=== PATIENT | male | born 1940 ===

== ENCOUNTER 2016-06-11 18:55 | Inpatient (IN) | payer MEDICARE, MEDICAID ==
[2016-06-11 18:56] VITALS: BMI 31.6
[2016-06-11 20:04] LABS: BASO # 0.1 K/uL (0.0-0.2); BASO % 1.1 % (0.0-2.0); EOS # 0.1 K/uL (0.0-0.7); EOS % 2.3 % (0.0-4.0); HEMATOCRIT 32.9 % (35.0-51.0); LYMPH # 1.2 K/uL (1.0-4.3); LYMPH % 18.6 % (20.0-40.0); MEAN CELL VOLUME 86.7 fl (80.0-94.0); MEAN CORPUSCULAR HEMOGLOBIN 28.5 pg (27.0-31.0); MEAN CORPUSCULAR HGB CONC 32.8 g/dL (33.0-37.0); MEAN PLATELET VOLUME 7.6 fl (7.2-11.7); MONO # 0.9 K/uL (0.0-0.8); MONO % 14.7 % (0.0-10.0); NEUT # 4.1 K/uL (1.8-7.0); NEUT % 63.3 % (50.0-75.0); NRBC % 0.1 % (0.0-0.0); RED CELL DISTRIBUTION WIDTH 15.2 % (11.5-14.5); WHITE BLOOD COUNT 6.4 K/uL (4.8-10.8)
[2016-06-11 20:18] LABS: BLOOD UREA NITROGEN 21 mg/dl (9-20); CALCIUM 10.4 mg/dL (8.4-10.2); CARBON DIOXIDE 21 mmol/L (22-30); CHLORIDE 105 mmol/L (98-107); GFR AFRICAN-AMERICAN > 60; GLUCOSE,RANDOM 166 mg/dL (75-110); POTASSIUM 4.8 MMOL/L (3.6-5.0); SODIUM 142 mmol/l (132-148)
[2016-06-11 20:37] LABS: PARTIAL THROMBOPLASTIN TIME 25.8 SECONDS (23.3-32.5)
--- NOTE | 2016-06-11 20:53 | ED PDOC ---
HPI: Chest Pain Time Seen by Provider: 06/11/16 19:49 Chief Complaint (Nursing): Chest Pain Chief Complaint (Provider): Left-Sided Chest Pain History Per: Patient, Family (Patient's daughter) History/Exam Limitations: no limitations Onset/Duration Of Symptoms: Days (x1) Additional Complaint(s): 19:49 Tenzin Johnson is a 76 year old male with a history of CAD, diabetes, and hypertension, as well as a past surgical history of CABG and coronary stents, is accompanied by his daughter that presents to the ED with a chief complaint of left sided chest pain that has radiated to his left shoulder and left arm that he began experiencing last night. Patient states that it feels as though his left arm is numb. He also reports that he has become increasingly short of breath with minimal exertion, but denies any fever or cough. PMD: Hamilton Mcknight Past Medical History Reviewed: Historical Data, Nursing Documentation, Vital Signs Vital Signs: Last Vital Signs Temp 98.4 F 06/11/16 19:06 Pulse 88 06/11/16 19:06 Resp 16 06/11/16 19:06 BP 194/99 H 06/11/16 19:06 Pulse Ox 98 06/11/16 21:06 - Medical History PMH: CAD, Diabetes, HTN Denies: Chronic Kidney Disease - Surgical History Surgical History: CABG (17 years ago), Coronary Stent (2012, stent x1) Denies: Pacemaker - Family History Family History: States: Unknown Family Hx - Home Medications Home Medications: Ambulatory Orders Medication Instructions Recorded Aspirin [Aspirin EC] 1 tab PO DAILY 06/11/16 Atorvastatin [Lipitor] 80 mg PO DAILY 06/11/16 Bimatoprost [Lumigan] 1 drop BOTHEYES DAILY 06/11/16 Clopidogrel [Plavix] 75 mg PO DAILY 06/11/16 Dexlansoprazole [Dexilant] 60 mg PO DAILY 06/11/16 Dicyclomine [Bentyl] 10 mg PO DAILY 06/11/16 Isosorbide Mononitrate [Imdur] 30 mg PO DAILY 06/11/16 Metoprolol Tartrate [Lopressor] 25 mg PO BID 06/11/16 Ranolazine [Ranexa] 500 mg PO BID 06/11/16 Ubidecarenone [Coenzyme Q-10] 200 mg PO BID 06/11/16 glyBURIDE [Micronase] 5 mg PO BID 06/11/16 metFORMIN [glucOPHAGE] 850 mg PO BID 06/11/16 - Allergies Allergies/Adverse Reactions: Allergies Allergy/AdvReac Type Severity Reaction Status Date / Time No Known Allergies Allergy Verified 06/11/16 19:05 Review of Systems Constitutional: Negative for: Fever Cardiovascular: Positive for: Chest Pain (left-sided) Respiratory: Negative for: Cough Musculoskeletal: Positive for: Shoulder Pain (left shoulder pain), Arm Pain ( left arm pain) Neurological: Positive for: Numbness (left arm numbness) Physical Exam - Reviewed Nursing Documentation Reviewed: Yes Vital Signs Reviewed: Yes - Physical Exam Appears: Positive for: Non-toxic, No Acute Distress Head Exam: Positive for: ATRAUMATIC, NORMOCEPHALIC Skin: Positive for: Normal Color, Warm Eye Exam: Positive for: Normal appearance, EOMI, PERRL ENT: Positive for: Normal ENT Inspection Cardiovascular/Chest: Positive for: Regular Rate, Rhythm, Chest Non Tender. Negative for: Murmur Respiratory: Positive for: Crackles (mild crackles at bases of lungs). Negative for: Normal Breath Sounds, Wheezing, Respiratory Distress Extremity: Positive for: Normal ROM. Negative for: Tenderness, Pedal Edema Neurologic/Psych: Positive for: Alert, Oriented - Laboratory Results Result Diagrams: 06/11/16 19:55 06/11/16 19:55 - ECG O2 Sat by Pulse Oximetry: 98 (RA) Pulse Ox Interpretation: Normal Medical Decision Making Medical Decision Makin:40 Initial Impression: r/o ACS Initial Plan: * Page Dr. Agudelo * PTT * PT * Chest X-Ray * Reevaluation 9PM: Spoke with covering physician for Dr. Agudelo (Dr. Mcknight covering), who agrees with admission. Spoke with Dr. Mckenzie who agrees with admission. Scribe Attestation: Documented by Emilia Schneider, acting as a scribe for Alvin Winchester MD. Provider Scribe Attestation: All medical record entries made by the Scribe were at my direction and personally dictated by me. I have reviewed the chart and agree that the record accurately reflects my personal performance of the history, physical exam, medical decision making, and the department course for this patient. I have also personally directed, reviewed, and agree with the discharge instructions and disposition. Disposition - Clinical Impression Clinical Impression: Chest pain - Disposition Disposition Time: 21:08 Condition: STABLE
[2016-06-11] MEDS ORDERED: Metoprolol 1 mg/ml Inj IVP STA ×2 (23:24→23:36)
[2016-06-11] MEDS ORDERED: Metoprolol 1 mg/ml Inj IVP ONE (23:31)
--- NOTE | 2016-06-11 23:59 | CT ---
EXAM: CT Chest With Intravenous Contrast CLINICAL HISTORY: 76 years old, male; Pain; Chest pain; Type not specified; Abdominal pain; Generalized; Additional info: R/O dissection. Sent suhas [place] Physician doc. With request TECHNIQUE: Axial computed tomography images of the chest with intravenous contrast during the arterial phase of enhancement. This CT exam was performed using one or more of the following dose reduction techniques: automated exposure control, adjustment of the mA and/or kV according to patient size, and/or use of iterative reconstruction technique. Coronal and sagittal reformatted images were created and reviewed. CONTRAST: 90 mL of [id number] administered intravenously. COMPARISON: No relevant prior studies available. FINDINGS: Pulmonary arteries: No pulmonary embolism. Aorta: Mild atherosclerotic disease of aorta. No aortic dissection. Lungs: Mild atelectasis. No consolidation. Pleural space: No significant effusion. No pneumothorax. Heart: No cardiomegaly. No significant pericardial effusion. Mediastinum: Small hiatal hernia. Thyroid: 3.1 x 2.0 x 1.8 cm heterogeneous nodule within LEFT lobe. Bones/joints: Median sternotomy. No acute fracture. No dislocation. Soft tissues: Unremarkable. Lymph nodes: No pathologically enlarged lymph nodes. IMPRESSION: 1. No aortic dissection. 2. Thyroid nodule. Followup as clinically warranted. 3. Incidental/non-acute findings are described above. EXAM: CT Abdomen and Pelvis With Intravenous Contrast CLINICAL HISTORY: 76 years old, male; Pain; Chest pain; Type not specified; Abdominal pain; Generalized; Additional info: R/O dissection. Sent eGrey Eason. Physician doc. With request TECHNIQUE: Axial computed tomography images of the abdomen and pelvis with intravenous contrast during the arterial phase of enhancement. This CT exam was performed using one or more of the following dose reduction techniques: automated exposure control, adjustment of the mA and/or kV according to patient size, and/or use of iterative reconstruction technique. Coronal and sagittal reformatted images were created and reviewed. CONTRAST: 90 mL of [id number] administered intravenously. COMPARISON: CT ABD AND PELV W/CONTRAST 02/28/2012 11:01:22 PM FINDINGS: VASCULATURE: Aorta: Moderate atherosclerotic disease of aorta. No aortic dissection. Celiac trunk and mesenteric arteries: Mild ostial stenosis of celiac axis. No occlusion. Renal arteries: No occlusion or significant stenosis. Iliac arteries: Mild atherosclerotic disease of iliac arteries. No occlusion or significant stenosis. ABDOMEN: Liver: No mass. Gallbladder and bile ducts: No calcified stones. No ductal dilation. Pancreas: No ductal dilation. No mass. Spleen: No splenomegaly. Adrenals: No mass. Kidneys and ureters: Mild stranding about kidneys, nonspecific. Too small to characterize lesion within LEFT kidney. No hydronephrosis. Stomach and bowel: No obstruction. No mucosal thickening. Appendix: Normal caliber. No inflammation. PELVIS: Bladder: No mass. Reproductive: Enlarged prostate gland. ABDOMEN and PELVIS: Intraperitoneal space: No significant fluid collection. No free air. Bones/joints: No acute fracture. No dislocation. Soft tissues: Unremarkable. Lymph nodes: No pathologically enlarged lymph nodes. IMPRESSION: 1. No aortic dissection. 2. Incidental/non-acute findings are described above.
[2016-06-12] MEDS ORDERED: Nitroglycerin 2% 15 INCH/30 GM TUBE TOP PRN (01:38)
[2016-06-12] MEDS ORDERED: Pneumococcal 23-Valent Vaccine IM ONE (07:03)
[2016-06-12] MEDS ORDERED: Influenza Vaccine(5yr & older) 0.5 ML/45 MCG IM ONE (07:03)
[2016-06-12 07:29] LABS: ALB/GLOB RATIO 1.2 (1.0-2.1); ALKALINE PHOSPHATASE 96 U/L (38-126); ALT/SGPT 29 U/L (21-72); AST/SGOT 29 U/L (17-59); BILIRUBIN,TOTAL 0.7 mg/dl (0.2-1.3); BLOOD UREA NITROGEN 17 mg/dl (9-20); CALCIUM 10.2 mg/dL (8.4-10.2); CARBON DIOXIDE 26 mmol/L (22-30); CHLORIDE 103 mmol/L (98-107); GFR AFRICAN-AMERICAN > 60; GLUCOSE,RANDOM 126 mg/dL (75-110); POTASSIUM 4.1 MMOL/L (3.6-5.0); SODIUM 142 mmol/l (132-148); TOTAL PROTEIN 7.7 G/DL (6.3-8.2)
[2016-06-12] MEDS ORDERED: Patient's Own Med (Ubidecarenone [Coenzyme Q-10] 200 mg) PO SCH (09:00)
[2016-06-12] MEDS ORDERED: Patient's Own Med (Bimatoprost [Lumigan] 1 DROP) BOTHEYES SCH (09:00)
[2016-06-12] MEDS: Aspirin 325 mg EC Tablets PO SCH (09:44)
[2016-06-12] MEDS: Pantoprazole 40 mg EC Tab PO SCH (09:46)
--- NOTE | 2016-06-12 11:21 | CARD ---
APPROVED REPORT EKG Measurement Heart [id number] <Conclusion> Normal sinus rhythm Normal ECG
--- NOTE | 2016-06-12 14:11 | RAD ---
HISTORY: chest pain COMPARISON: 06/11/2016 FINDINGS: LUNGS: No active pulmonary disease. PLEURA: No significant pleural effusion identified, no pneumothorax apparent. CARDIOVASCULAR: Status post CABG OSSEOUS STRUCTURES: No significant abnormalities. VISUALIZED UPPER ABDOMEN: Normal. OTHER FINDINGS: None. IMPRESSION: No active disease.
--- NOTE | 2016-06-12 14:29 | CP.PCM.HP ---
History of Present Illness - History of Present Illness History of Present Illness: Pt is a 76 year old male with a history of CAD, diabetes, and hypertension, as well as a pasthistory of CABG and coronary stents, is accompanied by his daughter that presents to the ED with a chief complaint of left sided chest pain that has radiated to his left shoulder and left arm began experiencing last night. Patient states that it feels as though his left arm is numb. He also reports that he has become increasingly short of breath with minimal exertion, but denies any fever or cough. Pt seen and examined at bedside this morning, does not have any complaints, reports chest pain has resolved. denies sob, nausea, vomiting, dizziness. Present on Admission - Present on Admission Any Indicators Present on Admission: No Review of Systems - Review of Systems All systems: reviewed and no additional remarkable complaints except Review of Systems: Per HPI Past Patient History - Infectious Disease Hx of Infectious Diseases: None - Past Medical History & Family History Past Medical History?: Yes - Past Social History Smoking Status: Former Smoker - CARDIAC Hx Cardiac Disorders: Yes Hx Circulatory Problems: Yes Other/Comment: CABG cardiac stents 2008; - PULMONARY Hx Respiratory Disorders: No - NEUROLOGICAL Hx Neurological Disorder: No - HEENT Hx HEENT Problems: No 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; 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) - RENAL Hx Chronic Kidney Disease: No - ENDOCRINE/METABOLIC Hx Endocrine Disorders: Yes Hx Diabetes Mellitus Type 2: Yes Other/Comment: DM diagnosed 20 years ago - HEMATOLOGICAL/ONCOLOGICAL Hx Blood Disorders: No - INTEGUMENTARY Hx Dermatological Problems: No - MUSCULOSKELETAL/RHEUMATOLOGICAL Hx Musculoskeletal Disorders: No Hx Falls: Yes (more than 1 year ago) - GASTROINTESTINAL Hx Gastrointestinal Disorders: Yes Hx Constipation: Yes - GENITOURINARY/GYNECOLOGICAL Hx Genitourinary Disorders: No - PSYCHIATRIC Hx Psychophysiologic Disorder: No Hx Substance Use: No - SURGICAL HISTORY Hx Surgeries: Yes Hx Coronary Artery Bypass Graft: Yes (17 years ago) Hx Coronary Stent: Yes (2012, stent x1) - ANESTHESIA Hx Anesthesia: Yes Hx Anesthesia Reactions: No Hx Malignant Hyperthermia: No Has any member of the family had a problem w/ anesthesia?: No Meds Allergies/Adverse Reactions: Allergies Allergy/AdvReac Type Severity Reaction Status Date / Time No Known Allergies Allergy Verified 06/11/16 19:05 Physical Exam - Constitutional Appears: Non-toxic, No Acute Distress - Head Exam Head Exam: NORMOCEPHALIC - Eye Exam Eye Exam: Normal appearance - ENT Exam ENT Exam: Mucous Membranes Moist - Respiratory Exam Respiratory Exam: Clear to Auscultation Bilateral, NORMAL BREATHING PATTERN. absent: Rhonchi, Wheezes - Cardiovascular Exam Cardiovascular Exam: REGULAR RHYTHM, +S1, +S2 - GI/Abdominal Exam GI & Abdominal Exam: Normal Bowel Sounds, Soft. absent: Tenderness - Extremities Exam Extremities exam: Negative for: calf tenderness, pedal edema - Neurological Exam Neurological exam: Alert, CN II-XII Intact Results - Vital Signs Recent Vital Signs: Last Vital Signs Temp 97.5 F L 06/12/16 13:00 Pulse 74 06/12/16 13:00 Resp 18 06/12/16 13:00 BP 100/61 06/12/16 13:00 Pulse Ox 98 06/12/16 13:00 - Labs Result Diagrams: 06/11/16 19:55 06/12/16 06:30 Labs: Laboratory Results - last 24 hr 06/12/16 06/12/16 05:24 06:30 Sodium 142 Potassium 4.1 Chloride 103 Carbon Dioxide 26 Anion Gap 18 BUN 17 Creatinine 1.0 Est GFR ( Amer) > 60 Est GFR (Non-Af Amer) > 60 POC Glucose (mg/dL) 124 H Random Glucose 126 H Calcium 10.2 Total Bilirubin 0.7 AST 29 ALT 29 Alkaline Phosphatase 96 Troponin I 0.0640 Total Protein 7.7 Albumin 4.3 Globulin 3.4 Albumin/Globulin Ratio 1.2 Assessment & Plan - Assessment and Plan (Free Text) Assessment: 76 y/o male with history of diabetes, HTN and history of CABG admitted for chest pain r/o ACS Plan: 1. Chest Pain r/o ACS trop 2x negative. f/u 3rd level cardiology consulted monitor 2. Non-insulin dependent diabetic accucheck resume home meds ssi 3. HTN resume home meds 5. diet- diabetic 6. DVT prophylaxis- lovenox SC 40mg daily
--- NOTE | 2016-06-12 14:52 | RAD ---
HISTORY: hx of CABG, p/w CP COMPARISON: Comparison chest dated 09/25/2012. FINDINGS: LUNGS: Mild bibasilar atelectasis and or scarring changes. PLEURA: Questionable tiny bilateral effusions left larger than right no pneumothorax apparent. CARDIOVASCULAR: Sternotomy wires and CABG clips again noted. Heart does appear enlarged. OSSEOUS STRUCTURES: No significant abnormalities. VISUALIZED UPPER ABDOMEN: Normal. OTHER FINDINGS: None. IMPRESSION: Mild chronic bibasilar atelectasis and or scarring changes. . Questionable tiny bilateral effusions left greater than right
[2016-06-12] MEDS: Insulin Regular 100 units/ml SC SCH ×2 (17:11→21:42)
--- NOTE | 2016-06-12 19:54 | CP.PCM.CON ---
History of Present Illness - History of Present Illness History of Present Illness: I was asked to see patient by Dr. Mckenzie. Patient is a 76 year old male with history of HTN, DM, CAD s/p CABG who presents with chest pain. The patient has had previous CABG and coronary stents , performed at [place]. The patient states he developed chest pain which was right sided. There was some association with movemment of the upper extremity. The patient denies dyspnea. cardiac enzymes are negative. Review of Systems - Constitutional Constitutional: absent: As Per HPI, Anorexia, Chills, Daytime Sleepiness, Excessive Sweating, Fatigue, Fever, Frequent Falls, Headache, Increased Appetite , Lethargy, Malaise, Night Sweats, Snoring, Sleep Apnea, Weight Gain, Weight Loss, Weakness, Other - EENT Eyes: absent: As Per HPI, Blind Spots, Blurred Vision, Change in Vision, Decreased Night Vision, Diplopia, Discharge, Dry Eye, Exophthalmos, Floaters, Irritation, Itchy Eyes, Loss of Peripheral Vision, Pain, Photophobia, Requires Corrective Lenses, Sees Flashes, Spots in Vision, Tunnel Vision, Other Visual Disturbances, Loss of Vision, Other Ears: absent: As Per HPI, Decreased Hearing, Ear Discharge, Ear Pain, Tinnitus, Abnormal Hearing, Disequilibrium, Dizziness, Other Nose/Mouth/Throat: absent: As Per HPI, Epistaxis, Nasal Congestion, Nasal Discharge, Nasal Obstruction, Nasal Trauma, Nose Pain, Post Nasal Drip, Sinus Pain, Sinus Pressure, Bleeding Gums, Change in Voice, Dental Pain, Dry Mouth, Dysphagia, Halitosis, Hoarsness, Lip Swelling, Mouth Lesions, Mouth Pain, Odynophagia, Sore Throat, Throat Swelling, Tongue Swelling, Facial Pain, Neck Pain, Neck Mass, Other - Cardiovascular Cardiovascular: Chest Pain - Respiratory Respiratory: absent: As Per HPI, Cough, Dyspnea, Hemoptysis, Dyspnea on Exertion , Wheezing, Snoring, Stridor, Pain on Inspiration, Chest Congestion, Excessive Mucous Production, Change in Mucous Color, Pain with Coughing, Other - Musculoskeletal Musculoskeletal: absent: As Per HPI, Abnormal Gait, Arthralgias, Atrophy, Back Pain, Deformity, Joint Swelling, Limited Range of Motion, Loss of Height, Muscle Cramps, Muscle Weakness, Myalgias, Neck Pain, Numbness, Radiating Pain into Limb, Stiffness, Tingling, Other - Integumentary Integumentary: absent: As Per HPI, Acne, Alopecia, Bleeding Lesions, Change in Hair, Change in Nails, Change in Pigmentation, Changing Lesions, Dry Skin, Erythema, Furuncle, Hirsutism, Lesions, New Lesions, Non-Healing Lesions, Photosensitivity, Pruritus, Rash, Skin Pain, Skin Ulcer, Sores, Striae, Swelling , Unusual Bruising, Wounds, Jaundice, Other - Neurological Neurological: absent: As Per HPI, Abnormal Gait, Abnormal Hearing, Abnormal Movements, Abnormal Speech, Behavioral Changes, Burning Sensations, Confusion, Convulsions, Disequilibrium, Dizziness, Numbness, Focal Weakness, Frequent Falls , Headaches, Lack of Coordination, Loss of Vision, Memory Loss, Paresthesias, Radicular Pain, Restless Legs, Sensory Deficit, Syncope, Tingling, Tremor, Vertigo, Weakness, Other Visual Disturbances, Other - Psychiatric Psychiatric: absent: As Per HPI, Abnormal Sleep Pattern, Anhedonia, Anxiety, Auditory Hallucinations, Behavioral Changes, Change in Appetite, Change in Libido, Confusion, Depression, Difficulty Concentrating, Hallucinations, Homicidal Ideation, Hopelessness, Irritability, Memory Loss, Mood Swings, Panic Attacks, Paranoia, Suicidal Ideation, Visual Hallucinations, Tactile Hallucinations, Other - Endocrine Endocrine: absent: As Per HPI, Change in Body Appearance, Change in Libido, Cold Intolorance, Deepening of Voice, Excessive Sweating, Fatigue, Flushing, Heat Intolorance, Increase in Ring/Shoe/Hat Size, Palpitations, Polydipsia, Polyphagia, Polyuria, Other - Hematologic/Lymphatic Hematologic: absent: As Per HPI, Easy Bleeding, Easy Bruising, Lymphadenopathy, Other Past Patient History - Infectious Disease Hx of Infectious Diseases: None - Past Medical History & Family History Past Medical History?: Yes - Past Social History Smoking Status: Former Smoker - CARDIAC Hx Cardiac Disorders: Yes Hx Circulatory Problems: Yes Other/Comment: CABG cardiac stents 2008; - PULMONARY Hx Respiratory Disorders: No - NEUROLOGICAL Hx Neurological Disorder: No - HEENT Hx HEENT Problems: No 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; 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) - RENAL Hx Chronic Kidney Disease: No - ENDOCRINE/METABOLIC Hx Endocrine Disorders: Yes Hx Diabetes Mellitus Type 2: Yes Other/Comment: DM diagnosed 20 years ago - HEMATOLOGICAL/ONCOLOGICAL Hx Blood Disorders: No - INTEGUMENTARY Hx Dermatological Problems: No - MUSCULOSKELETAL/RHEUMATOLOGICAL Hx Musculoskeletal Disorders: No Hx Falls: Yes (more than 1 year ago) - GASTROINTESTINAL Hx Gastrointestinal Disorders: Yes Hx Constipation: Yes - GENITOURINARY/GYNECOLOGICAL Hx Genitourinary Disorders: No - PSYCHIATRIC Hx Psychophysiologic Disorder: No Hx Substance Use: No - SURGICAL HISTORY Hx Surgeries: Yes Hx Coronary Artery Bypass Graft: Yes (17 years ago) Hx Coronary Stent: Yes (2013, stent x1) - ANESTHESIA Hx Anesthesia: Yes Hx Anesthesia Reactions: No Hx Malignant Hyperthermia: No Has any member of the family had a problem w/ anesthesia?: No Meds Allergies/Adverse Reactions: Allergies Allergy/AdvReac Type Severity Reaction Status Date / Time No Known Allergies Allergy Verified 06/11/16 19:05 - Medications Medications: Current Medications Acetaminophen (Tylenol 325mg Tab) 650 mg PO Q4 PRN PRN Reason: Headache Aspirin (Ecotrin) 325 mg PO DAILY [facility] Last Admin: 06/12/16 09:44 Dose: 325 mg Atorvastatin Calcium (Lipitor) 80 mg PO DAILY [facility] Last Admin: 06/12/16 09:45 Dose: 80 mg Clopidogrel Bisulfate (Plavix) 75 mg PO DAILY [facility] Last Admin: 06/12/16 09:46 Dose: 75 mg Dicyclomine HCl (Bentyl) 10 mg PO DAILY [facility] Last Admin: 06/12/16 09:44 Dose: 10 mg Glyburide (Micronase) 5 mg PO BID [facility] Last Admin: 06/12/16 17:13 Dose: 5 mg Home Med (Ranolazine [Ranexa]) 500 mg PO BID [facility] Home Med (Ubidecarenone [Coenzyme Q-10]) 200 mg PO BID [facility] Insulin Human Regular (Humulin R) 0 units [facility] PRN Reason: Protocol Last Admin: 06/12/16 17:11 Dose: Not Given Isosorbide Mononitrate (Imdur) 30 mg PO DAILY [facility] Last Admin: 06/12/16 09:45 Dose: 30 mg Latanoprost (Xalatan Opht) 1 drop OU HS [facility] Metformin HCl (Glucophage) 850 mg PO BID [facility] Last Admin: 06/12/16 17:12 Dose: 850 mg Metoprolol Tartrate (Lopressor) 25 mg PO BID [facility] Last Admin: 06/12/16 17:13 Dose: Not Given Nitroglycerin (Nitro-Bid) 0.5 appl TOP Q6 PRN PRN Reason: chest pain Pantoprazole Sodium (Protonix Ec Tab) 40 mg PO DAILY [facility] Last Admin: 06/12/16 09:46 Dose: 40 mg Physical Exam - Constitutional Appears: Non-toxic - Head Exam Head Exam: NORMAL INSPECTION - Eye Exam Eye Exam: Normal appearance - ENT Exam ENT Exam: Mucous Membranes Moist - Neck Exam Neck exam: Positive for: Full Rom - Respiratory Exam Respiratory Exam: Decreased Breath Sounds - Cardiovascular Exam Cardiovascular Exam: REGULAR RHYTHM - GI/Abdominal Exam GI & Abdominal Exam: Normal Bowel Sounds - Rectal Exam Rectal Exam: Deferred - Extremities Exam Extremities exam: Negative for: pedal edema - Back Exam Back exam: NORMAL INSPECTION - Neurological Exam Neurological exam: Alert, Oriented x3 - Psychiatric Exam Psychiatric exam: Normal Affect - Skin Skin Exam: Normal Color Results - Vital Signs Recent Vital Signs: Last Vital Signs Temp 98.2 F 06/12/16 16:32 Pulse 76 06/12/16 17:13 Resp 18 06/12/16 16:32 BP 95/49 L 06/12/16 17:13 Pulse Ox 96 06/12/16 16:32 - Labs Result Diagrams: 06/11/16 19:55 06/12/16 06:30 Labs: Laboratory Results - last 24 hr 06/12/16 06/12/16 06/12/16 05:24 06:30 11:40 Sodium 142 Potassium 4.1 Chloride 103 Carbon Dioxide 26 Anion Gap 18 BUN 17 Creatinine 1.0 Est GFR ( Amer) > 60 Est GFR (Non-Af Amer) > 60 POC Glucose (mg/dL) 124 H 242 H Random Glucose 126 H Calcium 10.2 Total Bilirubin 0.7 AST 29 ALT 29 Alkaline Phosphatase 96 Troponin I 0.0640 Total Protein 7.7 Albumin 4.3 Globulin 3.4 Albumin/Globulin Ratio 1.2 06/12/16 16:15 Sodium Potassium Chloride Carbon Dioxide Anion Gap BUN Creatinine Est GFR ( Amer) Est GFR (Non-Af Amer) POC Glucose (mg/dL) 104 Random Glucose Calcium Total Bilirubin AST ALT Alkaline Phosphatase Troponin I Total Protein Albumin Globulin Albumin/Globulin Ratio - EKG Data EKG Interpreted by: Myself EKG shows normal: Sinus rhythm Assessment & Plan (1) Chest pain Assessment and Plan: patient hs ruled our for myocardial infarction. recommend discharge to home. 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 Status: Acute (2) CAD (coronary artery disease) of artery bypass graft Assessment and Plan: antiplatellet therapy Status: Acute (3) HTN (hypertension) Assessment and Plan: blood pressure control Status: Acute (4) Hypercholesterolemia Assessment and Plan: recommend statin therapy. goal LDL <100 Status: Acute
[2016-06-12] MEDS ORDERED: Latanoprost 0.005% Opht SOUTION OU SCH (22:00)
[2016-06-13] MEDS: Insulin Regular 100 units/ml SC SCH (06:58)
[2016-06-13] MEDS: Aspirin 325 mg EC Tablets PO SCH (08:58)
[2016-06-13] MEDS: Pantoprazole 40 mg EC Tab PO SCH (08:59)
[2016-06-13 09:00] VITALS: BP 114/58; PULSE 81
[2016-06-13 09:41] VITALS: RESP 20; TEMP 98.7; O2SAT 96
--- NOTE | 2016-06-13 11:04 | CP.PCM.DIS ---
Provider - Provider Date of Admission: 06/11/16 22:23 Attending physician: Wolf Mckenzie MD Hospital Course - Lab Results Lab Results: Most Recent Lab Values WBC 6.4 K/uL (4.8-10.8) 06/11/16 19:55 RBC 3.79 Mil/uL (4.40-5.90) L 06/11/16 19:55 Hgb 10.8 g/dL (12.0-18.0) L 06/11/16 19:55 Hct 32.9 % (35.0-51.0) L 06/11/16 19:55 MCV 86.7 fl (80.0-94.0) 06/11/16 19:55 MCH 28.5 pg (27.0-31.0) 06/11/16 19:55 MCHC 32.8 g/dL (33.0-37.0) L 06/11/16 19:55 RDW 15.2 % (11.5-14.5) H 06/11/16 19:55 Plt Count 267 K/uL (130-400) 06/11/16 19:55 MPV 7.6 fl (7.2-11.7) 06/11/16 19:55 Neut % (Auto) 63.3 % (50.0-75.0) 06/11/16 19:55 Lymph % (Auto) 18.6 % (20.0-40.0) L 06/11/16 19:55 Madison % (Auto) 14.7 % (0.0-10.0) H 06/11/16 19:55 Eos % (Auto) 2.3 % (0.0-4.0) 06/11/16 19:55 Baso % (Auto) 1.1 % (0.0-2.0) 06/11/16 19:55 Neut # 4.1 K/uL (1.8-7.0) 06/11/16 19:55 Lymph # 1.2 K/uL (1.0-4.3) 06/11/16 19:55 Madison # 0.9 K/uL (0.0-0.8) H 06/11/16 19:55 Eos # 0.1 K/uL (0.0-0.7) 06/11/16 19:55 Baso # 0.1 K/uL (0.0-0.2) 06/11/16 19:55 PT 11.1 SECONDS (9.6-11.2) 06/11/16 19:55 INR 1.07 (0.92-1.08) 06/11/16 19:55 APTT 25.8 SECONDS (23.3-32.5) 06/11/16 19:55 Sodium 142 mmol/l (132-148) 06/12/16 06:30 Potassium 4.1 MMOL/L (3.6-5.0) 06/12/16 06:30 Chloride 103 mmol/L (98-107) 06/12/16 06:30 Carbon Dioxide 26 mmol/L (22-30) 06/12/16 06:30 Anion Gap 18 (10-20) 06/12/16 06:30 BUN 17 mg/dl (9-20) 06/12/16 06:30 Creatinine 1.0 mg/dL (0.8-1.5) 06/12/16 06:30 Est GFR ( Amer) > 60 06/12/16 06:30 Est GFR (Non-Af Amer) > 60 06/12/16 06:30 POC Glucose (mg/dL) 129 mg/dL (65-110) H 06/13/16 05:19 Random Glucose 126 mg/dL (75-110) H 06/12/16 06:30 Calcium 10.2 mg/dL (8.4-10.2) 06/12/16 06:30 Total Bilirubin 0.7 mg/dl (0.2-1.3) 06/12/16 06:30 AST 29 U/L (17-59) 06/12/16 06:30 ALT 29 U/L (21-72) 06/12/16 06:30 Alkaline Phosphatase 96 U/L (38-126) 06/12/16 06:30 Troponin I 0.0400 ng/mL (0.00-0.120) 06/12/16 19:13 NT-Pro-B Natriuret Pep 221 pg/ml (0-900) 06/11/16 19:55 Total Protein 7.7 G/DL (6.3-8.2) 06/12/16 06:30 Albumin 4.3 g/dL (3.5-5.0) 06/12/16 06:30 Globulin 3.4 gm/dL (2.2-3.9) 06/12/16 06:30 Albumin/Globulin Ratio 1.2 (1.0-2.1) 06/12/16 06:30 - Hospital Course Hospital Course: This is a 76 y/o male admitted for chest pain. Discharge Exam - Head Exam Head Exam: NORMAL INSPECTION Discharge Plan - Follow Up Plan Condition: STABLE Disposition: HOME/ ROUTINE
== END 2016-06-13 12:20 | disposition home or self-care (01) | DRG 313 ==
LOC: H.ER 18:55 → H.ERHOLD 21:03 → OBSVTOIN 21:03 → INTOOBSV 22:23 → H.TEL 06-12 00:29
PROVIDERS: ADMIT Family Medicine; ATTEND Family Medicine
PROC: 3E0234Z Introduction of Serum, Toxoid and Vaccine into Muscle, Percutaneous Approach (ICD-10-PCS; principal; 2016-06-12)
DX: R07.89 Other chest pain (principal); I25.10 Atherosclerotic heart disease of native coronary artery without angina pectoris; E11.9 Type 2 diabetes mellitus without complications; I10 Essential (primary) hypertension; Z95.5 Presence of coronary angioplasty implant and graft; Z87.891 Personal history of nicotine dependence; H91.92 Unspecified hearing loss, left ear; K59.00 Constipation, unspecified; E78.00 Pure hypercholesterolemia, unspecified; Z23 Encounter for immunization

== ENCOUNTER 2017-01-07 13:50 | Inpatient (IN) | payer OTHER, MEDICAID ==
[2017-01-07 13:50] VITALS: BMI 31.6
[2017-01-07] MEDS ORDERED: Sodium Chloride 0.9% 500 ML IV STA (14:23)
--- NOTE | 2017-01-07 14:25 | ED PDOC ---
HPI: Abdomen Time Seen by Provider: 01/07/17 14:11 Chief Complaint (Nursing): Dizziness/Lightheaded Chief Complaint (Provider): Abdominal pain, dizziness History Per: Patient, Family History/Exam Limitations: no limitations Onset/Duration Of Symptoms: Intermittent Episodes (since last year) Current Symptoms Are (Timing): Still Present Additional Complaint(s): Tenzin is a 76 y/o male with coronary artery disease, diabetes, and hypertension who presents to the ED complaining of intermittent episodes of abdominal pain and dizziness since last year. Episodes begin with abdominal pain radiating from the lower abdominal towards his chest, with resulting dizziness and headache. Headache is not the worst of his life. Denies nausea, vomiting, shortness of breath, numbness, tingling, and weakness. Patient has been followed by Dr. Fuller for the abdominal pain and had an endoscopy and colonoscopy. GI: Dr. Fuller Cardiology: Dr. Agudelo PMD: Dr. Hamilton Mcknight Past Medical History Reviewed: Historical Data, Nursing Documentation, Vital Signs Vital Signs: Last Vital Signs Temp 97.8 F 01/07/17 13:52 Pulse 82 01/07/17 13:52 Resp 18 01/07/17 13:52 BP 200/100 H 01/07/17 13:52 Pulse Ox 100 01/07/17 14:53 - Medical History PMH: CAD, Diabetes, HTN Denies: Chronic Kidney Disease - Surgical History Surgical History: CABG (17 years ago), Coronary Stent (2012, stent x1) Denies: Pacemaker - Family History Family History: States: Unknown Family Hx - Living Arrangements Living Arrangements: With Family - Social History Current smoker - smoking cessation education provided: No Alcohol: None Drugs: Denies - Home Medications Home Medications: Ambulatory Orders Medication Instructions Recorded Aspirin [Aspirin EC] 1 tab PO DAILY 06/11/16 Atorvastatin [Lipitor] 80 mg PO DAILY 06/11/16 Bimatoprost [Lumigan] 1 drop BOTHEYES DAILY 06/11/16 Clopidogrel [Plavix] 75 mg PO DAILY 06/11/16 Dexlansoprazole [Dexilant] 60 mg PO DAILY 06/11/16 Dicyclomine [Bentyl] 10 mg PO DAILY 06/11/16 Isosorbide Mononitrate ER [Imdur 30 mg PO DAILY 06/11/16 ER] Metoprolol Tartrate [Lopressor] 25 mg PO BID 06/11/16 Ranolazine [Ranexa] 500 mg PO BID 06/11/16 Ubidecarenone [Coenzyme Q-10] 200 mg PO BID 06/11/16 glyBURIDE [Micronase] 5 mg PO BID 06/11/16 metFORMIN [glucOPHAGE] 850 mg PO BID 06/11/16 - Allergies Allergies/Adverse Reactions: Allergies Allergy/AdvReac Type Severity Reaction Status Date / Time No Known Allergies Allergy Verified 06/11/16 19:05 Review of Systems ROS Statement: Except As Marked, All Systems Reviewed And Found Negative Constitutional: Negative for: Fever, Chills Cardiovascular: Positive for: Chest Pain Respiratory: Negative for: Shortness of Breath Gastrointestinal: Positive for: Abdominal Pain. Negative for: Nausea, Vomiting , Diarrhea Neurological: Positive for: Headache, Dizziness. Negative for: Weakness, Numbness, Other (Tingling) Physical Exam - Reviewed Nursing Documentation Reviewed: Yes Vital Signs Reviewed: Yes - Physical Exam Appears: Positive for: Well, Non-toxic, No Acute Distress Head Exam: Positive for: ATRAUMATIC, NORMAL INSPECTION, NORMOCEPHALIC Skin: Positive for: Normal Color, Warm, Dry Eye Exam: Positive for: EOMI, Normal appearance, PERRL Neck: Positive for: Normal, Painless ROM, Supple Cardiovascular/Chest: Positive for: Regular Rate, Rhythm. Negative for: Murmur Respiratory: Positive for: Normal Breath Sounds. Negative for: Respiratory Distress Gastrointestinal/Abdominal: Positive for: Normal Exam, Soft. Negative for: Tenderness Back: Positive for: Normal Inspection. Negative for: L CVA Tenderness, R CVA Tenderness, Vertebral Tenderness Extremity: Positive for: Normal ROM, Capillary Refill (< 2 seconds). 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 Negative for: Motor/Sensory Deficits, Aphasia - ECG O2 Sat by Pulse Oximetry: 100 (RA) Pulse Ox Interpretation: Normal - Progress ED Course And Treament: 1455: Stable. Dr. Reina to take over care. Fu imaging and labs. Disposition - Clinical Impression Clinical Impression: Dizziness, Chest pain - Patient ED Disposition Is Patient to be Admitted: Transfer of Care - Disposition Disposition: Transfer of Care Disposition Time: 14:56 Condition: STABLE Patient Signed Over To: Aline Reina
[2017-01-07 15:10] LABS: ALB/GLOB RATIO 1.3 (1.0-2.1); ALKALINE PHOSPHATASE 97 U/L (38-126); ALT/SGPT 30 U/L (21-72); AST/SGOT 30 U/L (17-59); BILIRUBIN,TOTAL 0.5 mg/dl (0.2-1.3); BLOOD UREA NITROGEN 18 mg/dl (9-20); CALCIUM 10.7 mg/dL (8.4-10.2); CARBON DIOXIDE 23 mmol/L (22-30); CHLORIDE 105 mmol/L (98-107); GFR AFRICAN-AMERICAN > 60; GLUCOSE,RANDOM 117 mg/dL (75-110); LIPASE 68 U/L (23-300); POTASSIUM 4.6 MMOL/L (3.6-5.0); SODIUM 142 mmol/l (132-148); TOTAL PROTEIN 8.7 G/DL (6.3-8.2)
[2017-01-07 15:19] LABS: BASO # 0.1 K/uL (0.0-0.2); BASO % 0.9 % (0.0-2.0); EOS # 0.1 K/uL (0.0-0.7); EOS % 1.1 % (0.0-4.0); HEMATOCRIT 37.9 % (35.0-51.0); LYMPH # 1.1 K/uL (1.0-4.3); LYMPH % 12.7 % (20.0-40.0); MEAN CELL VOLUME 85.6 fl (80.0-94.0); MEAN CORPUSCULAR HEMOGLOBIN 28.1 pg (27.0-31.0); MEAN CORPUSCULAR HGB CONC 32.8 g/dL (33.0-37.0); MEAN PLATELET VOLUME 7.5 fl (7.2-11.7); MONO % 11.6 % (0.0-10.0); NEUT # 6.1 K/uL (1.8-7.0); NEUT % 73.7 % (50.0-75.0); NRBC % 0.2 % (0.0-0.0); RED CELL DISTRIBUTION WIDTH 16.9 % (11.5-14.5); WHITE BLOOD COUNT 8.3 K/uL (4.8-10.8)
--- NOTE | 2017-01-07 15:29 | ED PDOC ---
- Laboratory Results Result Diagrams: 01/07/17 14:48 01/07/17 14:48 - ECG ECG: Positive for: Interpreted By Me ECG Rhythm: Positive for: Normal QRS, Normal ST Segment, Sinus Rhythm O2 Sat by Pulse Oximetry: 100 (RA) Pulse Ox Interpretation: Normal Medical Decision Making Medical Decision Making: Time: 15:00 --Patient is signed out to me by Dr. Percy Victor, pending ER work up, reassessment, and final disposition. --Pt will be hospitalized for cardiac symptoms with serious cardiac risk factors. On my evaluation pt reports dizziness without headache. Pending Antivert. Accession No. : [id number] Patient Name / ID : JUAN CARLOS WALKER / [id number] Exam Date : 01/07/2017 15:31:26 ( Approved ) Study Comment : Sex / Age : M / 76Y Creator : Christopher Tenorio MD Dictator : Christopher Tenorio MD Actuarial Associate : Test Department Helper : Christopher Tenorio MD Approver2 : Report Date : 01/07/2017 15:43:37 My Comment : PROCEDURE: CT HEAD WITHOUT CONTRAST. HISTORY: headache COMPARISON: None available. TECHNIQUE: Axial computed tomography images were obtained through the head/brain without intravenous contrast. Radiation dose: Total exam DLP = 768.98 mGy-cm. This CT exam was performed using one or more of the following dose reduction techniques: Automated exposure control, adjustment of the mA and/or kV according to patient size, and/or use of iterative reconstruction technique. FINDINGS: HEMORRHAGE: No intracranial hemorrhage. BRAIN: No mass effect or edema. Mild age-appropriate frontal atrophy. Small bilateral basal ganglia lacunar infarcts. No evidence of acute infarct. Minimal chronic periventricular white matter ischemic change. VENTRICLES: Unremarkable. No hydrocephalus. CALVARIUM: Unremarkable. PARANASAL SINUSES: Chronic right maxillary sinusitis MASTOID AIR CELLS: Unremarkable as visualized. No inflammatory changes. OTHER FINDINGS: None. IMPRESSION: No intracranial mass, hemorrhage or evidence of acute infarct. Chronic right maxillary sinusitis. Labs unremarkable. Scribe Attestation: Documented by Alexa Junior, acting as a scribe for Aline Reina MD Provider Scribe Attestation: All medical record entries made by the Scribe were at my direction and personally dictated by me. I have reviewed the chart and agree that the record accurately reflects my personal performance of the history, physical exam, medical decision making, and the department course for this patient. I have also personally directed, reviewed, and agree with the discharge instructions and disposition. Disposition Discussed With : Wolf Mckenzie Doctor Will See Patient In The: Hospital Counseled Patient/Family Regarding: Studies Performed - Clinical Impression Clinical Impression: Dizziness, CAD (coronary artery disease) of artery bypass graft - POA Present On Arrival: Poor Glycemic Control - Disposition Disposition: Hospitalized as Observation Patient Disposition Time: 15:00 Condition: GUARDED
--- NOTE | 2017-01-07 15:45 | CT ---
PROCEDURE: CT HEAD WITHOUT CONTRAST. HISTORY: headache COMPARISON: None available. TECHNIQUE: Axial computed tomography images were obtained through the head/brain without intravenous contrast. Radiation dose: Total exam DLP = 768.98 mGy-cm. This CT exam was performed using one or more of the following dose reduction techniques: Automated exposure control, adjustment of the mA and/or kV according to patient size, and/or use of iterative reconstruction technique. FINDINGS: HEMORRHAGE: No intracranial hemorrhage. BRAIN: No mass effect or edema. Mild age-appropriate frontal atrophy. Small bilateral basal ganglia lacunar infarcts. No evidence of acute infarct. Minimal chronic periventricular white matter ischemic change. VENTRICLES: Unremarkable. No hydrocephalus. CALVARIUM: Unremarkable. PARANASAL SINUSES: Chronic right maxillary sinusitis MASTOID AIR CELLS: Unremarkable as visualized. No inflammatory changes. OTHER FINDINGS: None. IMPRESSION: No intracranial mass, hemorrhage or evidence of acute infarct. Chronic right maxillary sinusitis.
--- NOTE | 2017-01-07 16:29 | RAD ---
HISTORY: dyspnea COMPARISON: 06/12/2016 FINDINGS: LUNGS: No active pulmonary disease. PLEURA: No significant pleural effusion identified, no pneumothorax apparent. CARDIOVASCULAR: Normal heart size. Sternotomy wires. No congestive change. OSSEOUS STRUCTURES: No significant abnormalities. VISUALIZED UPPER ABDOMEN: Normal. OTHER FINDINGS: None. IMPRESSION: No active disease.
[2017-01-08 06:09] LABS: HEMATOCRIT 35.6 % (35.0-51.0); MEAN CELL VOLUME 86.2 fl (80.0-94.0); MEAN CORPUSCULAR HEMOGLOBIN 27.8 pg (27.0-31.0); MEAN CORPUSCULAR HGB CONC 32.2 g/dL (33.0-37.0); RED CELL DISTRIBUTION WIDTH 16.9 % (11.5-14.5); WHITE BLOOD COUNT 7.4 K/uL (4.8-10.8)
[2017-01-08 07:28] LABS: CALCIUM 10.3 mg/dL (8.4-10.2); POTASSIUM 4.3 MMOL/L (3.6-5.0)
--- NOTE | 2017-01-08 08:20 | CP.PCM.CON ---
History of Present Illness - History of Present Illness History of Present Illness: Cardiology consult note for Dr. Magnus Madden DO, PGY-1 Reason for consult: Hx CABG; Dizziness HPI: 76 nepali speaking M w/ pertinent PMHx of CAD s/p CABG and Stents; DM and HTN, presents with a 1 year duration of intermittent abdominal pain and dizziness. Patient states that the abdominal pain does go into his chest during these bouts. He also complains of a headache. Besides these symptoms, patient does not complain of any specific cardiac symptoms including SOB, CP, extremity swelling, or palpitations. Patient does state that taking a deep breath makes him dizzy, and when seen at bedside, patient states that he is currently having that symptom. Otherwise, patient has no complaints. Pt denies f/ch/cp/sob/n/v/d/dysuria/frequency/urgency/hematuria/hematochezia/ hematemesis. PSHx: CABG, Stents PMHx: CAD s/p stents; DM; HTN All: NKDA SocHx: +EtOH socially; denies tobacco, illicits Hosp: Was here in May for CP FamHx: HTN Meds: Amlodipine, ASA, Lipitor, Plavix, Dexilant, Bentyl, Micronase, Imdur, Metformin, Metoprolol, Ranolazine, Zestril ROS: Constitutional: pt denies fever, chills, generalized weakness ENT: pt denies dysphagia, otalgia, hearing deficit, rhinorrhea Eyes: pt denies sudden loss of vision, diplopia, blurred vision MSK: pt denies muscle stiffness, joint pain, extremity cramping Cardio: pt denies sob, heart murmur, cp Pulm: pt denies cough, hemoptysis, wheeze GI: +abdominal pain; pt denies loss of appetite, constipation, melena, n/v/d : pt denies burning on urination, urinary frequency, hematuria, urinary urgency Neuro: +dizziness, +sloan; pt denies paresis, paresthesia, numbness, tingling Derm: pt denies skin changes, lesions, nail changes Endo: pt denies intolerance to heat/cold, diaphoresis, night sweats, polydipsia Psych: pt denies anxiety, depression, mood changes Past Patient History - Infectious Disease Hx of Infectious Diseases: None - Past Medical History & Family History Past Medical History?: Yes - Past Social History Smoking Status: Never Smoked - CARDIAC Hx Cardiac Disorders: Yes Hx Hypertension: Yes - PULMONARY Hx Respiratory Disorders: No - NEUROLOGICAL Hx Neurological Disorder: Yes Hx Dizziness: Yes - HEENT Hx HEENT Problems: Yes 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; 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) - RENAL Hx Chronic Kidney Disease: No - ENDOCRINE/METABOLIC Hx Endocrine Disorders: Yes Hx Diabetes Mellitus Type 2: Yes Other/Comment: DM diagnosed 20 years ago - HEMATOLOGICAL/ONCOLOGICAL Hx Blood Disorders: No - INTEGUMENTARY Hx Dermatological Problems: No - MUSCULOSKELETAL/RHEUMATOLOGICAL Hx Musculoskeletal Disorders: Yes Hx Falls: Yes (more than 1 year ago) - GASTROINTESTINAL Hx Gastrointestinal Disorders: Yes Hx Constipation: Yes - GENITOURINARY/GYNECOLOGICAL Hx Genitourinary Disorders: No - PSYCHIATRIC Hx Psychophysiologic Disorder: No Hx Substance Use: No - SURGICAL HISTORY Hx Surgeries: Yes Hx Coronary Artery Bypass Graft: Yes (17 years ago) Hx Coronary Stent: Yes (2012, stent x1) Other/Comment: endoscopy/colonoscopy - ANESTHESIA Hx Anesthesia: Yes Hx Anesthesia Reactions: No Hx Malignant Hyperthermia: No Meds Allergies/Adverse Reactions: Allergies Allergy/AdvReac Type Severity Reaction Status Date / Time No Known Allergies Allergy Verified 06/11/16 19:05 - Medications Medications: Current Medications Amlodipine Besylate (Norvasc) 5 mg PO DAILY [facility] Last Admin: 01/07/17 22:50 Dose: 5 mg Aspirin (Ecotrin) 81 mg PO DAILY [facility] Atorvastatin Calcium (Lipitor) 80 mg PO DAILY [facility] Clopidogrel Bisulfate (Plavix) 75 mg PO DAILY [facility] Home Med (Ranolazine [Ranexa]) 1,000 mg PO Q12 [facility] Hydralazine HCl (Apresoline) 10 mg PO TID PRN PRN Reason: SBP>170 Ibuprofen (Motrin Tab) 600 mg PO Q6 PRN PRN Reason: Headache Last Admin: 01/07/17 22:55 Dose: 600 mg Ibuprofen (Motrin Tab) 600 mg PO Q6 PRN PRN Reason: Temp 100.4 Lisinopril (Zestril) 20 mg PO DAILY [facility] Last Admin: 01/07/17 22:50 Dose: 20 mg Metformin HCl (Glucophage) 1,000 mg PO BID [facility] Metoprolol Tartrate (Lopressor) 25 mg PO BID JUAN Pantoprazole Sodium (Protonix Ec Tab) 40 mg PO DAILY [facility] Sitagliptin Phosphate (Januvia) 100 mg PO DAILY [facility] Physical Exam - Additional Findings Additional findings: Phys Exam: VS as below Constitutional: a&o x 4, nad Head and Neck: neck supple, no jvd, trachea midline, carotid midline, no cervical/head mass Eyes: ritesh, nonicteric sclera, eom intact ENT: auditory acuity grossly intact, throat not congested, no nasal deformity Cardio: rrr, no m/r/g, no carotid bruit, nml s1, s2 Pulm: no accessory muscle use, equal nml breath sounds bilaterally, ctab Abd: s/nt/nd, nbs x 4 q, no palpable masses Derm: no rashes, no ulcers, no lesions Extr: no edema, no cyanosis, no calf tenderness, no lesions, no varicosities Neuro: cn II-XII grossly intact, ue and le 5/5 muscle strength bilaterally, no los ue, le bilaterally and core Results - Vital Signs Recent Vital Signs: Last Vital Signs Temp 97.9 F 01/08/17 08:03 Pulse 67 01/08/17 08:03 Resp 20 01/08/17 08:03 BP 99/58 L 01/08/17 08:03 Pulse Ox 94 L 01/08/17 08:03 - Labs Result Diagrams: 01/08/17 04:30 01/08/17 04:30 Labs: Laboratory Results - last 24 hr 01/07/17 01/07/17 01/07/17 14:48 14:48 14:48 WBC 8.3 RBC 4.43 Hgb 12.4 Hct 37.9 MCV 85.6 MCH 28.1 MCHC 32.8 L RDW 16.9 H Plt Count 281 MPV 7.5 Neut % (Auto) 73.7 Lymph % (Auto) 12.7 L Yates % (Auto) 11.6 H Eos % (Auto) 1.1 Baso % (Auto) 0.9 Neut # 6.1 Lymph # 1.1 Yates # 1.0 H Eos # 0.1 Baso # 0.1 PT 12.0 INR 1.1 APTT 30.0 Sodium 142 Potassium 4.6 Chloride 105 Carbon Dioxide 23 Anion Gap 19 BUN 18 Creatinine 1.3 Est GFR ( Amer) > 60 Est GFR (Non-Af Amer) 54 POC Glucose (mg/dL) Random Glucose 117 H Calcium 10.7 H Total Bilirubin 0.5 AST 30 ALT 30 Alkaline Phosphatase 97 Troponin I 0.0170 Total Protein 8.7 H Albumin 4.9 Globulin 3.8 Albumin/Globulin Ratio 1.3 Lipase 68 01/07/17 01/08/17 01/08/17 21:40 04:30 04:30 WBC 7.4 RBC 4.13 L Hgb 11.5 L Hct 35.6 MCV 86.2 MCH 27.8 MCHC 32.2 L RDW 16.9 H Plt Count 273 MPV Neut % (Auto) Lymph % (Auto) Yates % (Auto) Eos % (Auto) Baso % (Auto) Neut # Lymph # Yates # Eos # Baso # PT INR APTT Sodium 142 Potassium 4.3 Chloride 106 Carbon Dioxide 24 Anion Gap 16 BUN 20 Creatinine 1.8 H Est GFR ( Amer) 44 Est GFR (Non-Af Amer) 37 POC Glucose (mg/dL) 81 Random Glucose 114 H Calcium 10.3 H Total Bilirubin AST ALT Alkaline Phosphatase Troponin I Total Protein Albumin Globulin Albumin/Globulin Ratio Lipase 01/08/17 05:04 WBC RBC Hgb Hct MCV MCH MCHC RDW Plt Count MPV Neut % (Auto) Lymph % (Auto) Yates % (Auto) Eos % (Auto) Baso % (Auto) Neut # Lymph # Yates # Eos # Baso # PT INR APTT Sodium Potassium Chloride Carbon Dioxide Anion Gap BUN Creatinine Est GFR ( Amer) Est GFR (Non-Af Amer) POC Glucose (mg/dL) 102 Random Glucose Calcium Total Bilirubin AST ALT Alkaline Phosphatase Troponin I Total Protein Albumin Globulin Albumin/Globulin Ratio Lipase Assessment & Plan - Assessment and Plan (Free Text) Assessment: A/P 76 M with significant cardiac history presenting with a one year duration of intermittent abdominal pain that radiates to the chest and dizziness. Tropes and EKG insignificant for ACS. Dizziness - ECHO - TSH Abdominal Pain with Hx of Cardiac Dz - Lipid panel - A1C HTN - Hydralazine prn - Continue home Zestril, Metoprolol, Norvasc - Patient's BP is stable right now Chronic Medical Problems - Per primary team Please advise patient to follow up in the office with Dr. Agudelo in 1 week regarding his HTN. Pt is clear from a cardiac standpoint at this time. Please feel free to re- consult as necessary. Thank you for this interesting consult. Derrick Madden DO, PGY - 1, d/w Dr. Agudelo
[2017-01-08] MEDS: Pantoprazole 40 mg EC Tab PO SCH (08:49)
--- NOTE | 2017-01-08 08:52 | CARD ---
APPROVED REPORT EKG Measurement Heart [id number] <Conclusion> Normal sinus rhythm Normal ECG
[2017-01-08] MEDS ORDERED: Patient's Own Med (Ranolazine [Ranexa] 1,000 MG) PO SCH (09:00)
[2017-01-08] MEDS ORDERED: Dextrose 50% SYRINGE Inj (50 ml) IV STA (11:04)
[2017-01-08] MEDS ORDERED: Sodium Chloride 0.9% 500 ML IV ONE (12:03)
--- NOTE | 2017-01-08 14:41 | CP.PCM.HP ---
<Gina Hodgson - Last Filed: 01/08/17 15:20> History of Present Illness - History of Present Illness History of Present Illness: 76 YO M w/ PMH of CAD s/p CABG and stent with a one year history of abdominal pain and dizziness presented to the ER and was admitted for similar complaints. The episodes begin with abdominal pain radiating from lower abdomen towards his chest, leading to dizziness and headache. Patient was hypertensive on addition with a blood pressure of 170/80. 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) - RENAL Hx Chronic Kidney Disease: No - ENDOCRINE/METABOLIC Hx Endocrine Disorders: Yes Hx Diabetes Mellitus Type 2: Yes Other/Comment: DM diagnosed 20 years ago - HEMATOLOGICAL/ONCOLOGICAL Hx Blood Disorders: No - INTEGUMENTARY Hx Dermatological Problems: No - MUSCULOSKELETAL/RHEUMATOLOGICAL Hx Musculoskeletal Disorders: Yes Hx Falls: Yes (more than 1 year ago) - GASTROINTESTINAL Hx Gastrointestinal Disorders: Yes Hx Constipation: Yes - GENITOURINARY/GYNECOLOGICAL Hx Genitourinary Disorders: No - PSYCHIATRIC Hx Psychophysiologic Disorder: No Hx Substance Use: No - SURGICAL HISTORY Hx Surgeries: Yes Hx Coronary Artery Bypass Graft: Yes (17 years ago) Hx Coronary Stent: Yes (2012, stent x1) Other/Comment: endoscopy/colonoscopy - ANESTHESIA Hx Anesthesia: Yes Hx Anesthesia Reactions: No Hx Malignant Hyperthermia: No Meds Allergies/Adverse Reactions: Allergies Allergy/AdvReac Type Severity Reaction Status Date / Time No Known Allergies Allergy Verified 06/11/16 19:05 Physical Exam - Constitutional Appears: No Acute Distress - Eye Exam Eye Exam: Normal appearance - Respiratory Exam Respiratory Exam: Clear to Auscultation Bilateral, NORMAL BREATHING PATTERN. absent: Rhonchi, Wheezes - Cardiovascular Exam Cardiovascular Exam: REGULAR RHYTHM, +S1, +S2 - GI/Abdominal Exam GI & Abdominal Exam: Normal Bowel Sounds, Soft. absent: Tenderness - Extremities Exam Extremities exam: Positive for: normal inspection - Neurological Exam Neurological exam: Alert, Oriented x3 - Skin Skin Exam: Normal Color, Warm Results - Vital Signs Recent Vital Signs: Last Vital Signs Temp 97.7 F 01/08/17 12:17 Pulse 69 01/08/17 12:17 Resp 20 01/08/17 12:17 BP 75/41 L 01/08/17 12:17 Pulse Ox 97 01/08/17 12:17 - Labs Result Diagrams: 01/08/17 04:30 01/08/17 04:30 Labs: Laboratory Results - last 24 hr 01/07/17 01/07/17 01/07/17 14:48 14:48 14:48 WBC 8.3 RBC 4.43 Hgb 12.4 Hct 37.9 MCV 85.6 MCH 28.1 MCHC 32.8 L RDW 16.9 H Plt Count 281 MPV 7.5 Neut % (Auto) 73.7 Lymph % (Auto) 12.7 L Pitkin % (Auto) 11.6 H Eos % (Auto) 1.1 Baso % (Auto) 0.9 Neut # 6.1 Lymph # 1.1 Pitkin # 1.0 H Eos # 0.1 Baso # 0.1 PT 12.0 INR 1.1 APTT 30.0 Sodium 142 Potassium 4.6 Chloride 105 Carbon Dioxide 23 Anion Gap 19 BUN 18 Creatinine 1.3 Est GFR ( Amer) > 60 Est GFR (Non-Af Amer) 54 POC Glucose (mg/dL) Random Glucose 117 H Hemoglobin A1c Calcium 10.7 H Total Bilirubin 0.5 AST 30 ALT 30 Alkaline Phosphatase 97 Troponin I 0.0170 Total Protein 8.7 H Albumin 4.9 Globulin 3.8 Albumin/Globulin Ratio 1.3 Lipase 68 01/07/17 01/08/17 01/08/17 21:40 04:30 04:30 WBC 7.4 RBC 4.13 L Hgb 11.5 L Hct 35.6 MCV 86.2 MCH 27.8 MCHC 32.2 L RDW 16.9 H Plt Count 273 MPV Neut % (Auto) Lymph % (Auto) Pitkin % (Auto) Eos % (Auto) Baso % (Auto) Neut # Lymph # Pitkin # Eos # Baso # PT INR APTT Sodium 142 Potassium 4.3 Chloride 106 Carbon Dioxide 24 Anion Gap 16 BUN 20 Creatinine 1.8 H Est GFR ( Amer) 44 Est GFR (Non-Af Amer) 37 POC Glucose (mg/dL) 81 Random Glucose 114 H Hemoglobin A1c Calcium 10.3 H Total Bilirubin AST ALT Alkaline Phosphatase Troponin I Total Protein Albumin Globulin Albumin/Globulin Ratio Lipase 01/08/17 01/08/17 01/08/17 04:30 05:04 11:06 WBC RBC Hgb Hct MCV MCH MCHC RDW Plt Count MPV Neut % (Auto) Lymph % (Auto) Pitkin % (Auto) Eos % (Auto) Baso % (Auto) Neut # Lymph # Pitkin # Eos # Baso # PT INR APTT Sodium Potassium Chloride Carbon Dioxide Anion Gap BUN Creatinine Est GFR ( Amer) Est GFR (Non-Af Amer) POC Glucose (mg/dL) 102 195 H Random Glucose Hemoglobin A1c 7.6 H Calcium Total Bilirubin AST ALT Alkaline Phosphatase Troponin I Total Protein Albumin Globulin Albumin/Globulin Ratio Lipase Assessment & Plan - Assessment and Plan (Free Text) Assessment: 1) Dizziness - Ct head: No acute findings. Chronic right maxillary sinusitis - Cardio and Neuro consulted - TSH - F/U with MRI and ECHO 2) Abd pain w/ hx cardiac Disease - Lipid panel - HBA1C: 7.6 3) HTN) Hydralazine PRN Continue home medication (Zestril, Metoprolol, Norvasc) 4) DM2 - HBA1C: 7.6 - Sitagliptin <Wolf Mckenzie - Last Filed: 01/10/17 23:30> Results - Vital Signs Recent Vital Signs: Last Vital Signs Temp 97.7 F 01/10/17 19:36 Pulse 78 01/10/17 21:00 Resp 20 01/10/17 19:36 BP 143/74 01/10/17 19:36 Pulse Ox 99 01/10/17 19:36 - Labs Result Diagrams: 01/10/17 07:00 01/10/17 07:10 Labs: Laboratory Results - last 24 hr 01/10/17 01/10/17 01/10/17 05:52 07:00 07:10 WBC 7.0 RBC 3.87 L Hgb 10.8 L Hct 33.3 L MCV 86.1 MCH 27.9 MCHC 32.4 L RDW 17.0 H Plt Count 262 MPV 7.2 Neut % (Auto) 61.1 Lymph % (Auto) 19.4 L Pitkin % (Auto) 16.9 H Eos % (Auto) 2.0 Baso % (Auto) 0.6 Neut # 4.3 Lymph # 1.4 Pitkin # 1.2 H Eos # 0.1 Baso # 0.0 Sodium 142 Potassium 4.3 Chloride 108 H Carbon Dioxide 22 Anion Gap 16 BUN 36 H Creatinine 2.9 H Est GFR ( Amer) 26 Est GFR (Non-Af Amer) 21 POC Glucose (mg/dL) 93 Random Glucose 87 Calcium 9.8 Total Bilirubin 0.3 AST 29 ALT 25 Alkaline Phosphatase 79 Total Protein 7.2 Albumin 4.1 Globulin 3.2 Albumin/Globulin Ratio 1.3 01/10/17 01/10/17 11:07 16:50 WBC RBC Hgb Hct MCV MCH MCHC RDW Plt Count MPV Neut % (Auto) Lymph % (Auto) Pitkin % (Auto) Eos % (Auto) Baso % (Auto) Neut # Lymph # Pitkin # Eos # Baso # Sodium Potassium Chloride Carbon Dioxide Anion Gap BUN Creatinine Est GFR ( Amer) Est GFR (Non-Af Amer) POC Glucose (mg/dL) 119 H 108 Random Glucose Calcium Total Bilirubin AST ALT Alkaline Phosphatase Total Protein Albumin Globulin Albumin/Globulin Ratio Assessment & Plan - Assessment and Plan (Free Text) Plan: I was present during evaluation and participated in the examniation and discussed with Dr Hodgson re plans of care and mgt Wolf Mckenzie M.D.
[2017-01-08] MEDS: Sodium Chloride 0.9% 1,000 ML IV SCH (15:16)
--- NOTE | 2017-01-08 17:23 | MRI ---
PROCEDURE: MRI BRAIN WITHOUT CONTRAST HISTORY: dizziness COMPARISON: Head CT without contrast 01/07/2017. TECHNIQUE: Multiplanar, multisequence MR images of the brain were obtained without intravenous contrast enhancement. FINDINGS: HEMORRHAGE: None DWI: No evidence of an acute or early subacute infarction. BRAIN PARENCHYMA: Chronic lacune is reiterated the medial left thalamus. A dilated perivascular space or chronic lacune is seen the right external capsule. No cortical edema is appreciated throughout. Diffuse cerebral atrophy chronic microangiopathy are reiterated the current examination. There is no mass effect. High-resolution imaging through the internal auditory canals reveal normal-appearing 7th/8th cranial nerve complex in this unenhanced examination. The cerebellopontine angles appear grossly nonfocal bilaterally as well. An empty sella is noted. VENTRICLES: Unremarkable. No hydrocephalus. CRANIUM: Unremarkable. ORBITS: Grossly unremarkable. PARANASAL SINUSES/MASTOIDS: Right maxillary sinusitis identified as well as limited sinus disease in multiple bilateral ethmoid air cells. VASCULAR SYSTEM: Skull base flow voids intact. OTHER FINDINGS: None. IMPRESSION: 1. No definite acute intracranial findings including brain infarction. 2. Age related neuro degenerative changes are reiterated the current exam with chronic lacune noted in the left thalamus once again. 3. Unremarkable bilateral unenhanced internal auditory canals.
--- NOTE | 2017-01-08 19:00 | CON ---
NEUROLOGY CONSULTATION REASON FOR CONSULTATION: Dizziness. HISTORY OF PRESENT ILLNESS: The patient is a 76-year-old male who we have been asked for evaluation of dizziness. The patient said he has dizziness for almost 1 year on and off. Dizziness described as lightheaded feeling. He denies any loss of hearing or ringing in the ears. Because of the dizziness, he has difficulty with walking. PAST MEDICAL HISTORY: Includes hypertension; diabetes mellitus; coronary artery disease, status post stents. PAST SURGICAL HISTORY: Includes coronary artery bypass grafting. MEDICATIONS AT HOME: Include amlodipine, aspirin, Lipitor, Plavix, Dexilant, Imdur, metformin, metoprolol, Zestril and ranolazine. ALLERGIES: NO KNOWN DRUG ALLERGIES. FAMILY HISTORY: Reviewed and noncontributory to the case. SOCIAL HISTORY: Denies smoking. Socially drinks alcohol. Denies use of any illicit drugs. REVIEW OF SYSTEMS: Denies any headache, chest pain, shortness of breath, abdominal pain, constipation, diarrhea, dysuria, cough, sputum production. PHYSICAL EXAMINATION GENERAL: The patient is an elderly male, lying on the bed, in no acute distress. VITAL SIGNS: His blood pressure is 99/58, on admission it was 174/91; heart rate is 67 per minute, breathing at the rate of 16 per minute, temperature is 97.9 degrees Fahrenheit. HEENT: Head is normocephalic, atraumatic. NECK: Supple. There are no carotid bruits. LUNGS: Clear. CARDIOVASCULAR SYSTEM: S1 and S2 are audible. No murmurs. ABDOMEN: Soft, nontender. Bowel sounds are present. NEUROLOGY: Mental status: The patient is awake, alert, oriented to time, place and person. His speech is fluent. Naming and repetition normal. Memory and cognition are intact. Cranial nerve examination: Pupils are 3 mm, bilaterally reactive to light. Visual spain are full. Extraocular movements are intact. There is no facial asymmetry. Palate is upgoing bilaterally and tongue is midline. Motor examination: Tone is normal. Power is 5/5 bilaterally in all extremities. Reflexes 1+ and symmetrical. Plantars downgoing bilaterally. Cerebellar examination: [id number] shows no dysmetria. Gait is deferred at the moment. LABORATORY DATA: Labs reviewed. CT scan of the head: No acute intracranial pathology. WBC 7.4, hemoglobin 11.5, hematocrit 35.6 and platelets of 273. Sodium is 142, potassium 4.3, chloride of 106, carbon dioxide content of 24, BUN of 20, creatinine 1.8 and glucose of 114. 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 RECOMMENDATIONS: 1. The patient to have MRI of the brain without contrast. 2. We will start low dose of meclizine. 3. The patient to have physical therapy for gait and balance. 4. If MRI of the brain does not show any acute intracranial pathology, then he may be discharged with outpatient followup. Thank you for the opportunity to participate in the care of this patient. Rachel Gallardo MD
[2017-01-09] MEDS: Sodium Chloride 0.9% 1,000 ML IV SCH ×2 (01:33→12:02)
[2017-01-09] MEDS: Pantoprazole 40 mg EC Tab PO SCH (09:44)
--- NOTE | 2017-01-09 18:28 | PN ---
DATE: NEUROLOGY PROGRESS NOTE SUBJECTIVE: The patient is lying in the bed, in no acute distress. He said his dizziness is better. PHYSICAL EXAMINATION VITAL SIGNS: His blood pressure 127/74, heart rate is 76 per minute, breathing at the rate of 16 per minute, temperature is 97.5 degrees Fahrenheit. HEENT: Normocephalic, atraumatic. NECK: Supple. There are no carotid bruits. LUNGS: Clear. CARDIOVASCULAR SYSTEM: S1 and S2 are audible. No murmurs. ABDOMEN: Soft and nontender. Bowel sounds are present. NEUROLOGY: Mental status: The patient is awake, alert, oriented to time, place and person. His speech is fluent. Naming and repetition normal. Memory and cognition are intact. Cranial nerve: Pupils are 3 mm, bilaterally reactive to light. Visual spain are full. Extraocular movements are intact. There is no facial asymmetry. Palate is upgoing bilaterally and tongue is midline. Motor: Tone is normal. Power is 5/5 bilaterally in all extremities. Gait is deferred at the moment. LABORATORY DATA: Reviewed. MRI of the brain shows no definite acute intracranial findings. Age-related neurodegenerative changes. 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 IMPRESSION: Dizziness, which appears to be likely secondary to labyrinthine dysfunction. RECOMMENDATION: 1. Patient to be continued meclizine. 2. Patient to have physical therapy for gait and balance. 3. Patient's dizziness is better. 4. Please continue supportive care and the treatment. No further neurological recommendations. Please call Neurology on an as-needed basis. Thank you for the opportunity to participate in the care of this patient. Rachel Gallardo MD
[2017-01-09] MEDS ORDERED: Alum-Mag Hydrox-Simethicone Susp (30 mL) PO ONE (19:36)
[2017-01-10 07:25] LABS: BASO % 0.6 % (0.0-2.0); EOS # 0.1 K/uL (0.0-0.7); HEMATOCRIT 33.3 % (35.0-51.0); LYMPH # 1.4 K/uL (1.0-4.3); LYMPH % 19.4 % (20.0-40.0); MEAN CELL VOLUME 86.1 fl (80.0-94.0); MEAN CORPUSCULAR HEMOGLOBIN 27.9 pg (27.0-31.0); MEAN CORPUSCULAR HGB CONC 32.4 g/dL (33.0-37.0); MEAN PLATELET VOLUME 7.2 fl (7.2-11.7); MONO # 1.2 K/uL (0.0-0.8); MONO % 16.9 % (0.0-10.0); NEUT # 4.3 K/uL (1.8-7.0); NEUT % 61.1 % (50.0-75.0)
[2017-01-10 07:36] LABS: ALB/GLOB RATIO 1.3 (1.0-2.1); BILIRUBIN,TOTAL 0.3 mg/dl (0.2-1.3); CALCIUM 9.8 mg/dL (8.4-10.2); POTASSIUM 4.3 MMOL/L (3.6-5.0); TOTAL PROTEIN 7.2 G/DL (6.3-8.2)
[2017-01-10] MEDS: Pantoprazole 40 mg EC Tab PO SCH (10:14)
--- NOTE | 2017-01-10 23:37 | CP.PCM.PN ---
Subjective - Date & Time of Evaluation Date of Evaluation: 01/09/17 Time of Evaluation: 10:00 - Subjective Subjective: Patient continues to have elevated BP Noted to have increase in creatinine On metformin still with elevated FBS Objective - Vital Signs/Intake and Output Vital Signs (last 24 hours): Temp Pulse Resp BP Pulse Ox 97.7 F 78 20 143/74 99 01/10/17 19:36 01/10/17 21:00 01/10/17 19:36 01/10/17 19:36 01/10/17 19:36 - Medications Medications: Current Medications Acetaminophen (Tylenol 325mg Tab) 650 mg PO Q6 PRN PRN Reason: Fever >100.4 F Acetaminophen (Tylenol 325mg Tab) 650 mg PO Q6 PRN PRN Reason: Headache Last Admin: 01/09/17 15:40 Dose: 650 mg Aspirin (Ecotrin) 81 mg PO DAILY [facility] Last Admin: 01/10/17 10:14 Dose: 81 mg Atorvastatin Calcium (Lipitor) 80 mg PO DAILY [facility] Last Admin: 01/10/17 10:14 Dose: 80 mg Clopidogrel Bisulfate (Plavix) 75 mg PO DAILY [facility] Last Admin: 01/10/17 10:14 Dose: 75 mg Lisinopril (Zestril) 10 mg PO DAILY [facility] Last Admin: 01/10/17 10:15 Dose: 10 mg Meclizine HCl (Antivert) 12.5 mg PO BID [facility] Last Admin: 01/10/17 17:02 Dose: 12.5 mg Metoprolol Tartrate (Lopressor) 25 mg PO BID [facility] Last Admin: 01/08/17 08:47 Dose: Not Given Pantoprazole Sodium (Protonix Ec Tab) 40 mg PO DAILY [facility] Last Admin: 01/10/17 10:14 Dose: 40 mg - Labs Labs: 01/10/17 07:00 01/10/17 07:10 PT 12.0 Seconds (9.8-13.1) 01/07/17 14:48 INR 1.1 (0.9-1.2) 01/07/17 14:48 APTT 30.0 Seconds (25.6-37.1) 01/07/17 14:48 - Head Exam Head Exam: NORMAL INSPECTION - Eye Exam Eye Exam: Normal appearance - Respiratory Exam Respiratory Exam: Clear to Ausculation Bilateral - Cardiovascular Exam Cardiovascular Exam: REGULAR RHYTHM - GI/Abdominal Exam GI & Abdominal Exam: Normal Bowel Sounds - Neurological Exam Neurological Exam: Awake, Oriented x3 Assessment and Plan (1) Intractable headache Status: Acute (2) Diabetes mellitus type 2 in nonobese Status: Acute (3) HTN (hypertension) Status: Acute (4) Hypercholesterolemia Status: Acute (5) Renal insufficiency Status: Acute - Assessment and Plan (Free Text) Plan: Cont meds Cont tx follow up cmp cont all meds.
--- NOTE | 2017-01-10 23:57 | CP.PCM.PN ---
Subjective - Date & Time of Evaluation Date of Evaluation: 01/10/17 Time of Evaluation: 09:30 - Subjective Subjective: Patient was noted to have further deterioration of renal function GFR today is 26 accucheck is still elevated. Objective - Vital Signs/Intake and Output Vital Signs (last 24 hours): Temp Pulse Resp BP Pulse Ox 97.7 F 78 20 143/74 99 01/10/17 19:36 01/10/17 21:00 01/10/17 19:36 01/10/17 19:36 01/10/17 19:36 - Medications Medications: Current Medications Acetaminophen (Tylenol 325mg Tab) 650 mg PO Q6 PRN PRN Reason: Fever >100.4 F Acetaminophen (Tylenol 325mg Tab) 650 mg PO Q6 PRN PRN Reason: Headache Last Admin: 01/09/17 15:40 Dose: 650 mg Aspirin (Ecotrin) 81 mg PO DAILY [facility] Last Admin: 01/10/17 10:14 Dose: 81 mg Atorvastatin Calcium (Lipitor) 80 mg PO DAILY [facility] Last Admin: 01/10/17 10:14 Dose: 80 mg Clopidogrel Bisulfate (Plavix) 75 mg PO DAILY [facility] Last Admin: 01/10/17 10:14 Dose: 75 mg Lisinopril (Zestril) 10 mg PO DAILY [facility] Last Admin: 01/10/17 10:15 Dose: 10 mg Meclizine HCl (Antivert) 12.5 mg PO BID [facility] Last Admin: 01/10/17 17:02 Dose: 12.5 mg Metoprolol Tartrate (Lopressor) 25 mg PO BID [facility] Last Admin: 01/08/17 08:47 Dose: Not Given Pantoprazole Sodium (Protonix Ec Tab) 40 mg PO DAILY [facility] Last Admin: 01/10/17 10:14 Dose: 40 mg - Labs Labs: 01/10/17 07:00 01/10/17 07:10 PT 12.0 Seconds (9.8-13.1) 01/07/17 14:48 INR 1.1 (0.9-1.2) 01/07/17 14:48 APTT 30.0 Seconds (25.6-37.1) 01/07/17 14:48 - Head Exam Head Exam: NORMAL INSPECTION - Eye Exam Eye Exam: Normal appearance - ENT Exam ENT Exam: Mucous Membranes Moist - Respiratory Exam Respiratory Exam: Clear to Ausculation Bilateral - Cardiovascular Exam Cardiovascular Exam: REGULAR RHYTHM - GI/Abdominal Exam GI & Abdominal Exam: Hyperactive Bowel Sounds, Normal Bowel Sounds - Neurological Exam Neurological Exam: Awake, Oriented x3 Assessment and Plan (1) Intractable headache Status: Acute (2) Diabetes mellitus type 2 in nonobese Status: Acute (3) HTN (hypertension) Status: Acute (4) Hypercholesterolemia Status: Acute (5) Renal insufficiency Status: Acute - Assessment and Plan (Free Text) Plan: Cont meds Con ttx Cont PT check labs in am hydrate
[2017-01-11 06:14] LABS: BASO # 0.1 K/uL (0.0-0.2); BASO % 0.8 % (0.0-2.0); EOS # 0.1 K/uL (0.0-0.7); EOS % 1.8 % (0.0-4.0); LYMPH % 14.1 % (20.0-40.0); MEAN CELL VOLUME 85.7 fl (80.0-94.0); MEAN CORPUSCULAR HGB CONC 32.7 g/dL (33.0-37.0); MEAN PLATELET VOLUME 7.5 fl (7.2-11.7); NEUT # 5.1 K/uL (1.8-7.0); NEUT % 69.3 % (50.0-75.0); NRBC % 0.1 % (0.0-0.0); RED CELL DISTRIBUTION WIDTH 17.1 % (11.5-14.5); WHITE BLOOD COUNT 7.4 K/uL (4.8-10.8)
[2017-01-11 06:19] LABS: ALB/GLOB RATIO 1.4 (1.0-2.1); BILIRUBIN,TOTAL 0.3 mg/dl (0.2-1.3); CALCIUM 10.1 mg/dL (8.4-10.2); TOTAL PROTEIN 7.3 G/DL (6.3-8.2)
[2017-01-11 06:27] LABS: POTASSIUM 5.2 MMOL/L (3.6-5.0)
[2017-01-11] MEDS: GlipiZIDE 2.5 mg SR Tab PO SCH (09:01)
[2017-01-11] MEDS: Pantoprazole 40 mg EC Tab PO SCH (09:02)
--- NOTE | 2017-01-11 10:25 | CP.PCM.PN ---
Subjective - Date & Time of Evaluation Date of Evaluation: 01/11/17 Time of Evaluation: 10:24 - Subjective Subjective: Patient remains well. Noted improvement of creatinine and GFR. Objective - Vital Signs/Intake and Output Vital Signs (last 24 hours): Temp Pulse Resp BP Pulse Ox 97.6 F 76 18 103/63 97 01/11/17 08:11 01/11/17 09:01 01/11/17 08:11 01/11/17 09:01 01/11/17 08:11 - Medications Medications: Current Medications Acetaminophen (Tylenol 325mg Tab) 650 mg PO Q6 PRN PRN Reason: Fever >100.4 F Acetaminophen (Tylenol 325mg Tab) 650 mg PO Q6 PRN PRN Reason: Headache Last Admin: 01/09/17 15:40 Dose: 650 mg Aspirin (Ecotrin) 81 mg PO DAILY [facility] Last Admin: 01/11/17 09:02 Dose: 81 mg Atorvastatin Calcium (Lipitor) 80 mg PO DAILY [facility] Last Admin: 01/11/17 09:02 Dose: 80 mg Clopidogrel Bisulfate (Plavix) 75 mg PO DAILY [facility] Last Admin: 01/11/17 09:01 Dose: 75 mg Glipizide (Glucotrol Xl) 2.5 mg PO BRK [facility] Last Admin: 01/11/17 09:01 Dose: 2.5 mg Lisinopril (Zestril) 10 mg PO DAILY [facility] Last Admin: 01/11/17 09:01 Dose: 10 mg Meclizine HCl (Antivert) 12.5 mg PO BID [facility] Last Admin: 01/11/17 09:01 Dose: 12.5 mg Metoprolol Tartrate (Lopressor) 25 mg PO BID [facility] Last Admin: 01/08/17 08:47 Dose: Not Given Pantoprazole Sodium (Protonix Ec Tab) 40 mg PO DAILY [facility] Last Admin: 01/11/17 09:02 Dose: 40 mg Sitagliptin Phosphate (Januvia) 50 mg PO DAILY [facility] Last Admin: 01/11/17 09:01 Dose: 50 mg - Labs Labs: 01/11/17 05:15 01/11/17 05:15 PT 12.0 Seconds (9.8-13.1) 01/07/17 14:48 INR 1.1 (0.9-1.2) 01/07/17 14:48 APTT 30.0 Seconds (25.6-37.1) 01/07/17 14:48 Assessment and Plan (1) Intractable headache Status: Acute (2) Diabetes mellitus type 2 in nonobese Status: Acute (3) HTN (hypertension) Status: Acute (4) Hypercholesterolemia Status: Acute (5) Renal insufficiency Status: Acute
--- NOTE | 2017-01-11 15:32 | US ---
PROCEDURE: Ultrasound of the Kidneys HISTORY: worsening renal function COMPARISON: None available. TECHNIQUE: Sonogram of the kidneys. FINDINGS: RIGHT KIDNEY: Measures: 5.3 x 6.1 x 10.1 cm. Normal in size, contour and echogenicity. No stone, solid mass lesion or hydronephrosis visualized. LEFT KIDNEY: Measures: 4.9 x 5.3 x 10.1 cm. Normal in size, contour and echogenicity. No stone, solid mass lesion or hydronephrosis visualized. OTHER FINDINGS: None. IMPRESSION: Unremarkable renal sonogram.
--- NOTE | 2017-01-11 20:17 | CP.PCM.CON ---
History of Present Illness - History of Present Illness History of Present Illness: pt is seen and examined, full consult is dictated #[id number] 1. BENEDICTO, r/o ATN 2. HTN 3. DM 4. R/o urosepsis check urine c/s, lytes, os, cr, bmp in am, pth intact in am abx as per primary team agree with discontinuing metformin consider to hlod ACEI until renal function is improved ivf 1/2 ns at 70-80 ml/hr Past Patient History - Infectious Disease Hx of Infectious Diseases: None - Past Medical History & Family History Past Medical History?: Yes - Past Social History Smoking Status: Never Smoked - CARDIAC Hx Cardiac Disorders: Yes Hx Hypertension: Yes - PULMONARY Hx Respiratory Disorders: No - NEUROLOGICAL Hx Neurological Disorder: Yes Hx Dizziness: Yes - HEENT Hx HEENT Problems: Yes 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; 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) - RENAL Hx Chronic Kidney Disease: No - ENDOCRINE/METABOLIC Hx Endocrine Disorders: Yes Hx Diabetes Mellitus Type 2: Yes Other/Comment: DM diagnosed 20 years ago - HEMATOLOGICAL/ONCOLOGICAL Hx Blood Disorders: No - INTEGUMENTARY Hx Dermatological Problems: No - MUSCULOSKELETAL/RHEUMATOLOGICAL Hx Musculoskeletal Disorders: Yes Hx Falls: Yes (more than 1 year ago) - GASTROINTESTINAL Hx Gastrointestinal Disorders: Yes Hx Constipation: Yes - GENITOURINARY/GYNECOLOGICAL Hx Genitourinary Disorders: No - PSYCHIATRIC Hx Psychophysiologic Disorder: No Hx Substance Use: No - SURGICAL HISTORY Hx Surgeries: Yes Hx Coronary Artery Bypass Graft: Yes (17 years ago) Hx Coronary Stent: Yes (2013, stent x1) Other/Comment: endoscopy/colonoscopy - ANESTHESIA Hx Anesthesia: Yes Hx Anesthesia Reactions: No Hx Malignant Hyperthermia: No Meds Allergies/Adverse Reactions: Allergies Allergy/AdvReac Type Severity Reaction Status Date / Time No Known Allergies Allergy Verified 06/11/16 19:05 - Medications Medications: Current Medications Acetaminophen (Tylenol 325mg Tab) 650 mg PO Q6 PRN PRN Reason: Fever >100.4 F Acetaminophen (Tylenol 325mg Tab) 650 mg PO Q6 PRN PRN Reason: Headache Last Admin: 01/09/17 15:40 Dose: 650 mg Aspirin (Ecotrin) 81 mg PO DAILY [facility] Last Admin: 01/11/17 09:02 Dose: 81 mg Atorvastatin Calcium (Lipitor) 80 mg PO DAILY [facility] Last Admin: 01/11/17 09:02 Dose: 80 mg Clopidogrel Bisulfate (Plavix) 75 mg PO DAILY [facility] Last Admin: 01/11/17 09:01 Dose: 75 mg Glipizide (Glucotrol Xl) 2.5 mg PO BRK [facility] Last Admin: 01/11/17 09:01 Dose: 2.5 mg Lisinopril (Zestril) 10 mg PO DAILY [facility] Last Admin: 01/11/17 09:01 Dose: 10 mg Meclizine HCl (Antivert) 12.5 mg PO BID [facility] Last Admin: 01/11/17 16:58 Dose: 12.5 mg Metoprolol Tartrate (Lopressor) 25 mg PO BID [facility] Last Admin: 01/08/17 08:47 Dose: Not Given Pantoprazole Sodium (Protonix Ec Tab) 40 mg PO DAILY [facility] Last Admin: 01/11/17 09:02 Dose: 40 mg Pioglitazone HCl (Actos) 30 mg PO DAILY [facility] Last Admin: 01/11/17 11:58 Dose: 30 mg Sitagliptin Phosphate (Januvia) 50 mg PO DAILY [facility] Last Admin: 01/11/17 09:01 Dose: 50 mg Results - Vital Signs Recent Vital Signs: Last Vital Signs Temp 97.8 F 01/11/17 20:12 Pulse 73 01/11/17 20:12 Resp 14 01/11/17 20:12 BP 110/73 01/11/17 20:12 Pulse Ox 95 01/11/17 20:12 - Labs Result Diagrams: 01/11/17 05:15 01/11/17 20:58 Labs: Laboratory Results - last 24 hr 01/08/17 01/08/17 01/10/17 11:03 11:04 21:18 WBC RBC Hgb Hct MCV MCH MCHC RDW Plt Count MPV Neut % (Auto) Lymph % (Auto) [place] % (Auto) Eos % (Auto) Baso % (Auto) Neut # Lymph # [place] # Eos # Baso # Sodium Potassium Chloride Carbon Dioxide Anion Gap BUN Creatinine Est GFR ( Amer) Est GFR (Non-Af Amer) POC Glucose (mg/dL) < 20 L* 200 H 115 H Random Glucose Hemoglobin A1c Calcium Total Bilirubin AST ALT Alkaline Phosphatase Total Protein Albumin Globulin Albumin/Globulin Ratio 01/11/17 01/11/17 01/11/17 05:15 05:15 05:30 WBC 7.4 RBC 3.96 L Hgb 11.1 L Hct 34.0 L MCV 85.7 MCH 28.0 MCHC 32.7 L RDW 17.1 H Plt Count 275 MPV 7.5 Neut % (Auto) 69.3 Lymph % (Auto) 14.1 L [place] % (Auto) 14.0 H Eos % (Auto) 1.8 Baso % (Auto) 0.8 Neut # 5.1 Lymph # 1.0 [place] # 1.0 H Eos # 0.1 Baso # 0.1 Sodium 141 Potassium 5.2 H Chloride 108 H Carbon Dioxide 22 Anion Gap 16 BUN 29 H Creatinine 2.2 H Est GFR ( Amer) 35 Est GFR (Non-Af Amer) 29 POC Glucose (mg/dL) Random Glucose 135 H Hemoglobin A1c 7.6 H Calcium 10.1 Total Bilirubin 0.3 AST 25 ALT 27 Alkaline Phosphatase 79 Total Protein 7.3 Albumin 4.3 Globulin 3.1 Albumin/Globulin Ratio 1.4 01/11/17 01/11/17 01/11/17 05:38 11:28 16:05 WBC RBC Hgb Hct MCV MCH MCHC RDW Plt Count MPV Neut % (Auto) Lymph % (Auto) [place] % (Auto) Eos % (Auto) Baso % (Auto) Neut # Lymph # [place] # Eos # Baso # Sodium Potassium Chloride Carbon Dioxide Anion Gap BUN Creatinine Est GFR ( Amer) Est GFR (Non-Af Amer) POC Glucose (mg/dL) 161 H 159 H 161 H Random Glucose Hemoglobin A1c Calcium Total Bilirubin AST ALT Alkaline Phosphatase Total Protein Albumin Globulin Albumin/Globulin Ratio
[2017-01-12 01:04] LABS: URINE BILIRUBIN NEGATIVE (NEGATIVE); URINE BLOOD NEGATIVE (NEGATIVE); URINE COLOR YELLOW (YELLOW); URINE GLUCOSE (UA) NEG (Normal); URINE KETONE NEGATIVE (NEGATIVE); URINE LEUKOCYTE ESTERASE NEG Leu/uL (Negative); URINE PROTEIN NEGATIVE (NEGATIVE); URINE UROBILINOGEN 0.2-1.0 mg/dL (0.2-1.0); WBC URINE < 1 /hpf (0-5)
[2017-01-12] MEDS: Sodium Chloride 0.45% 1,000 ML IV SCH (05:00)
[2017-01-12 05:49] LABS: BASO # 0.1 K/uL (0.0-0.2); BASO % 0.7 % (0.0-2.0); EOS # 0.2 K/uL (0.0-0.7); EOS % 2.1 % (0.0-4.0); HEMATOCRIT 32.7 % (35.0-51.0); LYMPH # 1.1 K/uL (1.0-4.3); LYMPH % 14.5 % (20.0-40.0); MEAN CELL VOLUME 85.6 fl (80.0-94.0); MEAN CORPUSCULAR HEMOGLOBIN 28.2 pg (27.0-31.0); MEAN PLATELET VOLUME 7.4 fl (7.2-11.7); MONO % 13.7 % (0.0-10.0); NEUT # 5.2 K/uL (1.8-7.0); RED CELL DISTRIBUTION WIDTH 17.2 % (11.5-14.5); WHITE BLOOD COUNT 7.5 K/uL (4.8-10.8)
[2017-01-12 06:03] LABS: ALB/GLOB RATIO 1.3 (1.0-2.1); BILIRUBIN,TOTAL 0.2 mg/dl (0.2-1.3); CALCIUM 9.7 mg/dL (8.4-10.2); POTASSIUM 4.7 MMOL/L (3.6-5.0); TOTAL PROTEIN 7.1 G/DL (6.3-8.2)
--- NOTE | 2017-01-12 09:46 | CON ---
DATE: LOCATION: The patient is located in room 408, bed 2. REQUESTING DOCTOR: Wolf Mckenzie MD REASON FOR RENAL CONSULTATION: Increased BUN and creatinine and for further evaluation. HISTORY OF PRESENT ILLNESS: Mr. Johnson is a 76-year-old elderly, very pleasant [place]an- male with past medical history significant for longstanding hypertension and diabetes for more than 34 years and coronary artery disease, status post multiple stents, glaucoma, status post cataract surgery, who was admitted with the chief complaints of headache, dizziness, abdominal discomfort, and difficulty to urinate for about a few days prior to the admission. As per the patient's daughter, he had a similar episode in the past, about 3-4 years ago. The patient denies any chest pain, denies any palpitations, denies any nausea or vomiting, denies any fever or cough, denies any chest pain at this time, denies any swelling of the legs. The patient complains of difficulty to urinate sometimes and also occasional dysuria, denies any recent weight loss or recent weight gaining, denies any dyspnea on exertion. The patient is hard of hearing. PAST MEDICAL HISTORY: Significant for longstanding diabetes, hypertension, hyperlipidemia, and coronary artery disease. Status post colonoscopy and endoscopy in the past. PAST SURGICAL HISTORY: Status post multiple stents in 2012 and 2015 and status post cataract surgery. ALLERGIES: NO KNOWN DRUG ALLERGIES. SOCIAL HISTORY: The patient denies any smoking, alcohol, or drugs. PERSONAL HISTORY: He is and he has 5 children; 4 daughters and 1 son. FAMILY HISTORY: Not significant. CURRENT MEDICATIONS: Include as follows; Actos 30 mg p.o. daily, meclizine 12.5 mg p.o. b.i.d., glipizide 2.5 mg daily, Januvia at 50 mg p.o. daily, Lipitor 80 mg at bedtime, Lopressor 25 mg p.o. b.i.d., Plavix 75 mg daily, Protonix 40 mg p.o. daily, Tylenol, and lisinopril 10 mg p.o. daily. Metformin was discontinued yesterday. REVIEW OF SYSTEMS: Significant for dizziness, headache, difficulty to urinate, and dysuria. All other review of systems are reviewed and negative. PHYSICAL EXAMINATION: VITAL SIGNS: As follows; blood pressure 110/73, pulse 73, respirations 14, temperature 97.8, saturation 95%, height 5 feet 6 inches, weight is 150 pounds, and BMI 24.3. GENERAL: Mr. Johnson is a 76-year-old elderly male, moderately built, moderately nourished, not in acute distress. HEENT: Pupils are normal and reactive to light and accommodation. Conjunctivae pink. Sclerae anicteric. Tongue is moist. Trachea is midline. LUNGS: Symmetric on both sides. Bilateral breath sounds are present. Clear on auscultation. CARDIOVASCULAR SYSTEMS: [place] at the fifth intercostal space, midclavicular line. S1 and S2 audible. No murmur or gallop. ABDOMEN: Normal in appearance. Soft and tympanic. No guarding. No rigidity. No hepatosplenomegaly. CENTRAL NERVOUS SYSTEM: The patient is alert, awake, and oriented x3. Nonfocal neuro examination. Cranial nerves II through XII are grossly intact except hard in hearing. Sensory and motor system are within normal limits. EXTREMITIES: No cyanosis. No clubbing. No edema. 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 LABORATORY DATA: Include as follows as of 01/11/2017; WBC 7.4, hemoglobin 11.1, hematocrit is 34, and platelets 275. Sodium 141, potassium 5.2, chloride 100, CO2 of 22, BUN 29, creatinine 2.2, glucose 135 and calcium 10.1. Hemoglobin A1c is 7.6. Total bilirubin 0.3, AST 25, ALT 27, alkaline phosphatase 79, total protein 7.4, and repeat serum creatinine this evening is 1.9; as of 01/07/2017, serum creatinine was 1.3; as of 01/08, serum creatinine 1.8; as of 01/10, serum creatinine is 2.9. In the other reports, ultrasound of the kidneys as of 01/11/2017, right kidney 10.1 x 6.1 x 5.3 and left kidney 10.1 x 5.3 x 4.9 cm. No stones, solid mass lesion, no hydronephrosis visualized; normal size, contour and echogenicity. MRI of the brain; impression, no intracranial findings including brain infarction, age-related neurodegenerative changes, unremarkable bilateral enhanced internal auditory canals. Chest x-ray report on 01/07/2017, no active disease. ASSESSMENT: Mr. Johnson is a 76-year-old elderly male with history of hypertension, diabetes, coronary artery status, status post coronary artery bypass graft, status post multiple coronary stents, and hyperlipidemia, was admitted with headache, dizziness, abdominal discomfort, difficulty to urinate, and dysuria on and off, with increase in BUN and creatinine, status post discontinuation of the metformin and also slightly elevated potassium. 1. Acute renal failure, nonoliguric most likely secondary to intravascular depletion in the setting of KATHY inhibitors and also metformin, cannot rule out acute tubular necrosis. 2. Hypertension. 3. Diabetes. PLAN: Continue his current medications, continue to hold lisinopril until renal function is improved. Consider IV fluids gentle hydration, half-normal saline at 70 mL per hour. Repeat BMP in the a.m. Thank you for allowing me to participate in your patient's care. Elias Galo MD
[2017-01-12] MEDS: Pantoprazole 40 mg EC Tab PO SCH (10:12)
[2017-01-12] MEDS: GlipiZIDE 2.5 mg SR Tab PO SCH (10:12)
--- NOTE | 2017-01-12 17:48 | CP.PCM.DIS ---
Provider - Provider Date of Admission: 01/08/17 11:18 Attending physician: Wolf Mckenzie MD Time Spent in preparation of Discharge (in minutes): 30 Diagnosis - Discharge Diagnosis (1) Labyrinthine dysfunction Status: Acute Hospital Course - Lab Results Lab Results: Most Recent Lab Values WBC 7.5 K/uL (4.8-10.8) 01/12/17 04:20 RBC 3.82 Mil/uL (4.40-5.90) L 01/12/17 04:20 Hgb 10.8 g/dL (12.0-18.0) L 01/12/17 04:20 Hct 32.7 % (35.0-51.0) L 01/12/17 04:20 MCV 85.6 fl (80.0-94.0) 01/12/17 04:20 MCH 28.2 pg (27.0-31.0) 01/12/17 04:20 MCHC 33.0 g/dL (33.0-37.0) 01/12/17 04:20 RDW 17.2 % (11.5-14.5) H 01/12/17 04:20 Plt Count 252 K/uL (130-400) 01/12/17 04:20 MPV 7.4 fl (7.2-11.7) 01/12/17 04:20 Neut % (Auto) 69.0 % (50.0-75.0) 01/12/17 04:20 Lymph % (Auto) 14.5 % (20.0-40.0) L 01/12/17 04:20 [place] % (Auto) 13.7 % (0.0-10.0) H 01/12/17 04:20 Eos % (Auto) 2.1 % (0.0-4.0) 01/12/17 04:20 Baso % (Auto) 0.7 % (0.0-2.0) 01/12/17 04:20 Neut # 5.2 K/uL (1.8-7.0) 01/12/17 04:20 Lymph # 1.1 K/uL (1.0-4.3) 01/12/17 04:20 [place] # 1.0 K/uL (0.0-0.8) H 01/12/17 04:20 Eos # 0.2 K/uL (0.0-0.7) 01/12/17 04:20 Baso # 0.1 K/uL (0.0-0.2) 01/12/17 04:20 PT 12.0 Seconds (9.8-13.1) 01/07/17 14:48 INR 1.1 (0.9-1.2) 01/07/17 14:48 APTT 30.0 Seconds (25.6-37.1) 01/07/17 14:48 Sodium 141 mmol/l (132-148) 01/12/17 04:20 Potassium 4.7 MMOL/L (3.6-5.0) 01/12/17 04:20 Chloride 110 mmol/L (98-107) H 01/12/17 04:20 Carbon Dioxide 23 mmol/L (22-30) 01/12/17 04:20 Anion Gap 13 (10-20) 01/12/17 04:20 BUN 28 mg/dl (9-20) H 01/12/17 04:20 Creatinine 1.9 mg/dL (0.8-1.5) H 01/12/17 04:20 Est GFR ( Amer) 42 01/12/17 04:20 Est GFR (Non-Af Amer) 35 01/12/17 04:20 POC Glucose (mg/dL) 163 mg/dL (65-110) H 01/12/17 11:29 Random Glucose 130 mg/dL (75-110) H 01/12/17 04:20 Hemoglobin A1c 7.6 % (4.2-6.5) H 01/11/17 05:30 Calcium 9.7 mg/dL (8.4-10.2) 01/12/17 04:20 Total Bilirubin 0.2 mg/dl (0.2-1.3) 01/12/17 04:20 AST 34 U/L (17-59) 01/12/17 04:20 ALT 29 U/L (21-72) 01/12/17 04:20 Alkaline Phosphatase 91 U/L (38-126) 01/12/17 04:20 Troponin I 0.0170 ng/mL (0.00-0.120) 01/07/17 14:48 Total Protein 7.1 G/DL (6.3-8.2) 01/12/17 04:20 Albumin 4.1 g/dL (3.5-5.0) 01/12/17 04:20 Globulin 3.0 gm/dL (2.2-3.9) 01/12/17 04:20 Albumin/Globulin Ratio 1.3 (1.0-2.1) 01/12/17 04:20 Lipase 68 U/L (23-300) 01/07/17 14:48 Urine Color Yellow (YELLOW) 01/12/17 00:52 Urine Clarity Clear (Clear) 01/12/17 00:52 Urine pH 5.0 (5.0-8.0) 01/12/17 00:52 Ur Specific [place] 1.016 (1.003-1.030) 01/12/17 00:52 Urine Protein Negative mg/dL (NEGATIVE) 01/12/17 00:52 Urine Glucose (UA) Neg mg/dL (Normal) 01/12/17 00:52 Urine Ketones Negative mg/dL (NEGATIVE) 01/12/17 00:52 Urine Blood Negative (NEGATIVE) 01/12/17 00:52 Urine Nitrate Negative (NEGATIVE) 01/12/17 00:52 Urine Bilirubin Negative (NEGATIVE) 01/12/17 00:52 Urine Urobilinogen 0.2-1.0 mg/dL (0.2-1.0) 01/12/17 00:52 Ur Leukocyte Esterase Neg [place]/uL (Negative) 01/12/17 00:52 Urine Microscopic WBC < 1 /hpf (0-5) 01/12/17 00:52 Ur Squamous Epith Cells < 1 /hpf (0-5) 01/12/17 00:52 Hyaline Casts 0-2 /hpf (0-2) 01/12/17 00:52 Urine Osmolality 550 mosm/kg (300-1000) 01/12/17 00:52 Ur Random Sodium 121 meq/L 01/12/17 00:52 Ur Random Potassium 34.4 mmol/L 01/12/17 00:52 Discharge Exam - Head Exam Head Exam: NORMAL INSPECTION Discharge Plan - Discharge Medications Prescriptions: Sucralfate [Carafate] 1 gm PO BID #60 dose - Follow Up Plan Condition: GUARDED Disposition: HOME/ ROUTINE
--- NOTE | 2017-01-12 17:57 | CP.PCM.PN ---
Subjective - Date & Time of Evaluation Date of Evaluation: 01/12/17 Time of Evaluation: 08:00 - Subjective Subjective: - Patient is seen and evaluated at bedside with Dr. Mckenzie. Patient denies any overnight events. However is experiencing abdominal pain. Will do a U/S and discharge if not significant findings. Objective - Vital Signs/Intake and Output Vital Signs (last 24 hours): Temp Pulse Resp BP Pulse Ox 97.5 F L 78 14 142/72 96 01/12/17 16:06 01/12/17 16:06 01/12/17 16:06 01/12/17 16:06 01/12/17 16:06 - Medications Medications: Current Medications Acetaminophen (Tylenol 325mg Tab) 650 mg PO Q6 PRN PRN Reason: Fever >100.4 F Acetaminophen (Tylenol 325mg Tab) 650 mg PO Q6 PRN PRN Reason: Headache Last Admin: 01/09/17 15:40 Dose: 650 mg Aspirin (Ecotrin) 81 mg PO DAILY [facility] Last Admin: 01/12/17 10:13 Dose: 81 mg Atorvastatin Calcium (Lipitor) 80 mg PO DAILY [facility] Last Admin: 01/12/17 10:12 Dose: 80 mg Clopidogrel Bisulfate (Plavix) 75 mg PO DAILY [facility] Last Admin: 01/12/17 10:13 Dose: 75 mg Glipizide (Glucotrol Xl) 2.5 mg PO BRK [facility] Last Admin: 01/12/17 10:12 Dose: 2.5 mg Sodium Chloride (Sodium Chloride 0.45%) 1,000 mls @ 70 mls/hr IV .[id number] [facility] Stop: 01/13/17 00:08 Last Admin: 01/12/17 05:00 Dose: 70 mls/hr Lisinopril (Zestril) 10 mg PO DAILY [facility] Last Admin: 01/12/17 10:12 Dose: 10 mg Meclizine HCl (Antivert) 12.5 mg PO BID [facility] Last Admin: 01/12/17 17:37 Dose: 12.5 mg Metoprolol Tartrate (Lopressor) 25 mg PO BID [facility] Last Admin: 01/08/17 08:47 Dose: Not Given Pantoprazole Sodium (Protonix Ec Tab) 40 mg PO DAILY [facility] Last Admin: 01/12/17 10:12 Dose: 40 mg Pioglitazone HCl (Actos) 30 mg PO DAILY [facility] Last Admin: 01/12/17 10:12 Dose: 30 mg Sitagliptin Phosphate (Januvia) 50 mg PO DAILY [facility] Last Admin: 01/12/17 10:13 Dose: 50 mg - Labs Labs: 01/12/17 04:20 01/12/17 04:20 PT 12.0 Seconds (9.8-13.1) 01/07/17 14:48 INR 1.1 (0.9-1.2) 01/07/17 14:48 APTT 30.0 Seconds (25.6-37.1) 01/07/17 14:48 - Constitutional Appears: No Acute Distress - Head Exam Head Exam: NORMAL INSPECTION - Respiratory Exam Respiratory Exam: Clear to Ausculation Bilateral, NORMAL BREATHING PATTERN. absent: Rhonchi, Wheezes - Cardiovascular Exam Cardiovascular Exam: REGULAR RHYTHM, +S1, +S2 - GI/Abdominal Exam GI & Abdominal Exam: Soft, Tenderness (in epigastric region), Normal Bowel Sounds - Extremities Exam Extremities Exam: Normal Inspection. absent: Calf Tenderness - Neurological Exam Neurological Exam: Alert, Awake, CN II-XII Intact, Oriented x3 Assessment and Plan (1) Labyrinthine dysfunction Status: Acute - Assessment and Plan (Free Text) Assessment: 1) Dizziness: Most likelly secondary to Labyrinthine dysfunction - Ct head and MRI : No acute finding - Cardio and Neuro consulted - Most likelly secondary to Labyrinthine dysfunction 2) Abd pain w/ hx cardiac Disease - Lipid panel - HBA1C: 7.6 - F/U with abdominal U/S 3) HTN) Hydralazine PRN Continue home medication (Zestril, Metoprolol, Norvasc) 4) DM2 - HBA1C: 7.6 - Sitagliptin 5) BENEDICTO -BUN: 28, Creatinine: 1.9 - GFR: 35 - nephro consulted -D/C metformin * DC patient if Abd U/S WNL and follow up outpatient
--- NOTE | 2017-01-12 19:27 | CP.PCM.PN ---
Subjective - Date & Time of Evaluation Date of Evaluation: 01/12/17 Time of Evaluation: 19:26 - Subjective Subjective: pt is seen and examined, follow up consult is dictated #[id number] bmp in am c/w ivf 1/2ns at 70 ml/hr d/c lisinopril until renal function is improved Objective - Vital Signs/Intake and Output Vital Signs (last 24 hours): Temp Pulse Resp BP Pulse Ox 97.5 F L 78 14 142/72 96 01/12/17 16:06 01/12/17 16:06 01/12/17 16:06 01/12/17 16:06 01/12/17 16:06 - Medications Medications: Current Medications Acetaminophen (Tylenol 325mg Tab) 650 mg PO Q6 PRN PRN Reason: Fever >100.4 F Acetaminophen (Tylenol 325mg Tab) 650 mg PO Q6 PRN PRN Reason: Headache Last Admin: 01/09/17 15:40 Dose: 650 mg Aspirin (Ecotrin) 81 mg PO DAILY [facility] Last Admin: 01/12/17 10:13 Dose: 81 mg Atorvastatin Calcium (Lipitor) 80 mg PO DAILY [facility] Last Admin: 01/12/17 10:12 Dose: 80 mg Clopidogrel Bisulfate (Plavix) 75 mg PO DAILY [facility] Last Admin: 01/12/17 10:13 Dose: 75 mg Glipizide (Glucotrol Xl) 2.5 mg PO BRK [facility] Last Admin: 01/12/17 10:12 Dose: 2.5 mg Sodium Chloride (Sodium Chloride 0.45%) 1,000 mls @ 70 mls/hr IV .[id number] [facility] Stop: 01/14/17 00:08 Last Admin: 01/12/17 05:00 Dose: 70 mls/hr Meclizine HCl (Antivert) 12.5 mg PO BID [facility] Last Admin: 01/12/17 17:37 Dose: 12.5 mg Metoprolol Tartrate (Lopressor) 25 mg PO BID [facility] Last Admin: 01/08/17 08:47 Dose: Not Given Pantoprazole Sodium (Protonix Ec Tab) 40 mg PO DAILY [facility] Last Admin: 01/12/17 10:12 Dose: 40 mg Pioglitazone HCl (Actos) 30 mg PO DAILY [facility] Last Admin: 01/12/17 10:12 Dose: 30 mg Sitagliptin Phosphate (Januvia) 50 mg PO DAILY [facility] Last Admin: 01/12/17 10:13 Dose: 50 mg - Labs Labs: 01/12/17 04:20 01/12/17 04:20 PT 12.0 Seconds (9.8-13.1) 01/07/17 14:48 INR 1.1 (0.9-1.2) 01/07/17 14:48 APTT 30.0 Seconds (25.6-37.1) 01/07/17 14:48
--- NOTE | 2017-01-13 03:25 | CON ---
DATE: RENAL CONSULTATION LOCATION: The patient is located in room #408, bed #2. REQUESTED BY: Wolf Mckenzie MD REASON FOR FOLLOWUP: Acute renal failure, for further evaluation. HISTORY OF PRESENT ILLNESS: Mr. Johnson is a 76-year-old elderly obese male with a past medical history significant for longstanding hypertension, diabetes, hyperlipidemia, coronary artery disease, who was admitted with chief complaints of headache and dizziness and occasional difficulty in passing urine and dysuria. The patient was found to have worsening renal function from admission and renal consult requested for further evaluation yesterday. The patient is feeling much better. The patient is off metformin. Denies any headache or dizziness. Denies any chest pain or palpitations. The patient is out of bed to chair. The patient is receiving IV fluids half normal saline at 70 mL per hour. PHYSICAL EXAMINATION VITAL SIGNS: Blood pressure 121/76, pulse 101, respirations 20, temperature 97.3, saturation 100%. Height 5 feet 6 inches, weight is 150 pounds. GENERAL: Mr. Johnson is a 76-year-old elderly male, moderately built, moderately nourished, not in distress. HEENT: Pupils are normal and reactive to light and accommodation. Conjunctivae pink. Sclerae anicteric. Tongue is moist. Trachea is midline. LUNGS: Symmetric on both sides. Bilateral breath sounds are present. Clear on auscultation. CARDIOVASCULAR SYSTEMS: [place] at the fifth intercostal space, midclavicular line. S1 and S2 audible. No murmur or gallop. ABDOMEN: Normal in appearance. Soft and tympanic. No guarding. No rigidity. No hepatosplenomegaly. CENTRAL NERVOUS SYSTEM: The patient is alert, awake, and oriented x3. Nonfocal neuro examination. Cranial nerves II through XII are grossly intact except the hard of hearing. EXTREMITIES: No cyanosis. No clubbing. No edema. CURRENT MEDICATIONS: Include as follows: Actos 30 mg p.o. daily, Antivert 12.5 mg p.o. b.i.d., aspirin 81 mg daily, glipizide 2.5 mg p.o. with breakfast, Januvia 50 mg daily, Lipitor 80 mg at bedtime, metoprolol 25 mg p.o. b.i.d., Protonix 40 mg p.o. daily, IV fluids half normal saline at 70 mL per hour, Tylenol. LABORATORY DATA: Include as follows: As of 01/12/2017; WBC 7.5, hemoglobin 10.8, hematocrit is 32.7, and platelets 252. Sodium 141, potassium 4.7, chloride 110, CO2 of 23, BUN 28, creatinine 1.9, glucose 130, calcium 9.7, total bilirubin 0.2, AST 34, ALT 29, alkaline phosphatase 91, total protein 7.1, albumin 4.1. Urinalysis, yellow, clear, pH of 5, specific gravity 10.16, protein negative, glucose negative, ketones negative, blood negative, nitrite negative, bilirubin negative, urobilinogen 0.2 to 1.0, leukocyte esterase negative, WBC less than 1, RBC not reported, squamous epithelial cells less than 1, hyaline casts 0-2, urine osmolality 515, urine sodium 121, potassium 34.4. Ultrasound of the kidneys as of 01/11/2017: Right kidney 10.1, left kidney 10.1. No stones, solid mass, or hydronephrosis. Unremarkable renal sonogram. ASSESSMENT: In summary, Mr. Johnson is about 76 years old elderly male with a history of hypertension, diabetes, coronary artery disease, hyperlipidemia, who was admitted with feeling dizzy and weakness and headache, and occasional difficulty in urination with increased BUN and creatinine, and status post discontinuation of the metformin. 1. Acute renal failure, most likely secondary to intravascular depletion, cannot rule out acute tubular necrosis secondary to metformin and lisinopril. 2. Hypertension. 3. Diabetes. 4. Coronary artery disease. PLAN: The patient is off metformin. We will discontinue lisinopril and will continue IV fluids half normal saline at 70 mL per hour. Repeat BMP in a.m. We will follow up with you. Discussed with patient's nurse to continue IV fluids. Consider calcium channel kathya. We will need to control the blood pressure until renal function is improved. Thank you for allowing me to participate in your patient's care. Elias Galo MD [facility]
[2017-01-13] MEDS: Sodium Chloride 0.45% 1,000 ML IV SCH ×2 (06:24→11:32)
--- NOTE | 2017-01-13 08:20 | US ---
HISTORY: abd pain COMPARISON: January 12, 2017. Renal ultrasound reported separately TECHNIQUE: Sonographic evaluation of the abdomen. FINDINGS: LIVER: Measures 18.4 cm. Hepatopedal blood flow. Fatty infiltration manifest ultrasonographically as increased echogenicity of the liver parenchyma. No mass. No intrahepatic bile duct dilatation. GALLBLADDER: Unremarkable. No gallstones. COMMON BILE DUCT: Measures 4.5 mm. No stones. No dilatation. PANCREAS: Obscured by overlying bowel gas. Non diagnostic assessment of the pancreas SPLEEN: Normal in size and contour. No mass. AORTA: No aneurysmal dilatation. IVC: Unremarkable. OTHER FINDINGS: None. IMPRESSION: Hepatomegaly, hepatic steatosis. Otherwise unremarkable study
[2017-01-13] MEDS: Pantoprazole 40 mg EC Tab PO SCH (09:20)
[2017-01-13] MEDS: GlipiZIDE 2.5 mg SR Tab PO SCH (09:20)
[2017-01-13 11:18] LABS: CALCIUM 10.3 mg/dL (8.4-10.2)
--- NOTE | 2017-01-13 12:02 | CP.PCM.DIS ---
Provider - Provider Date of Admission: 01/08/17 11:18 Attending physician: Wolf Mckenzie MD Consults: Cardiology: Dr. Agudelo Nephrology: Dr. Galo Neurology: Dr. Gallardo Time Spent in preparation of Discharge (in minutes): 35 Diagnosis - Discharge Diagnosis (1) Dizziness Status: Resolved (2) Labyrinthine dysfunction Status: Resolved (3) Diabetes mellitus type 2 in nonobese Status: Chronic (4) HTN (hypertension) Status: Chronic (5) Abdominal pain Status: Chronic Hospital Course - Lab Results Lab Results: Most Recent Lab Values WBC 7.5 K/uL (4.8-10.8) 01/12/17 04:20 RBC 3.82 Mil/uL (4.40-5.90) L 01/12/17 04:20 Hgb 10.8 g/dL (12.0-18.0) L 01/12/17 04:20 Hct 32.7 % (35.0-51.0) L 01/12/17 04:20 MCV 85.6 fl (80.0-94.0) 01/12/17 04:20 MCH 28.2 pg (27.0-31.0) 01/12/17 04:20 MCHC 33.0 g/dL (33.0-37.0) 01/12/17 04:20 RDW 17.2 % (11.5-14.5) H 01/12/17 04:20 Plt Count 252 K/uL (130-400) 01/12/17 04:20 MPV 7.4 fl (7.2-11.7) 01/12/17 04:20 Neut % (Auto) 69.0 % (50.0-75.0) 01/12/17 04:20 Lymph % (Auto) 14.5 % (20.0-40.0) L 01/12/17 04:20 [place] % (Auto) 13.7 % (0.0-10.0) H 01/12/17 04:20 Eos % (Auto) 2.1 % (0.0-4.0) 01/12/17 04:20 Baso % (Auto) 0.7 % (0.0-2.0) 01/12/17 04:20 Neut # 5.2 K/uL (1.8-7.0) 01/12/17 04:20 Lymph # 1.1 K/uL (1.0-4.3) 01/12/17 04:20 [place] # 1.0 K/uL (0.0-0.8) H 01/12/17 04:20 Eos # 0.2 K/uL (0.0-0.7) 01/12/17 04:20 Baso # 0.1 K/uL (0.0-0.2) 01/12/17 04:20 PT 12.0 Seconds (9.8-13.1) 01/07/17 14:48 INR 1.1 (0.9-1.2) 01/07/17 14:48 APTT 30.0 Seconds (25.6-37.1) 01/07/17 14:48 Sodium 143 mmol/l (132-148) 01/13/17 10:40 Potassium 5.0 MMOL/L (3.6-5.0) 01/13/17 10:40 Chloride 107 mmol/L (98-107) 01/13/17 10:40 Carbon Dioxide 25 mmol/L (22-30) 01/13/17 10:40 Anion Gap 16 (10-20) 01/13/17 10:40 BUN 24 mg/dl (9-20) H 01/13/17 10:40 Creatinine 1.6 mg/dL (0.8-1.5) H 01/13/17 10:40 Est GFR ( Amer) 51 01/13/17 10:40 Est GFR (Non-Af Amer) 42 01/13/17 10:40 POC Glucose (mg/dL) 218 mg/dL (65-110) H 01/13/17 11:11 Random Glucose 217 mg/dL (75-110) H 01/13/17 10:40 Hemoglobin A1c 7.6 % (4.2-6.5) H 01/11/17 05:30 Calcium 10.3 mg/dL (8.4-10.2) H 01/13/17 10:40 Total Bilirubin 0.2 mg/dl (0.2-1.3) 01/12/17 04:20 AST 34 U/L (17-59) 01/12/17 04:20 ALT 29 U/L (21-72) 01/12/17 04:20 Alkaline Phosphatase 91 U/L (38-126) 01/12/17 04:20 Troponin I 0.0170 ng/mL (0.00-0.120) 01/07/17 14:48 Total Protein 7.1 G/DL (6.3-8.2) 01/12/17 04:20 Albumin 4.1 g/dL (3.5-5.0) 01/12/17 04:20 Globulin 3.0 gm/dL (2.2-3.9) 01/12/17 04:20 Albumin/Globulin Ratio 1.3 (1.0-2.1) 01/12/17 04:20 Lipase 68 U/L (23-300) 01/07/17 14:48 Urine Color Yellow (YELLOW) 01/12/17 00:52 Urine Clarity Clear (Clear) 01/12/17 00:52 Urine pH 5.0 (5.0-8.0) 01/12/17 00:52 Ur Specific [place] 1.016 (1.003-1.030) 01/12/17 00:52 Urine Protein Negative mg/dL (NEGATIVE) 01/12/17 00:52 Urine Glucose (UA) Neg mg/dL (Normal) 01/12/17 00:52 Urine Ketones Negative mg/dL (NEGATIVE) 01/12/17 00:52 Urine Blood Negative (NEGATIVE) 01/12/17 00:52 Urine Nitrate Negative (NEGATIVE) 01/12/17 00:52 Urine Bilirubin Negative (NEGATIVE) 01/12/17 00:52 Urine Urobilinogen 0.2-1.0 mg/dL (0.2-1.0) 01/12/17 00:52 Ur Leukocyte Esterase Neg [place]/uL (Negative) 01/12/17 00:52 Urine Microscopic WBC < 1 /hpf (0-5) 01/12/17 00:52 Ur Squamous Epith Cells < 1 /hpf (0-5) 01/12/17 00:52 Hyaline Casts 0-2 /hpf (0-2) 01/12/17 00:52 Urine Osmolality 550 mosm/kg (300-1000) 01/12/17 00:52 Ur Random Sodium 121 meq/L 01/12/17 00:52 Ur Random Potassium 34.4 mmol/L 01/12/17 00:52 Discharge Exam - Head Exam Head Exam: NORMAL INSPECTION Discharge Plan - Discharge Medications Prescriptions: GlipiZIDE SR [Glucotrol XL] 2.5 mg PO BID #60 tab Pioglitazone [Actos] 30 mg PO DAILY #30 tab SITagliptin [Januvia] 50 mg PO DAILY #30 tab Sucralfate [Carafate] 1 gm PO BID #60 dose - Follow Up Plan Condition: GUARDED Disposition: HOME/ ROUTINE Instructions: Migraine Headache (DC)
[2017-01-13 15:41] VITALS: BP 156/82; PULSE 75; RESP 20; TEMP 97.2; O2SAT 99
== END 2017-01-13 16:20 | disposition home or self-care (01) | DRG 149 ==
LOC: H.ER 13:50 → H.ERHOLD 16:10 → H.TEL 18:50 → OBSVTOIN 01-08 11:18
PROVIDERS: ADMIT Family Medicine; ATTEND Family Medicine
DX: H83.2X9 Labyrinthine dysfunction, unspecified ear (principal); N17.9 Acute kidney failure, unspecified; I25.810 Atherosclerosis of coronary artery bypass graft(s) without angina pectoris; E11.9 Type 2 diabetes mellitus without complications; I10 Essential (primary) hypertension; J32.0 Chronic maxillary sinusitis; E78.5 Hyperlipidemia, unspecified; E78.00 Pure hypercholesterolemia, unspecified; Z95.5 Presence of coronary angioplasty implant and graft; H40.9 Unspecified glaucoma; G89.29 Other chronic pain

== ENCOUNTER 2017-02-15 10:47 | Emergency (ER) | payer MEDICARE, MEDICAID ==
[2017-02-15 10:48] VITALS: BMI 31.6
[2017-02-15 11:00] VITALS: RESP 16; TEMP 98; O2SAT 100
[2017-02-15] MEDS ORDERED: Sodium Chloride 0.9% 1,000 ML IV STA (11:07)
--- NOTE | 2017-02-15 11:14 | ED PDOC ---
HPI: Abdomen Time Seen by Provider: 02/15/17 10:52 Chief Complaint (Nursing): Abdominal Pain Chief Complaint (Provider): Abdominal Pain History Per: Patient History/Exam Limitations: no limitations Onset/Duration Of Symptoms: Days (x1) Current Symptoms Are (Timing): Still Present Additional Complaint(s): Tenzin Johnson is a 76 year old male who presents to the ED complaining of epigastric abdominal pain with associated dizziness x1 day. Denies vomiting or diarrhea. Patient was admitted here December 2016 and diagnosed with vertigo. Also seen by GI specialist and diagnosed with gastritis and diverticular disease. PMD: Non-CPH Provider Past Medical History Reviewed: Historical Data, Nursing Documentation, Vital Signs Vital Signs: Last Vital Signs Temp 98.0 F 02/15/17 10:58 Pulse 63 02/15/17 10:58 Resp 16 02/15/17 10:58 BP 196/70 H 02/15/17 10:58 Pulse Ox 100 02/15/17 11:31 - Medical History PMH: CAD, Diabetes, Gastritis, HTN Denies: Chronic Kidney Disease Other PMH: Diverticular disease, Vertigo - Surgical History Surgical History: CABG (17 years ago), Coronary Stent (2012, stent x1) Denies: Pacemaker - Family History Family History: States: Unknown Family Hx - Home Medications Home Medications: Ambulatory Orders Medication Instructions Recorded Aspirin [Aspirin EC] 1 tab PO DAILY 06/11/16 Atorvastatin [Lipitor] 80 mg PO DAILY 06/11/16 Clopidogrel [Plavix] 75 mg PO DAILY 06/11/16 Dexlansoprazole [Dexilant] 60 mg PO DAILY 06/11/16 Dicyclomine [Bentyl] 10 mg PO DAILY 06/11/16 Isosorbide Mononitrate ER [Imdur 60 mg PO DAILY 06/11/16 ER] Metoprolol Tartrate [Lopressor] 25 mg PO BID 06/11/16 Ranolazine [Ranexa] 1,000 mg PO Q12 01/07/17 Sucralfate [Carafate] 1 gm PO BID #60 dose 01/12/17 GlipiZIDE SR [Glucotrol XL] 2.5 mg PO BID #60 tab 01/13/17 Pioglitazone [Actos] 30 mg PO DAILY #30 tab 01/13/17 SITagliptin [Januvia] 50 mg PO DAILY #30 tab 01/13/17 Meclizine [Meclizine*] 25 mg PO Q8 #15 tab 02/15/17 Pantoprazole Sodium [Protonix] 40 mg PO DAILY #30 tablet. 02/15/17 - Allergies Allergies/Adverse Reactions: Allergies Allergy/AdvReac Type Severity Reaction Status Date / Time No Known Allergies Allergy Verified 06/11/16 19:05 Review of Systems ROS Statement: Except As Marked, All Systems Reviewed And Found Negative Gastrointestinal: Positive for: Abdominal Pain (epigastric). Negative for: Vomiting, Diarrhea Neurological: Positive for: Dizziness Physical Exam - Reviewed Nursing Documentation Reviewed: Yes Vital Signs Reviewed: Yes - Physical Exam Appears: Positive for: Well, Non-toxic, No Acute Distress Head Exam: Positive for: ATRAUMATIC, NORMAL INSPECTION, NORMOCEPHALIC Skin: Positive for: Normal Color, Warm, Dry Eye Exam: Positive for: EOMI, Normal appearance, PERRL Neck: Positive for: Normal, Painless ROM, Supple Cardiovascular/Chest: Positive for: Regular Rate, Rhythm. Negative for: Murmur Respiratory: Positive for: Normal Breath Sounds. Negative for: Respiratory Distress Gastrointestinal/Abdominal: Positive for: Bowel Sounds, Soft, Tenderness ( epigastric) Back: Positive for: Normal Inspection. Negative for: L CVA Tenderness, R CVA Tenderness, Vertebral Tenderness Extremity: Positive for: Normal ROM. Negative for: Pedal Edema, Deformity, Swelling Neurologic/Psych: Positive for: Alert, Oriented. Negative for: Motor/Sensory Deficits - Laboratory Results Result Diagrams: 02/15/17 11:17 02/15/17 11:17 - ECG O2 Sat by Pulse Oximetry: 100 (RA) Pulse Ox Interpretation: Normal Medical Decision Making Medical Decision Making: Time: 11:07 Initial Impression: Abdominal pain, gastritis, vertigo Plan: --CT Abd & pelvis w/o contrast --EKG --CMP --ED urine dipstick --CBC w/ differential --Antivert 25 mg PO --Sodium Chloride 1,000 ml IV --Pepcid 20 mg IVP --Reevaluation Scribe Attestation: Documented by Srikanth Garza acting as a scribe for Ryan Hammer MD. MD Bergman Attestation: All medical record entries made by the Scribe were at my direction and personally dictated by me. I have reviewed the chart and agree that the record accurately reflects my personal performance of the history, physical exam, medical decision making, and the department course for this patient. I have also personally directed, reviewed, and agree with the discharge instructions and disposition. Disposition - Clinical Impression Clinical Impression: Gastritis, Vertigo - Patient ED Disposition Is Patient to be Admitted: No Counseled Patient/Family Regarding: Studies Performed, Diagnosis, Need For Followup, Rx Given - Disposition Referrals: Hamilton Mckngiht MD [Family Provider] - Disposition: Routine/Home Disposition Time: 13:57 Condition: FAIR Prescriptions: Meclizine [Meclizine*] 25 mg PO Q8 #15 tab Pantoprazole Sodium [Protonix] 40 mg PO DAILY #30 tablet. Instructions: Gastritis (ED), Vertigo (ED) Forms: [employer] (Lao)
[2017-02-15 11:31] LABS: BASO # 0.1 K/uL (0.0-0.2); BASO % 0.8 % (0.0-2.0); EOS # 0.2 K/uL (0.0-0.7); EOS % 2.4 % (0.0-4.0); LYMPH % 11.4 % (20.0-40.0); MEAN CELL VOLUME 88.5 fl (80.0-94.0); MEAN CORPUSCULAR HEMOGLOBIN 27.9 pg (27.0-31.0); MEAN CORPUSCULAR HGB CONC 31.5 g/dL (33.0-37.0); MEAN PLATELET VOLUME 7.7 fl (7.2-11.7); MONO # 0.9 K/uL (0.0-0.8); MONO % 10.6 % (0.0-10.0); NEUT # 6.5 K/uL (1.8-7.0); NEUT % 74.8 % (50.0-75.0); NRBC % 0.1 % (0.0-0.0); RED CELL DISTRIBUTION WIDTH 17.4 % (11.5-14.5); WHITE BLOOD COUNT 8.8 K/uL (4.8-10.8)
[2017-02-15 11:35] LABS: BILIRUBIN,TOTAL 0.6 mg/dl (0.2-1.3); POTASSIUM 5.1 MMOL/L (3.6-5.0); TOTAL PROTEIN 8.4 G/DL (6.3-8.2)
[2017-02-15 11:49] LABS: ALB/GLOB RATIO 1.3 (1.0-2.1)
--- NOTE | 2017-02-15 13:13 | CT ---
PROCEDURE: CT Abdomen and Pelvis without intravenous contrast HISTORY: Vomiting , dizziness and abdominal pain . r/o kidney stone COMPARISON: 01/12/2017 abdominal ultrasound. Summary of findings on the comparison examination: Hepatomegaly, hepatic steatosis. Otherwise unremarkable study 01/11/2017 renal ultrasound. Summary of findings on the comparison examination: Unremarkable renal sonogram TECHNIQUE: Unenhanced study. Neither oral nor intravenous contrast administered. Radiation dose: Total exam DLP = 945.14 mGy-cm. This CT exam was performed using one or more of the following dose reduction techniques: Automated exposure control, adjustment of the mA and/or kV according to patient size, and/or use of iterative reconstruction technique. FINDINGS: LOWER THORAX: Unremarkable. LIVER: Unremarkable. No gross lesion or ductal dilatation. GALLBLADDER AND BILE DUCTS: Unremarkable. PANCREAS: Unremarkable. No gross lesion or ductal dilatation. SPLEEN: Unremarkable. ADRENALS: Unremarkable. No mass. KIDNEYS AND URETERS: Unremarkable. No hydronephrosis. No solid mass. There is perinephric stranding although this appears to be a chronic finding was seen although incompletely visualized on a prior CT of the thorax including the upper abdomen performed June 11, 2016. VASCULATURE: Unremarkable. No aortic aneurysm. BOWEL: Unremarkable. No obstruction. No gross mural thickening. APPENDIX: Unremarkable. Normal appendix. PERITONEUM: Unremarkable. No free fluid. No free air. LYMPH NODES: Unremarkable. No enlarged lymph nodes. BLADDER: Mild diffuse bladder wall thickening which in the appropriate clinical presentation is consistent with cystitis. No focal urinary bladder abnormalities. No evidence of bladder calculus disease. REPRODUCTIVE: Top-normal prostate measures 3.8 x 5.5 cm. The prostate impresses upon the base of the bladder. BONES: No acute fracture. OTHER FINDINGS: None. IMPRESSION: No acute findings related to/accounting for the clinical presentation. Additional benign and/or incidental findings described above.
--- NOTE | 2017-02-15 13:39 | CARD ---
APPROVED REPORT EKG Measurement Heart [id number] <Conclusion> Normal sinus rhythm Normal ECG
[2017-02-15 14:04] VITALS: BP 135/80; PULSE 75
== END 2017-02-15 14:04 | disposition home or self-care (01) ==
LOC: H.ER 10:47
DX: K29.70 Gastritis, unspecified, without bleeding (principal); R42 Dizziness and giddiness; E11.9 Type 2 diabetes mellitus without complications; I10 Essential (primary) hypertension; Z95.1 Presence of aortocoronary bypass graft; Z95.5 Presence of coronary angioplasty implant and graft; I25.10 Atherosclerotic heart disease of native coronary artery without angina pectoris; Z79.82 Long term (current) use of aspirin
CPT/HCPCS: 74176; 80053; 85025; 93005; 96374; 99283; J7040

== ENCOUNTER 2017-05-11 05:28 | Inpatient (IN) | payer MEDICARE, MEDICAID ==
[2017-05-11 05:28] VITALS: BMI 31.6
[2017-05-11 06:20] LABS: BASO # 0.1 K/uL (0.0-0.2); BASO % 1.4 % (0.0-2.0); EOS # 0.2 K/uL (0.0-0.7); EOS % 2.9 % (0.0-4.0); HEMOGLOBIN 11.1 g/dL (12.0-18.0); LYMPH # 0.9 K/uL (1.0-4.3); MEAN CELL VOLUME 84.3 fl (80.0-94.0); MEAN CORPUSCULAR HEMOGLOBIN 28.1 pg (27.0-31.0); MEAN CORPUSCULAR HGB CONC 33.3 g/dL (33.0-37.0); MEAN PLATELET VOLUME 7.2 fl (7.2-11.7); MONO # 0.8 K/uL (0.0-0.8); MONO % 13.6 % (0.0-10.0); NEUT % 67.1 % (50.0-75.0); RBC 3.96 Mil/uL (4.40-5.90); RED CELL DISTRIBUTION WIDTH 15.6 % (11.5-14.5); WHITE BLOOD COUNT 5.9 K/uL (4.8-10.8)
--- NOTE | 2017-05-11 06:22 | ED PDOC ---
HPI: Chest Pain Time Seen by Provider: 05/11/17 05:47 Chief Complaint (Nursing): Chest Pain Chief Complaint (Provider): Chest Pain History Per: Patient History/Exam Limitations: no limitations Onset/Duration Of Symptoms: Hrs (x3), Intermittent Episodes Current Symptoms Are (Timing): Better Associated Symptoms: Dyspnea (mild) Additional Complaint(s): 77 year old male presents to ED with complaints of intermittent chest pain x3 hours and has a past medical history of CABG, CAD, and multiple stents. Notes onset while at rest and that is has become better but is still present. (+) mild SOB, (-) radiation of pain, cough, fever, or chills. PCP: Flaco Agudelo Past Medical History Reviewed: Historical Data, Nursing Documentation, Vital Signs Vital Signs: Last Vital Signs Temp 97.7 F 05/11/17 05:45 Pulse 80 05/11/17 07:01 Resp 17 05/11/17 05:45 BP 189/79 H 05/11/17 05:45 Pulse Ox 98 05/11/17 07:01 - Medical History PMH: CAD, Diabetes, Gastritis, HTN Denies: Chronic Kidney Disease - Surgical History Surgical History: CABG (17 years ago), Coronary Stent (2012, stent x1) Denies: Pacemaker - Family History Family History: States: Unknown Family Hx - Social History Alcohol: None Drugs: Denies - Home Medications Home Medications: Ambulatory Orders Medication Instructions Recorded Aspirin [Aspirin EC] 1 tab PO DAILY 06/11/16 Atorvastatin [Lipitor] 80 mg PO DAILY 06/11/16 Clopidogrel [Plavix] 75 mg PO DAILY 06/11/16 Dexlansoprazole [Dexilant] 60 mg PO DAILY 06/11/16 Dicyclomine [Bentyl] 10 mg PO DAILY 06/11/16 Isosorbide Mononitrate ER [Imdur 60 mg PO DAILY 06/11/16 ER] Metoprolol Tartrate [Lopressor] 25 mg PO BID 06/11/16 Ranolazine [Ranexa] 1,000 mg PO Q12 01/07/17 Sucralfate [Carafate] 1 gm PO BID #60 dose 01/12/17 GlipiZIDE SR [Glucotrol XL] 2.5 mg PO BID #60 tab 01/13/17 Pioglitazone [Actos] 30 mg PO DAILY #30 tab 01/13/17 SITagliptin [Januvia] 50 mg PO DAILY #30 tab 01/13/17 Ferrous Sulfate [Ferosul] 325 mg PO TID 05/11/17 Losartan Potassium 50 mg PO DAILY 05/11/17 Polyethylene Glycol 1000 2,500 gm MC DAILY 05/11/17 [Polyethylene Glycol] Tramadol HCl [Ultram] 50 mg PO TID 05/11/17 - Allergies Allergies/Adverse Reactions: Allergies Allergy/AdvReac Type Severity Reaction Status Date / Time No Known Allergies Allergy Verified 05/11/17 05:51 MERRICK Risk Score for UA/NSTEMI - MERRICK Risk Score Age > 64: YES 3 or more CAD Risk Factors: YES Known CAD (Stenosis greater than 50%): YES MERRICK Score: 3 Risk %: 13% Curb-65 Severity Score - CURB-65 Severity Score Confusion: No Respiratory Rate greater than/equal to 30: No Systolic BP <90 or Diastolic BP less than/equal 60mmHg: No Age >64: Yes Curb-65 Score: 1 Percentage 30-day mortality: 2.7% Wells Criteria for PE - Wells Criteria for Pulmonary Embolism Heart Rate >100: No Hemoptysis: No Total Score: 0 Review of Systems ROS Statement: Except As Marked, All Systems Reviewed And Found Negative Constitutional: Negative for: Fever, Chills Respiratory: Positive for: Shortness of Breath (mild). Negative for: Cough Physical Exam - Reviewed Nursing Documentation Reviewed: Yes Vital Signs Reviewed: Yes - Physical Exam Appears: Positive for: Non-toxic, No Acute Distress Skin: Positive for: Normal Color, Warm, Dry Eye Exam: Positive for: Normal appearance, EOMI, PERRL ENT: Positive for: Normal ENT Inspection Neck: Positive for: Normal, Painless ROM, Supple Cardiovascular/Chest: Positive for: Regular Rate, Rhythm. Negative for: Murmur Respiratory: Positive for: Normal Breath Sounds. Negative for: Respiratory Distress Gastrointestinal/Abdominal: Positive for: Soft. Negative for: Tenderness Neurologic/Psych: Positive for: Alert, Oriented. Negative for: Motor/Sensory Deficits - Laboratory Results Result Diagrams: 05/11/17 05:40 05/11/17 05:40 - ECG ECG Rhythm: Positive for: Normal ST Segment, Sinus Rhythm. Negative for: ST/T Changes Rate: 80 O2 Sat by Pulse Oximetry: 98 (RA) Pulse Ox Interpretation: Normal Medical Decision Making Medical Decision Makin Initial impression: chest pain in high-risk cardiac patient Initial plan: * EKG * Labs * Trop I * PTT/PT * CXR 0650 Patient will be admitted under Dr. Mckenzie's care to OBS TELE for chest pain r/o ACS. [address] Kearns who recommends Nitro drip at this time. Scribe Attestation: Documented by Britt Haynes acting as a scribe for Alvin Winchester MD. Scribe Attestation: All medical record entries made by the Scribe were at my direction and personally dictated by me. I have reviewed the chart and agree that the record accurately reflects my personal performance of the history, physical exam, medical decision making, and the department course for this patient. I have also personally directed, reviewed, and agree with the discharge instructions and disposition. Disposition - Clinical Impression Clinical Impression: Chest pain - Patient ED Disposition Is Patient to be Admitted: Yes (under Dr. Mckenzie's care) - Disposition Disposition Time: 06:50 Condition: FAIR - Pt Status Changed To: Hospital Disposition Of: Observation (OBS TELE)
[2017-05-11 06:34] LABS: CALCIUM 10.9 mg/dL (8.4-10.2); PROTHROMBIN TIME 11.2 Seconds (9.8-13.1)
[2017-05-11 06:44] LABS: TROPONIN I 0.019 ng/mL (0.00-0.120)
[2017-05-11] MEDS ORDERED: Nitroglycerin 50mg in D5W 50 MG/250 ML BOTTLE IV ONE (07:16)
[2017-05-11] MEDS ORDERED: Sucralfate 1 gm/10 ml Oral Susp UD PO SCH (09:15)
[2017-05-11] MEDS ORDERED: Patient's Own Med (Ranolazine [Ranexa] 1,000 MG) PO SCH (09:15)
[2017-05-11] MEDS ORDERED: POLYETHYLENE GLYCOL MC SCH (09:15)
--- NOTE | 2017-05-11 09:48 | RAD ---
PROCEDURE: CHEST RADIOGRAPH, 1 VIEW HISTORY: chest pain COMPARISON: Chest radiograph dated 01/07/2017. FINDINGS: LUNGS: Chronic prominence of the bilateral interstitial markings. No focal consolidation. PLEURA: No pneumothorax or pleural fluid seen. CARDIOVASCULAR: Prior sternotomy with sternal wires and surgical clips redemonstrated. Atherosclerotic aortic calcifications. Cardiomediastinal silhouette stably enlarged. OSSEOUS STRUCTURES: Unchanged. VISUALIZED UPPER ABDOMEN: Normal. OTHER FINDINGS: None. IMPRESSION: Stable chronic prominence of the bilateral interstitial markings. No focal consolidation or pleural effusion.
[2017-05-11] MEDS: GlipiZIDE 2.5 mg SR Tab PO SCH ×2 (11:25→16:54)
[2017-05-11] MEDS: Pantoprazole 40 mg EC Tab PO SCH (11:26)
--- NOTE | 2017-05-11 11:28 | CP.PCM.HP ---
History of Present Illness - History of Present Illness History of Present Illness: 77 y/o M with PMhx of CAD and HTN presented to ED with c/o of Intermittent CP for the past 3-4 days. Patient describes it as a discomfort in the left precordial area without radiation or other associated symptoms. Denies vomiting , nausea, SOB, diarrhea, headache. Afebrile. Patient was admitted to rule out ACS and for cardiology eval. Present on Admission - Present on Admission Any Indicators Present on Admission: No Review of Systems - Review of Systems All systems: reviewed and no additional remarkable complaints except - Cardiovascular Cardiovascular: Chest Pain Past Patient History - Infectious Disease Hx of Infectious Diseases: None - Past Medical History & Family History Past Medical History?: Yes - Past Social History Alcohol: None Drugs: Denies - CARDIAC Hx Hypertension: Yes Hx Pacemaker: No - PULMONARY Hx Respiratory Disorders: No - NEUROLOGICAL Hx Neurological Disorder: Yes Hx Dizziness: Yes - HEENT Hx HEENT Problems: Yes 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; 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) - RENAL Hx Chronic Kidney Disease: No - ENDOCRINE/METABOLIC Hx Endocrine Disorders: Yes Hx Diabetes Mellitus Type 2: Yes Other/Comment: DM diagnosed 20 years ago - HEMATOLOGICAL/ONCOLOGICAL Hx Blood Disorders: No - INTEGUMENTARY Hx Dermatological Problems: No - MUSCULOSKELETAL/RHEUMATOLOGICAL Hx Musculoskeletal Disorders: Yes Hx Falls: Yes (more than 1 year ago) - GASTROINTESTINAL Hx Gastritis: Yes - GENITOURINARY/GYNECOLOGICAL Hx Genitourinary Disorders: No - PSYCHIATRIC Hx Psychophysiologic Disorder: No Hx Substance Use: No - SURGICAL HISTORY Hx Coronary Artery Bypass Graft: Yes (17 years ago) Hx Coronary Stent: Yes (2012, stent x1) - ANESTHESIA Hx Anesthesia: Yes Hx Anesthesia Reactions: No Hx Malignant Hyperthermia: No Meds Allergies/Adverse Reactions: Allergies Allergy/AdvReac Type Severity Reaction Status Date / Time No Known Allergies Allergy Verified 05/11/17 05:51 Physical Exam - Constitutional Appears: Non-toxic, No Acute Distress - Eye Exam Eye Exam: EOMI, PERRL - ENT Exam ENT Exam: Mucous Membranes Moist - Respiratory Exam Respiratory Exam: Clear to Auscultation Bilateral, NORMAL BREATHING PATTERN. absent: Rales, Wheezes - Cardiovascular Exam Cardiovascular Exam: REGULAR RHYTHM, +S1, +S2. absent: Gallop - GI/Abdominal Exam GI & Abdominal Exam: Normal Bowel Sounds, Soft. absent: Distended, Rigid, Tenderness - Extremities Exam Extremities exam: Negative for: pedal edema, tenderness - Neurological Exam Neurological exam: Alert, Oriented x3 - Psychiatric Exam Psychiatric exam: Normal Affect, Normal Mood - Skin Skin Exam: Normal Color, Warm Results - Vital Signs Recent Vital Signs: Last Vital Signs Temp 97.7 F 05/11/17 09:13 Pulse 70 05/11/17 09:13 Resp 18 05/11/17 09:13 BP 171/80 H 05/11/17 09:13 Pulse Ox 98 05/11/17 09:13 - Labs Result Diagrams: 05/11/17 05:40 05/11/17 05:40 Labs: Laboratory Results - last 24 hr 05/11/17 05/11/17 05/11/17 05:40 05:40 05:40 WBC 5.9 RBC 3.96 L Hgb 11.1 L Hct 33.4 L MCV 84.3 D MCH 28.1 MCHC 33.3 RDW 15.6 H Plt Count 287 MPV 7.2 Neut % (Auto) 67.1 Lymph % (Auto) 15.0 L Hand % (Auto) 13.6 H Eos % (Auto) 2.9 Baso % (Auto) 1.4 Neut # (Auto) 4.0 Lymph # (Auto) 0.9 L Hand # (Auto) 0.8 Eos # (Auto) 0.2 Baso # (Auto) 0.1 PT 11.2 INR 1.0 APTT 29.0 Sodium 142 Potassium 4.5 Chloride 103 Carbon Dioxide 22 Anion Gap 22 H BUN 21 H Creatinine 1.4 Est GFR ( Amer) 59 Est GFR (Non-Af Amer) 49 POC Glucose (mg/dL) Random Glucose 125 H Calcium 10.9 H Troponin I 0.0190 05/11/17 10:33 WBC RBC Hgb Hct MCV MCH MCHC RDW Plt Count MPV Neut % (Auto) Lymph % (Auto) Hand % (Auto) Eos % (Auto) Baso % (Auto) Neut # (Auto) Lymph # (Auto) Hand # (Auto) Eos # (Auto) Baso # (Auto) PT INR APTT Sodium Potassium Chloride Carbon Dioxide Anion Gap BUN Creatinine Est GFR ( Amer) Est GFR (Non-Af Amer) POC Glucose (mg/dL) 220 H Random Glucose Calcium Troponin I Assessment & Plan - Assessment and Plan (Free Text) Assessment: 77 y/o M admitted with CP to rule out ACS Chest pain on a patient with CAD Trop normal EKG no acute changes Patient stable C/W ASA, Betablockers, ARBS and Statins Cardiology consult. Will f/u recs. HTN Uncontrolled F/U cardiology recs C/W Current treatment for now
[2017-05-11 12:34] LABS: TROPONIN I 0.016 ng/mL (0.00-0.120)
[2017-05-11] MEDS: Aspirin 325 mg EC Tablets PO SCH (16:51)
[2017-05-11] MEDS: Sucralfate 1 gm/10 ml Oral Susp UD PO SCH (16:58)
--- NOTE | 2017-05-11 23:35 | CP.PCM.CON ---
History of Present Illness - History of Present Illness History of Present Illness: consultation for evaluation of chest pain HPI: 77 year old male known to me for the last 5 years with extensive cardiac history of CAD/CABG s/p multiple PCI of LAD/Lcx and RCA, CHF ( EF dropped to 35 % pre-last intervention) which improved to 50% on last echo done in 11/29 presenting with c/o chest pains which woke him up from sleep. He had last angioplasty and stenting of LAD done in summer for ISR of LAD. He now presents with typical anginal symptoms which woke him up from sleep accompanied with HTn urgency. He also noticed getting severely sob with minimal activity lately. Review of Systems - Review of Systems Systems not reviewed;Unavailable: Acuity of Condition - Constitutional Constitutional: As Per HPI - EENT Eyes: As Per HPI Ears: As Per HPI Nose/Mouth/Throat: As Per HPI - Cardiovascular Cardiovascular: As Per HPI, Chest Pain, Dyspnea - Respiratory Respiratory: As Per HPI - Gastrointestinal Gastrointestinal: As Per HPI - Genitourinary Genitourinary: As Per HPI - Reproductive: Male Reproductive:Male: As Per HPI - Musculoskeletal Musculoskeletal: As Per HPI - Integumentary Integumentary: As Per HPI - Neurological Neurological: As Per HPI - Psychiatric Psychiatric: As Per HPI - Endocrine Endocrine: As Per HPI - Hematologic/Lymphatic Hematologic: As Per HPI Past Patient History - Infectious Disease Hx of Infectious Diseases: None - Past Medical History & Family History Past Medical History?: Yes - Past Social History Alcohol: None Drugs: Denies - CARDIAC Hx Hypertension: Yes Hx Pacemaker: No - PULMONARY Hx Respiratory Disorders: No - NEUROLOGICAL Hx Neurological Disorder: Yes Hx Dizziness: Yes - HEENT Hx HEENT Problems: Yes 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; 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) - RENAL Hx Chronic Kidney Disease: No - ENDOCRINE/METABOLIC Hx Endocrine Disorders: Yes Hx Diabetes Mellitus Type 2: Yes Other/Comment: DM diagnosed 20 years ago - HEMATOLOGICAL/ONCOLOGICAL Hx Blood Disorders: No - INTEGUMENTARY Hx Dermatological Problems: No - MUSCULOSKELETAL/RHEUMATOLOGICAL Hx Musculoskeletal Disorders: Yes Hx Falls: Yes (more than 1 year ago) - GASTROINTESTINAL Hx Gastritis: Yes - GENITOURINARY/GYNECOLOGICAL Hx Genitourinary Disorders: No - PSYCHIATRIC Hx Psychophysiologic Disorder: No Hx Substance Use: No - SURGICAL HISTORY Hx Coronary Artery Bypass Graft: Yes (17 years ago) Hx Coronary Stent: Yes (2013, stent x1) - ANESTHESIA Hx Anesthesia: Yes Hx Anesthesia Reactions: No Hx Malignant Hyperthermia: No Meds Allergies/Adverse Reactions: Allergies Allergy/AdvReac Type Severity Reaction Status Date / Time No Known Allergies Allergy Verified 05/11/17 05:51 - Medications Medications: Current Medications Aspirin (Ecotrin) 325 mg PO DAILY [facility] Last Admin: 05/11/17 16:51 Dose: Not Given Atorvastatin Calcium (Lipitor) 80 mg PO DAILY [facility] Last Admin: 05/11/17 11:28 Dose: 80 mg Clopidogrel Bisulfate (Plavix) 75 mg PO DAILY [facility] Last Admin: 05/11/17 11:34 Dose: 75 mg Dicyclomine HCl (Bentyl) 10 mg PO DAILY [facility] Last Admin: 05/11/17 11:25 Dose: 10 mg Enoxaparin Sodium (Lovenox) 40 mg SC DAILY [facility] PRN Reason: Protocol Ferrous Sulfate (Feosol) 325 mg PO TID [facility] Last Admin: 05/11/17 16:53 Dose: 325 mg Glipizide (Glucotrol Xl) 2.5 mg PO BID [facility] Last Admin: 05/11/17 16:54 Dose: 2.5 mg Home Med (Polyethylene Glycol 1000 [Polyethylene Glycol]) 2,500 gm MC DAILY [facility] Home Med (Ranolazine [Ranexa]) 1,000 mg PO Q12 [facility] Nitroglycerin/Dextrose (Nitroglycerin 50 Mg/250 Ml D5w) 50 mg in 250 mls @ 1.5 mls/hr IV .Q24H ONE; 5 MCG/MIN PRN Reason: Protocol Stop: 05/12/17 07:15 Last Admin: 05/11/17 11:29 Dose: 1.5 mls/hr Losartan Potassium (Cozaar) 50 mg PO DAILY [facility] Last Admin: 05/11/17 11:27 Dose: 50 mg Metoprolol Tartrate (Lopressor) 25 mg PO BID [facility] Last Admin: 05/11/17 16:53 Dose: Not Given Pantoprazole Sodium (Protonix Ec Tab) 40 mg PO DAILY [facility] Last Admin: 05/11/17 11:26 Dose: 40 mg Pioglitazone HCl (Actos) 30 mg PO DAILY [facility] Last Admin: 05/11/17 11:26 Dose: 30 mg Sitagliptin Phosphate (Januvia) 50 mg PO DAILY [facility] Last Admin: 05/11/17 11:26 Dose: 50 mg Sucralfate (Carafate Oral Susp) 1 gm PO BIDAC [facility] Last Admin: 05/11/17 16:58 Dose: 1 gm Tramadol HCl (Ultram) 50 mg PO TID PRN PRN Reason: Pain, moderate (4-7) Physical Exam - Constitutional Appears: Well - Head Exam Head Exam: ATRAUMATIC, NORMAL INSPECTION, NORMOCEPHALIC - Eye Exam Eye Exam: EOMI, Normal appearance, PERRL Pupil Exam: NORMAL ACCOMODATION, PERRL - ENT Exam ENT Exam: Mucous Membranes Moist, Normal Exam - Neck Exam Neck exam: Positive for: Normal Inspection - Respiratory Exam Respiratory Exam: Clear to Auscultation Bilateral, NORMAL BREATHING PATTERN - Cardiovascular Exam Cardiovascular Exam: REGULAR RHYTHM, RRR, +S1, +S2, Systolic Murmur - GI/Abdominal Exam GI & Abdominal Exam: Normal Bowel Sounds, Soft. absent: Tenderness - Extremities Exam Extremities exam: Positive for: normal inspection - Back Exam Back exam: NORMAL INSPECTION - Neurological Exam Neurological exam: Alert, CN II-XII Intact, Normal Gait, Oriented x3, Reflexes Normal - Psychiatric Exam Psychiatric exam: Normal Affect, Normal Mood - Skin Skin Exam: Dry, Intact, Normal Color, Warm Results - Vital Signs Recent Vital Signs: Last Vital Signs Temp 97.8 F 05/11/17 20:11 Pulse 71 05/11/17 20:11 Resp 18 05/11/17 20:11 BP 133/73 05/11/17 20:11 Pulse Ox 99 05/11/17 20:11 - Labs Result Diagrams: 05/11/17 05:40 05/11/17 05:40 Labs: Laboratory Results - last 24 hr 05/11/17 05/11/17 05/11/17 05:40 05:40 05:40 WBC 5.9 RBC 3.96 L Hgb 11.1 L Hct 33.4 L MCV 84.3 D MCH 28.1 MCHC 33.3 RDW 15.6 H Plt Count 287 MPV 7.2 Neut % (Auto) 67.1 Lymph % (Auto) 15.0 L [place] % (Auto) 13.6 H Eos % (Auto) 2.9 Baso % (Auto) 1.4 Neut # (Auto) 4.0 Lymph # (Auto) 0.9 L [place] # (Auto) 0.8 Eos # (Auto) 0.2 Baso # (Auto) 0.1 PT 11.2 INR 1.0 APTT 29.0 Sodium 142 Potassium 4.5 Chloride 103 Carbon Dioxide 22 Anion Gap 22 H BUN 21 H Creatinine 1.4 Est GFR ( Amer) 59 Est GFR (Non-Af Amer) 49 POC Glucose (mg/dL) Random Glucose 125 H Calcium 10.9 H Troponin I 0.0190 NT-Pro-B Natriuret Pep 05/11/17 05/11/17 05/11/17 10:33 11:55 16:02 WBC RBC Hgb Hct MCV MCH MCHC RDW Plt Count MPV Neut % (Auto) Lymph % (Auto) [place] % (Auto) Eos % (Auto) Baso % (Auto) Neut # (Auto) Lymph # (Auto) [place] # (Auto) Eos # (Auto) Baso # (Auto) PT INR APTT Sodium Potassium Chloride Carbon Dioxide Anion Gap BUN Creatinine Est GFR ( Amer) Est GFR (Non-Af Amer) POC Glucose (mg/dL) 220 H 161 H Random Glucose Calcium Troponin I 0.0160 NT-Pro-B Natriuret Pep 176 05/11/17 05/11/17 19:08 20:57 WBC RBC Hgb Hct MCV MCH MCHC RDW Plt Count MPV Neut % (Auto) Lymph % (Auto) [place] % (Auto) Eos % (Auto) Baso % (Auto) Neut # (Auto) Lymph # (Auto) [place] # (Auto) Eos # (Auto) Baso # (Auto) PT INR APTT Sodium Potassium Chloride Carbon Dioxide Anion Gap BUN Creatinine Est GFR ( Amer) Est GFR (Non-Af Amer) POC Glucose (mg/dL) 167 H Random Glucose Calcium Troponin I 0.0170 NT-Pro-B Natriuret Pep Assessment & Plan (1) Chest pain Assessment and Plan: etiology ? 2' to underlying CAD vs. GERD will evaluate with pharmacologic myoview stress test cont home cardiac meds IV ntg gtt Status: Acute (2) SOB (shortness of breath) Assessment and Plan: BNP normal etiology ? anxiety vs Reactive airway disease Status: Acute (3) CAD (coronary artery disease) of artery bypass graft Assessment and Plan: cont dapt cont bb, arb, nirates cont ranexa risk stratification with stress testing Status: Acute (4) Hypercholesterolemia Assessment and Plan: statins Status: Acute (5) HTN (hypertension) Status: Chronic
[2017-05-12] MEDS: GlipiZIDE 2.5 mg SR Tab PO SCH ×2 (09:10→16:09)
[2017-05-12] MEDS: Sucralfate 1 gm/10 ml Oral Susp UD PO SCH ×2 (09:10→16:08)
[2017-05-12] MEDS ORDERED: Lidocaine 2% Jelly (Uro-Jet) TOP ONE (11:09)
--- NOTE | 2017-05-12 11:14 | CP.PCM.PN ---
Subjective - Date & Time of Evaluation Date of Evaluation: 05/12/17 Time of Evaluation: 10:35 - Subjective Subjective: Feeling well. Still c/o mild MSK CP. Has no new complains. No events overnight. For Stress test today. Objective - Vital Signs/Intake and Output Vital Signs (last 24 hours): Temp Pulse Resp BP Pulse Ox 98.2 F 63 20 129/74 95 05/12/17 08:00 05/12/17 09:10 05/12/17 08:00 05/12/17 09:10 05/12/17 08:00 Intake and Output: 05/12/17 05/12/17 06:59 18:59 Intake Total 18 Output Total 200 Balance -182 - Medications Medications: Current Medications Aspirin (Ecotrin) 325 mg PO DAILY [facility] Last Admin: 05/11/17 16:51 Dose: Not Given Atorvastatin Calcium (Lipitor) 80 mg PO DAILY [facility] Last Admin: 05/11/17 11:28 Dose: 80 mg Clopidogrel Bisulfate (Plavix) 75 mg PO DAILY [facility] Last Admin: 05/11/17 11:34 Dose: 75 mg Dicyclomine HCl (Bentyl) 10 mg PO DAILY [facility] Last Admin: 05/11/17 11:25 Dose: 10 mg Enoxaparin Sodium (Lovenox) 40 mg SC DAILY [facility] PRN Reason: Protocol Ferrous Sulfate (Feosol) 325 mg PO TID [facility] Last Admin: 05/12/17 09:10 Dose: Not Given Glipizide (Glucotrol Xl) 2.5 mg PO BID [facility] Last Admin: 05/12/17 09:10 Dose: Not Given Home Med (Polyethylene Glycol 1000 [Polyethylene Glycol]) 2,500 gm MC DAILY [facility] Home Med (Ranolazine [Ranexa]) 1,000 mg PO Q12 [facility] Losartan Potassium (Cozaar) 50 mg PO DAILY [facility] Last Admin: 05/11/17 11:27 Dose: 50 mg Metoprolol Tartrate (Lopressor) 25 mg PO BID [facility] Last Admin: 05/12/17 09:10 Dose: Not Given Pantoprazole Sodium (Protonix Ec Tab) 40 mg PO DAILY [facility] Last Admin: 05/11/17 11:26 Dose: 40 mg Pioglitazone HCl (Actos) 30 mg PO DAILY [facility] Last Admin: 05/11/17 11:26 Dose: 30 mg Sitagliptin Phosphate (Januvia) 50 mg PO DAILY [facility] Last Admin: 05/11/17 11:26 Dose: 50 mg Sucralfate (Carafate Oral Susp) 1 gm PO BIDAC [facility] Last Admin: 05/12/17 09:10 Dose: Not Given Tramadol HCl (Ultram) 50 mg PO TID PRN PRN Reason: Pain, moderate (4-7) - Labs Labs: 05/11/17 05:40 05/11/17 05:40 PT 11.2 Seconds (9.8-13.1) 05/11/17 05:40 INR 1.0 (0.9-1.2) 05/11/17 05:40 APTT 29.0 Seconds (25.6-37.1) 05/11/17 05:40 - Constitutional Appears: Non-toxic, No Acute Distress - Eye Exam Eye Exam: EOMI, PERRL - ENT Exam ENT Exam: Mucous Membranes Moist - Respiratory Exam Respiratory Exam: Clear to Ausculation Bilateral, NORMAL BREATHING PATTERN. absent: Rales, Wheezes - Cardiovascular Exam Cardiovascular Exam: REGULAR RHYTHM, +S1, +S2 - GI/Abdominal Exam GI & Abdominal Exam: Soft, Normal Bowel Sounds. absent: Tenderness - Neurological Exam Neurological Exam: Alert, Awake, Oriented x3 - Psychiatric Exam Psychiatric exam: Normal Affect, Normal Mood - Skin Skin Exam: Normal Color, Warm Assessment and Plan - Assessment and Plan (Free Text) Assessment: Chest pain Poss MSK chest pain Apply Lidocaine gel daily to affected area Troponins normal ProBNP normal For Stress test today.
[2017-05-12] MEDS ORDERED: Aminophylline 25 mg/ml Inj ONE (11:56)
[2017-05-12] MEDS: Aspirin 325 mg EC Tablets PO SCH (16:03)
[2017-05-12] MEDS: Enoxaparin 40 mg Syringe SC SCH (16:14)
[2017-05-12] MEDS: Pantoprazole 40 mg EC Tab PO SCH (16:15)
--- NOTE | 2017-05-12 16:55 | CARD ---
APPROVED REPORT Protocol: LEXISCAN Test Type: LEXISCAN Medications: ASA 81MG, LIPITOR 80MG, PLAVIX 75MG, LOVENOX 40MG, FEOSOL 325MG, GLUCOTROL XL 2.5MG, COZAAR 50MG, LOPRESSOR 25MG, PROTONIX 40MG, ACTOS 30MG, JANUVIA 50MG, CARAFATE, Medical History: HYPERTENSION, CAD, CHRONIC ANGINA, DEAF LEFT EAR. DIABETES, GASTRITIS, BYPASS SURGERY 17 YEARS AGO, 2013 STENT X1, Target HR: 142 bpm Resting ECG: normal Resting Heart Rate: 70 bpm Resting Blood Pressure: 155/94/mmHg submaximum (85%): 121 bpm TEST SUMMARY PREINJECTPRE-INJEC05:[id number]. [id number]. INJECTIONNS FLUSH00:[id number]. INJECTIONNUC MED00:[id number]. [id number]/90.0. PROCEDURE Pharmacologic stress testing was performed using 0.4mg per 5ml of regadenoson given intravenously over 7-10 seconds. Reversal agent aminophyline 100 mg, given intravenously for POST EXERCISE Reason for Termination: PROTOCOL COMPLETED Target HR: No Max HR: 96 bpm 78% of Maximum Predicted HR: 142 bpm Exercise duration: 01:00 min:sec, 0 Stage Exercise capacity: 1.0METs Max Blood Pressure: 189/91mmHg Blood Pressure response to exercise: N/A Heart Rate response to exercise: N/A Chest Pain: Yes, non-limiting Angina index: 0 Arrhythmia: No, none ST Change: No, none Deviation: 0 mm EXAM: Myocardial Perfusion REST/STRESS Image QualityGood Imaging Protocol The imaging protocol used to acquire images was Rest Tc-99m/stress Tc-99m 1 day Rest Spect myocardial perfusion imaging was performed in supine position 45 minutes following the injection of 10 mCi of Tc-99 Myoview. Time of rest injection: 10:36 Time of rest imagin:20 At peak stress, the patient was injected intravenously with 30mCi of Tc-99 tetrofosmin after an infusion time of minutes and seconds. Time of stress injection: 12:55 Time of stress imagin:10 Gated Stress Spect was performed 70 minutes after intravenous Tc-99 Myoview injection. The images were gated to evaluate regional wall motion and calculate ventricular ejection fraction. NUCLEAR IMAGE INTERPRETATION Study quality was good. Left Ventricular size was Normal at Rest and Stress. LV Perfusion 1 Perfusion Defect Location: mid anterolateral,mid inferolateral Perfusion Defect Size: Large (> or equal to 5 segments) Perfusion Defect Severity: Severe Type of Perfusion Defect: Reversible CONCLUSION 1. - Large sized severe intensity reversible lateral wall defect Recommendation - will need further risk stratification with cardiac catheterization
--- NOTE | 2017-05-12 20:54 | CP.PCM.PN ---
Subjective - Date & Time of Evaluation Date of Evaluation: 05/12/17 Time of Evaluation: 13:00 - Subjective Subjective: s/p stress test intermittent mild cp Objective - Vital Signs/Intake and Output Vital Signs (last 24 hours): Temp Pulse Resp BP Pulse Ox 97.7 F 80 18 109/70 96 05/12/17 20:21 05/12/17 20:21 05/12/17 20:21 05/12/17 20:21 05/12/17 20:21 Intake and Output: 05/12/17 05/13/17 18:59 06:59 Intake Total 1000 Balance 1000 - Medications Medications: Current Medications Aspirin (Ecotrin) 325 mg PO DAILY [facility] Last Admin: 05/12/17 16:03 Dose: 325 mg Atorvastatin Calcium (Lipitor) 80 mg PO DAILY [facility] Last Admin: 05/12/17 16:11 Dose: 80 mg Clopidogrel Bisulfate (Plavix) 75 mg PO DAILY [facility] Last Admin: 05/12/17 16:03 Dose: 75 mg Dicyclomine HCl (Bentyl) 10 mg PO DAILY [facility] Last Admin: 05/12/17 16:07 Dose: 10 mg Enoxaparin Sodium (Lovenox) 40 mg SC DAILY [facility] PRN Reason: Protocol Last Admin: 05/12/17 16:14 Dose: Not Given Ferrous Sulfate (Feosol) 325 mg PO TID [facility] Last Admin: 05/12/17 16:09 Dose: 325 mg Glipizide (Glucotrol Xl) 2.5 mg PO BID [facility] Last Admin: 05/12/17 16:09 Dose: 2.5 mg Losartan Potassium (Cozaar) 50 mg PO DAILY [facility] Last Admin: 05/12/17 16:02 Dose: 50 mg Metoprolol Tartrate (Lopressor) 25 mg PO BID [facility] Last Admin: 05/12/17 16:11 Dose: 25 mg Pantoprazole Sodium (Protonix Ec Tab) 40 mg PO DAILY [facility] Last Admin: 05/12/17 16:15 Dose: 40 mg Pioglitazone HCl (Actos) 30 mg PO DAILY [facility] Last Admin: 05/12/17 16:03 Dose: 30 mg Sitagliptin Phosphate (Januvia) 50 mg PO DAILY [facility] Last Admin: 05/12/17 16:10 Dose: 50 mg [facility] Admin: 05/12/17 16:08 Dose: 1 gm Tramadol HCl (Ultram) 50 mg PO TID PRN PRN Reason: Pain, moderate (4-7) - Labs Labs: 05/11/17 05:40 05/11/17 05:40 PT 11.2 Seconds (9.8-13.1) 05/11/17 05:40 INR 1.0 (0.9-1.2) 05/11/17 05:40 APTT 29.0 Seconds (25.6-37.1) 05/11/17 05:40 - Constitutional Appears: Well - Head Exam Head Exam: ATRAUMATIC, NORMAL INSPECTION, NORMOCEPHALIC - Eye Exam Eye Exam: EOMI, Normal appearance, PERRL Pupil Exam: NORMAL ACCOMODATION, PERRL - ENT Exam ENT Exam: Mucous Membranes Moist, Normal Exam - Neck Exam Neck Exam: Full ROM, Normal Inspection. absent: Lymphadenopathy - Respiratory Exam Respiratory Exam: Clear to Ausculation Bilateral, NORMAL BREATHING PATTERN - Cardiovascular Exam Cardiovascular Exam: REGULAR RHYTHM, +S1, +S2, Murmur - GI/Abdominal Exam GI & Abdominal Exam: Soft, Normal Bowel Sounds. absent: Tenderness - Extremities Exam Extremities Exam: Full ROM, Normal Capillary Refill, Normal Inspection. absent : Joint Swelling, Pedal Edema - Back Exam Back Exam: NORMAL INSPECTION - Neurological Exam Neurological Exam: Alert, Awake, CN II-XII Intact, Normal Gait, Oriented x3 - Psychiatric Exam Psychiatric exam: Normal Affect, Normal Mood - Skin Skin Exam: Dry, Intact, Normal Color, Warm Assessment and Plan (1) Chest pain Assessment & Plan: stress test - abnormal - lateral wall reversible defect plan for cardiac cath in am npo p mn Status: Acute (2) SOB (shortness of breath) Status: Acute (3) CAD (coronary artery disease) of artery bypass graft Assessment & Plan: cont dapt cont bb, arb cont statin Status: Acute (4) Hypercholesterolemia Status: Acute (5) HTN (hypertension) Status: Chronic
--- NOTE | 2017-05-13 11:29 | CP.PCM.PN ---
Subjective - Date & Time of Evaluation Date of Evaluation: 05/13/17 Time of Evaluation: 10:00 - Subjective Subjective: Patient not at bedside since it was transferred to [facility] network planner for CC. Will try to evaluate in the afternoon. Patient returned late afternoon fro CC. Patient to c/w same plan Objective - Vital Signs/Intake and Output Vital Signs (last 24 hours): Temp Pulse Resp BP Pulse Ox 97.6 F 62 18 129/76 97 05/13/17 05:50 05/13/17 05:50 05/13/17 05:50 05/13/17 05:50 05/13/17 05:50 - Medications Medications: Current Medications Aspirin (Ecotrin) 325 mg PO DAILY [facility] Last Admin: 05/12/17 16:03 Dose: 325 mg Atorvastatin Calcium (Lipitor) 80 mg PO DAILY [facility] Last Admin: 05/12/17 16:11 Dose: 80 mg Clopidogrel Bisulfate (Plavix) 75 mg PO DAILY [facility] Last Admin: 05/12/17 16:03 Dose: 75 mg Dicyclomine HCl (Bentyl) 10 mg PO DAILY [facility] Last Admin: 05/12/17 16:07 Dose: 10 mg Enoxaparin Sodium (Lovenox) 40 mg SC DAILY [facility] PRN Reason: Protocol Last Admin: 05/12/17 16:14 Dose: Not Given Ferrous Sulfate (Feosol) 325 mg PO TID [facility] Last Admin: 05/12/17 16:09 Dose: 325 mg Glipizide (Glucotrol Xl) 2.5 mg PO BID [facility] Last Admin: 05/12/17 16:09 Dose: 2.5 mg Losartan Potassium (Cozaar) 50 mg PO DAILY [facility] Last Admin: 05/12/17 16:02 Dose: 50 mg Metoprolol Tartrate (Lopressor) 25 mg PO BID [facility] Last Admin: 05/12/17 16:11 Dose: 25 mg Pantoprazole Sodium (Protonix Ec Tab) 40 mg PO DAILY [facility] Last Admin: 05/12/17 16:15 Dose: 40 mg Pioglitazone HCl (Actos) 30 mg PO DAILY [facility] Last Admin: 05/12/17 16:03 Dose: 30 mg Sitagliptin Phosphate (Januvia) 50 mg PO DAILY [facility] Last Admin: 05/12/17 16:10 Dose: 50 mg [facility] Admin: 05/12/17 16:08 Dose: 1 gm Tramadol HCl (Ultram) 50 mg PO TID PRN PRN Reason: Pain, moderate (4-7) - Labs Labs: 05/11/17 05:40 05/11/17 05:40 PT 11.2 Seconds (9.8-13.1) 05/11/17 05:40 INR 1.0 (0.9-1.2) 05/11/17 05:40 APTT 29.0 Seconds (25.6-37.1) 05/11/17 05:40 Assessment and Plan - Assessment and Plan (Free Text) Assessment: For CC F/U Dr Agudelo recs. Stable
[2017-05-13] MEDS: Sucralfate 1 gm/10 ml Oral Susp UD PO SCH ×2 (12:19→19:46)
[2017-05-13] MEDS: Aspirin 325 mg EC Tablets PO SCH (12:20)
[2017-05-13] MEDS: GlipiZIDE 2.5 mg SR Tab PO SCH ×2 (12:21→19:47)
[2017-05-13] MEDS: Enoxaparin 40 mg Syringe SC SCH (12:23)
[2017-05-13] MEDS: Pantoprazole 40 mg EC Tab PO SCH (12:25)
[2017-05-14 06:25] LABS: MAGNESIUM 1.5 MG/DL (1.6-2.3)
[2017-05-14 06:36] LABS: TROPONIN I 0.102 ng/mL (0.00-0.120)
[2017-05-14] MEDS: Enoxaparin 40 mg Syringe SC SCH (09:45)
[2017-05-14] MEDS: Aspirin 325 mg EC Tablets PO SCH (09:53)
[2017-05-14] MEDS: Pantoprazole 40 mg EC Tab PO SCH (09:53)
[2017-05-14] MEDS: GlipiZIDE 2.5 mg SR Tab PO SCH ×2 (09:53→17:29)
[2017-05-14] MEDS: Sucralfate 1 gm/10 ml Oral Susp UD PO SCH ×2 (09:53→17:28)
[2017-05-14] MEDS ORDERED: Alum-Mag Hydrox-Simethicone Susp (30 mL) PO ONE (11:03)
--- NOTE | 2017-05-14 12:21 | PQF GENQUE ---
Dr. Mckenzie, Planning Consultant documented the following information with no mention of this diagnosis in your documentation. Please indicate in your next progress note your agreement with systems management consultant or provide clarification that this diagnosis is not a current condition. Diagnosis: Unstable Angina Documented by: Road Advisor Location: Cardiac Cath draft report 05/11 Cardiology consult: He now presents with typical anginal symptoms which woke him up from sleep accompanied with HTn urgency. 05/13: Cath report in draft: was brought to the chemical laboratory technician for evaluation and treatment of unstable angina This form is a permanent part of the medical record Clarification of your documentation is requested to better reflect the severity of illness and intensity of treatment of your patient. Indicators present [] Specify: [] [] Specify: [] [] Specify: [] [] Specify: [] Location in the medical record that reflects the above clinical findings: [] Treatment Provided: [] PHYSICIAN'S RESPONSE Based on your medical judgment of the clinical indicators outlined above please clarify the following: [] Practitioner response [] If unable to determine, please check the box, sign and date. Present On Admission (POA) Indicator: [] Present at the time of admission [] Not present at the time of admission [] Clinically Undetermined In responding to this query, please exercise your independent professional judgment. The fact that a question is asked does not imply that any particular answer is desired or expected. Thank you for your clarification on this documentation. If you have any questions please call. * Thank you, Krystin Etienne RN ext. . #[id number] MTDD
[2017-05-14 13:10] VITALS: O2SAT 97
--- NOTE | 2017-05-14 14:09 | CP.PCM.PN ---
Subjective - Date & Time of Evaluation Date of Evaluation: 05/14/17 Time of Evaluation: 13:05 - Subjective Subjective: Stable, no acute distress, no event overnight, S/p CC Yesterday with balloon angioplasty procedure. Epigastric, periumbilical pain improved since early this morning after 1 dose of maalox. Patient on protonix. No other complains Objective - Vital Signs/Intake and Output Vital Signs (last 24 hours): Temp Pulse Resp BP Pulse Ox 98.4 F 85 20 126/72 97 05/14/17 13:00 05/14/17 13:00 05/14/17 13:00 05/14/17 13:00 05/14/17 13:00 - Medications Medications: Current Medications Aspirin (Ecotrin) 325 mg PO DAILY [facility] Last Admin: 05/14/17 09:53 Dose: 325 mg Atorvastatin Calcium (Lipitor) 80 mg PO DAILY [facility] Last Admin: 05/14/17 09:54 Dose: 80 mg Clopidogrel Bisulfate (Plavix) 75 mg PO DAILY [facility] Last Admin: 05/14/17 09:53 Dose: 75 mg Dicyclomine HCl (Bentyl) 10 mg PO DAILY [facility] Last Admin: 05/14/17 09:53 Dose: 10 mg Enoxaparin Sodium (Lovenox) 40 mg SC DAILY [facility] PRN Reason: Protocol Last Admin: 05/14/17 09:45 Dose: 40 mg Ferrous Sulfate (Feosol) 325 mg PO TID [facility] Last Admin: 05/14/17 09:53 Dose: 325 mg Glipizide (Glucotrol Xl) 2.5 mg PO BID [facility] Last Admin: 05/14/17 09:53 Dose: 2.5 mg Losartan Potassium (Cozaar) 50 mg PO DAILY [facility] Last Admin: 05/14/17 09:53 Dose: 50 mg Metoprolol Tartrate (Lopressor) 25 mg PO BID [facility] Last Admin: 05/14/17 09:54 Dose: 25 mg Pantoprazole Sodium (Protonix Ec Tab) 40 mg PO DAILY [facility] Last Admin: 05/14/17 09:53 Dose: 40 mg Pioglitazone HCl (Actos) 30 mg PO DAILY [facility] Last Admin: 05/14/17 09:53 Dose: 30 mg Sitagliptin Phosphate (Januvia) 50 mg PO DAILY [facility] Last Admin: 05/14/17 09:54 Dose: 50 mg Sucralfate (Carafate Oral Susp) 1 gm PO BIDAC [facility] Last Admin: 05/14/17 09:53 Dose: 1 gm Tramadol HCl (Ultram) 50 mg PO TID PRN PRN Reason: Pain, moderate (4-7) - Labs Labs: 05/11/17 05:40 05/14/17 05:33 PT 11.2 Seconds (9.8-13.1) 05/11/17 05:40 INR 1.0 (0.9-1.2) 05/11/17 05:40 APTT 29.0 Seconds (25.6-37.1) 05/11/17 05:40 - Constitutional Appears: Non-toxic, No Acute Distress - Eye Exam Eye Exam: EOMI, PERRL - ENT Exam ENT Exam: Mucous Membranes Moist - Respiratory Exam Respiratory Exam: Clear to Ausculation Bilateral, NORMAL BREATHING PATTERN. absent: Decreased Breath Sounds, Rales, Wheezes, Respiratory Distress - Cardiovascular Exam Cardiovascular Exam: REGULAR RHYTHM, +S1, +S2. absent: Gallop - GI/Abdominal Exam GI & Abdominal Exam: Soft, Normal Bowel Sounds. absent: Tenderness, Diminished Bowel Sounds, Rebound - Extremities Exam Extremities Exam: absent: Calf Tenderness - Neurological Exam Neurological Exam: Alert, Awake, Oriented x3 - Psychiatric Exam Psychiatric exam: Normal Affect, Normal Mood - Skin Skin Exam: Normal Color, Warm Assessment and Plan - Assessment and Plan (Free Text) Assessment: CAD Unstable angina as per Cardio notes S/P CC with restenotic coronary arteries that needed balloon angioplasty. Tolerated well. Stable Will need dual antiplatelet therapy for 6-12 months as per Cardiology Awaiting final recs for discharge plan
--- NOTE | 2017-05-14 14:13 | PQF GENQUE ---
Dr. Mckenzie, 2 queries: Please specify the type and acuity of heart failure in your progress notes: if in agreement 1. TYPE: Combined systolic and diastolic Heart failure with reduced ejection fraction and diastolic dysfunction Diastolic HFpEF Systolic HFrEF Left heart failure Right heart failure Right heart failure due to left heart failure High Output failure End stage heart failure Other (please specify) Clinically unable to determine Unknown 2. ACUITY: Acute Chronic Acute on chronic Other (please specify) Clinically unable to determine Unknown CXR Impression:Stable chronic prominence of the bilateral interstitial markings. No focal consolidation or pleural effusion. Pro BNP:176 05/11 Cardiology consult: cardiac history of CAD/CABG s/p multiple PCI of LAD/ Lcx and RCA, CHF ( EF dropped to 35% pre-last intervention) which improved to 50 % on last echo done in 11/29 presenting with c/o chest pains which woke him up from sleep. He had last angioplasty and stenting of LAD done in summer for ISR of LAD. He now presents with typical anginal symptoms which woke him up from sleep accompanied with HTn urgency. He also noticed getting severely sob with minimal activity lately. Impression.: Chest pain etiology ? 2' to underlying CAD vs. GERD will evaluate with pharmacologic myoview stress test cont home cardiac meds IV ntg gtt : Acute (2) SOB : BNP normal etiology ? anxiety vs Reactive airway disease : Acute (3) CAD cont dapt cont bb, arb, nirates cont ranexa risk stratification with stress testing : Acute (4) Hypercholesterolemia : Acute (5) HTN Status: Chronic This form is a permanent part of the medical record Clarification of your documentation is requested to better reflect the severity of illness and intensity of treatment of your patient. Indicators present [] Specify: [] [] Specify: [] [] Specify: [] [] Specify: [] Location in the medical record that reflects the above clinical findings: [] Treatment Provided: [] PHYSICIAN'S RESPONSE Based on your medical judgment of the clinical indicators outlined above please clarify the following: [] Practitioner response [] If unable to determine, please check the box, sign and date. Present On Admission (POA) Indicator: [] Present at the time of admission [] Not present at the time of admission [] Clinically Undetermined In responding to this query, please exercise your independent professional judgment. The fact that a question is asked does not imply that any particular answer is desired or expected. Thank you for your clarification on this documentation. If you have any questions please call. * Thank you, Krystin Etienne RN ext. #[phone] MTDD
--- NOTE | 2017-05-14 15:19 | CP.PCM.DIS ---
Provider - Provider Date of Admission: 05/12/17 14:00 Attending physician: Wolf Mckenzie MD Primary care physician: Flaco Agudelo MD Consults: Cardiology Time Spent in preparation of Discharge (in minutes): 30 Diagnosis - Discharge Diagnosis (1) CAD (coronary artery disease) Status: Chronic Comment: S/P Angioplasty of restented coronary arteries (2) S/P angioplasties Status: Acute Comment: Stable. Cleared by Cardio for DC. Dual antiplatelet (3) CHF (congestive heart failure) Status: Chronic Comment: Systolic. Stable. Hospital Course - Lab Results Lab Results: Most Recent Lab Values WBC 5.9 K/uL (4.8-10.8) 05/11/17 05:40 RBC 3.96 Mil/uL (4.40-5.90) L 05/11/17 05:40 Hgb 11.1 g/dL (12.0-18.0) L 05/11/17 05:40 Hct 33.4 % (35.0-51.0) L 05/11/17 05:40 MCV 84.3 fl (80.0-94.0) D 05/11/17 05:40 MCH 28.1 pg (27.0-31.0) 05/11/17 05:40 MCHC 33.3 g/dL (33.0-37.0) 05/11/17 05:40 RDW 15.6 % (11.5-14.5) H 05/11/17 05:40 Plt Count 287 K/uL (130-400) 05/11/17 05:40 MPV 7.2 fl (7.2-11.7) 05/11/17 05:40 Neut % (Auto) 67.1 % (50.0-75.0) 05/11/17 05:40 Lymph % (Auto) 15.0 % (20.0-40.0) L 05/11/17 05:40 [place] % (Auto) 13.6 % (0.0-10.0) H 05/11/17 05:40 Eos % (Auto) 2.9 % (0.0-4.0) 05/11/17 05:40 Baso % (Auto) 1.4 % (0.0-2.0) 05/11/17 05:40 Neut # (Auto) 4.0 K/uL (1.8-7.0) 05/11/17 05:40 Lymph # (Auto) 0.9 K/uL (1.0-4.3) L 05/11/17 05:40 [place] # (Auto) 0.8 K/uL (0.0-0.8) 05/11/17 05:40 Eos # (Auto) 0.2 K/uL (0.0-0.7) 05/11/17 05:40 Baso # (Auto) 0.1 K/uL (0.0-0.2) 05/11/17 05:40 PT 11.2 Seconds (9.8-13.1) 05/11/17 05:40 INR 1.0 (0.9-1.2) 05/11/17 05:40 APTT 29.0 Seconds (25.6-37.1) 05/11/17 05:40 Sodium 141 mmol/l (132-148) 05/14/17 05:33 Potassium 4.4 MMOL/L (3.6-5.0) 05/14/17 05:33 Chloride 103 mmol/L (98-107) 05/14/17 05:33 Carbon Dioxide 22 mmol/L (22-30) 05/14/17 05:33 Anion Gap 20 (10-20) 05/14/17 05:33 BUN 24 mg/dl (9-20) H 05/14/17 05:33 Creatinine 2.0 mg/dl (0.8-1.5) H 05/14/17 05:33 Est GFR ( Amer) 39 05/14/17 05:33 Est GFR (Non-Af Amer) 32 05/14/17 05:33 POC Glucose (mg/dL) 197 mg/dL (65-110) H 05/14/17 11:04 Random Glucose 250 mg/dL (75-110) H 05/14/17 05:33 Calcium 11.0 mg/dL (8.4-10.2) H 05/14/17 05:33 Phosphorus 3.3 mg/dl (2.5-4.5) 05/14/17 05:33 Magnesium 1.5 MG/DL (1.6-2.3) L 05/14/17 05:33 Troponin I 0.1020 ng/mL (0.00-0.120) 05/14/17 05:33 NT-Pro-B Natriuret Pep 176 pg/ml (0-900) 05/11/17 11:55 - Hospital Course Hospital Course: Patient cleared by Cardiology for DC home and f/u as outpatient 77 y/o M with Hx of coronary artery disease, unstable angina as per cardiology notes presented to hosp for persistent intermittent CP. Patient underwent lexiscan with further Cardiac Cath with balloon angioplasty of retenotic coronary arteries. Tolerated procedures well. Stable and cleared to DC home with dual antiplatelet therapy today Discharge Exam - Head Exam Head Exam: ATRAUMATIC, NORMAL INSPECTION, NORMOCEPHALIC Discharge Plan - Follow Up Plan Condition: STABLE Disposition: HOME/ ROUTINE Referrals: Flaco Agudelo MD [Primary Care Provider] -
[2017-05-14 16:51] VITALS: BP 127/72; RESP 18; TEMP 97.4
[2017-05-14 17:29] VITALS: PULSE 68
--- NOTE | 2017-05-14 18:26 | CARD ---
APPROVED REPORT EKG Measurement Heart [id number] <Conclusion> Normal sinus rhythm Normal ECG
== END 2017-05-14 19:51 | disposition home or self-care (01) | DRG 251 ==
LOC: H.ER 05:28 → H.ERHOLD 06:50 → H.TEL 09:10 → OBSVTOIN 05-12 14:00
PROVIDERS: ADMIT Family Medicine; ATTEND Family Medicine
PROC: 4A12XM4 Monitoring of Cardiac Stress, External Approach (ICD-10-PCS; principal; 2017-05-12)
PROC: 02703ZZ Dilation of Coronary Artery, One Artery, Percutaneous Approach (ICD-10-PCS; 2017-05-13)
DX: I25.110 Atherosclerotic heart disease of native coronary artery with unstable angina pectoris (principal); I11.0 Hypertensive heart disease with heart failure; I50.22 Chronic systolic (congestive) heart failure; E11.9 Type 2 diabetes mellitus without complications; I16.0 Hypertensive urgency; E78.00 Pure hypercholesterolemia, unspecified; K29.70 Gastritis, unspecified, without bleeding; H91.92 Unspecified hearing loss, left ear; Z95.5 Presence of coronary angioplasty implant and graft; Z79.82 Long term (current) use of aspirin; Z79.02 Long term (current) use of antithrombotics/antiplatelets; Z79.84 Long term (current) use of oral hypoglycemic drugs

== ENCOUNTER 2017-06-07 20:34 | Inpatient (IN) | payer MEDICARE, MEDICAID ==
[2017-06-07 20:49] VITALS: BMI 30.2
[2017-06-07 22:03] LABS: BASO # 0.1 K/uL (0.0-0.2); BASO % 1.1 % (0.0-2.0); EOS # 0.2 K/uL (0.0-0.7); EOS % 3.4 % (0.0-4.0); HEMOGLOBIN 10.7 g/dL (12.0-18.0); LYMPH % 16.5 % (20.0-40.0); MEAN CELL VOLUME 84.5 fl (80.0-94.0); MEAN CORPUSCULAR HEMOGLOBIN 27.2 pg (27.0-31.0); MEAN CORPUSCULAR HGB CONC 32.2 g/dL (33.0-37.0); MEAN PLATELET VOLUME 7.3 fl (7.2-11.7); MONO # 0.8 K/uL (0.0-0.8); MONO % 13.9 % (0.0-10.0); NEUT % 65.1 % (50.0-75.0); NRBC % 0.1 % (0.0-0.0); RBC 3.92 Mil/uL (4.40-5.90); RED CELL DISTRIBUTION WIDTH 16.3 % (11.5-14.5); WHITE BLOOD COUNT 6.1 K/uL (4.8-10.8)
[2017-06-07] MEDS ORDERED: Iohexol 240 (50 ml) PO ONE (22:04)
[2017-06-07] MEDS ORDERED: Iohexol 240 (50 ml) ONE (22:08)
[2017-06-07 22:16] LABS: INR 1.1 (0.9-1.2); PROTHROMBIN TIME 11.7 Seconds (9.8-13.1)
[2017-06-07 22:17] LABS: PARTIAL THROMBOPLASTIN TIME 28.7 Seconds (25.6-37.1)
--- NOTE | 2017-06-07 22:42 | ED PDOC ---
HPI: Abdomen Time Seen by Provider: 06/07/17 21:11 Chief Complaint (Nursing): Chest Pain Chief Complaint (Provider): Epigastric and abdominal pain History Per: Patient History/Exam Limitations: no limitations Onset/Duration Of Symptoms: Days (x1 month) Location Of Pain/Discomfort: Epigastric Quality Of Discomfort: "Pain" Associated Symptoms: Constipation (intermittent ). denies: Nausea, Vomiting, Other (diaphoresis) Last Bowel Movement: Yesterday Additional Complaint(s): Tenzin Johnson is a 77 year old male, with a past medical history of CAD, HTN, diabetes and gastritis, who presents to the emergency department complaining of epigastric abdominal pain onset for x1 month. Patient states he had a cardiac cath put in place x1 month ago for chest pain. Patient also reports a CABG done over 20 yrs ago. The cath was reported as a balloon angioplasty placed by Dr. Agudelo, since procedure patient has been getting pain at the base of the sternum. Patient also reports intermittent constipation, last bowel movement was yesterday. He denies any nausea, vomit or diaphoresis. No further medical complaints. PMD: Hamilton Mcknight Past Medical History Reviewed: Historical Data, Nursing Documentation, Vital Signs Vital Signs: Last Vital Signs Temp 97.6 F 06/08/17 05:00 Pulse 81 06/08/17 05:00 Resp 18 06/08/17 05:00 BP 136/69 06/08/17 05:00 Pulse Ox 98 06/08/17 05:00 - Medical History PMH: CAD, Diabetes, Diverticulitis, Gastritis, HTN Denies: Chronic Kidney Disease - Surgical History Surgical History: CABG (triple bypass), Coronary Stent (x5-6) Denies: Pacemaker - Family History Family History: States: Unknown Family Hx - Social History Current smoker - smoking cessation education provided: No Alcohol: None Drugs: Denies - Home Medications Home Medications: Ambulatory Orders Medication Instructions Recorded Aspirin [Aspirin EC] 1 tab PO DAILY 06/11/16 Atorvastatin [Lipitor] 80 mg PO DAILY 06/11/16 Clopidogrel [Plavix] 75 mg PO DAILY 06/11/16 Dexlansoprazole [Dexilant] 60 mg PO DAILY 06/11/16 Dicyclomine [Bentyl] 10 mg PO DAILY 06/11/16 Isosorbide Mononitrate ER [Imdur 60 mg PO DAILY 06/11/16 ER] Metoprolol Tartrate [Lopressor] 25 mg PO BID 06/11/16 Ranolazine [Ranexa] 1,000 mg PO Q12 01/07/17 Sucralfate [Carafate Oral Susp] 1 gm PO BID #60 dose 01/12/17 GlipiZIDE SR [Glucotrol XL] 2.5 mg PO BID #60 tab 01/13/17 Pioglitazone [Actos] 30 mg PO DAILY #30 tab 01/13/17 SITagliptin [Januvia] 50 mg PO DAILY #30 tab 01/13/17 Ferrous Sulfate [Ferosul] 325 mg PO TID 05/11/17 Losartan Potassium 50 mg PO DAILY 05/11/17 Polyethylene Glycol 1000 2,500 gm MC DAILY 05/11/17 [Polyethylene Glycol] Tramadol HCl [Ultram] 50 mg PO TID 05/11/17 - Allergies Allergies/Adverse Reactions: Allergies Allergy/AdvReac Type Severity Reaction Status Date / Time No Known Allergies Allergy Verified 06/07/17 20:49 Review of Systems ROS Statement: Except As Marked, All Systems Reviewed And Found Negative Cardiovascular: Positive for: Chest Pain (some) Gastrointestinal: Positive for: Abdominal Pain (epigastric), Constipation ( intermittent). Negative for: Nausea, Vomiting Physical Exam - Reviewed Vital Signs Reviewed: Yes - Physical Exam Appears: Positive for: Non-toxic, No Acute Distress Head Exam: Positive for: ATRAUMATIC, NORMAL INSPECTION, NORMOCEPHALIC Skin: Positive for: Normal Color, Warm, Dry Eye Exam: Positive for: Normal appearance Neck: Positive for: Painless ROM, Supple Cardiovascular/Chest: Positive for: Regular Rate, Rhythm. Negative for: Murmur Respiratory: Positive for: Normal Breath Sounds. Negative for: Respiratory Distress Gastrointestinal/Abdominal: Positive for: Bowel Sounds (hypoactive. hypertympanic ), Distended. Negative for: Tenderness Extremity: Positive for: Normal ROM. Negative for: Deformity, Swelling Neurologic/Psych: Positive for: Alert, Oriented. Negative for: Motor/Sensory Deficits - Laboratory Results Result Diagrams: 06/07/17 21:26 06/07/17 21:26 - ECG O2 Sat by Pulse Oximetry: 100 (RA) Pulse Ox Interpretation: Normal Medical Decision Making Medical Decision Making: Initial Impression: 77 y/o male with epigastric pain and abdominal distention in setting of recent cath. Initial Plan: --Abd Pelvis PO & IV contrast --EKG --BNP --CMP --Lact Acid, Plasma --Lipase --Troponin I --CBC w/ differential --PTT --PT --Chest portable [RAD] --Omnipaque 240 50 ml PO --Morphine 2 mg IVP --Reevaluation 01:03 EXAM: CT Abdomen and Pelvis With Intravenous Contrast CLINICAL HISTORY: 77 years old, male; Pain; Abdominal pain; Generalized; Additional info: Abd pain TECHNIQUE: Axial computed tomography images of the abdomen and pelvis with intravenous contrast. All CT scans at this facility use one or more dose reduction techniques, viz.: automated exposure control; ma/kV adjustment per patient size (including targeted exams where dose is matched to indication; i.e. head); or iterative reconstruction technique. 566 images are submitted. Oral contrast was administered. Coronal and sagittal reformatted images were created and reviewed. CONTRAST: 95 mL of [id number] administered intravenously. COMPARISON: CT - ANGIO CHEST/ABDOMEN/PELVIS 2016-06-11 23:07 FINDINGS: Lower thorax: Bibasilar nonspecific infiltrates are present, consistent with atelectasis or pneumonia. Small to moderate hiatal hernia with herniation of fat and stomach. ABDOMEN: Liver: Fatty liver. Gallbladder and bile ducts: Contracted gallbladder with mild gallbladder prominence and pericholecystic haziness. Pancreas: Unremarkable. No mass. No ductal dilation. Spleen: Unremarkable. No splenomegaly. Adrenals: Unremarkable. No mass. Kidneys and ureters: Bilateral perinephric infiltration may be a sequela of infection, inflammation or aging. There is left renal hypodensity too small to characterize. No hydronephrosis. Stomach and bowel: Unremarkable. No obstruction. No mucosal thickening. Appendix: Normal appendix. PELVIS: Bladder: Unremarkable. Reproductive: Enlarged prostate gland ABDOMEN and PELVIS: Intraperitoneal space: Unremarkable. No free air. No significant fluid collection. Bones/joints: L2-L5 L5-S1 disc osteophyte complex. No acute fracture. No dislocation. Soft tissues: Bilateral inguinal herniation of fat. There is a fat-containing umbilical hernia. Vasculature: Unremarkable. No abdominal aortic aneurysm. Lymph nodes: Unremarkable. No enlarged lymph nodes. IMPRESSION: No acute findings. 01:47 labs show no clinically significant abnormalities. Patient will be placed on chest pain observation under Dr. Mckenzie, who covers Dr. Hamilton Mcknight Scribe Attestation: Documented by Jesus Chowdary, acting as a scribe for Fausto Harrington MD Provider Scribe Attestation: All medical record entries made by the Scribe were at my direction and personally dictated by me. I have reviewed the chart and agree that the record accurately reflects my personal performance of the history, physical exam, medical decision making, and the department course for this patient. I have also personally directed, reviewed, and agree with the discharge instructions and disposition. Disposition - Clinical Impression Clinical Impression: Acute chest pain - Patient ED Disposition Is Patient to be Admitted: Yes Discussed With DrGrey: Wolf Mckenzie Doctor Will See Patient In The: Hospital Counseled Patient/Family Regarding: Studies Performed, Diagnosis - Disposition Disposition Time: 01:47 Condition: FAIR - Pt Status Changed To: Hospital Disposition Of: Observation
[2017-06-07 22:48] LABS: ALB/GLOB RATIO 1.2 (1.0-2.1); ALBUMIN 4.5 g/dL (3.5-5.0); CALCIUM 11.2 mg/dL (8.4-10.2)
[2017-06-07 23:05] LABS: TROPONIN I 0.064 ng/mL (0.00-0.120)
[2017-06-08] MEDS ORDERED: Sodium Chloride 0.9% 100 ML ONE (00:10)
[2017-06-08] MEDS ORDERED: Iodixanol 320 MG/ML 100 ML BOTTLE IV ONE (00:10)
--- NOTE | 2017-06-08 01:03 | CT ---
EXAM: CT Abdomen and Pelvis With Intravenous Contrast CLINICAL HISTORY: 77 years old, male; Pain; Abdominal pain; Generalized; Additional info: Abd pain TECHNIQUE: Axial computed tomography images of the abdomen and pelvis with intravenous contrast. All CT scans at this facility use one or more dose reduction techniques, viz.: automated exposure control; ma/kV adjustment per patient size (including targeted exams where dose is matched to indication; i.e. head); or iterative reconstruction technique. 566 images are submitted. Oral contrast was administered. Coronal and sagittal reformatted images were created and reviewed. CONTRAST: 95 mL of [id number] administered intravenously. COMPARISON: CT - ANGIO CHEST/ABDOMEN/PELVIS 2016-06-11 23:07 FINDINGS: Lower thorax: Bibasilar nonspecific infiltrates are present, consistent with atelectasis or pneumonia. Small to moderate hiatal hernia with herniation of fat and stomach. ABDOMEN: Liver: Fatty liver. Gallbladder and bile ducts: Contracted gallbladder with mild gallbladder prominence and tony-cholecystic haziness. Pancreas: Unremarkable. No mass. No ductal dilation. Spleen: Unremarkable. No splenomegaly. Adrenals: Unremarkable. No mass. Kidneys and ureters: Bilateral perinephric infiltration may be a sequela of infection, inflammation or aging. There is left renal hypodensity too small to characterize. No hydronephrosis. Stomach and bowel: Unremarkable. No obstruction. No mucosal thickening. Appendix: Normal appendix. PELVIS: Bladder: Unremarkable. Reproductive: Enlarged prostate gland. ABDOMEN and PELVIS: Intraperitoneal space: Unremarkable. No free air. No significant fluid collection. Bones/joints: L2-L5 L5-S1 disc osteophyte complex. No acute fracture. No dislocation. Soft tissues: Bilateral inguinal herniation of fat. There is a fat-containing umbilical hernia. Vasculature: Unremarkable. No abdominal aortic aneurysm. Lymph nodes: Unremarkable. No enlarged lymph nodes. IMPRESSION: No acute findings.
[2017-06-08] MEDS ORDERED: Morphine 4 MG/ML VIAL IVP ONE (04:27)
[2017-06-08] MEDS ORDERED: Influenza Vaccine 18yr & older 0.5 ML/45 MCG SYR IM ONE (08:27)
--- NOTE | 2017-06-08 09:37 | RAD ---
HISTORY: chest pain COMPARISON: Chest radiograph dated 05/11/2017 FINDINGS: LUNGS: Low lung volumes. Bibasilar atelectasis. PLEURA: No significant pleural effusion identified, no pneumothorax apparent. CARDIOVASCULAR: Prior sternotomy with sternal wires and surgical clips redemonstrated. Atherosclerotic aortic calcifications. Cardiomediastinal silhouette stably enlarged. OSSEOUS STRUCTURES: Unchanged. VISUALIZED UPPER ABDOMEN: Normal. OTHER FINDINGS: None. IMPRESSION: Low lung volumes. Bibasilar atelectasis.
[2017-06-08] MEDS: Enoxaparin 40 mg Syringe SC SCH (11:49)
[2017-06-08] MEDS: Aspirin 325 mg EC Tablets PO SCH (11:54)
[2017-06-08] MEDS ORDERED: Alum-Mag Hydrox-Simethicone Susp (30 mL) PO ONE (13:21)
--- NOTE | 2017-06-08 13:21 | CP.PCM.HP ---
History of Present Illness - History of Present Illness History of Present Illness: 77 year old male, with a past medical history of CAD, HTN, DM and GERD who was admitted to [facility] with c/o epigastric/retrostenal pain onset for tehe past 3-4 weeks Patient is s/p cardiac cath put in place last month after admitted for chest pain. The cath was reported as a balloon angioplasty placed by Dr. Agudelo , since procedure patient has been getting pain at the base of the sternum. Patient also reports intermittent constipation, last bowel movement was2 days ago. He denies any nausea, vomit or diaphoresis. No further medical complaints. Today admits "reflux" Present on Admission - Present on Admission Any Indicators Present on Admission: No Review of Systems - Review of Systems All systems: reviewed and no additional remarkable complaints except (those described on HPI) Past Patient History - Infectious Disease Hx of Infectious Diseases: None - Past Medical History & Family History Past Medical History?: Yes - Past Social History Alcohol: None Drugs: Denies - CARDIAC Hx Hypertension: Yes Hx Pacemaker: No - PULMONARY Hx Respiratory Disorders: No - NEUROLOGICAL Hx Neurological Disorder: Yes Hx Dizziness: Yes - HEENT Hx HEENT Problems: Yes 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; 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) - RENAL Hx Chronic Kidney Disease: No - ENDOCRINE/METABOLIC Hx Endocrine Disorders: Yes Hx Diabetes Mellitus Type 2: Yes Other/Comment: DM diagnosed 20 years ago - HEMATOLOGICAL/ONCOLOGICAL Hx Blood Disorders: No - INTEGUMENTARY Hx Dermatological Problems: No - MUSCULOSKELETAL/RHEUMATOLOGICAL Hx Musculoskeletal Disorders: Yes Hx Falls: Yes (more than 1 year ago) - GASTROINTESTINAL Hx Diverticulitis: Yes Hx Gastritis: Yes - GENITOURINARY/GYNECOLOGICAL Hx Genitourinary Disorders: No - PSYCHIATRIC Hx Psychophysiologic Disorder: No Hx Substance Use: No - SURGICAL HISTORY Hx Coronary Artery Bypass Graft: Yes (triple bypass) Hx Coronary Stent: Yes (x5-6) - ANESTHESIA Hx Anesthesia: Yes Hx Anesthesia Reactions: No Hx Malignant Hyperthermia: No Meds Allergies/Adverse Reactions: Allergies Allergy/AdvReac Type Severity Reaction Status Date / Time No Known Allergies Allergy Verified 06/07/17 20:49 Physical Exam - Constitutional Appears: Non-toxic, No Acute Distress - Eye Exam Eye Exam: EOMI, PERRL - ENT Exam ENT Exam: Mucous Membranes Moist - Respiratory Exam Respiratory Exam: Chest Wall Tenderness (over sternum), Clear to Auscultation Bilateral, NORMAL BREATHING PATTERN. absent: Decreased Breath Sounds, Rales, Rhonchi, Wheezes - Cardiovascular Exam Cardiovascular Exam: REGULAR RHYTHM, +S1, +S2. absent: Gallop - GI/Abdominal Exam GI & Abdominal Exam: Normal Bowel Sounds, Tenderness (mild epigastric). absent : Distended, Firm, Guarding, Rebound, Rigid - Extremities Exam Extremities exam: Positive for: normal capillary refill. Negative for: calf tenderness, pedal edema, tenderness - Neurological Exam Neurological exam: Alert, Oriented x3 - Psychiatric Exam Psychiatric exam: Normal Affect, Normal Mood - Skin Skin Exam: Normal Color, Warm Results - Vital Signs Recent Vital Signs: Last Vital Signs Temp 97.8 F 06/08/17 11:46 Pulse 71 06/08/17 11:50 Resp 18 06/08/17 11:46 BP 152/80 H 06/08/17 11:50 Pulse Ox 97 06/08/17 11:46 - Labs Result Diagrams: 06/07/17 21:26 06/07/17 21:26 Labs: Laboratory Results - last 24 hr 06/07/17 06/07/17 06/07/17 21:26 21:26 21:26 WBC 6.1 RBC 3.92 L Hgb 10.7 L Hct 33.2 L MCV 84.5 MCH 27.2 MCHC 32.2 L RDW 16.3 H Plt Count 245 MPV 7.3 Neut % (Auto) 65.1 Lymph % (Auto) 16.5 L [place] % (Auto) 13.9 H Eos % (Auto) 3.4 Baso % (Auto) 1.1 Neut # (Auto) 4.0 Lymph # (Auto) 1.0 [place] # (Auto) 0.8 Eos # (Auto) 0.2 Baso # (Auto) 0.1 PT 11.7 INR 1.1 APTT 28.7 Sodium 142 Potassium 4.8 Chloride 103 Carbon Dioxide 25 Anion Gap 19 BUN 16 Creatinine 1.4 Est GFR ( Amer) 59 Est GFR (Non-Af Amer) 49 Random Glucose 242 H Lactic Acid Calcium 11.2 H Total Bilirubin 0.4 AST 25 ALT 34 Alkaline Phosphatase 113 Troponin I 0.0640 NT-Pro-B Natriuret Pep 183 Total Protein 8.2 Albumin 4.5 Globulin 3.7 Albumin/Globulin Ratio 1.2 Lipase 06/07/17 06/07/17 06/08/17 22:25 22:25 07:20 WBC RBC Hgb Hct MCV MCH MCHC RDW Plt Count MPV Neut % (Auto) Lymph % (Auto) [place] % (Auto) Eos % (Auto) Baso % (Auto) Neut # (Auto) Lymph # (Auto) [place] # (Auto) Eos # (Auto) Baso # (Auto) PT INR APTT Sodium Potassium Chloride Carbon Dioxide Anion Gap BUN Creatinine Est GFR ( Amer) Est GFR (Non-Af Amer) Random Glucose Lactic Acid 1.2 Calcium Total Bilirubin AST ALT Alkaline Phosphatase Troponin I 0.1030 NT-Pro-B Natriuret Pep Total Protein Albumin Globulin Albumin/Globulin Ratio Lipase 123 Assessment & Plan - Assessment and Plan (Free Text) Assessment: 77 y/o with Hx of CAd s/p CC with balloon angioplasty on restenotic arteries admitted for atypical CP. Trops x2 WNL EKG no new acute changes CP poss GI or MSK related or both Start on protonix Maalox x1 Already on Sucralfate and Ibuprofen Cardiology consult appreciated Can be DC home if cleared by Cardio
[2017-06-08] MEDS: GlipiZIDE 2.5 mg SR Tab PO SCH (17:02)
[2017-06-08] MEDS: Sucralfate 1 gm/10 ml Oral Susp UD PO SCH (17:06)
--- NOTE | 2017-06-08 21:22 | CARD ---
APPROVED REPORT EKG Measurement Heart [id number] <Conclusion> Atrial fibrillation with APCs ST & T wave abnormality, consider lateral ischemia Abnormal ECG
[2017-06-08] MEDS: Patient's Own Med (Ranolazine [Ranexa] 1,000 MG) PO SCH (21:55)
[2017-06-09] MEDS: Patient's Own Med (Ranolazine [Ranexa] 1,000 MG) PO SCH ×2 (08:58→21:53)
[2017-06-09] MEDS: Enoxaparin 40 mg Syringe SC SCH (08:59)
[2017-06-09] MEDS: GlipiZIDE 2.5 mg SR Tab PO SCH ×2 (09:00→17:15)
[2017-06-09] MEDS: Pantoprazole 20 mg EC Tab PO SCH (09:00)
[2017-06-09] MEDS: Aspirin 325 mg EC Tablets PO SCH (09:07)
[2017-06-09] MEDS: Sucralfate 1 gm/10 ml Oral Susp UD PO SCH ×2 (09:07→17:16)
--- NOTE | 2017-06-09 10:29 | CP.PCM.PN ---
Subjective - Date & Time of Evaluation Date of Evaluation: 06/09/17 Time of Evaluation: 08:50 - Subjective Subjective: Stable. Ambulating freely. Awaiting cardio consult. Pain is improved but present randomly, denies SOB, palpitations, vomiting, nausea, fever. Objective - Vital Signs/Intake and Output Vital Signs (last 24 hours): Temp Pulse Resp BP Pulse Ox 97.5 F L 72 18 146/76 98 06/09/17 07:58 06/09/17 08:59 06/09/17 07:58 06/09/17 08:59 06/09/17 07:58 - Medications Medications: Current Medications Aspirin (Ecotrin) 325 mg PO DAILY [facility] Last Admin: 06/09/17 09:07 Dose: 325 mg Atorvastatin Calcium (Lipitor) 80 mg PO DAILY [facility] Last Admin: 06/09/17 09:00 Dose: 80 mg Clopidogrel Bisulfate (Plavix) 75 mg PO DAILY [facility] Last Admin: 06/09/17 09:00 Dose: 75 mg Dicyclomine HCl (Bentyl) 10 mg PO DAILY [facility] Last Admin: 06/09/17 09:00 Dose: 10 mg Docusate Sodium (Colace) 100 mg PO BID [facility] Last Admin: 06/09/17 08:59 Dose: 100 mg Enoxaparin Sodium (Lovenox) 40 mg SC DAILY [facility] PRN Reason: Protocol Last Admin: 06/09/17 08:59 Dose: 40 mg Ferrous Sulfate (Feosol) 325 mg PO BID [facility] Last Admin: 06/09/17 08:59 Dose: 325 mg Glipizide (Glucotrol Xl) 2.5 mg PO BID [facility] Last Admin: 06/09/17 09:00 Dose: 2.5 mg Home Med (Ranolazine [Ranexa]) 1,000 mg PO Q12 [facility] Last Admin: 06/09/17 08:58 Dose: 1,000 mg Ibuprofen (Motrin Tab) 600 mg PO Q8 PRN PRN Reason: Pain, moderate (4-7) Isosorbide Mononitrate (Imdur) 60 mg PO DAILY [facility] Last Admin: 06/09/17 08:59 Dose: 60 mg Losartan Potassium (Cozaar) 50 mg PO DAILY [facility] Last Admin: 06/09/17 08:58 Dose: 50 mg Metoprolol Tartrate (Lopressor) 25 mg PO BID [facility] Last Admin: 06/09/17 08:59 Dose: 25 mg Pantoprazole Sodium (Protonix Ec Tab) 20 mg PO DAILY [facility] Last Admin: 06/09/17 09:00 Dose: 20 mg Pioglitazone HCl (Actos) 30 mg PO DAILY [facility] Last Admin: 06/09/17 09:00 Dose: 30 mg Sitagliptin Phosphate (Januvia) 50 mg PO DAILY [facility] Last Admin: 06/09/17 08:58 Dose: 50 mg Sucralfate (Carafate Oral Susp) 1 gm PO BID [facility] Last Admin: 06/09/17 09:07 Dose: 1 gm Tramadol HCl (Ultram) 50 mg PO TID [facility] Last Admin: 06/09/17 09:08 Dose: Not Given - Labs Labs: 06/07/17 21:26 06/07/17 21:26 PT 11.7 Seconds (9.8-13.1) 06/07/17 21: INR 1.1 (0.9-1.2) 06/07/17 21: APTT 28.7 Seconds (25.6-37.1) 06/07/17 21:26 - Constitutional Appears: Non-toxic, No Acute Distress - Head Exam Head Exam: NORMAL INSPECTION - Eye Exam Eye Exam: EOMI, PERRL - ENT Exam ENT Exam: Mucous Membranes Moist - Respiratory Exam Respiratory Exam: Chest Wall Tenderness (mild sternum), Clear to Ausculation Bilateral, NORMAL BREATHING PATTERN. absent: Rales, Rhonchi, Wheezes - Cardiovascular Exam Cardiovascular Exam: REGULAR RHYTHM, +S1, +S2. absent: Gallop - GI/Abdominal Exam GI & Abdominal Exam: Soft, Tenderness (Mild, epigastric), Normal Bowel Sounds. absent: Bruit, Distended, Firm, Guarding, Rigid - Neurological Exam Neurological Exam: Alert, Awake, Oriented x3 - Psychiatric Exam Psychiatric exam: Normal Affect, Normal Mood - Skin Skin Exam: Normal Color, Warm Assessment and Plan - Assessment and Plan (Free Text) Assessment: Atypical CP unlikely ACS poss GERD vs Costochondritis Trop x3 normal On PPIs and NSAIDs Poss DC home pending cardio clearance
--- NOTE | 2017-06-10 00:01 | CP.PCM.CON ---
History of Present Illness - History of Present Illness History of Present Illness: Consultation for evaluation of chest pain Yuliya is a 77-year-old male who has been followed by me over the course of last 5 years known history of CAD status post DRESS DRAPER stenting of left anterior descending artery about 3 years ago with in-stent restenosis CABG 4 years ago with an atretic VIZCAINO and vein grafts occluded diabetes hypertension hyperlipidemia who was recently underwent plain old balloon angioplasty of LAD in-stent restenosis about few weeks ago who presents with complains of chest pain. Patient continues to have 2 different kinds of chest pain one was pressure-like in sensation prior to his angioplasty and he had a second episode of epigastric discomfort secondary to chronic gastroesophageal reflux disease he also complains of intermittent constipation last bowel movement 2 days ago denies having any nausea vomiting or diaphoresis does complain of having severe acid reflux. He has been ruled out for ACS with serial troponin [address] changes. Review of Systems - Review of Systems All systems: reviewed and no additional remarkable complaints except - Constitutional Constitutional: As Per HPI - EENT Eyes: As Per HPI Ears: As Per HPI. absent: Decreased Hearing, Ear Discharge, Ear Pain, Tinnitus , Abnormal Hearing, Disequilibrium, Dizziness, Other Nose/Mouth/Throat: As Per HPI. absent: Epistaxis, Nasal Congestion, Nasal Discharge, Nasal Obstruction, Nasal Trauma, Nose Pain, Post Nasal Drip, Sinus Pain, Sinus Pressure, Bleeding Gums, Change in Voice, Dental Pain, Dry Mouth, Dysphagia, Halitosis, Hoarsness, Lip Swelling, Mouth Lesions, Mouth Pain, Odynophagia, Sore Throat, Throat Swelling, Tongue Swelling, Facial Pain, Neck Pain, Neck Mass, Other - Cardiovascular Cardiovascular: As Per HPI, Chest Pain. absent: Acrocyanosis, Chest Pain at Rest, Chest Pain with Activity, Claudication, Diaphoresis, Dyspnea, Dyspnea on Exertion, Edema, Irregular Heart Rhythm, Pain Radiating to Arm/Neck/Jaw, Leg Edema, Leg Ulcers, Lightheadedness, Orthopnea, Palpitations, Paroxysmal Nocturnal Dyspnea, Pedal Edema, Radiating Pain, Rapid Heart Rate, Slow Heart Rate, Syncope, Other - Respiratory Respiratory: As Per HPI. absent: Cough, Dyspnea, Hemoptysis, Dyspnea on Exertion, Wheezing, Snoring, Stridor, Pain on Inspiration, Chest Congestion, Excessive Mucous Production, Change in Mucous Color, Pain with Coughing, Other - Gastrointestinal Gastrointestinal: As Per HPI, Constipation, Dyspepsia. absent: Abdominal Pain, Belching, Bloating, Change in Bowel Habits, Change in Stool Character, Coffee Ground Emesis, Cramping, Diarrhea, Dysphagia, Early Satiety, Excessive Flatus, Fecal Incontinence, Heartburn, Hematemesis, Hematochezia, Loose Stools, Melena, Nausea, Odynophagia, Temesmus, Vomiting, Other - Genitourinary Genitourinary: As Per HPI. absent: Change in Urinary Stream, Difficulty Urinating, Dysuria, Flank Pain, Hematuria, Pyuria, Nocturia, Urinary Incontinence, Urinary Frequency, Urinary Hesitance, Urinary Urgency, Voiding Freq/Small Amts, Freq UTI, Hx Renal/Bladder Calculi, Hx /Renal Surgery, Bladder Distension, Other - Musculoskeletal Musculoskeletal: As Per HPI. absent: Abnormal Gait, Arthralgias, Atrophy, Back Pain, Deformity, Joint Swelling, Limited Range of Motion, Loss of Height, Muscle Cramps, Muscle Weakness, Myalgias, Neck Pain, Numbness, Radiating Pain into Limb, Stiffness, Tingling, Other - Integumentary Integumentary: As Per HPI. absent: Acne, Alopecia, Bleeding Lesions, Change in Hair, Change in Nails, Change in Pigmentation, Changing Lesions, Dry Skin, Erythema, Furuncle, Hirsutism, Lesions, New Lesions, Non-Healing Lesions, Photosensitivity, Pruritus, Rash, Skin Pain, Skin Ulcer, Sores, Striae, Swelling , Unusual Bruising, Wounds, Jaundice, Other - Neurological Neurological: As Per HPI. absent: Abnormal Gait, Abnormal Hearing, Abnormal Movements, Abnormal Speech, Behavioral Changes, Burning Sensations, Confusion, Convulsions, Disequilibrium, Dizziness, Numbness, Focal Weakness, Frequent Falls , Headaches, Lack of Coordination, Loss of Vision, Memory Loss, Paresthesias, Radicular Pain, Restless Legs, Sensory Deficit, Syncope, Tingling, Tremor, Vertigo, Weakness, Other Visual Disturbances, Other - Psychiatric Psychiatric: As Per HPI. absent: Abnormal Sleep Pattern, Anhedonia, Anxiety, Auditory Hallucinations, Behavioral Changes, Change in Appetite, Change in Libido, Confusion, Depression, Difficulty Concentrating, Hallucinations, Homicidal Ideation, Hopelessness, Irritability, Memory Loss, Mood Swings, Panic Attacks, Paranoia, Suicidal Ideation, Visual Hallucinations, Tactile Hallucinations, Other - Endocrine Endocrine: As Per HPI. absent: Change in Body Appearance, Change in Libido, Cold Intolorance, Deepening of Voice, Excessive Sweating, Fatigue, Flushing, Heat Intolorance, Increase in Ring/Shoe/Hat Size, Palpitations, Polydipsia, Polyphagia, Polyuria, Other - Hematologic/Lymphatic Hematologic: As Per HPI. absent: Easy Bleeding, Easy Bruising, Lymphadenopathy , Other Past Patient History - Infectious Disease Hx of Infectious Diseases: None - Past Medical History & Family History Past Medical History?: Yes - Past Social History Alcohol: None Drugs: Denies - CARDIAC Hx Hypertension: Yes Hx Pacemaker: No - PULMONARY Hx Respiratory Disorders: No - NEUROLOGICAL Hx Neurological Disorder: Yes Hx Dizziness: Yes - HEENT Hx HEENT Problems: Yes 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; 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) - RENAL Hx Chronic Kidney Disease: No - ENDOCRINE/METABOLIC Hx Endocrine Disorders: Yes Hx Diabetes Mellitus Type 2: Yes Other/Comment: DM diagnosed 20 years ago - HEMATOLOGICAL/ONCOLOGICAL Hx Blood Disorders: No - INTEGUMENTARY Hx Dermatological Problems: No - MUSCULOSKELETAL/RHEUMATOLOGICAL Hx Musculoskeletal Disorders: Yes Hx Falls: Yes (more than 1 year ago) - GASTROINTESTINAL Hx Diverticulitis: Yes Hx Gastritis: Yes - GENITOURINARY/GYNECOLOGICAL Hx Genitourinary Disorders: No - PSYCHIATRIC Hx Psychophysiologic Disorder: No Hx Substance Use: No - SURGICAL HISTORY Hx Coronary Artery Bypass Graft: Yes (triple bypass) Hx Coronary Stent: Yes (x5-6) - ANESTHESIA Hx Anesthesia: Yes Hx Anesthesia Reactions: No Hx Malignant Hyperthermia: No Meds Allergies/Adverse Reactions: Allergies Allergy/AdvReac Type Severity Reaction Status Date / Time No Known Allergies Allergy Verified 06/07/17 20:49 - Medications Medications: Current Medications Aspirin (Ecotrin) 325 mg PO DAILY [facility] Last Admin: 06/09/17 09:07 Dose: 325 mg Atorvastatin Calcium (Lipitor) 80 mg PO DAILY [facility] Last Admin: 06/09/17 09:00 Dose: 80 mg Clopidogrel Bisulfate (Plavix) 75 mg PO DAILY [facility] Last Admin: 06/09/17 09:00 Dose: 75 mg Dicyclomine HCl (Bentyl) 10 mg PO DAILY [facility] Last Admin: 06/09/17 09:00 Dose: 10 mg Docusate Sodium (Colace) 100 mg PO BID [facility] Last Admin: 06/09/17 17:15 Dose: 100 mg Enoxaparin Sodium (Lovenox) 40 mg SC DAILY [facility] PRN Reason: Protocol Last Admin: 06/09/17 08:59 Dose: 40 mg Ferrous Sulfate (Feosol) 325 mg PO BID [facility] Last Admin: 06/09/17 17:15 Dose: 325 mg Glipizide (Glucotrol Xl) 2.5 mg PO BID [facility] Last Admin: 06/09/17 17:15 Dose: 2.5 mg Home Med (Ranolazine [Ranexa]) 1,000 mg PO Q12 [facility] Last Admin: 06/09/17 21:53 Dose: 1,000 mg Ibuprofen (Motrin Tab) 600 mg PO Q8 [facility] Last Admin: 06/09/17 17:16 Dose: 600 mg Isosorbide Mononitrate (Imdur) 60 mg PO DAILY [facility] Last Admin: 06/09/17 08:59 Dose: 60 mg Losartan Potassium (Cozaar) 50 mg PO DAILY [facility] Last Admin: 06/09/17 08:58 Dose: 50 mg Metoprolol Tartrate (Lopressor) 25 mg PO BID [facility] Last Admin: 06/09/17 17:15 Dose: 25 mg Pantoprazole Sodium (Protonix Ec Tab) 20 mg PO DAILY [facility] Last Admin: 06/09/17 09:00 Dose: 20 mg Pioglitazone HCl (Actos) 30 mg PO DAILY [facility] Last Admin: 06/09/17 09:00 Dose: 30 mg Sitagliptin Phosphate (Januvia) 50 mg PO DAILY [facility] Last Admin: 06/09/17 08:58 Dose: 50 mg Sucralfate (Carafate Oral Susp) 1 gm PO BID [facility] Last Admin: 06/09/17 17:16 Dose: 1 gm Tramadol HCl (Ultram) 50 mg PO TID PRN PRN Reason: pain Physical Exam - Constitutional Appears: Well - Head Exam Head Exam: ATRAUMATIC, NORMAL INSPECTION, NORMOCEPHALIC - Eye Exam Eye Exam: EOMI, Normal appearance, PERRL Pupil Exam: NORMAL ACCOMODATION, PERRL - ENT Exam ENT Exam: Mucous Membranes Moist, Normal Exam - Neck Exam Neck exam: Positive for: Normal Inspection - Respiratory Exam Respiratory Exam: Clear to Auscultation Bilateral, NORMAL BREATHING PATTERN - Cardiovascular Exam Cardiovascular Exam: REGULAR RHYTHM, RRR, +S1, +S2, Systolic Murmur - GI/Abdominal Exam GI & Abdominal Exam: Normal Bowel Sounds, Soft. absent: Tenderness - Extremities Exam Extremities exam: Positive for: normal inspection - Back Exam Back exam: NORMAL INSPECTION - Neurological Exam Neurological exam: Alert, CN II-XII Intact, Normal Gait, Oriented x3, Reflexes Normal - Psychiatric Exam Psychiatric exam: Normal Affect, Normal Mood - Skin Skin Exam: Dry, Intact, Normal Color, Warm Results - Vital Signs Recent Vital Signs: Last Vital Signs Temp 98.1 F 06/09/17 19:40 Pulse 69 06/09/17 19:40 Resp 20 06/09/17 19:40 BP 129/76 06/09/17 19:40 Pulse Ox 97 06/09/17 19:40 - Labs Result Diagrams: 06/07/17 21:26 06/07/17 21:26 Labs: Laboratory Results - last 24 hr 06/08/17 06/09/17 06/09/17 04:20 10:33 15:53 POC Glucose (mg/dL) 196 H 141 H Troponin I 0.0810 Assessment & Plan (1) Acute chest pain Assessment and Plan: etiology GI related ACS ruled out with serial enzymes cp GERD related stable to dc home in am GI evaluation PPI Status: Acute (2) CAD (coronary artery disease) of artery bypass graft Assessment and Plan: GDMT for CAD Status: Acute (3) Gastritis Assessment and Plan: PPI Status: Acute (4) Hypercholesterolemia Assessment and Plan: cont statins Status: Acute (5) Intractable headache Status: Acute (6) S/P angioplasties Assessment and Plan: cont dapt, bb, acei, statins Status: Acute (7) CAD (coronary artery disease) Status: Chronic (8) CHF (congestive heart failure) Status: Chronic (9) Diabetes mellitus type 2 in nonobese Status: Chronic (10) HTN (hypertension) Status: Chronic
[2017-06-10] MEDS: Sucralfate 1 gm/10 ml Oral Susp UD PO SCH (10:58)
[2017-06-10] MEDS: Aspirin 325 mg EC Tablets PO SCH (10:59)
[2017-06-10] MEDS: GlipiZIDE 2.5 mg SR Tab PO SCH (11:00)
[2017-06-10] MEDS: Enoxaparin 40 mg Syringe SC SCH (11:01)
[2017-06-10] MEDS: Patient's Own Med (Ranolazine [Ranexa] 1,000 MG) PO SCH (11:03)
[2017-06-10] MEDS: Pantoprazole 20 mg EC Tab PO SCH (11:03)
--- NOTE | 2017-06-10 14:29 | CP.PCM.DIS ---
Provider - Provider Date of Admission: 06/09/17 20:12 Attending physician: Wolf Mckenzie MD Primary care physician: Dr Mcknight Consults: Cardiology Time Spent in preparation of Discharge (in minutes): 30 Diagnosis - Discharge Diagnosis (1) GERD (gastroesophageal reflux disease) Status: Acute (2) Acute chest pain Status: Acute (3) CAD (coronary artery disease) of artery bypass graft Status: Chronic Hospital Course - Lab Results Lab Results: Most Recent Lab Values WBC 6.1 K/uL (4.8-10.8) 06/07/17 21: RBC 3.92 Mil/uL (4.40-5.90) L 06/07/17 21: Hgb 10.7 g/dL (12.0-18.0) L 06/07/17 21: Hct 33.2 % (35.0-51.0) L 06/07/17 21: MCV 84.5 fl (80.0-94.0) 06/07/17 21: MCH 27.2 pg (27.0-31.0) 06/07/17 21: MCHC 32.2 g/dL (33.0-37.0) L 06/07/17: RDW 16.3 % (11.5-14.5) H 06/07/17 21: Plt Count 245 K/uL (130-400) 06/07/17 21: MPV 7.3 fl (7.2-11.7) 06/07/17: Neut % (Auto) 65.1 % (50.0-75.0) 06/07/17: Lymph % (Auto) 16.5 % (20.0-40.0) L 06/07/17: [place] % (Auto) 13.9 % (0.0-10.0) H 06/07/17: Eos % (Auto) 3.4 % (0.0-4.0) 06/07/17 21: Baso % (Auto) 1.1 % (0.0-2.0) 06/07/17 21: Neut # (Auto) 4.0 K/uL (1.8-7.0) 06/07/17: Lymph # (Auto) 1.0 K/uL (1.0-4.3) 06/07/17 21:26 [place] # (Auto) 0.8 K/uL (0.0-0.8) 06/07/17 21: Eos # (Auto) 0.2 K/uL (0.0-0.7) 06/07/17 21: Baso # (Auto) 0.1 K/uL (0.0-0.2) 06/07/17 21: PT 11.7 Seconds (9.8-13.1) 06/07/17 21: INR 1.1 (0.9-1.2) 06/07/17 21: APTT 28.7 Seconds (25.6-37.1) 06/07/17 21: Sodium 142 mmol/l (132-148) 06/07/17 21: Potassium 4.8 MMOL/L (3.6-5.0) 06/07/17 21: Chloride 103 mmol/L (98-107) 06/07/17 21: Carbon Dioxide 25 mmol/L (22-30) 06/07/17 21:26 Anion Gap 19 (10-20) 06/07/17 21:26 BUN 16 mg/dl (9-20) 06/07/17 21: Creatinine 1.4 mg/dl (0.8-1.5) 06/07/17 21:26 Est GFR ( Amer) 59 06/07/17 21:26 Est GFR (Non-Af Amer) 49 06/07/17 21:26 POC Glucose (mg/dL) 169 mg/dL (65-110) H 06/10/17 11:36 Random Glucose 242 mg/dL (75-110) H 06/07/17 21:26 Lactic Acid 1.2 MMOL/L (0.7-2.1) 06/07/17 22:25 Calcium 11.2 mg/dL (8.4-10.2) H 06/07/17 21:26 Total Bilirubin 0.4 mg/dl (0.2-1.3) 06/07/17 21:26 AST 25 U/L (17-59) 06/07/17 21: ALT 34 U/L (21-72) 06/07/17 21:26 Alkaline Phosphatase 113 U/L (38-126) 06/07/17 21:26 Troponin I 0.0920 ng/mL (0.00-0.120) 06/08/17 17:18 NT-Pro-B Natriuret Pep 183 pg/ml (0-900) 06/07/17 21:26 Total Protein 8.2 G/DL (6.3-8.2) 06/07/17 21: Albumin 4.5 g/dL (3.5-5.0) 06/07/17 21: Globulin 3.7 gm/dL (2.2-3.9) 06/07/17 21: Albumin/Globulin Ratio 1.2 (1.0-2.1) 06/07/17 21: Lipase 123 U/L (23-300) 06/07/17 22:25 - Hospital Course Hospital Course: 77 y/o M with extensive cardiac medical hx including baloon angioplasty on retenotic coronaries last month was admitted to hosp with c/o atypical CP. Cardio was consulted and trop x3 were neg. CP likely GI related, poss GERD. He was started on PPIs while in the hosp with some relief of intermittent pain. Cardio cleared him today and he is stable to dC home and f/u as outpatient Discharge Exam - Head Exam Head Exam: ATRAUMATIC, NORMAL INSPECTION, NORMOCEPHALIC - Eye Exam Eye Exam: EOMI, PERRL - ENT Exam ENT Exam: Mucous Membranes Moist - Respiratory Exam Respiratory Exam: Clear to PA & Lateral, NORMAL BREATHING PATTERN, UNREMARKABLE - Cardiovascular Exam Cardiovascular Exam: REGULAR RHYTHM, +S1, +S2, Systolic Murmur. absent: Gallop - GI/Abdominal Exam GI & Abdominal Exam: Normal Bowel Sounds, Soft, Tenderness (Epigastric). absent : Distended, Firm, Guarding, Rebound, Rigid - Extremities Exam Extremities exam: normal capillary refill, pedal pulses present - Neurological Exam Neurological exam: Alert, Oriented x3 - Psychiatric Exam Psychiatric exam: Normal Affect, Normal Mood - Skin Skin Exam: Normal Color, Warm Discharge Plan - Follow Up Plan Condition: STABLE Disposition: HOME/ ROUTINE Instructions: Chest Pain (DC), Costochondritis (DC) Additional Instructions: follow up with pmd in 1 week Referrals: Flaco Agudelo MD [Family Provider] - Hamilton Mcknight MD [Staff Provider] -
[2017-06-10 15:46] VITALS: BP 156/83; PULSE 57; RESP 18; TEMP 98.1; O2SAT 97
--- NOTE | 2017-06-11 09:02 | PQF GENQUE ---
Dr. 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 Indicators present [] Specify: [] [] Specify: [] [] Specify: [] [] Specify: [] Location in the medical record that reflects the above clinical findings: [] Treatment Provided: [] PHYSICIAN'S RESPONSE Based on your medical judgment of the clinical indicators outlined above please clarify the following: [] Practitioner response [] If unable to determine, please check the box, sign and date. Present On Admission (POA) Indicator: [] Present at the time of admission [] Not present at the time of admission [] Clinically Undetermined In responding to this query, please exercise your independent professional judgment. The fact that a question is asked does not imply that any particular answer is desired or expected. Thank you for your clarification on this documentation. If you have any questions please call. * Thank you, Krystin Etienne RN ext. #[phone] MTDD
== END 2017-06-10 15:06 | disposition home or self-care (01) | DRG 392 ==
LOC: H.ER 20:34 → H.ERHOLD 06-08 01:46 → H.TEL 06-08 03:54 → OBSVTOIN 06-09 20:12
PROVIDERS: ADMIT Family Medicine; ATTEND Family Medicine
DX: K21.9 Gastro-esophageal reflux disease without esophagitis (principal); I25.810 Atherosclerosis of coronary artery bypass graft(s) without angina pectoris; I50.32 Chronic diastolic (congestive) heart failure; I11.0 Hypertensive heart disease with heart failure; K29.70 Gastritis, unspecified, without bleeding; K59.00 Constipation, unspecified; E11.9 Type 2 diabetes mellitus without complications; E78.5 Hyperlipidemia, unspecified; E78.00 Pure hypercholesterolemia, unspecified; R07.89 Other chest pain; H91.92 Unspecified hearing loss, left ear; R51 Headache; Z79.02 Long term (current) use of antithrombotics/antiplatelets; Z79.82 Long term (current) use of aspirin; Z95.5 Presence of coronary angioplasty implant and graft; Z95.820 Peripheral vascular angioplasty status with implants and grafts; Z79.84 Long term (current) use of oral hypoglycemic drugs

== ENCOUNTER 2017-06-16 17:18 | Inpatient (IN) | payer MEDICARE, MEDICAID ==
[2017-06-16 17:19] VITALS: BMI 30.2
[2017-06-16] MEDS ORDERED: Alum-Mag Hydrox-Simethicone Susp (30 mL) PO ONE (18:09)
[2017-06-16 18:17] LABS: BASO # 0.1 K/uL (0.0-0.2); BASO % 0.8 % (0.0-2.0); EOS # 0.1 K/uL (0.0-0.7); EOS % 0.7 % (0.0-4.0); HEMOGLOBIN 11.7 g/dL (12.0-18.0); LYMPH # 1.2 K/uL (1.0-4.3); LYMPH % 8.8 % (20.0-40.0); MEAN CELL VOLUME 84.1 fl (80.0-94.0); MEAN CORPUSCULAR HEMOGLOBIN 27.3 pg (27.0-31.0); MEAN CORPUSCULAR HGB CONC 32.4 g/dL (33.0-37.0); MEAN PLATELET VOLUME 7.8 fl (7.2-11.7); MONO # 1.6 K/uL (0.0-0.8); MONO % 11.6 % (0.0-10.0); NEUT # 10.9 K/uL (1.8-7.0); NEUT % 78.1 % (50.0-75.0); PLATELET COUNT 365 K/uL (130-400); RBC 4.28 Mil/uL (4.40-5.90); RED CELL DISTRIBUTION WIDTH 17.4 % (11.5-14.5); WHITE BLOOD COUNT 13.9 K/uL (4.8-10.8)
[2017-06-16] MEDS ORDERED: Alum-Mag Hydrox-Simethicone Susp (30 mL) ONE (18:29)
[2017-06-16 19:01] LABS: TROPONIN I 12.8 ng/mL (0.00-0.120)
[2017-06-16 19:02] LABS: ALB/GLOB RATIO 1.1 (1.0-2.1); ALBUMIN 4.7 g/dL (3.5-5.0); CALCIUM 11.4 mg/dL (8.4-10.2)
[2017-06-16] MEDS ORDERED: Sodium Chloride 0.9% 1,000 ML IV STA (19:34)
[2017-06-16 19:47] LABS: BANDS 2 % (0-2); BASOPHIL 1 % (0-2); EOSINOPHIL 1 % (0-7); LYMPHOCYTE 10 % (20-50); MONOCYTE 10 % (0-10); NEUTROPHIL 76 % (42-75); PLATELET ESTIMATE NORMAL (NORMAL); TOTAL CELLS COUNTED 100
[2017-06-16 19:57] LABS: ANISOCYTOSIS SLIGHT
[2017-06-16 19:58] LABS: HYPOCHROMIC SLIGHT; MICROCYTOSIS SLIGHT; POLYCHROMIC SLIGHT
[2017-06-16] MEDS ORDERED: Heparin 25,000units in D5W 25,000 UNITS/250 ML BAG IV SCH (20:00)
--- NOTE | 2017-06-16 20:08 | ED PDOC ---
HPI: General Adult Time Seen by Provider: 06/16/17 17:36 Chief Complaint (Nursing): Abdominal Pain Chief Complaint (Provider): abdominal and chest pain History Per: Patient, Family History/Exam Limitations: no limitations Current Symptoms Are (Timing): Still Present Severity: Moderate Location Of Discomfort (Image): 1 - pain Similar Symptoms Previously: + Recently: Hospitalized Additional Complaint(s): 77yo male hx CAD, HTN, s/p cath may 13, recently admitted to for atypical chest pain troponins were negative, states symptoms have persisted intermittely since discharge, worsened today. Denies fever, cough, syncope or edema. States taking medications as directed- including ASA and plavix taken today. Past Medical History Reviewed: Historical Data, Nursing Documentation, Vital Signs Vital Signs: Last Vital Signs Temp 98.5 F 06/17/17 08:54 Pulse 80 06/17/17 12:00 Resp 15 06/17/17 12:00 BP 114/67 06/17/17 12:00 Pulse Ox 97 06/17/17 12:00 - Medical History PMH: CAD, Diabetes, Diverticulitis, Gastritis, HTN Denies: Chronic Kidney Disease - Surgical History Surgical History: CABG (triple bypass), Coronary Stent (x5-6) Denies: Pacemaker - Family History Family History: States: Unknown Family Hx - Living Arrangements Living Arrangements: With Family - Social History Current smoker - smoking cessation education provided: No - Home Medications Home Medications: Ambulatory Orders Medication Instructions Recorded Aspirin [Aspirin EC] 1 tab PO DAILY 06/11/16 Atorvastatin [Lipitor] 80 mg PO DAILY 06/11/16 Clopidogrel [Plavix] 75 mg PO DAILY 06/11/16 Dexlansoprazole [Dexilant] 60 mg PO DAILY 06/11/16 Dicyclomine [Bentyl] 10 mg PO DAILY 06/11/16 Isosorbide Mononitrate ER [Imdur 60 mg PO DAILY 06/11/16 ER] Metoprolol Tartrate [Lopressor] 25 mg PO BID 06/11/16 Ranolazine [Ranexa] 1,000 mg PO Q12 01/07/17 Sucralfate [Carafate Oral Susp] 1 gm PO BID #60 dose 01/12/17 GlipiZIDE SR [Glucotrol XL] 2.5 mg PO BID #60 tab 01/13/17 Pioglitazone [Actos] 30 mg PO DAILY #30 tab 01/13/17 SITagliptin [Januvia] 50 mg PO DAILY #30 tab 01/13/17 Ferrous Sulfate [Ferosul] 325 mg PO TID 05/11/17 Losartan Potassium 50 mg PO DAILY 05/11/17 Polyethylene Glycol 1000 2,500 gm MC DAILY 05/11/17 [Polyethylene Glycol] Tramadol HCl [Ultram] 50 mg PO TID 05/11/17 - Allergies Allergies/Adverse Reactions: Allergies Allergy/AdvReac Type Severity Reaction Status Date / Time No Known Allergies Allergy Verified 06/16/17 17:27 Review of Systems Constitutional: Negative for: Fever ENT: Negative for: Ear Pain Cardiovascular: Positive for: Chest Pain, Palpitations. Negative for: Orthopnea Respiratory: Positive for: Shortness of Breath. Negative for: Cough Gastrointestinal: Positive for: Abdominal Pain. Negative for: Nausea Genitourinary Male: Negative for: Dysuria Musculoskeletal: Positive for: Back Pain. Negative for: Neck Pain Skin: Negative for: Rash, Lesions, Jaundice Neurological: Positive for: Dizziness. Negative for: Weakness, Numbness Psych: Negative for: Suicidal ideation Physical Exam - Reviewed Nursing Documentation Reviewed: Yes Vital Signs Reviewed: Yes - Physical Exam Appears: Positive for: Well, Non-toxic, No Acute Distress Head Exam: Positive for: ATRAUMATIC, NORMAL INSPECTION, NORMOCEPHALIC Skin: Positive for: Normal Color, Warm, DRY Eye Exam: Positive for: EOMI, Normal appearance, PERRL ENT: Positive for: Normal ENT Inspection Neck: Positive for: Normal, Painless ROM Cardiovascular/Chest: Positive for: Regular Rate, Rhythm Respiratory: Positive for: CNT, Normal Breath Sounds Gastrointestinal/Abdominal: Positive for: Soft, Tenderness (mild epigastric tenderness). Negative for: Guarding Back: Positive for: Normal Inspection Extremity: Positive for: Normal ROM Neurologic/Psych: Positive for: Alert, Oriented. Negative for: Motor/Sensory Deficits - Laboratory Results Result Diagrams: 06/17/17 04:23 06/17/17 04:23 - ECG ECG: Positive for: Interpreted By Me ECG Rhythm: Positive for: Sinus Rhythm, Nonspecific Changes Rate: 82 O2 Sat by Pulse Oximetry: 100 Pulse Ox Interpretation: Normal - Critical Care Total Time (In Min): 45 Medical Decision Making Medical Decision Making: workup for epigastric pain/ atypical chest pain initiated medications reviewed includes plavix (9am), ASA, dexilant (11am), sucralfate and other maintenance meds. States he took ASA and plavix this morning. Prior chart reviewed from may admission, CTA chest/Abd/pelv -no aneurysm or dissection labs reviewed reveal new leukocytosis, new acute renal inury and marked elev trop 12.8 D/w Dr Agudelo 725p start heparin drip he requested ICU care overnight. Patient and family updated on initial findings and need for hospitalization. US abdomen- normal aorta Disposition - Clinical Impression Clinical Impression: NSTEMI (non-ST elevated myocardial infarction), Acute kidney injury - Patient ED Disposition Is Patient to be Admitted: Yes Counseled Patient/Family Regarding: Studies Performed, Diagnosis - Disposition Disposition Time: 18:45 (ICU per cardiology) Condition: FAIR - Pt Status Changed To: Hospital Disposition Of: Inpatient - Admit Certification Admit to Inpatient:: After my assessment, the patient will require hospitalization for at least two midnights. This is because of the severity of symptoms shown, intensity of services needed, and/or the medical risk in this patient being treated as an outpatient. - POA Present On Arrival: None
--- NOTE | 2017-06-16 21:19 | CP.PCM.CON ---
History of Present Illness - History of Present Illness History of Present Illness: Attending: Dr Reza PMD: Chinmay Villasenor MD Chief Investigator: Dr Agudelo reason for Consult: Critical Cared management Chief Complaint: Chest and abdominal pain The patient was seen and examined in the ED HPI: The hx is obtained from the patient , his daughter and after review of the medical records and laboratory findings. He is a 77 years old male with hx of DM II, CHF, diverticulitis, CAD s/p CABG with multiple stents, last admitted on 06/09/17 and discharged on 06/10/17 with dx of gastritis, comes referring 2 weeks of worsening intermittent, epigastric pain radiating down to the periumbilical abdomen and to the left chest, aggravated by exertion and relieved by rest, no changes with meals nor his home medication. No fever, diarrhea, cough nor vomits. He does refer intermittent palpitation and SOB. In the Ed his Troponin was 12.8 PMH: CAD, DM II, Diverticulitis, Gastritis, HTN; CHF EF 35 increased to 50% after Past treatment; 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 Ear PSH: CABG (triple bypass 2000), Coronary Stent (x5-6), Balloon Angioplasty of LAD in-stent restore; Surgery for Cyst on the back SH: Former Smoker; Former alcohol user; No illegal drug use; live with daughter FH; father Cancer at the back Allergies: NKDA Medication: Reviewed Review of Systems - Constitutional Constitutional: Anorexia. absent: Chills, Fever, Headache - EENT Eyes: Requires Corrective Lenses. absent: Diplopia, Floaters, Sees Flashes Ears: Decreased Hearing. absent: Ear Discharge, Tinnitus Nose/Mouth/Throat: absent: Epistaxis, Nasal Congestion, Nasal Discharge, Sinus Pressure, Dental Pain - Cardiovascular Cardiovascular: Chest Pain, Dyspnea. absent: Edema, Lightheadedness - Respiratory Respiratory: Dyspnea. absent: Cough, Wheezing, Stridor, Chest Congestion - Gastrointestinal Gastrointestinal: Abdominal Pain, Constipation. absent: Diarrhea, Nausea, Vomiting - Musculoskeletal Musculoskeletal: Arthralgias, Back Pain. absent: Muscle Cramps, Muscle Weakness - Integumentary Integumentary: absent: Pruritus, Rash, Skin Ulcer, Sores, Striae, Swelling - Neurological Neurological: absent: Confusion, Focal Weakness, Loss of Vision, Weakness - Psychiatric Psychiatric: absent: Anxiety, Depression, Panic Attacks - Endocrine Endocrine: absent: Palpitations, Polydipsia, Polyphagia, Polyuria - Hematologic/Lymphatic Hematologic: absent: Easy Bleeding, Easy Bruising Past Patient History - Infectious Disease Hx of Infectious Diseases: None - Past Medical History & Family History Past Medical History?: Yes - Past Social History Smoking Status: Former Smoker Chewing Tobacco Use: No Cigar Use: No Alcohol: None Drugs: Denies Home Situation {Lives}: With Family - CARDIAC Hx Hypertension: Yes Hx Pacemaker: No Other/Comment: CAD - PULMONARY Hx Respiratory Disorders: No - NEUROLOGICAL Hx Neurological Disorder: Yes Hx Dizziness: Yes - HEENT Hx HEENT Problems: Yes 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; 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) - RENAL Hx Chronic Kidney Disease: No - ENDOCRINE/METABOLIC Hx Endocrine Disorders: Yes Hx Diabetes Mellitus Type 2: Yes Other/Comment: DM diagnosed 20 years ago - HEMATOLOGICAL/ONCOLOGICAL Hx Blood Disorders: No - INTEGUMENTARY Hx Dermatological Problems: No - MUSCULOSKELETAL/RHEUMATOLOGICAL Hx Musculoskeletal Disorders: Yes Hx Falls: Yes (more than 1 year ago) - GASTROINTESTINAL Hx Diverticulitis: Yes Hx Gastritis: Yes - GENITOURINARY/GYNECOLOGICAL Hx Genitourinary Disorders: No - PSYCHIATRIC Hx Psychophysiologic Disorder: No Hx Substance Use: No - SURGICAL HISTORY Hx Coronary Artery Bypass Graft: Yes (triple bypass) Hx Coronary Stent: Yes (x5-6) - ANESTHESIA Hx Anesthesia: Yes Hx Anesthesia Reactions: No Hx Malignant Hyperthermia: No Meds Allergies/Adverse Reactions: Allergies Allergy/AdvReac Type Severity Reaction Status Date / Time No Known Allergies Allergy Verified 06/16/17 17:27 - Medications Medications: Current Medications Sodium Chloride (Sodium Chloride 0.9%) 1,000 mls @ 150 mls/hr IV .[id number] STA Stop: 06/17/17 02:13 Heparin Sodium/Dextrose (Heparin 25,000 Units/250ml In D5w) 25,000 units in 250 mls @ 18 mls/hr IV .[id number] JUAN PRN Reason: Protocol Physical Exam - Constitutional Appears: No Acute Distress - Head Exam Head Exam: ATRAUMATIC, NORMAL INSPECTION, NORMOCEPHALIC - Eye Exam Eye Exam: EOMI, Normal appearance Pupil Exam: NORMAL ACCOMODATION, PERRL - ENT Exam ENT Exam: Mucous Membranes Moist, Normal Exam, Normal External Ear Exam - Neck Exam Neck exam: Positive for: Full Rom, Normal Inspection. Negative for: Lymphadenopathy, Tenderness - Respiratory Exam Respiratory Exam: Clear to Auscultation Bilateral. absent: Rales, Rhonchi, Wheezes - Cardiovascular Exam Cardiovascular Exam: REGULAR RHYTHM, +S1, +S2. absent: Gallop - GI/Abdominal Exam Additional comments: Full, Soft, +ve bowel sounds, tender at epigastrium, and diffuse at the whole abdomen, no guarding nor rebound tenderness. - Rectal Exam Rectal Exam: Deferred - Extremities Exam Extremities exam: Positive for: full ROM, normal inspection, tenderness. Negative for: pedal edema Additional comments: pain on palpation of the Ankles an ddistal legs bilaterally - Back Exam Back exam: NORMAL INSPECTION. absent: CVA tenderness (L), CVA tenderness (R) - Neurological Exam Neurological exam: Alert, CN II-XII Intact, Oriented x3, Reflexes Normal - Psychiatric Exam Psychiatric exam: Normal Affect, Normal Mood - Skin Skin Exam: Dry, Intact, Normal Color, Warm Results - Vital Signs Recent Vital Signs: Last Vital Signs Temp 97.5 F L 06/16/17 17:27 Pulse 82 06/16/17 20:24 Resp 18 06/16/17 17:27 BP 118/75 06/16/17 17:27 Pulse Ox 100 06/16/17 20:24 - Labs Result Diagrams: 06/16/17 17:53 06/16/17 21:19 Labs: Laboratory Results - last 24 hr 06/16/17 06/16/17 17:53 17:53 WBC 13.9 H D RBC 4.28 L Hgb 11.7 L Hct 36.0 MCV 84.1 MCH 27.3 MCHC 32.4 L RDW 17.4 H Plt Count 365 D MPV 7.8 Neut % (Auto) 78.1 H Lymph % (Auto) 8.8 L Gordon % (Auto) 11.6 H Eos % (Auto) 0.7 Baso % (Auto) 0.8 Neut # (Auto) 10.9 H Lymph # (Auto) 1.2 Gordon # (Auto) 1.6 H Eos # (Auto) 0.1 Baso # (Auto) 0.1 Neutrophils % (Manual) 76 H Band Neutrophils % 2 Lymphocytes % (Manual) 10 L Monocytes % (Manual) 10 Eosinophils % (Manual) 1 Basophils % (Manual) 1 Platelet Estimate Normal Polychromasia Slight Hypochromasia (manual) Slight Anisocytosis (manual) Slight Microcytosis (manual) Slight Sodium 141 Potassium 4.4 Chloride 99 Carbon Dioxide 25 Anion Gap 21 H BUN 31 H Creatinine 2.3 H Est GFR ( Amer) 33 Est GFR (Non-Af Amer) 28 Random Glucose 139 H Calcium 11.4 H Total Bilirubin 0.9 AST 73 H D ALT 33 Alkaline Phosphatase 91 Troponin I 12.8000 H* NT-Pro-B Natriuret Pep 2340 H Total Protein 9.1 H Albumin 4.7 Globulin 4.4 H Albumin/Globulin Ratio 1.1 - EKG Data EKG comments: Sinud rhythm with PAC 82/min - Imaging and Cardiology Chest x-ray Status: Image reviewed by me Additional comment: Poor inspiration Left base opacity US - abdomen Status: Report reviewed by me Additional comment: EXAM: US Abdomen Complete FINDINGS: Liver: There is mild diffuse hepatic steatosis No mass. No intrahepatic bile duct dilation. Gallbladder: Unremarkable. No gallstones. Common bile duct: Unremarkable as visualized. No stones. 5.1 mm Pancreas: Unremarkable as visualized. Kidneys: A benign cortical cyst is present in the lateral aspect of the upper pole of the LEFT kidney it measures 1.4 cm x 1 cm x 1.1 cm No stones. No solid mass. No hydronephrosis. The LEFT kidney measures 5.8 cm x 9.8 cm x 5.1 cm. The RIGHT kidney measures 10.9 cm x 4.7 cm x 5.7 cm. Spleen: Unremarkable. No splenomegaly. Aorta: Unremarkable. No aneurysm. Inferior vena cava: Unremarkable. IMPRESSION: 1. Mild diffuse hepatic steatosis. 2. Negative gallbladder and common bile duct. 3. Benign cortical cyst LEFT kidney. 4. Otherwise negative examination Assessment & Plan - Assessment and Plan (Free Text) Assessment: #.Chest pain secondary to NSTEMI #. Abdominal pain due to gastritis #. Dehydration #. Acute Renal failure #. Hypercalcemia #. Elevated BNP #. CAD #. Leukocytosis Plan: 77 years old male with hx of DM II, CHF, diverticulitis, CAD s/p CABG with multiple stents, comes referring 2 weeks of worsening intermittent, epigastric pain radiating down to the periumbilical abdomen and to the left chest, aggravated by exertion and relieved by rest, no changes with meals nor his home medication. In the Ed his Troponin was 12.8 #. Chest pain secondary to NSTEMI - Admit to ICU - Consult Dr Agudelo Chief Investigator - serial Troponin - Serial EKG - IV Heparin - Plavix/ASA/lipitor/Metoprolol #. Abdominal pain due to gastritis - Pantoprazole - Carafate #. Dehydration due to poor intake - IV Fluids - Follow electrolytes #. Acute Renal failure secondary to the Dehydration - IV fluids - Follow renal labs #. Hypercalcemia probably due to dehydration vs Hyperparathyroidism - IV Fluids - PTH level #. Elevated BNP from Chronic CHF and in patient with ARF - Treat ARF #. Anemia - follow Hb #. CAD - Plavix/ASA/lipitor/Metoprolol #. Leukocytosis reactive - Procalcitonin - Follow WBC #. DVT prophylaxis with SCD and Patient on IV heparin #. Code Status: Full - Date & Time Date: 06/16/17 Time: 21:19
[2017-06-16 22:05] LABS: INR 1.3 (0.9-1.2); PARTIAL THROMBOPLASTIN TIME 27.8 Seconds (25.6-37.1)
[2017-06-16 22:10] LABS: CALCIUM 11.1 mg/dL (8.4-10.2)
[2017-06-16] MEDS: Heparin 25,000units in D5W 25,000 UNITS/250 ML BAG IV SCH (22:58)
[2017-06-17 04:25] LABS: BASO # 0.1 K/uL (0.0-0.2); BASO % 0.6 % (0.0-2.0); EOS # 0.1 K/uL (0.0-0.7); EOS % 1.2 % (0.0-4.0); LYMPH # 1.1 K/uL (1.0-4.3); LYMPH % 11.7 % (20.0-40.0); MEAN CELL VOLUME 83.3 fl (80.0-94.0); MEAN CORPUSCULAR HGB CONC 33.6 g/dL (33.0-37.0); MEAN PLATELET VOLUME 7.3 fl (7.2-11.7); MONO # 1.4 K/uL (0.0-0.8); MONO % 14.7 % (0.0-10.0); NEUT % 71.8 % (50.0-75.0); RBC 3.56 Mil/uL (4.40-5.90); RED CELL DISTRIBUTION WIDTH 17.1 % (11.5-14.5); WHITE BLOOD COUNT 9.8 K/uL (4.8-10.8)
[2017-06-17 04:40] LABS: ALB/GLOB RATIO 1.1 (1.0-2.1); ALBUMIN 3.7 g/dL (3.5-5.0); CALCIUM 10.6 mg/dL (8.4-10.2)
[2017-06-17 05:17] LABS: TROPONIN I 11.4 ng/mL (0.00-0.120)
[2017-06-17] MEDS ORDERED: Aspirin 325 mg EC Tablets PO SCH (09:00)
[2017-06-17] MEDS ORDERED: POLYETHYLENE GLYCOL MC SCH (09:00)
[2017-06-17] MEDS: Sucralfate 1 gm/10 ml Oral Susp UD PO SCH ×2 (09:34→16:49)
[2017-06-17] MEDS: POLYETHYLENE GLYCOL 3350 17 GM/Dose PACKET PO SCH (09:36)
[2017-06-17] MEDS: Pantoprazole 40 mg EC Tab PO SCH (09:36)
--- NOTE | 2017-06-17 09:42 | RAD ---
HISTORY: SOB COMPARISON: Comparison made with chest radiograph dated 06/07/2017. FINDINGS: LUNGS: Poor inspiration with low lung volumes, crowded bronchovascular markings and mild bibasilar atelectasis. Questionable small bilateral effusions. PLEURA: As above. No pneumothorax apparent. CARDIOVASCULAR: Sternotomy wires CABG clips again noted. Cardiomegaly. OSSEOUS STRUCTURES: No significant abnormalities. VISUALIZED UPPER ABDOMEN: Normal. OTHER FINDINGS: None. IMPRESSION: Poor inspiration with low lung volumes, crowded bronchovascular markings and mild bibasilar atelectasis. Questionable small bilateral effusions.
--- NOTE | 2017-06-17 11:57 | CP.CCUPN ---
CCU Subjective - Physician Review Subjective (Free Text): No chest pain or SOB at bed rest, on heparin drip at therapeutic levels. Other VS and I/Os reviewed. ROS: No other pertinent negs or positives on 10+ system review. PMSFH: All other Nursing and physician documentation reviewed to date; no new pertinent info noted relevant to current medical problems. EXAM- HEENT: no icterus, no gaze preference, pupils equal and reactive, no icterus NECK: No JVD, supple, carotids equal upstroke bilat/no bruits CHEST: decreased BS bases, no wheezes audible HEART: regular distant, S1S2, no rubs. ABD: soft, no distention, no tympany, no palp tenderness, BS hypoactive. EXT: trace edema bilat. No peripheral/ digital cyanosis, no calf tenderness or palpable cords, distal pulses intact and symmetrical. NEURO: no gross focal motor deficits. SKIN: no rashes, warm and dry. CXR: ( my interp): haziness left base, probable atelectatic changes. EKG: ( my interp)- sinus with PACs 82/min; ST elevation in AVR with ST coving in I, L. LABS: WBC= 9.8 HGB= 10.0 PLTs= 331K PTT= 61.8 Na= 139 K= 3.6 HCO3-= 24 CL= 102 BUN/Cr= 31/2.0 BS= 146 IMPRESSION / MAJOR PROBLEMS NOW: 1. ACS with new NSTEMI 2. Azotemia, r/o BENEDICTO, 2 contrast nephropathy 3. Hypercalcemia PLAN: 1. Heparin infusion, already on ASA, Statin, Plavix, BBs. 2. Cardiology eval for further recommendations on need for re-cardiac cath 3. Cautious IVF hydration 4. ECHO CCU Objective - Vital Signs / Intake & Output Vital Signs (Last 4 hours): Vital Signs Temp Pulse Resp BP Pulse Ox 06/17/17 11:05 16 06/17/17 09:35 80 135/52 L 06/17/17 08:54 98.5 F 06/17/17 08:49 98.5 F 06/17/17 08:37 74 17 133/69 96 06/17/17 08:04 80 12 99 Intake and Output (Last 8hrs): Intake & Output 06/16/17 06/17/17 06/17/17 22:59 06:59 14:59 Intake Total 380 Output Total 200 Balance 180 Weight 180 lb Intake: IV 20 Oral 360 Output: Urine 200 Urine, Voided 200 - Medications Active Medications: Active Medications Generic Name Dose Route Start Last Admin Trade Name Queenie PRN Reason Stop Dose Admin Aspirin 325 mg 06/17/17 09:00 Ecotrin PO DAILY [facility] Atorvastatin Calcium 80 mg 06/17/17 09:00 06/17/17 09:35 Lipitor PO 80 mg DAILY JUAN Administration Clopidogrel Bisulfate 75 mg 06/17/17 09:00 06/17/17 09:36 Plavix PO 75 mg DAILY JUAN Administration Ferrous Sulfate 325 mg 06/17/17 09:00 06/17/17 09:35 Feosol PO 325 mg TID JUAN Administration Glipizide 5 mg 06/17/17 10:00 Glucotrol Xl PO BRK [facility] Home Med 1,000 mg 06/17/17 09:00 Ranolazine [Ranexa] PO Q12 JUAN Heparin Sodium/Dextrose 25,000 units in 250 mls @ 10 mls/hr 06/16/17 22:30 22:58 Heparin 25,000 Units/250ml In D5w IV 10 mls/hr .Q24H JUAN Administration Protocol Metoprolol Tartrate 25 mg 06/17/17 09:00 06/17/17 09:35 Lopressor PO 25 mg BID JUAN Administration Pantoprazole Sodium 40 mg 06/17/17 09:00 06/17/17 09:36 Protonix Ec Tab PO 40 mg DAILY JUAN Administration Polyethylene Glycol 17 gm 06/17/17 09:00 06/17/17 09:36 Miralax PO 17 gm DAILY JUAN Administration Sitagliptin Phosphate 50 mg 06/17/17 09:00 06/17/17 09:35 Januvia PO 50 mg DAILY JUAN Administration Sucralfate 1 gm 06/17/17 09:00 06/17/17 09:34 Carafate Oral Susp PO 1 gm BID JUAN Administration Tramadol HCl 50 mg 06/17/17 09:00 06/17/17 09:39 Ultram PO 50 mg TID JUAN Administration - Patient Studies Lab Studies: Lab Studies 06/17/17 06/17/17 06/17/17 Range/Units 11:44 10:30 04:23 WBC (4.8-10.8) K/uL RBC (4.40-5.90) Mil/uL Hgb (12.0-18.0) g/dL Hct (35.0-51.0) % MCV (80.0-94.0) fl MCH (27.0-31.0) pg MCHC (33.0-37.0) g/dL RDW (11.5-14.5) % Plt Count (130-400) K/uL MPV (7.2-11.7) fl Neut % (Auto) (50.0-75.0) % Lymph % (Auto) (20.0-40.0) % Crenshaw % (Auto) (0.0-10.0) % Eos % (Auto) (0.0-4.0) % Baso % (Auto) (0.0-2.0) % Neut # (Auto) (1.8-7.0) K/uL Lymph # (Auto) (1.0-4.3) K/uL Crenshaw # (Auto) (0.0-0.8) K/uL Eos # (Auto) (0.0-0.7) K/uL Baso # (Auto) (0.0-0.2) K/uL Neutrophils % (Manual) (42-75) % Band Neutrophils % (0-2) % Lymphocytes % (Manual) (20-50) % Monocytes % (Manual) (0-10) % Eosinophils % (Manual) (0-7) % Basophils % (Manual) (0-2) % Platelet Estimate (NORMAL) Polychromasia Hypochromasia (manual) Anisocytosis (manual) Microcytosis (manual) PT (9.8-13.1) Seconds INR (0.9-1.2) APTT 55.6 H D (25.6-37.1) Seconds Sodium 139 (132-148) mmol/l Potassium 3.6 (3.6-5.0) MMOL/L Chloride 102 (98-107) mmol/L Carbon Dioxide 24 (22-30) mmol/L Anion Gap 17 (10-20) BUN 31 H (9-20) mg/dl Creatinine 2.0 H (0.8-1.5) mg/dl Est GFR ( Amer) 39 Est GFR (Non-Af Amer) 32 POC Glucose (mg/dL) 182 H (65-110) mg/dL Random Glucose 146 H (75-110) mg/dL Calcium 10.6 H (8.4-10.2) mg/dL Total Bilirubin 0.7 (0.2-1.3) mg/dl AST 59 (17-59) U/L ALT 40 (21-72) U/L Alkaline Phosphatase 76 (38-126) U/L Troponin I 11.4000 H* (0.00-0.120) ng/mL NT-Pro-B Natriuret Pep (0-900) pg/ml Total Protein 7.3 (6.3-8.2) G/DL Albumin 3.7 (3.5-5.0) g/dL Globulin 3.5 (2.2-3.9) gm/dL Albumin/Globulin Ratio 1.1 (1.0-2.1) 06/17/17 06/17/17 06/17/17 Range/Units 04:23 03:30 00:05 WBC 9.8 (4.8-10.8) K/uL RBC 3.56 L (4.40-5.90) Mil/uL Hgb 10.0 L (12.0-18.0) g/dL Hct 29.7 L (35.0-51.0) % MCV 83.3 (80.0-94.0) fl MCH 28.0 (27.0-31.0) pg MCHC 33.6 (33.0-37.0) g/dL RDW 17.1 H (11.5-14.5) % Plt Count 331 (130-400) K/uL MPV 7.3 (7.2-11.7) fl Neut % (Auto) 71.8 (50.0-75.0) % Lymph % (Auto) 11.7 L (20.0-40.0) % Crenshaw % (Auto) 14.7 H (0.0-10.0) % Eos % (Auto) 1.2 (0.0-4.0) % Baso % (Auto) 0.6 (0.0-2.0) % Neut # (Auto) 7.0 (1.8-7.0) K/uL Lymph # (Auto) 1.1 (1.0-4.3) K/uL Crenshaw # (Auto) 1.4 H (0.0-0.8) K/uL Eos # (Auto) 0.1 (0.0-0.7) K/uL Baso # (Auto) 0.1 (0.0-0.2) K/uL Neutrophils % (Manual) (42-75) % Band Neutrophils % (0-2) % Lymphocytes % (Manual) (20-50) % Monocytes % (Manual) (0-10) % Eosinophils % (Manual) (0-7) % Basophils % (Manual) (0-2) % Platelet Estimate (NORMAL) Polychromasia Hypochromasia (manual) Anisocytosis (manual) Microcytosis (manual) PT (9.8-13.1) Seconds INR (0.9-1.2) APTT 61.8 H D (25.6-37.1) Seconds Sodium (132-148) mmol/l Potassium (3.6-5.0) MMOL/L Chloride (98-107) mmol/L Carbon Dioxide (22-30) mmol/L Anion Gap (10-20) BUN (9-20) mg/dl Creatinine (0.8-1.5) mg/dl Est GFR ( Amer) Est GFR (Non-Af Amer) POC Glucose (mg/dL) (65-110) mg/dL Random Glucose (75-110) mg/dL Calcium (8.4-10.2) mg/dL Total Bilirubin (0.2-1.3) mg/dl AST (17-59) U/L ALT (21-72) U/L Alkaline Phosphatase (38-126) U/L Troponin I 12.3000 H* (0.00-0.120) ng/mL NT-Pro-B Natriuret Pep (0-900) pg/ml Total Protein (6.3-8.2) G/DL Albumin (3.5-5.0) g/dL Globulin (2.2-3.9) gm/dL Albumin/Globulin Ratio (1.0-2.1) 06/16/17 06/16/17 06/16/17 Range/Units 21:47 21:19 21:19 WBC (4.8-10.8) K/uL RBC (4.40-5.90) Mil/uL Hgb (12.0-18.0) g/dL Hct (35.0-51.0) % MCV (80.0-94.0) fl MCH (27.0-31.0) pg MCHC (33.0-37.0) g/dL RDW (11.5-14.5) % Plt Count (130-400) K/uL MPV (7.2-11.7) fl Neut % (Auto) (50.0-75.0) % Lymph % (Auto) (20.0-40.0) % Crenshaw % (Auto) (0.0-10.0) % Eos % (Auto) (0.0-4.0) % Baso % (Auto) (0.0-2.0) % Neut # (Auto) (1.8-7.0) K/uL Lymph # (Auto) (1.0-4.3) K/uL Crenshaw # (Auto) (0.0-0.8) K/uL Eos # (Auto) (0.0-0.7) K/uL Baso # (Auto) (0.0-0.2) K/uL Neutrophils % (Manual) (42-75) % Band Neutrophils % (0-2) % Lymphocytes % (Manual) (20-50) % Monocytes % (Manual) (0-10) % Eosinophils % (Manual) (0-7) % Basophils % (Manual) (0-2) % Platelet Estimate (NORMAL) Polychromasia Hypochromasia (manual) Anisocytosis (manual) Microcytosis (manual) PT 14.0 H (9.8-13.1) Seconds INR 1.3 H (0.9-1.2) APTT 27.8 (25.6-37.1) Seconds Sodium 137 (132-148) mmol/l Potassium 4.6 (3.6-5.0) MMOL/L Chloride 100 (98-107) mmol/L Carbon Dioxide 24 (22-30) mmol/L Anion Gap 18 (10-20) BUN 31 H (9-20) mg/dl Creatinine 2.1 H (0.8-1.5) mg/dl Est GFR ( Amer) 37 Est GFR (Non-Af Amer) 31 POC Glucose (mg/dL) 95 (65-110) mg/dL Random Glucose 104 (75-110) mg/dL Calcium 11.1 H (8.4-10.2) mg/dL Total Bilirubin (0.2-1.3) mg/dl AST (17-59) U/L ALT (21-72) U/L Alkaline Phosphatase (38-126) U/L Troponin I (0.00-0.120) ng/mL NT-Pro-B Natriuret Pep (0-900) pg/ml Total Protein (6.3-8.2) G/DL Albumin (3.5-5.0) g/dL Globulin (2.2-3.9) gm/dL Albumin/Globulin Ratio (1.0-2.1) 06/16/17 06/16/17 Range/Units 17:53 17:53 WBC 13.9 H D (4.8-10.8) K/uL RBC 4.28 L (4.40-5.90) Mil/uL Hgb 11.7 L (12.0-18.0) g/dL Hct 36.0 (35.0-51.0) % MCV 84.1 (80.0-94.0) fl MCH 27.3 (27.0-31.0) pg MCHC 32.4 L (33.0-37.0) g/dL RDW 17.4 H (11.5-14.5) % Plt Count 365 D (130-400) K/uL MPV 7.8 (7.2-11.7) fl Neut % (Auto) 78.1 H (50.0-75.0) % Lymph % (Auto) 8.8 L (20.0-40.0) % Crenshaw % (Auto) 11.6 H (0.0-10.0) % Eos % (Auto) 0.7 (0.0-4.0) % Baso % (Auto) 0.8 (0.0-2.0) % Neut # (Auto) 10.9 H (1.8-7.0) K/uL Lymph # (Auto) 1.2 (1.0-4.3) K/uL Crenshaw # (Auto) 1.6 H (0.0-0.8) K/uL Eos # (Auto) 0.1 (0.0-0.7) K/uL Baso # (Auto) 0.1 (0.0-0.2) K/uL Neutrophils % (Manual) 76 H (42-75) % Band Neutrophils % 2 (0-2) % Lymphocytes % (Manual) 10 L (20-50) % Monocytes % (Manual) 10 (0-10) % Eosinophils % (Manual) 1 (0-7) % Basophils % (Manual) 1 (0-2) % Platelet Estimate Normal (NORMAL) Polychromasia Slight Hypochromasia (manual) Slight Anisocytosis (manual) Slight Microcytosis (manual) Slight PT (9.8-13.1) Seconds INR (0.9-1.2) APTT (25.6-37.1) Seconds Sodium 141 (132-148) mmol/l Potassium 4.4 (3.6-5.0) MMOL/L Chloride 99 (98-107) mmol/L Carbon Dioxide 25 (22-30) mmol/L Anion Gap 21 H (10-20) BUN 31 H (9-20) mg/dl Creatinine 2.3 H (0.8-1.5) mg/dl Est GFR ( Amer) 33 Est GFR (Non-Af Amer) 28 POC Glucose (mg/dL) (65-110) mg/dL Random Glucose 139 H (75-110) mg/dL Calcium 11.4 H (8.4-10.2) mg/dL Total Bilirubin 0.9 (0.2-1.3) mg/dl AST 73 H D (17-59) U/L ALT 33 (21-72) U/L Alkaline Phosphatase 91 (38-126) U/L Troponin I 12.8000 H* (0.00-0.120) ng/mL NT-Pro-B Natriuret Pep 2340 H (0-900) pg/ml Total Protein 9.1 H (6.3-8.2) G/DL Albumin 4.7 (3.5-5.0) g/dL Globulin 4.4 H (2.2-3.9) gm/dL Albumin/Globulin Ratio 1.1 (1.0-2.1) Laboratory Results - last 24 hr 06/16/17 06/16/17 06/16/17 17:53 17:53 21:19 WBC 13.9 H D RBC 4.28 L Hgb 11.7 L Hct 36.0 MCV 84.1 MCH 27.3 MCHC 32.4 L RDW 17.4 H Plt Count 365 D MPV 7.8 Neut % (Auto) 78.1 H Lymph % (Auto) 8.8 L Crenshaw % (Auto) 11.6 H Eos % (Auto) 0.7 Baso % (Auto) 0.8 Neut # (Auto) 10.9 H Lymph # (Auto) 1.2 Crenshaw # (Auto) 1.6 H Eos # (Auto) 0.1 Baso # (Auto) 0.1 Neutrophils % (Manual) 76 H Band Neutrophils % 2 Lymphocytes % (Manual) 10 L Monocytes % (Manual) 10 Eosinophils % (Manual) 1 Basophils % (Manual) 1 Platelet Estimate Normal Polychromasia Slight Hypochromasia (manual) Slight Anisocytosis (manual) Slight Microcytosis (manual) Slight PT 14.0 H INR 1.3 H APTT 27.8 Sodium 141 Potassium 4.4 Chloride 99 Carbon Dioxide 25 Anion Gap 21 H BUN 31 H Creatinine 2.3 H Est GFR ( Amer) 33 Est GFR (Non-Af Amer) 28 POC Glucose (mg/dL) Random Glucose 139 H Calcium 11.4 H Total Bilirubin 0.9 AST 73 H D ALT 33 Alkaline Phosphatase 91 Troponin I 12.8000 H* NT-Pro-B Natriuret Pep 2340 H Total Protein 9.1 H Albumin 4.7 Globulin 4.4 H Albumin/Globulin Ratio 1.1 06/16/17 06/16/17 06/17/17 21:19 21:47 00:05 WBC RBC Hgb Hct MCV MCH MCHC RDW Plt Count MPV Neut % (Auto) Lymph % (Auto) Crenshaw % (Auto) Eos % (Auto) Baso % (Auto) Neut # (Auto) Lymph # (Auto) Crenshaw # (Auto) Eos # (Auto) Baso # (Auto) Neutrophils % (Manual) Band Neutrophils % Lymphocytes % (Manual) Monocytes % (Manual) Eosinophils % (Manual) Basophils % (Manual) Platelet Estimate Polychromasia Hypochromasia (manual) Anisocytosis (manual) Microcytosis (manual) PT INR APTT Sodium 137 Potassium 4.6 Chloride 100 Carbon Dioxide 24 Anion Gap 18 BUN 31 H Creatinine 2.1 H Est GFR ( Amer) 37 Est GFR (Non-Af Amer) 31 POC Glucose (mg/dL) 95 Random Glucose 104 Calcium 11.1 H Total Bilirubin AST ALT Alkaline Phosphatase Troponin I 12.3000 H* NT-Pro-B Natriuret Pep Total Protein Albumin Globulin Albumin/Globulin Ratio 06/17/17 06/17/17 06/17/17 03:30 04:23 04:23 WBC 9.8 RBC 3.56 L Hgb 10.0 L Hct 29.7 L MCV 83.3 MCH 28.0 MCHC 33.6 RDW 17.1 H Plt Count 331 MPV 7.3 Neut % (Auto) 71.8 Lymph % (Auto) 11.7 L Crenshaw % (Auto) 14.7 H Eos % (Auto) 1.2 Baso % (Auto) 0.6 Neut # (Auto) 7.0 Lymph # (Auto) 1.1 Crenshaw # (Auto) 1.4 H Eos # (Auto) 0.1 Baso # (Auto) 0.1 Neutrophils % (Manual) Band Neutrophils % Lymphocytes % (Manual) Monocytes % (Manual) Eosinophils % (Manual) Basophils % (Manual) Platelet Estimate Polychromasia Hypochromasia (manual) Anisocytosis (manual) Microcytosis (manual) PT INR APTT 61.8 H D Sodium 139 Potassium 3.6 Chloride 102 Carbon Dioxide 24 Anion Gap 17 BUN 31 H Creatinine 2.0 H Est GFR ( Amer) 39 Est GFR (Non-Af Amer) 32 POC Glucose (mg/dL) Random Glucose 146 H Calcium 10.6 H Total Bilirubin 0.7 AST 59 ALT 40 Alkaline Phosphatase 76 Troponin I 11.4000 H* NT-Pro-B Natriuret Pep Total Protein 7.3 Albumin 3.7 Globulin 3.5 Albumin/Globulin Ratio 1.1 06/17/17 06/17/17 10:30 11:44 WBC RBC Hgb Hct MCV MCH MCHC RDW Plt Count MPV Neut % (Auto) Lymph % (Auto) Crenshaw % (Auto) Eos % (Auto) Baso % (Auto) Neut # (Auto) Lymph # (Auto) Crenshaw # (Auto) Eos # (Auto) Baso # (Auto) Neutrophils % (Manual) Band Neutrophils % Lymphocytes % (Manual) Monocytes % (Manual) Eosinophils % (Manual) Basophils % (Manual) Platelet Estimate Polychromasia Hypochromasia (manual) Anisocytosis (manual) Microcytosis (manual) PT INR APTT 55.6 H D Sodium Potassium Chloride Carbon Dioxide Anion Gap BUN Creatinine Est GFR ( Amer) Est GFR (Non-Af Amer) POC Glucose (mg/dL) 182 H Random Glucose Calcium Total Bilirubin AST ALT Alkaline Phosphatase Troponin I NT-Pro-B Natriuret Pep Total Protein Albumin Globulin Albumin/Globulin Ratio EKG/Cardiology Studies: Cardiology / EKG Studies 06/16/17 17:38 ELECTROCARDIOGRAM Stat Comment: Mode Of Transportation: Reason For Exam: cp 06/17/17 07:00 EKG [ELECTROCARDIOGRAM] Routine Comment: Mode Of Transportation: PORTABLE Reason For Exam: Elevated Troponin Does Patient Have a Pacemaker?: No Fingerstick Blood Sugar Results: 118 Critical Care Progress Note - Nutrition Nutrition: Nutrition Category Date Time Status Heart Healthy Diet [DIET] Diets 06/16/17 Dinner Active
--- NOTE | 2017-06-17 12:03 | US ---
HISTORY: persistent epigastric pain COMPARISON: 01/12/2017 abdominal ultrasound. 06/08/2017 CT abdomen and pelvis. TECHNIQUE: Sonographic evaluation of the abdomen. FINDINGS: LIVER: Measures 15.3 cm. Patent portal vein. Portal venous flow: Hepatopetal. Unremarkable echogenicity of the liver parenchyma. No mass. No intrahepatic bile duct dilatation. GALLBLADDER: Unremarkable. No gallstones. COMMON BILE DUCT: Measures 5.1 mm. No stones. No dilatation. PANCREAS: Obscured by overlying bowel gas. Non diagnostic assessment of the pancreas. RIGHT KIDNEY: Measures 4.7 x 11cm. Normal echogenicity. No calculus, mass, or hydronephrosis. LEFT KIDNEY: Measures 5.2 x 10cm. Normal echogenicity. No calculus, mass, or hydronephrosis. Incidental finding(s): Simple cysts 1.1 cm SPLEEN: Normal in size and contour. No mass. AORTA: No aneurysmal dilatation. IVC: Unremarkable. OTHER FINDINGS: None. IMPRESSION: No acute findings related to/accounting for the clinical presentation. No significant interval change compared to the prior examination(s). Additional benign and/or incidental findings described above. Concordant results (preliminary interpretation) provided by [employer]. Procedure Completed: 19:44 Preliminary ([facility]) Report: Dictated and Authenticated: 20:13 Final Interpretation: 12:01 June 17, 2017.
[2017-06-17] MEDS: RANOLAZINE 1000 MG PO SCH ×2 (12:34→21:00)
[2017-06-17] MEDS: Sodium Chloride 0.9% 1,000 ML IV SCH ×2 (12:34→23:00)
[2017-06-17] MEDS: Aspirin 325 mg EC Tablets PO SCH (12:35)
[2017-06-17] MEDS: GlipiZIDE 5 mg SR Tab PO SCH (12:35)
[2017-06-17] MEDS ORDERED: Morphine 4 MG/ML VIAL ONE (13:35)
[2017-06-17] MEDS ORDERED: Nitroglycerin 50mg in D5W 0 MG/0 ML BOTTLE IV ONE (13:36)
[2017-06-17] MEDS ORDERED: Nitroglycerin 2% Ointment Foilpak UD TOP ONE (13:36)
--- NOTE | 2017-06-17 13:39 | CP.PCM.CON ---
History of Present Illness - History of Present Illness History of Present Illness: Consultation for evaluation of NSTEMI 77 year old male followed by me for the last 3 years , hx of CABG ( atretic VIZCAINO and occluded vein grafts ) , LAD stent in-stent restenosis in 3 which was angioplastied for sx of angina who now presents with c/o worsening TURNER and chest pains described as a burning sensation. Sx started about 3 days ago for which he was admitted yesterday and started on IV heparin per ACS protocol. Currently he is in the ICU and had a recurrent episode of chest pain for which stat EKG and nitropaste are being administered. Review of Systems - Review of Systems Systems not reviewed;Unavailable: Acuity of Condition All systems: reviewed and no additional remarkable complaints except - Constitutional Constitutional: As Per HPI - EENT Eyes: As Per HPI Ears: As Per HPI Nose/Mouth/Throat: As Per HPI - Cardiovascular Cardiovascular: As Per HPI - Respiratory Respiratory: As Per HPI - Gastrointestinal Gastrointestinal: As Per HPI - Genitourinary Genitourinary: As Per HPI - Reproductive: Male Reproductive:Male: As Per HPI - Musculoskeletal Musculoskeletal: As Per HPI - Integumentary Integumentary: As Per HPI - Neurological Neurological: As Per HPI - Psychiatric Psychiatric: As Per HPI - Endocrine Endocrine: As Per HPI - Hematologic/Lymphatic Hematologic: As Per HPI Past Patient History - Infectious Disease Hx of Infectious Diseases: None - Past Medical History & Family History Past Medical History?: Yes - Past Social History Smoking Status: Never Smoked - CARDIAC Hx Cardiac Disorders: Yes - PULMONARY Hx Respiratory Disorders: No - NEUROLOGICAL Hx Neurological Disorder: Yes Hx Dizziness: Yes - HEENT Hx HEENT Problems: Yes 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; 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) - RENAL Hx Chronic Kidney Disease: No - ENDOCRINE/METABOLIC Hx Endocrine Disorders: Yes - HEMATOLOGICAL/ONCOLOGICAL Hx Blood Disorders: No - INTEGUMENTARY Hx Dermatological Problems: No - MUSCULOSKELETAL/RHEUMATOLOGICAL Hx Musculoskeletal Disorders: Yes Hx Falls: No - GASTROINTESTINAL Hx Diverticulitis: Yes Hx Gastritis: Yes - GENITOURINARY/GYNECOLOGICAL Hx Genitourinary Disorders: No - PSYCHIATRIC Hx Psychophysiologic Disorder: No Hx Substance Use: No - SURGICAL HISTORY Hx Coronary Artery Bypass Graft: Yes (triple bypass) Hx Coronary Stent: Yes (x5-6) - ANESTHESIA Hx Anesthesia: Yes Hx Anesthesia Reactions: No Hx Malignant Hyperthermia: No Meds Allergies/Adverse Reactions: Allergies Allergy/AdvReac Type Severity Reaction Status Date / Time No Known Allergies Allergy Verified 06/16/17 17:27 - Medications Medications: Current Medications Aspirin (Ecotrin) 325 mg PO DAILY [facility] Last Admin: 06/17/17 12:35 Dose: Not Given Atorvastatin Calcium (Lipitor) 80 mg PO DAILY [facility] Last Admin: 06/17/17 09:35 Dose: 80 mg Clopidogrel Bisulfate (Plavix) 75 mg PO DAILY [facility] Last Admin: 06/17/17 09:36 Dose: 75 mg Ferrous Sulfate (Feosol) 325 mg PO TID [facility] Last Admin: 06/17/17 12:35 Dose: Not Given Glipizide (Glucotrol Xl) 5 mg PO BRK [facility] Last Admin: 06/17/17 12:35 Dose: Not Given Home Med (Ranolazine [Ranexa]) 1,000 mg PO Q12 [facility] Last Admin: 06/17/17 12:34 Dose: Not Given Heparin Sodium/Dextrose (Heparin 25,000 Units/250ml In D5w) 25,000 units in 250 mls @ 10 mls/hr IV .Q24H [facility] PRN Reason: Protocol Last Admin: 06/16/17 22:58 Dose: 10 mls/hr Sodium Chloride (Sodium Chloride 0.9%) 1,000 mls @ 100 mls/hr IV .Q10H [facility] Stop: 06/18/17 12:05 Last Admin: 06/17/17 12:34 Dose: 100 mls/hr Metoprolol Tartrate (Lopressor) 25 mg PO BID [facility] Last Admin: 06/17/17 09:35 Dose: 25 mg Pantoprazole Sodium (Protonix Ec Tab) 40 mg PO DAILY [facility] Last Admin: 06/17/17 09:36 Dose: 40 mg Polyethylene Glycol (Miralax) 17 gm PO DAILY [facility] Last Admin: 06/17/17 09:36 Dose: 17 gm Sitagliptin Phosphate (Januvia) 50 mg PO DAILY [facility] Last Admin: 06/17/17 09:35 Dose: 50 mg Sucralfate (Carafate Oral Susp) 1 gm PO BID [facility] Last Admin: 06/17/17 09:34 Dose: 1 gm Tramadol HCl (Ultram) 50 mg PO TID [facility] Last Admin: 06/17/17 09:39 Dose: 50 mg Physical Exam - Constitutional Appears: Well - Head Exam Head Exam: ATRAUMATIC, NORMAL INSPECTION, NORMOCEPHALIC - Eye Exam Eye Exam: EOMI, Normal appearance, PERRL Pupil Exam: NORMAL ACCOMODATION, PERRL - ENT Exam ENT Exam: Mucous Membranes Moist, Normal Exam - Neck Exam Neck exam: Positive for: Normal Inspection - Respiratory Exam Respiratory Exam: Clear to Auscultation Bilateral, NORMAL BREATHING PATTERN - Cardiovascular Exam Cardiovascular Exam: REGULAR RHYTHM, RRR, +S1, +S2, Systolic Murmur - GI/Abdominal Exam GI & Abdominal Exam: Normal Bowel Sounds, Soft. absent: Tenderness - Extremities Exam Extremities exam: Positive for: normal inspection - Back Exam Back exam: NORMAL INSPECTION - Neurological Exam Neurological exam: Alert, CN II-XII Intact, Normal Gait, Oriented x3, Reflexes Normal - Psychiatric Exam Psychiatric exam: Normal Affect, Normal Mood - Skin Skin Exam: Dry, Intact, Normal Color, Warm Results - Vital Signs Recent Vital Signs: Last Vital Signs Temp 98.5 F 06/17/17 08:54 Pulse 80 06/17/17 12:00 Resp 15 06/17/17 12:00 BP 114/67 06/17/17 12:00 Pulse Ox 97 06/17/17 12:00 - Labs Result Diagrams: 06/17/17 04:23 06/17/17 04:23 Labs: Laboratory Results - last 24 hr 06/16/17 06/16/17 06/16/17 17:53 17:53 21:19 WBC 13.9 H D RBC 4.28 L Hgb 11.7 L Hct 36.0 MCV 84.1 MCH 27.3 MCHC 32.4 L RDW 17.4 H Plt Count 365 D MPV 7.8 Neut % (Auto) 78.1 H Lymph % (Auto) 8.8 L [place] % (Auto) 11.6 H Eos % (Auto) 0.7 Baso % (Auto) 0.8 Neut # (Auto) 10.9 H Lymph # (Auto) 1.2 [place] # (Auto) 1.6 H Eos # (Auto) 0.1 Baso # (Auto) 0.1 Neutrophils % (Manual) 76 H Band Neutrophils % 2 Lymphocytes % (Manual) 10 L Monocytes % (Manual) 10 Eosinophils % (Manual) 1 Basophils % (Manual) 1 Platelet Estimate Normal Polychromasia Slight Hypochromasia (manual) Slight Anisocytosis (manual) Slight Microcytosis (manual) Slight PT 14.0 H INR 1.3 H APTT 27.8 Sodium 141 Potassium 4.4 Chloride 99 Carbon Dioxide 25 Anion Gap 21 H BUN 31 H Creatinine 2.3 H Est GFR ( Amer) 33 Est GFR (Non-Af Amer) 28 POC Glucose (mg/dL) Random Glucose 139 H Calcium 11.4 H Total Bilirubin 0.9 AST 73 H D ALT 33 Alkaline Phosphatase 91 Troponin I 12.8000 H* NT-Pro-B Natriuret Pep 2340 H Total Protein 9.1 H Albumin 4.7 Globulin 4.4 H Albumin/Globulin Ratio 1.1 06/16/17 06/16/17 06/17/17 21:19 21:47 00:05 WBC RBC Hgb Hct MCV MCH MCHC RDW Plt Count MPV Neut % (Auto) Lymph % (Auto) [place] % (Auto) Eos % (Auto) Baso % (Auto) Neut # (Auto) Lymph # (Auto) [place] # (Auto) Eos # (Auto) Baso # (Auto) Neutrophils % (Manual) Band Neutrophils % Lymphocytes % (Manual) Monocytes % (Manual) Eosinophils % (Manual) Basophils % (Manual) Platelet Estimate Polychromasia Hypochromasia (manual) Anisocytosis (manual) Microcytosis (manual) PT INR APTT Sodium 137 Potassium 4.6 Chloride 100 Carbon Dioxide 24 Anion Gap 18 BUN 31 H Creatinine 2.1 H Est GFR ( Amer) 37 Est GFR (Non-Af Amer) 31 POC Glucose (mg/dL) 95 Random Glucose 104 Calcium 11.1 H Total Bilirubin AST ALT Alkaline Phosphatase Troponin I 12.3000 H* NT-Pro-B Natriuret Pep Total Protein Albumin Globulin Albumin/Globulin Ratio 06/17/17 06/17/17 06/17/17 03:30 04:23 04:23 WBC 9.8 RBC 3.56 L Hgb 10.0 L Hct 29.7 L MCV 83.3 MCH 28.0 MCHC 33.6 RDW 17.1 H Plt Count 331 MPV 7.3 Neut % (Auto) 71.8 Lymph % (Auto) 11.7 L [place] % (Auto) 14.7 H Eos % (Auto) 1.2 Baso % (Auto) 0.6 Neut # (Auto) 7.0 Lymph # (Auto) 1.1 [place] # (Auto) 1.4 H Eos # (Auto) 0.1 Baso # (Auto) 0.1 Neutrophils % (Manual) Band Neutrophils % Lymphocytes % (Manual) Monocytes % (Manual) Eosinophils % (Manual) Basophils % (Manual) Platelet Estimate Polychromasia Hypochromasia (manual) Anisocytosis (manual) Microcytosis (manual) PT INR APTT 61.8 H D Sodium 139 Potassium 3.6 Chloride 102 Carbon Dioxide 24 Anion Gap 17 BUN 31 H Creatinine 2.0 H Est GFR ( Amer) 39 Est GFR (Non-Af Amer) 32 POC Glucose (mg/dL) Random Glucose 146 H Calcium 10.6 H Total Bilirubin 0.7 AST 59 ALT 40 Alkaline Phosphatase 76 Troponin I 11.4000 H* NT-Pro-B Natriuret Pep Total Protein 7.3 Albumin 3.7 Globulin 3.5 Albumin/Globulin Ratio 1.1 06/17/17 06/17/17 06/17/17 08:53 10:30 11:44 WBC RBC Hgb Hct MCV MCH MCHC RDW Plt Count MPV Neut % (Auto) Lymph % (Auto) [place] % (Auto) Eos % (Auto) Baso % (Auto) Neut # (Auto) Lymph # (Auto) [place] # (Auto) Eos # (Auto) Baso # (Auto) Neutrophils % (Manual) Band Neutrophils % Lymphocytes % (Manual) Monocytes % (Manual) Eosinophils % (Manual) Basophils % (Manual) Platelet Estimate Polychromasia Hypochromasia (manual) Anisocytosis (manual) Microcytosis (manual) PT INR APTT 55.6 H D Sodium Potassium Chloride Carbon Dioxide Anion Gap BUN Creatinine Est GFR ( Amer) Est GFR (Non-Af Amer) POC Glucose (mg/dL) 118 H 182 H Random Glucose Calcium Total Bilirubin AST ALT Alkaline Phosphatase Troponin I NT-Pro-B Natriuret Pep Total Protein Albumin Globulin Albumin/Globulin Ratio Assessment & Plan (1) NSTEMI (non-ST elevated myocardial infarction) Assessment and Plan: IV heparin per ACS protocol EKG done stat for CP shows no acute ST changes asa, plaix , statins, bb plan for urgent LHCx after stat echo once renal function stable TnI trending down Status: Acute (2) Acute kidney injury Assessment and Plan: IV hydration Status: Acute (3) Acute chest pain Assessment and Plan: nitro paste Status: Acute (4) Hypercholesterolemia Assessment and Plan: high dose statins Status: Acute (5) S/P angioplasties Status: Acute (6) CAD (coronary artery disease) of artery bypass graft Status: Chronic (7) CHF (congestive heart failure) Status: Chronic (8) HTN (hypertension) Status: Chronic
[2017-06-17] MEDS: Morphine 4 MG/ML VIAL IVP PRN (13:49)
[2017-06-17] MEDS: Nitroglycerin 2% Ointment Foilpak UD TOP SCH ×3 (13:49→22:00)
[2017-06-17] MEDS ORDERED: Perflutren Lipid Microsphere 1.5 ML SUS IV ONE (13:56)
--- NOTE | 2017-06-17 14:21 | CP.PCM.HP ---
<Jamal Clark - Last Filed: 06/17/17 14:00> History of Present Illness - History of Present Illness History of Present Illness: CC: chest pain HPI: 77 y/o man w/ pmh of CAD s/p CABG, preserved EF CHF, HTN, s/p cath 2017 (balloon angioplasty) presents to ED w/ chest pain. Patient has been complaining of chest pain for about 2 weeks, pressure in nature, left sided, non -radiating, persistent, relieved with rest, worsened w/ exertion. Patient adherent to medication as prescribed. Patient has had close follow up w/ engineering mathematician. Patient also last admitted 06/09 and DC'ed 06/10 for epigastric pain related to gastritis. Patient has had negative troponins on all previous ED and hospital admissions. Patient accompanied by daughter. The patient currently denies headaches, dizziness, SOB, abdominal pain, nausea, vomiting, diarrhea, dysuria, or fever. PMD: Chinmay Villasenor MD [employer] Activities Adviser: Dr Agudelo PMH: CAD, HTN, preserved EF CHF medications: see med list Allergies: NKDA PSH: CABG (triple bypass 2000), Coronary Stent (x5-6), Balloon Angioplasty of LAD in-stent restore; Surgery for Cyst on the back FH: father had cancer on the back SOC: Former Smoker; Former alcohol user; No illegal drug use; live with daughter ROS: 12 points assessed and negative unless otherwise reported in HPI Present on Admission - Present on Admission Any Indicators Present on Admission: No History of DVT/PE: No History of Uncontrolled Diabetes: No Urinary Catheter: No Decubitus Ulcer Present: No Review of Systems - Review of Systems All systems: reviewed and no additional remarkable complaints except - Constitutional Constitutional: absent: Fever - EENT Eyes: absent: Change in Vision - Cardiovascular Cardiovascular: As Per HPI, Chest Pain. absent: Palpitations, Pedal Edema - Respiratory Respiratory: absent: Cough, Dyspnea - Gastrointestinal Gastrointestinal: absent: Abdominal Pain, Diarrhea, Nausea, Vomiting - Genitourinary Genitourinary: absent: Dysuria - Integumentary Integumentary: absent: Rash Past Patient History - Infectious Disease Hx of Infectious Diseases: None - Past Medical History & Family History Past Medical History?: Yes - Past Social History Smoking Status: Never Smoked - CARDIAC Hx Cardiac Disorders: Yes - PULMONARY Hx Respiratory Disorders: No - NEUROLOGICAL Hx Neurological Disorder: Yes Hx Dizziness: Yes - HEENT Hx HEENT Problems: Yes 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; 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) - RENAL Hx Chronic Kidney Disease: No - ENDOCRINE/METABOLIC Hx Endocrine Disorders: Yes - HEMATOLOGICAL/ONCOLOGICAL Hx Blood Disorders: No - INTEGUMENTARY Hx Dermatological Problems: No - MUSCULOSKELETAL/RHEUMATOLOGICAL Hx Musculoskeletal Disorders: Yes Hx Falls: No - GASTROINTESTINAL Hx Diverticulitis: Yes Hx Gastritis: Yes - GENITOURINARY/GYNECOLOGICAL Hx Genitourinary Disorders: No - PSYCHIATRIC Hx Psychophysiologic Disorder: No Hx Substance Use: No - SURGICAL HISTORY Hx Coronary Artery Bypass Graft: Yes (triple bypass) Hx Coronary Stent: Yes (x5-6) - ANESTHESIA Hx Anesthesia: Yes Hx Anesthesia Reactions: No Hx Malignant Hyperthermia: No Meds Allergies/Adverse Reactions: Allergies Allergy/AdvReac Type Severity Reaction Status Date / Time No Known Allergies Allergy Verified 06/16/17 17:27 Physical Exam - Constitutional Appears: No Acute Distress - Head Exam Head Exam: ATRAUMATIC, NORMAL INSPECTION, NORMOCEPHALIC - Eye Exam Eye Exam: Normal appearance - ENT Exam ENT Exam: Mucous Membranes Moist - Neck Exam Neck exam: Positive for: Full Rom. Negative for: Tenderness - Respiratory Exam Respiratory Exam: Clear to Auscultation Bilateral. absent: Accessory Muscle Use , Decreased Breath Sounds, Rales, Rhonchi, Wheezes, Respiratory Distress - Cardiovascular Exam Cardiovascular Exam: REGULAR RHYTHM, RRR. absent: Tachycardia - GI/Abdominal Exam GI & Abdominal Exam: Normal Bowel Sounds, Soft. absent: Distended, Tenderness - Extremities Exam Extremities exam: Negative for: calf tenderness, pedal edema, tenderness - Neurological Exam Neurological exam: Alert, CN II-XII Intact, Oriented x3 - Skin Skin Exam: Dry, Intact, Normal Color, Warm Results - Vital Signs Recent Vital Signs: Last Vital Signs Temp 98.5 F 06/17/17 08:54 Pulse 82 06/17/17 13:41 Resp 15 06/17/17 12:00 BP 132/74 06/17/17 13:49 Pulse Ox 100 06/17/17 13:41 - Labs Result Diagrams: 06/17/17 04:23 06/17/17 04:23 Labs: Laboratory Results - last 24 hr 06/16/17 06/16/17 06/16/17 17:53 17:53 21:19 WBC 13.9 H D RBC 4.28 L Hgb 11.7 L Hct 36.0 MCV 84.1 MCH 27.3 MCHC 32.4 L RDW 17.4 H Plt Count 365 D MPV 7.8 Neut % (Auto) 78.1 H Lymph % (Auto) 8.8 L [place] % (Auto) 11.6 H Eos % (Auto) 0.7 Baso % (Auto) 0.8 Neut # (Auto) 10.9 H Lymph # (Auto) 1.2 [place] # (Auto) 1.6 H Eos # (Auto) 0.1 Baso # (Auto) 0.1 Neutrophils % (Manual) 76 H Band Neutrophils % 2 Lymphocytes % (Manual) 10 L Monocytes % (Manual) 10 Eosinophils % (Manual) 1 Basophils % (Manual) 1 Platelet Estimate Normal Polychromasia Slight Hypochromasia (manual) Slight Anisocytosis (manual) Slight Microcytosis (manual) Slight PT 14.0 H INR 1.3 H APTT 27.8 Sodium 141 Potassium 4.4 Chloride 99 Carbon Dioxide 25 Anion Gap 21 H BUN 31 H Creatinine 2.3 H Est GFR ( Amer) 33 Est GFR (Non-Af Amer) 28 POC Glucose (mg/dL) Random Glucose 139 H Calcium 11.4 H Total Bilirubin 0.9 AST 73 H D ALT 33 Alkaline Phosphatase 91 Troponin I 12.8000 H* NT-Pro-B Natriuret Pep 2340 H Total Protein 9.1 H Albumin 4.7 Globulin 4.4 H Albumin/Globulin Ratio 1.1 06/16/17 06/16/17 06/17/17 21:19 21:47 00:05 WBC RBC Hgb Hct MCV MCH MCHC RDW Plt Count MPV Neut % (Auto) Lymph % (Auto) [place] % (Auto) Eos % (Auto) Baso % (Auto) Neut # (Auto) Lymph # (Auto) [place] # (Auto) Eos # (Auto) Baso # (Auto) Neutrophils % (Manual) Band Neutrophils % Lymphocytes % (Manual) Monocytes % (Manual) Eosinophils % (Manual) Basophils % (Manual) Platelet Estimate Polychromasia Hypochromasia (manual) Anisocytosis (manual) Microcytosis (manual) PT INR APTT Sodium 137 Potassium 4.6 Chloride 100 Carbon Dioxide 24 Anion Gap 18 BUN 31 H Creatinine 2.1 H Est GFR ( Amer) 37 Est GFR (Non-Af Amer) 31 POC Glucose (mg/dL) 95 Random Glucose 104 Calcium 11.1 H Total Bilirubin AST ALT Alkaline Phosphatase Troponin I 12.3000 H* NT-Pro-B Natriuret Pep Total Protein Albumin Globulin Albumin/Globulin Ratio 06/17/17 06/17/17 06/17/17 03:30 04:23 04:23 WBC 9.8 RBC 3.56 L Hgb 10.0 L Hct 29.7 L MCV 83.3 MCH 28.0 MCHC 33.6 RDW 17.1 H Plt Count 331 MPV 7.3 Neut % (Auto) 71.8 Lymph % (Auto) 11.7 L [place] % (Auto) 14.7 H Eos % (Auto) 1.2 Baso % (Auto) 0.6 Neut # (Auto) 7.0 Lymph # (Auto) 1.1 [place] # (Auto) 1.4 H Eos # (Auto) 0.1 Baso # (Auto) 0.1 Neutrophils % (Manual) Band Neutrophils % Lymphocytes % (Manual) Monocytes % (Manual) Eosinophils % (Manual) Basophils % (Manual) Platelet Estimate Polychromasia Hypochromasia (manual) Anisocytosis (manual) Microcytosis (manual) PT INR APTT 61.8 H D Sodium 139 Potassium 3.6 Chloride 102 Carbon Dioxide 24 Anion Gap 17 BUN 31 H Creatinine 2.0 H Est GFR ( Amer) 39 Est GFR (Non-Af Amer) 32 POC Glucose (mg/dL) Random Glucose 146 H Calcium 10.6 H Total Bilirubin 0.7 AST 59 ALT 40 Alkaline Phosphatase 76 Troponin I 11.4000 H* NT-Pro-B Natriuret Pep Total Protein 7.3 Albumin 3.7 Globulin 3.5 Albumin/Globulin Ratio 1.1 06/17/17 06/17/17 06/17/17 08:53 10:30 11:44 WBC RBC Hgb Hct MCV MCH MCHC RDW Plt Count MPV Neut % (Auto) Lymph % (Auto) [place] % (Auto) Eos % (Auto) Baso % (Auto) Neut # (Auto) Lymph # (Auto) [place] # (Auto) Eos # (Auto) Baso # (Auto) Neutrophils % (Manual) Band Neutrophils % Lymphocytes % (Manual) Monocytes % (Manual) Eosinophils % (Manual) Basophils % (Manual) Platelet Estimate Polychromasia Hypochromasia (manual) Anisocytosis (manual) Microcytosis (manual) PT INR APTT 55.6 H D Sodium Potassium Chloride Carbon Dioxide Anion Gap BUN Creatinine Est GFR ( Amer) Est GFR (Non-Af Amer) POC Glucose (mg/dL) 118 H 182 H Random Glucose Calcium Total Bilirubin AST ALT Alkaline Phosphatase Troponin I NT-Pro-B Natriuret Pep Total Protein Albumin Globulin Albumin/Globulin Ratio Assessment & Plan (1) Acute kidney injury Status: Acute (2) NSTEMI (non-ST elevated myocardial infarction) Status: Acute (3) Acute chest pain Status: Acute (4) CAD (coronary artery disease) of artery bypass graft Status: Chronic (5) CHF (congestive heart failure) Status: Chronic Comment: preserved EF CHF (6) HTN (hypertension) Status: Chronic - Assessment and Plan (Free Text) Plan: c/w present management afebrile, no elevated WBC CMP shows BENEDICTO, elevated Cr 2.0 troponins positive x3 but trending down cardiology recommendations appreciated EKG: possible AVR ST elevations w/ ST depressions in leads I, V5, V6; left axis deviation heparin drip (06592 units @ 10 mL/h) per ACS protocol sent for stat echo patient NPO after midnight except for medications cath tomorrow due to Cr 2.0 monitor for acute changes <Wolf Mckenzie - Last Filed: 06/17/17 20:17> Results - Vital Signs Recent Vital Signs: Last Vital Signs Temp 98.5 F 06/17/17 16:00 Pulse 72 06/17/17 17:59 Resp 18 06/17/17 17:59 BP 129/41 L 06/17/17 17:59 Pulse Ox 98 06/17/17 17:59 - Labs Result Diagrams: 06/17/17 04:23 06/17/17 04:23 Labs: Laboratory Results - last 24 hr 06/16/17 06/16/17 06/16/17 21:19 21:19 21:47 WBC RBC Hgb Hct MCV MCH MCHC RDW Plt Count MPV Neut % (Auto) Lymph % (Auto) [place] % (Auto) Eos % (Auto) Baso % (Auto) Neut # (Auto) Lymph # (Auto) [place] # (Auto) Eos # (Auto) Baso # (Auto) PT 14.0 H INR 1.3 H APTT 27.8 Sodium 137 Potassium 4.6 Chloride 100 Carbon Dioxide 24 Anion Gap 18 BUN 31 H Creatinine 2.1 H Est GFR ( Amer) 37 Est GFR (Non-Af Amer) 31 POC Glucose (mg/dL) 95 Random Glucose 104 Calcium 11.1 H Total Bilirubin AST ALT Alkaline Phosphatase Troponin I Total Protein Albumin Globulin Albumin/Globulin Ratio 06/17/17 06/17/17 06/17/17 00:05 03:30 04:23 WBC 9.8 RBC 3.56 L Hgb 10.0 L Hct 29.7 L MCV 83.3 MCH 28.0 MCHC 33.6 RDW 17.1 H Plt Count 331 MPV 7.3 Neut % (Auto) 71.8 Lymph % (Auto) 11.7 L [place] % (Auto) 14.7 H Eos % (Auto) 1.2 Baso % (Auto) 0.6 Neut # (Auto) 7.0 Lymph # (Auto) 1.1 [place] # (Auto) 1.4 H Eos # (Auto) 0.1 Baso # (Auto) 0.1 PT INR APTT 61.8 H D Sodium Potassium Chloride Carbon Dioxide Anion Gap BUN Creatinine Est GFR ( Amer) Est GFR (Non-Af Amer) POC Glucose (mg/dL) Random Glucose Calcium Total Bilirubin AST ALT Alkaline Phosphatase Troponin I 12.3000 H* Total Protein Albumin Globulin Albumin/Globulin Ratio 06/17/17 06/17/17 06/17/17 04:23 08:53 10:30 WBC RBC Hgb Hct MCV MCH MCHC RDW Plt Count MPV Neut % (Auto) Lymph % (Auto) [place] % (Auto) Eos % (Auto) Baso % (Auto) Neut # (Auto) Lymph # (Auto) [place] # (Auto) Eos # (Auto) Baso # (Auto) PT INR APTT 55.6 H D Sodium 139 Potassium 3.6 Chloride 102 Carbon Dioxide 24 Anion Gap 17 BUN 31 H Creatinine 2.0 H Est GFR ( Amer) 39 Est GFR (Non-Af Amer) 32 POC Glucose (mg/dL) 118 H Random Glucose 146 H Calcium 10.6 H Total Bilirubin 0.7 AST 59 ALT 40 Alkaline Phosphatase 76 Troponin I 11.4000 H* Total Protein 7.3 Albumin 3.7 Globulin 3.5 Albumin/Globulin Ratio 1.1 06/17/17 06/17/17 11:44 16:43 WBC RBC Hgb Hct MCV MCH MCHC RDW Plt Count MPV Neut % (Auto) Lymph % (Auto) [place] % (Auto) Eos % (Auto) Baso % (Auto) Neut # (Auto) Lymph # (Auto) [place] # (Auto) Eos # (Auto) Baso # (Auto) PT INR APTT Sodium Potassium Chloride Carbon Dioxide Anion Gap BUN Creatinine Est GFR ( Amer) Est GFR (Non-Af Amer) POC Glucose (mg/dL) 182 H 112 H Random Glucose Calcium Total Bilirubin AST ALT Alkaline Phosphatase Troponin I Total Protein Albumin Globulin Albumin/Globulin Ratio Assessment & Plan - Assessment and Plan (Free Text) Plan: I was present during evaluation and discussed with Dr Clark re plans of care and mgt. Wolf Mckenzie M.D.
[2017-06-17] MEDS: Heparin 25,000units in D5W 25,000 UNITS/250 ML BAG IV SCH (23:56)
[2017-06-18 05:22] LABS: BASO # 0.1 K/uL (0.0-0.2); BASO % 0.9 % (0.0-2.0); EOS # 0.2 K/uL (0.0-0.7); EOS % 2.4 % (0.0-4.0); LYMPH # 1.2 K/uL (1.0-4.3); LYMPH % 13.7 % (20.0-40.0); MEAN CELL VOLUME 84.8 fl (80.0-94.0); MEAN CORPUSCULAR HEMOGLOBIN 27.5 pg (27.0-31.0); MEAN CORPUSCULAR HGB CONC 32.5 g/dL (33.0-37.0); MEAN PLATELET VOLUME 8.1 fl (7.2-11.7); MONO # 1.1 K/uL (0.0-0.8); MONO % 13.4 % (0.0-10.0); NEUT # 5.9 K/uL (1.8-7.0); NEUT % 69.6 % (50.0-75.0); RBC 3.63 Mil/uL (4.40-5.90); RED CELL DISTRIBUTION WIDTH 17.2 % (11.5-14.5); WHITE BLOOD COUNT 8.5 K/uL (4.8-10.8)
[2017-06-18 05:30] LABS: ALBUMIN 3.5 g/dL (3.5-5.0); CALCIUM 10.5 mg/dL (8.4-10.2)
--- NOTE | 2017-06-18 08:58 | CP.PCM.PN ---
<Jamal Clark - Last Filed: 06/18/17 14:12> Subjective - Date & Time of Evaluation Date of Evaluation: 06/18/17 Time of Evaluation: 08:00 - Subjective Subjective: Patient seen and examined this morning at bedside . Patient reported chest pain yesterday afternoon relieved w/ morphine and nitropaste. Patient currently has no complaints of chest pain and is laying in bed comfortably. Patient currently NPO except medications to have cath today. Objective - Vital Signs/Intake and Output Vital Signs (last 24 hours): Temp Pulse Resp BP Pulse Ox 98.6 F 78 20 130/70 96 06/18/17 08:00 06/18/17 08:00 06/18/17 08:00 06/18/17 08:00 06/18/17 08:00 Intake and Output: 06/18/17 06/18/17 06:59 18:59 Intake Total 1150 Output Total 750 Balance 400 - Medications Medications: Current Medications Aspirin (Ecotrin) 325 mg PO DAILY [facility] Last Admin: 06/17/17 12:35 Dose: Not Given Atorvastatin Calcium (Lipitor) 80 mg PO DAILY [facility] Last Admin: 06/17/17 09:35 Dose: 80 mg Clopidogrel Bisulfate (Plavix) 75 mg PO DAILY [facility] Last Admin: 06/17/17 09:36 Dose: 75 mg Ferrous Sulfate (Feosol) 325 mg PO TID [facility] Last Admin: 06/17/17 16:49 Dose: 325 mg Glipizide (Glucotrol Xl) 5 mg PO BRK [facility] Last Admin: 06/17/17 12:35 Dose: Not Given Home Med (Ranolazine [Ranexa]) 1,000 mg PO Q12 [facility] Last Admin: 06/17/17 21:00 Dose: 1,000 mg Sodium Chloride (Sodium Chloride 0.9%) 1,000 mls @ 100 mls/hr IV .Q10H [facility] Stop: 06/18/17 12:05 Last Admin: 06/17/17 23:00 Dose: 100 mls/hr Metoprolol Tartrate (Lopressor) 25 mg PO BID [facility] Last Admin: 06/17/17 16:49 Dose: 25 mg Morphine Sulfate (Morphine) 4 mg IVP Q4 PRN PRN Reason: chest pain Last Admin: 06/17/17 13:49 Dose: 4 mg Nitroglycerin (Nitro-Bid 2% Oint) 1 ea TOP QID [facility] Last Admin: 06/17/17 22:00 Dose: 1 ea Pantoprazole Sodium (Protonix Ec Tab) 40 mg PO DAILY [facility] Last Admin: 06/17/17 09:36 Dose: 40 mg Polyethylene Glycol (Miralax) 17 gm PO DAILY [facility] Last Admin: 06/17/17 09:36 Dose: 17 gm Sitagliptin Phosphate (Januvia) 50 mg PO DAILY [facility] Last Admin: 06/17/17 09:35 Dose: 50 mg Sucralfate (Carafate Oral Susp) 1 gm PO BID [facility] Last Admin: 06/17/17 16:49 Dose: 1 gm Tramadol HCl (Ultram) 50 mg PO TID [facility] Last Admin: 06/17/17 16:52 Dose: 50 mg - Labs Labs: 06/18/17 04:20 06/18/17 04:20 PT 14.0 Seconds (9.8-13.1) H 06/16/17 21:19 INR 1.3 (0.9-1.2) H 06/16/17 21:19 APTT 55.9 Seconds (25.6-37.1) H 06/18/17 04:20 - Constitutional Appears: Non-toxic, No Acute Distress - Head Exam Head Exam: ATRAUMATIC, NORMAL INSPECTION, NORMOCEPHALIC - Eye Exam Eye Exam: Normal appearance - ENT Exam ENT Exam: Mucous Membranes Moist - Neck Exam Neck Exam: Full ROM. absent: Tenderness - Respiratory Exam Respiratory Exam: Clear to Ausculation Bilateral. absent: Accessory Muscle Use , Decreased Breath Sounds, Rales, Rhonchi, Wheezes, Respiratory Distress - Cardiovascular Exam Cardiovascular Exam: REGULAR RHYTHM. absent: Tachycardia - GI/Abdominal Exam GI & Abdominal Exam: Soft, Tenderness, Normal Bowel Sounds. absent: Distended Additional comments: mild epigastric tenderness - Extremities Exam Extremities Exam: absent: Calf Tenderness, Pedal Edema, Tenderness - Neurological Exam Neurological Exam: Alert, Awake, Oriented x3 - Skin Skin Exam: Dry, Intact, Normal Color, Warm Assessment and Plan (1) Acute kidney injury Status: Acute (2) NSTEMI (non-ST elevated myocardial infarction) Status: Acute (3) Acute chest pain Status: Acute (4) CAD (coronary artery disease) of artery bypass graft Status: Chronic (5) CHF (congestive heart failure) Status: Chronic (6) HTN (hypertension) Status: Chronic - Assessment and Plan (Free Text) Plan: c/w present management afebrile, no elevated WBC BENEDICTO improved, Cr 1.6 cardiology recommendations appreciated pain management: tramadol 50 mg PO TID, morphine 4mg IV Q4h prn, nitro-bid 2%, top QID plavix 75 mg PO daily ASA 325 mg PO daily atorvastatin 80 mg PO daily metoprolol tartrate 25 mg PO BID Echo 06/17/2017: EF 55%, normal LV systolic function, mild mitral regurgitation patient NPO for cath cath today monitor for acute changes <Wolf Mckenzie - Last Filed: 06/19/17 22:36> Objective - Vital Signs/Intake and Output Vital Signs (last 24 hours): Temp Pulse Resp BP Pulse Ox 98.3 F 74 15 141/59 L 96 06/19/17 20:00 06/19/17 22:24 06/19/17 20:00 06/19/17 22:24 06/19/17 20:00 Intake and Output: 06/19/17 06/20/17 18:59 06:59 Intake Total 942 10 Output Total 600 225 Balance 342 -215 - Medications Medications: Current Medications Aspirin (Ecotrin) 325 mg PO DAILY [facility] Last Admin: 06/19/17 09:45 Dose: 325 mg Atorvastatin Calcium (Lipitor) 80 mg PO DAILY [facility] Last Admin: 06/19/17 09:46 Dose: 80 mg Clopidogrel Bisulfate (Plavix) 75 mg PO DAILY [facility] Last Admin: 06/19/17 09:46 Dose: 75 mg Ferrous Sulfate (Feosol) 325 mg PO TID [facility] Last Admin: 06/19/17 16:23 Dose: 325 mg Glipizide (Glucotrol Xl) 5 mg PO BRK [facility] Last Admin: 06/19/17 09:47 Dose: 5 mg Home Med (Ranolazine [Ranexa]) 1,000 mg PO Q12 [facility] Last Admin: 06/19/17 09:54 Dose: 1,000 mg Heparin Sodium/Dextrose (Heparin 25,000 Units/250ml In D5w) 25,000 units in 250 mls @ 8 mls/hr IV .Q24H [facility] PRN Reason: Protocol Metoprolol Tartrate (Lopressor) 25 mg PO BID [facility] Last Admin: 06/19/17 16:23 Dose: 25 mg Morphine Sulfate (Morphine) 4 mg IVP Q4 PRN PRN Reason: chest pain Last Admin: 06/18/17 09:56 Dose: 4 mg Nitroglycerin (Nitro-Bid 2% Oint) 1 ea TOP QID [facility] Last Admin: 06/19/17 22:24 Dose: 1 ea Pantoprazole Sodium (Protonix Ec Tab) 40 mg PO DAILY [facility] Last Admin: 06/19/17 09:54 Dose: 40 mg Polyethylene Glycol (Miralax) 17 gm PO DAILY [facility] Last Admin: 06/19/17 09:47 Dose: 17 gm Sitagliptin Phosphate (Januvia) 50 mg PO DAILY [facility] Last Admin: 06/19/17 09:48 Dose: 50 mg Sucralfate (Carafate Oral Susp) 1 gm PO BID [facility] Last Admin: 06/19/17 16:23 Dose: 1 gm Tramadol HCl (Ultram) 50 mg PO TID [facility] Last Admin: 06/19/17 16:26 Dose: 50 mg - Labs Labs: 06/19/17 05:08 06/19/17 05:00 PT 13.6 Seconds (9.8-13.1) H 06/19/17 05:08 INR 1.2 (0.9-1.2) 06/19/17 05:08 APTT 54.3 Seconds (25.6-37.1) H 06/19/17 21:55 Assessment and Plan - Assessment and Plan (Free Text) Plan: I was present during evaluation and discussed with Dr Clark re plans of care and mgt. Wolf Mckenzie M.D.
[2017-06-18] MEDS: Sucralfate 1 gm/10 ml Oral Susp UD PO SCH ×2 (09:13→16:25)
[2017-06-18] MEDS: Aspirin 325 mg EC Tablets PO SCH (09:13)
[2017-06-18] MEDS: GlipiZIDE 5 mg SR Tab PO SCH ×2 (09:14→16:27)
[2017-06-18] MEDS: POLYETHYLENE GLYCOL 3350 17 GM/Dose PACKET PO SCH (09:15)
[2017-06-18] MEDS: Pantoprazole 40 mg EC Tab PO SCH ×2 (09:18→16:32)
[2017-06-18] MEDS: RANOLAZINE 1000 MG PO SCH ×2 (09:18→21:46)
[2017-06-18] MEDS: Sodium Chloride 0.9% 1,000 ML IV SCH (09:19)
[2017-06-18] MEDS: Nitroglycerin 2% Ointment Foilpak UD TOP SCH ×4 (09:24→21:48)
[2017-06-18] MEDS: Morphine 4 MG/ML VIAL IVP PRN (09:56)
--- NOTE | 2017-06-18 10:22 | CP.CCUPN ---
CCU Subjective - Physician Review Subjective (Free Text): No recurrent CP overnight, on Heparin drip. Other VS and I/Os reviewed. ROS: No other pertinent negs or positives on 10+ system review. PMSFH: All other Nursing and physician documentation reviewed to date; no new pertinent info noted relevant to current medical problems. EXAM- HEENT: no icterus, no gaze preference, pupils equal and reactive, no icterus NECK: No JVD, supple, carotids equal upstroke bilat/no bruits CHEST: decreased BS bases, no wheezes audible HEART: regular distant, S1S2, no rubs. ABD: soft, no distention, no tympany, no palp tenderness, BS hypoactive. EXT: trace edema bilat. No peripheral/ digital cyanosis, no calf tenderness or palpable cords, distal pulses intact and symmetrical. NEURO: no gross focal motor deficits. SKIN: no rashes, warm and dry. LABS: WBC= 8.5 HGB= 10.0 PLTs= 311 K PTT= 55.9 Na= 139 K= 4.1 HCO3-= 21 CL= 106 BUN/Cr= 21/1.6 BS= 124 IMPRESSION / MAJOR PROBLEMS NOW: 1. ACS with new NSTEMI 2. Azotemia, r/o BENEDICTO, 2 contrast nephropathy 3. Hypercalcemia PLAN: 1. Heparin infusion, already on ASA, Statin, Plavix, BBs. 2. Left heart catheterization dependent on in the waiting improvement in creatinine levels. 3. Cautious IVF hydration 4. ECHO: Awaiting assessment for LV function. CCU Objective - Vital Signs / Intake & Output Vital Signs (Last 4 hours): Vital Signs Temp Pulse Resp BP Pulse Ox 06/18/17 09:24 78 130/70 06/18/17 09:15 78 130/70 06/18/17 08:00 98.6 F 78 20 130/70 96 Intake and Output (Last 8hrs): Intake & Output 06/17/17 06/18/17 06/18/17 22:59 06:59 14:59 Intake Total 1030 800 Output Total 650 400 Balance 380 400 Intake: IV 740 800 Oral 290 Output: Urine 650 400 Urine, Voided 650 400 - Medications Active Medications: Active Medications Generic Name Dose Route Start Last Admin Trade Name Freq PRN Reason Stop Dose Admin Aspirin 325 mg 06/17/17 09:00 06/18/17 09:13 Ecotrin PO 325 mg DAILY [facility] Administration Atorvastatin Calcium 80 mg 06/17/17 09:00 06/18/17 09:14 Lipitor PO Not Given DAILY [facility] Clopidogrel Bisulfate 75 mg 06/17/17 09:00 06/18/17 09:18 Plavix PO 75 mg DAILY [facility] Administration Ferrous Sulfate 325 mg 06/17/17 09:00 06/18/17 09:17 Feosol PO Not Given TID [facility] Glipizide 5 mg 06/17/17 10:00 06/18/17 09:14 Glucotrol Xl PO Not Given BRK [facility] Home Med 1,000 mg 06/17/17 12:00 06/18/17 09:18 Ranolazine [Ranexa] PO Not Given Q12 [facility] Sodium Chloride 1,000 mls @ 100 mls/hr 06/17/17 12:15 06/18/17 09:19 Sodium Chloride 0.9% IV 06/18/17 12:05 100 mls/hr .Q10H [facility] Administration Metoprolol Tartrate 25 mg 06/17/17 09:00 06/18/17 09:15 Lopressor PO 25 mg BID [facility] Administration Morphine Sulfate 4 mg 06/17/17 13:35 06/18/17 09:56 Morphine IVP 4 mg Q4 PRN Administration chest pain Nitroglycerin 1 ea 06/17/17 17:00 06/18/17 09:24 Nitro-Bid 2% Oint TOP 1 ea QID [facility] Administration Pantoprazole Sodium 40 mg 06/17/17 09:00 06/18/17 09:18 Protonix Ec Tab PO Not Given DAILY [facility] Polyethylene Glycol 17 gm 06/17/17 09:00 06/18/17 09:15 Miralax PO Not Given DAILY [facility] Sitagliptin Phosphate 50 mg 06/17/17 09:00 06/18/17 09:14 Januvia PO Not Given DAILY [facility] Sucralfate 1 gm 06/17/17 09:00 06/18/17 09:13 Carafate Oral Susp PO Not Given BID [facility] Tramadol HCl 50 mg 06/17/17 09:00 06/18/17 09:19 Ultram PO Not Given TID [facility] - Patient Studies Lab Studies: Lab Studies 06/18/17 06/18/17 06/18/17 Range/Units 04:40 04:20 04:20 WBC (4.8-10.8) K/uL RBC (4.40-5.90) Mil/uL Hgb (12.0-18.0) g/dL Hct (35.0-51.0) % MCV (80.0-94.0) fl MCH (27.0-31.0) pg MCHC (33.0-37.0) g/dL RDW (11.5-14.5) % Plt Count (130-400) K/uL MPV (7.2-11.7) fl Neut % (Auto) (50.0-75.0) % Lymph % (Auto) (20.0-40.0) % [place] % (Auto) (0.0-10.0) % Eos % (Auto) (0.0-4.0) % Baso % (Auto) (0.0-2.0) % Neut # (Auto) (1.8-7.0) K/uL Lymph # (Auto) (1.0-4.3) K/uL [place] # (Auto) (0.0-0.8) K/uL Eos # (Auto) (0.0-0.7) K/uL Baso # (Auto) (0.0-0.2) K/uL APTT 55.9 H (25.6-37.1) Seconds Sodium 139 (132-148) mmol/l Potassium 4.1 (3.6-5.0) MMOL/L Chloride 106 (98-107) mmol/L Carbon Dioxide 21 L (22-30) mmol/L Anion Gap 16 (10-20) BUN 21 H (9-20) mg/dl Creatinine 1.6 H (0.8-1.5) mg/dl Est GFR ( Amer) 51 Est GFR (Non-Af Amer) 42 POC Glucose (mg/dL) 118 H (65-110) mg/dL Random Glucose 124 H (75-110) mg/dL Calcium 10.5 H (8.4-10.2) mg/dL Total Bilirubin 0.6 (0.2-1.3) mg/dl AST 43 (17-59) U/L ALT 43 (21-72) U/L Alkaline Phosphatase 90 (38-126) U/L Total Protein 7.2 (6.3-8.2) G/DL Albumin 3.5 (3.5-5.0) g/dL Globulin 3.7 (2.2-3.9) gm/dL Albumin/Globulin Ratio 1.0 (1.0-2.1) Procalcitonin (0.19-0.49) NG/ML 06/18/17 06/17/17 06/17/17 Range/Units 04:20 21:20 16:43 WBC 8.5 (4.8-10.8) K/uL RBC 3.63 L (4.40-5.90) Mil/uL Hgb 10.0 L (12.0-18.0) g/dL Hct 30.8 L (35.0-51.0) % MCV 84.8 (80.0-94.0) fl MCH 27.5 (27.0-31.0) pg MCHC 32.5 L (33.0-37.0) g/dL RDW 17.2 H (11.5-14.5) % Plt Count 311 (130-400) K/uL MPV 8.1 (7.2-11.7) fl Neut % (Auto) 69.6 (50.0-75.0) % Lymph % (Auto) 13.7 L (20.0-40.0) % [place] % (Auto) 13.4 H (0.0-10.0) % Eos % (Auto) 2.4 (0.0-4.0) % Baso % (Auto) 0.9 (0.0-2.0) % Neut # (Auto) 5.9 (1.8-7.0) K/uL Lymph # (Auto) 1.2 (1.0-4.3) K/uL [place] # (Auto) 1.1 H (0.0-0.8) K/uL Eos # (Auto) 0.2 (0.0-0.7) K/uL Baso # (Auto) 0.1 (0.0-0.2) K/uL APTT (25.6-37.1) Seconds Sodium (132-148) mmol/l Potassium (3.6-5.0) MMOL/L Chloride (98-107) mmol/L Carbon Dioxide (22-30) mmol/L Anion Gap (10-20) BUN (9-20) mg/dl Creatinine (0.8-1.5) mg/dl Est GFR ( Amer) Est GFR (Non-Af Amer) POC Glucose (mg/dL) 147 H 112 H (65-110) mg/dL Random Glucose (75-110) mg/dL Calcium (8.4-10.2) mg/dL Total Bilirubin (0.2-1.3) mg/dl AST (17-59) U/L ALT (21-72) U/L Alkaline Phosphatase (38-126) U/L Total Protein (6.3-8.2) G/DL Albumin (3.5-5.0) g/dL Globulin (2.2-3.9) gm/dL Albumin/Globulin Ratio (1.0-2.1) Procalcitonin (0.19-0.49) NG/ML 06/17/17 06/17/17 06/17/17 Range/Units 11:44 10:30 08:53 WBC (4.8-10.8) K/uL RBC (4.40-5.90) Mil/uL Hgb (12.0-18.0) g/dL Hct (35.0-51.0) % MCV (80.0-94.0) fl MCH (27.0-31.0) pg MCHC (33.0-37.0) g/dL RDW (11.5-14.5) % Plt Count (130-400) K/uL MPV (7.2-11.7) fl Neut % (Auto) (50.0-75.0) % Lymph % (Auto) (20.0-40.0) % [place] % (Auto) (0.0-10.0) % Eos % (Auto) (0.0-4.0) % Baso % (Auto) (0.0-2.0) % Neut # (Auto) (1.8-7.0) K/uL Lymph # (Auto) (1.0-4.3) K/uL [place] # (Auto) (0.0-0.8) K/uL Eos # (Auto) (0.0-0.7) K/uL Baso # (Auto) (0.0-0.2) K/uL APTT 55.6 H D (25.6-37.1) Seconds Sodium (132-148) mmol/l Potassium (3.6-5.0) MMOL/L Chloride (98-107) mmol/L Carbon Dioxide (22-30) mmol/L Anion Gap (10-20) BUN (9-20) mg/dl Creatinine (0.8-1.5) mg/dl Est GFR ( Amer) Est GFR (Non-Af Amer) POC Glucose (mg/dL) 182 H 118 H (65-110) mg/dL Random Glucose (75-110) mg/dL Calcium (8.4-10.2) mg/dL Total Bilirubin (0.2-1.3) mg/dl AST (17-59) U/L ALT (21-72) U/L Alkaline Phosphatase (38-126) U/L Total Protein (6.3-8.2) G/DL Albumin (3.5-5.0) g/dL Globulin (2.2-3.9) gm/dL Albumin/Globulin Ratio (1.0-2.1) Procalcitonin (0.19-0.49) NG/ML 06/17/17 Range/Units 04:23 WBC (4.8-10.8) K/uL RBC (4.40-5.90) Mil/uL Hgb (12.0-18.0) g/dL Hct (35.0-51.0) % MCV (80.0-94.0) fl MCH (27.0-31.0) pg MCHC (33.0-37.0) g/dL RDW (11.5-14.5) % Plt Count (130-400) K/uL MPV (7.2-11.7) fl Neut % (Auto) (50.0-75.0) % Lymph % (Auto) (20.0-40.0) % [place] % (Auto) (0.0-10.0) % Eos % (Auto) (0.0-4.0) % Baso % (Auto) (0.0-2.0) % Neut # (Auto) (1.8-7.0) K/uL Lymph # (Auto) (1.0-4.3) K/uL [place] # (Auto) (0.0-0.8) K/uL Eos # (Auto) (0.0-0.7) K/uL Baso # (Auto) (0.0-0.2) K/uL APTT (25.6-37.1) Seconds Sodium (132-148) mmol/l Potassium (3.6-5.0) MMOL/L Chloride (98-107) mmol/L Carbon Dioxide (22-30) mmol/L Anion Gap (10-20) BUN (9-20) mg/dl Creatinine (0.8-1.5) mg/dl Est GFR ( Amer) Est GFR (Non-Af Amer) POC Glucose (mg/dL) (65-110) mg/dL Random Glucose (75-110) mg/dL Calcium (8.4-10.2) mg/dL Total Bilirubin (0.2-1.3) mg/dl AST (17-59) U/L ALT (21-72) U/L Alkaline Phosphatase (38-126) U/L Total Protein (6.3-8.2) G/DL Albumin (3.5-5.0) g/dL Globulin (2.2-3.9) gm/dL Albumin/Globulin Ratio (1.0-2.1) Procalcitonin 0.05 L (0.19-0.49) NG/ML Laboratory Results - last 24 hr 06/17/17 06/17/17 06/17/17 04:23 08:53 10:30 WBC RBC Hgb Hct MCV MCH MCHC RDW Plt Count MPV Neut % (Auto) Lymph % (Auto) [place] % (Auto) Eos % (Auto) Baso % (Auto) Neut # (Auto) Lymph # (Auto) [place] # (Auto) Eos # (Auto) Baso # (Auto) APTT 55.6 H D Sodium Potassium Chloride Carbon Dioxide Anion Gap BUN Creatinine Est GFR ( Amer) Est GFR (Non-Af Amer) POC Glucose (mg/dL) 118 H Random Glucose Calcium Total Bilirubin AST ALT Alkaline Phosphatase Total Protein Albumin Globulin Albumin/Globulin Ratio Procalcitonin 0.05 L 06/17/17 06/17/17 06/17/17 11:44 16:43 21:20 WBC RBC Hgb Hct MCV MCH MCHC RDW Plt Count MPV Neut % (Auto) Lymph % (Auto) [place] % (Auto) Eos % (Auto) Baso % (Auto) Neut # (Auto) Lymph # (Auto) [place] # (Auto) Eos # (Auto) Baso # (Auto) APTT Sodium Potassium Chloride Carbon Dioxide Anion Gap BUN Creatinine Est GFR ( Amer) Est GFR (Non-Af Amer) POC Glucose (mg/dL) 182 H 112 H 147 H Random Glucose Calcium Total Bilirubin AST ALT Alkaline Phosphatase Total Protein Albumin Globulin Albumin/Globulin Ratio Procalcitonin 06/18/17 06/18/17 06/18/17 04:20 04:20 04:20 WBC 8.5 RBC 3.63 L Hgb 10.0 L Hct 30.8 L MCV 84.8 MCH 27.5 MCHC 32.5 L RDW 17.2 H Plt Count 311 MPV 8.1 Neut % (Auto) 69.6 Lymph % (Auto) 13.7 L [place] % (Auto) 13.4 H Eos % (Auto) 2.4 Baso % (Auto) 0.9 Neut # (Auto) 5.9 Lymph # (Auto) 1.2 [place] # (Auto) 1.1 H Eos # (Auto) 0.2 Baso # (Auto) 0.1 APTT 55.9 H Sodium 139 Potassium 4.1 Chloride 106 Carbon Dioxide 21 L Anion Gap 16 BUN 21 H Creatinine 1.6 H Est GFR ( Amer) 51 Est GFR (Non-Af Amer) 42 POC Glucose (mg/dL) Random Glucose 124 H Calcium 10.5 H Total Bilirubin 0.6 AST 43 ALT 43 Alkaline Phosphatase 90 Total Protein 7.2 Albumin 3.5 Globulin 3.7 Albumin/Globulin Ratio 1.0 Procalcitonin 06/18/17 04:40 WBC RBC Hgb Hct MCV MCH MCHC RDW Plt Count MPV Neut % (Auto) Lymph % (Auto) [place] % (Auto) Eos % (Auto) Baso % (Auto) Neut # (Auto) Lymph # (Auto) [place] # (Auto) Eos # (Auto) Baso # (Auto) APTT Sodium Potassium Chloride Carbon Dioxide Anion Gap BUN Creatinine Est GFR ( Amer) Est GFR (Non-Af Amer) POC Glucose (mg/dL) 118 H Random Glucose Calcium Total Bilirubin AST ALT Alkaline Phosphatase Total Protein Albumin Globulin Albumin/Globulin Ratio Procalcitonin Fingerstick Blood Sugar Results: 118 Critical Care Progress Note - Nutrition Nutrition: Nutrition Category Date Time Status NPO Diet [DIET] Diets 06/17/17 Dinner Active
--- NOTE | 2017-06-18 12:44 | CARD ---
APPROVED REPORT EXAM: Two-dimensional and M-mode echocardiogram with Doppler and color Doppler. Other Information Quality : AverageRhythm : NSR INDICATION Chest Pain Surgery/Intervention CABD DIMENSIONS IVSd1.05 (0.7-1.1cm)LVDd4.46 (3.9-5.9cm) LVOT Diameter2.32 (1.8-2.4cm)PWd1.06 (0.7-1.1cm) IVSs1.16 (0.8-1.2cm)LVDs4.50 (2.5-4.0cm) FS (%) 0.8 %PWs1.07 (0.8-1.2cm) M-Mode DIMENSIONS Left Atrium (MM)4.30 (2.5-4.0cm)IVSd1.03 (0.7-1.1cm) Aortic Root3.05 (2.2-3.7cm)LVDd7.21 (4.0-5.6cm) Aortic Cusp Exc.1.99 (1.5-2.0cm)PWd0.92 (0.7-1.1cm) IVSs1.47 cmFS (%) 18 % LVDs5.92 (2.0-3.8cm)PWs1.29 cm Mitral Valve MV E Dhzsgmdb59.7cm/sMV DECEL [id number] A Znyfozmv60.8cm/s MV BVP22vqL/A ratio0.9MVA (PHT)4.95cm2 TDI Lateral E' Peak V7.99cm/sMedial E' Peak V4.16cm/sE/Lateral E'9.7 E/Medial E'18.7 LEFT VENTRICLE The left ventricle is normal size. There is normal left ventricular wall thickness. The left ventricular function is normal. The left ventricular ejection fraction is 55% There is normal LV segmental wall motion. Transmitral Doppler flow pattern is Grade I-abnormal relaxation pattern. No left ventricle thrombus noted on this study. There is no ventricular septal defect visualized. There is no left ventricular aneurysm. There is no mass noted in the left ventricle. RIGHT VENTRICLE The right ventricle is normal size. There is normal right ventricular wall thickness. The right ventricular systolic function is normal. ATRIA The left atrium size is normal. The right atrium size is normal. The interatrial septum is intact with no evidence for an atrial septal defect. AORTIC VALVE The aortic valve is normal in structure. No aortic regurgitation is present. There is no aortic valvular stenosis. There is no aortic valvular vegetation. MITRAL VALVE The mitral valve is normal in structure. There is no evidence of mitral valve prolapse. There is no mitral valve stenosis. Mitral regurgitation is mild. TRICUSPID VALVE The tricuspid valve is normal in structure. There is no tricuspid valve regurgitation noted. There is no tricuspid valve prolapse or vegetation. There is no tricuspid valve stenosis. PULMONIC VALVE The pulmonary valve is normal in structure. There is no pulmonic valvular regurgitation. There is no pulmonic valvular stenosis. GREAT VESSELS The aortic root is normal in size. The ascending aorta is normal in size. The IVC is normal in size and collapses >50% with inspiration. PERICARDIAL EFFUSION The pericardium appears normal. There is no pleural effusion. <Conclusion> Normal LV systolic function Mild Mitral Regurgitation
[2017-06-18] MEDS ORDERED: Heparin 25,000units in D5W 25,000 UNITS/250 ML BAG IV SCH (14:45)
--- NOTE | 2017-06-18 15:14 | CP.PCM.PN ---
Subjective - Date & Time of Evaluation Date of Evaluation: 06/18/17 Time of Evaluation: 15:12 - Subjective Subjective: Cr imroving Chest pain free echo - nl EF Objective - Vital Signs/Intake and Output Vital Signs (last 24 hours): Temp Pulse Resp BP Pulse Ox 98.2 F 67 12 136/69 93 L 06/18/17 14:00 06/18/17 14:00 06/18/17 14:00 06/18/17 14:00 06/18/17 14:00 Intake and Output: 06/18/17 06/18/17 06:59 18:59 Intake Total 1150 120 Output Total 750 100 Balance 400 20 - Medications Medications: Current Medications Aspirin (Ecotrin) 325 mg PO DAILY [facility] Last Admin: 06/18/17 09:13 Dose: 325 mg Atorvastatin Calcium (Lipitor) 80 mg PO DAILY [facility] Last Admin: 06/18/17 09:14 Dose: Not Given Clopidogrel Bisulfate (Plavix) 75 mg PO DAILY [facility] Last Admin: 06/18/17 09:18 Dose: 75 mg Ferrous Sulfate (Feosol) 325 mg PO TID [facility] Last Admin: 06/18/17 12:07 Dose: Not Given Glipizide (Glucotrol Xl) 5 mg PO BRK [facility] Last Admin: 06/18/17 09:14 Dose: Not Given Home Med (Ranolazine [Ranexa]) 1,000 mg PO Q12 [facility] Last Admin: 06/18/17 09:18 Dose: Not Given Heparin Sodium/Dextrose (Heparin 25,000 Units/250ml In D5w) 25,000 units in 250 mls @ 10 mls/hr IV .Q24H [facility] PRN Reason: Protocol Metoprolol Tartrate (Lopressor) 25 mg PO BID [facility] Last Admin: 06/18/17 09:15 Dose: 25 mg Morphine Sulfate (Morphine) 4 mg IVP Q4 PRN PRN Reason: chest pain Last Admin: 06/18/17 09:56 Dose: 4 mg Nitroglycerin (Nitro-Bid 2% Oint) 1 ea TOP QID [facility] Last Admin: 06/18/17 12:24 Dose: 1 ea Pantoprazole Sodium (Protonix Ec Tab) 40 mg PO DAILY [facility] Last Admin: 06/18/17 09:18 Dose: Not Given Polyethylene Glycol (Miralax) 17 gm PO DAILY [facility] Last Admin: 06/18/17 09:15 Dose: Not Given Sitagliptin Phosphate (Januvia) 50 mg PO DAILY [facility] Last Admin: 06/18/17 09:14 Dose: Not Given Sucralfate (Carafate Oral Susp) 1 gm PO BID [facility] Last Admin: 06/18/17 09:13 Dose: Not Given Tramadol HCl (Ultram) 50 mg PO TID [facility] Last Admin: 06/18/17 12:12 Dose: Not Given - Labs Labs: 06/18/17 04:20 06/18/17 04:20 PT 14.0 Seconds (9.8-13.1) H 06/16/17 21:19 INR 1.3 (0.9-1.2) H 06/16/17 21:19 APTT 55.9 Seconds (25.6-37.1) H 06/18/17 04:20 - Constitutional Appears: Well - Head Exam Head Exam: ATRAUMATIC, NORMAL INSPECTION, NORMOCEPHALIC - Eye Exam Eye Exam: EOMI, Normal appearance, PERRL Pupil Exam: NORMAL ACCOMODATION, PERRL - ENT Exam ENT Exam: Mucous Membranes Moist, Normal Exam - Neck Exam Neck Exam: Full ROM, Normal Inspection. absent: Lymphadenopathy - Respiratory Exam Respiratory Exam: Clear to Ausculation Bilateral, NORMAL BREATHING PATTERN - Cardiovascular Exam Cardiovascular Exam: REGULAR RHYTHM, +S1, +S2. absent: Murmur - GI/Abdominal Exam GI & Abdominal Exam: Soft, Normal Bowel Sounds. absent: Tenderness - Extremities Exam Extremities Exam: Full ROM, Normal Capillary Refill, Normal Inspection. absent : Joint Swelling, Pedal Edema - Back Exam Back Exam: NORMAL INSPECTION - Neurological Exam Neurological Exam: Alert, Awake, CN II-XII Intact, Normal Gait, Oriented x3 - Psychiatric Exam Psychiatric exam: Normal Affect, Normal Mood - Skin Skin Exam: Dry, Intact, Normal Color, Warm Assessment and Plan (1) NSTEMI (non-ST elevated myocardial infarction) Assessment & Plan: plan for cath Wednesday continue with IV heparin cont dapt cont bb, statins IVF hydration Echo reviewed - nl EF Status: Acute (2) Acute kidney injury Assessment & Plan: improving cont with gentle hydration Status: Acute (3) Acute chest pain Status: Acute (4) Hypercholesterolemia Status: Acute (5) S/P angioplasties Status: Acute (6) CAD (coronary artery disease) of artery bypass graft Status: Chronic (7) CHF (congestive heart failure) Status: Chronic (8) HTN (hypertension) Status: Chronic
--- NOTE | 2017-06-18 18:14 | CARD ---
APPROVED REPORT EKG Measurement Heart [id number] <Conclusion> Sinus rhythm with premature atrial complexes Left axis deviation Nonspecific ST and T wave abnormality Abnormal ECG
--- NOTE | 2017-06-18 18:18 | CARD ---
APPROVED REPORT EKG Measurement Heart [id number] <Conclusion> Sinus rhythm with premature atrial complexes Left axis deviation Nonspecific ST and T wave abnormality Abnormal ECG
--- NOTE | 2017-06-18 18:21 | CARD ---
APPROVED REPORT EKG Measurement Heart [id number] ID [id number] <Conclusion> Sinus rhythm with premature atrial complexes Left axis deviation Nonspecific ST and T wave abnormality Abnormal ECG
[2017-06-19 05:41] LABS: HEMOGLOBIN 10.1 g/dL (12.0-18.0); MEAN CELL VOLUME 83.9 fl (80.0-94.0); MEAN CORPUSCULAR HEMOGLOBIN 27.3 pg (27.0-31.0); MEAN CORPUSCULAR HGB CONC 32.5 g/dL (33.0-37.0); RBC 3.71 Mil/uL (4.40-5.90); RED CELL DISTRIBUTION WIDTH 16.7 % (11.5-14.5); WHITE BLOOD COUNT 7.4 K/uL (4.8-10.8)
[2017-06-19 06:01] LABS: INR 1.2 (0.9-1.2); PARTIAL THROMBOPLASTIN TIME 66.5 Seconds (25.6-37.1); PROTHROMBIN TIME 13.6 Seconds (9.8-13.1)
[2017-06-19 07:07] LABS: BLOOD UREA NITROGEN 13 mg/dl (9-20); GFR AFRICAN-AMERICAN > 60; GFR NON-AFRICAN AMERICAN 59
[2017-06-19 07:08] LABS: CALCIUM 10.4 mg/dL (8.4-10.2)
[2017-06-19] MEDS: Sucralfate 1 gm/10 ml Oral Susp UD PO SCH ×2 (09:45→16:23)
[2017-06-19] MEDS: Aspirin 325 mg EC Tablets PO SCH (09:45)
[2017-06-19] MEDS: GlipiZIDE 5 mg SR Tab PO SCH (09:47)
[2017-06-19] MEDS: POLYETHYLENE GLYCOL 3350 17 GM/Dose PACKET PO SCH (09:47)
--- NOTE | 2017-06-19 09:48 | CP.CCUPN ---
CCU Subjective - Physician Review Events Since Last Encounter (Free Text): 06/19/17 09:45 alert and oriented, no CP, no SOB CCU Objective - Vital Signs / Intake & Output Vital Signs (Last 4 hours): Vital Signs Temp Pulse Resp BP Pulse Ox 06/19/17 08:00 98.4 F 92 H 14 154/81 H 94 L 06/19/17 06:00 84 20 150/83 95 Intake and Output (Last 8hrs): Intake & Output 06/18/17 06/19/17 06/19/17 22:59 06:59 14:59 Intake Total 1860 880 Output Total 300 1300 Balance 1560 -420 Intake: IV 1740 880 Oral 120 Output: Urine 300 1300 Urine, Voided 300 1300 Other: # Voids Urine, Voided 1 - Physical Exam Narrative Physical Exam (Free Text): 06/19/17 09:46 P/E Neck: No JVD Lungs: No ronchi, crackles abdomen: soft, non-tender Ext: No edema heart; No gallop - Medications Active Medications: Active Medications Generic Name Dose Route Start Last Admin Trade Name Freq PRN Reason Stop Dose Admin Aspirin 325 mg 06/17/17 09:00 06/18/17 09:13 Ecotrin PO 325 mg DAILY JUAN Administration Atorvastatin Calcium 80 mg 06/17/17 09:00 06/18/17 16:28 Lipitor PO 80 mg DAILY [facility]UAN Administration Clopidogrel Bisulfate 75 mg 06/17/17 09:00 06/18/17 09:18 Plavix PO 75 mg DAILY [facility]UAN Administration Ferrous Sulfate 325 mg 06/17/17 09:00 06/18/17 16:26 Feosol PO 325 mg TID JUAN Administration Glipizide 5 mg 06/17/17 10:00 06/18/17 16:27 Glucotrol Xl PO 5 mg BRK [facility]UAN Administration Home Med 1,000 mg 06/17/17 12:00 06/18/17 21:46 Ranolazine [Ranexa] PO 1,000 mg Q12 [facility]UAN Administration Heparin Sodium/Dextrose 25,000 units in 250 mls @ 10 mls/hr 06/18/17 14:45 01:41 Heparin 25,000 Units/250ml In D5w IV 10 mls/hr .Q24H [facility]UAN Administration Protocol Metoprolol Tartrate 25 mg 06/17/17 09:00 06/18/17 16:29 Lopressor PO 25 mg BID [facility]UAN Administration Morphine Sulfate 4 mg 06/17/17 13:35 06/18/17 09:56 Morphine IVP 4 mg Q4 PRN Administration chest pain Nitroglycerin 1 ea 06/17/17 17:00 06/18/17 21:48 Nitro-Bid 2% Oint TOP 1 ea QID [facility]UAN Administration Pantoprazole Sodium 40 mg 06/17/17 09:00 06/18/17 16:32 Protonix Ec Tab PO 40 mg DAILY [facility] Administration Polyethylene Glycol 17 gm 06/17/17 09:00 06/18/17 09:15 Miralax PO Not Given DAILY [facility] Sitagliptin Phosphate 50 mg 06/17/17 09:00 06/18/17 16:28 Januvia PO 50 mg DAILY [facility] Administration Sucralfate 1 gm 06/17/17 09:00 06/18/17 16:25 Carafate Oral Susp PO 1 gm BID [facility] Administration Tramadol HCl 50 mg 06/17/17 09:00 06/18/17 16:32 Ultram PO 50 mg TID [facility]UAN Administration - Patient Studies Lab Studies: Microbiology Studies 06/17/17 11:30 MRSA Culture (Admit) - Final Naris MRSA NOT DETECTED Lab Studies 06/19/17 06/19/17 06/19/17 Range/Units 06:24 05:08 05:08 WBC 7.4 (4.8-10.8) K/uL RBC 3.71 L (4.40-5.90) Mil/uL Hgb 10.1 L (12.0-18.0) g/dL Hct 31.2 L (35.0-51.0) % MCV 83.9 (80.0-94.0) fl MCH 27.3 (27.0-31.0) pg MCHC 32.5 L (33.0-37.0) g/dL RDW 16.7 H (11.5-14.5) % Plt Count 338 (130-400) K/uL PT 13.6 H (9.8-13.1) Seconds INR 1.2 (0.9-1.2) APTT 66.5 H D (25.6-37.1) Seconds Sodium (132-148) mmol/l Potassium (3.6-5.0) MMOL/L Chloride (98-107) mmol/L Carbon Dioxide (22-30) mmol/L Anion Gap (10-20) BUN (9-20) mg/dl Creatinine (0.8-1.5) mg/dl Est GFR ( Amer) Est GFR (Non-Af Amer) POC Glucose (mg/dL) 127 H (65-110) mg/dL Random Glucose (75-110) mg/dL Calcium (8.4-10.2) mg/dL 06/19/17 06/18/17 06/18/17 Range/Units 05:00 21:55 16:50 WBC (4.8-10.8) K/uL RBC (4.40-5.90) Mil/uL Hgb (12.0-18.0) g/dL Hct (35.0-51.0) % MCV (80.0-94.0) fl MCH (27.0-31.0) pg MCHC (33.0-37.0) g/dL RDW (11.5-14.5) % Plt Count (130-400) K/uL PT (9.8-13.1) Seconds INR (0.9-1.2) APTT (25.6-37.1) Seconds Sodium 138 (132-148) mmol/l Potassium 4.0 (3.6-5.0) MMOL/L Chloride 107 (98-107) mmol/L Carbon Dioxide 19 L (22-30) mmol/L Anion Gap 16 (10-20) BUN 13 (9-20) mg/dl Creatinine 1.2 (0.8-1.5) mg/dl Est GFR ( Amer) > 60 Est GFR (Non-Af Amer) 59 POC Glucose (mg/dL) 120 H 154 H (65-110) mg/dL Random Glucose 128 H (75-110) mg/dL Calcium 10.4 H (8.4-10.2) mg/dL 06/18/17 Range/Units 12:10 WBC (4.8-10.8) K/uL RBC (4.40-5.90) Mil/uL Hgb (12.0-18.0) g/dL Hct (35.0-51.0) % MCV (80.0-94.0) fl MCH (27.0-31.0) pg MCHC (33.0-37.0) g/dL RDW (11.5-14.5) % Plt Count (130-400) K/uL PT (9.8-13.1) Seconds INR (0.9-1.2) APTT (25.6-37.1) Seconds Sodium (132-148) mmol/l Potassium (3.6-5.0) MMOL/L Chloride (98-107) mmol/L Carbon Dioxide (22-30) mmol/L Anion Gap (10-20) BUN (9-20) mg/dl Creatinine (0.8-1.5) mg/dl Est GFR ( Amer) Est GFR (Non-Af Amer) POC Glucose (mg/dL) 113 H (65-110) mg/dL Random Glucose (75-110) mg/dL Calcium (8.4-10.2) mg/dL Laboratory Results - last 24 hr 06/18/17 06/18/17 06/18/17 12:10 16:50 21:55 WBC RBC Hgb Hct MCV MCH MCHC RDW Plt Count PT INR APTT Sodium Potassium Chloride Carbon Dioxide Anion Gap BUN Creatinine Est GFR ( Amer) Est GFR (Non-Af Amer) POC Glucose (mg/dL) 113 H 154 H 120 H Random Glucose Calcium 06/19/17 06/19/17 06/19/17 05:00 05:08 05:08 WBC 7.4 RBC 3.71 L Hgb 10.1 L Hct 31.2 L MCV 83.9 MCH 27.3 MCHC 32.5 L RDW 16.7 H Plt Count 338 PT 13.6 H INR 1.2 APTT 66.5 H D Sodium 138 Potassium 4.0 Chloride 107 Carbon Dioxide 19 L Anion Gap 16 BUN 13 Creatinine 1.2 Est GFR ( Amer) > 60 Est GFR (Non-Af Amer) 59 POC Glucose (mg/dL) Random Glucose 128 H Calcium 10.4 H 06/19/17 06:24 WBC RBC Hgb Hct MCV MCH MCHC RDW Plt Count PT INR APTT Sodium Potassium Chloride Carbon Dioxide Anion Gap BUN Creatinine Est GFR ( Amer) Est GFR (Non-Af Amer) POC Glucose (mg/dL) 127 H Random Glucose Calcium Fingerstick Blood Sugar Results: 127 Critical Care Progress Note - Nutrition Nutrition: Nutrition Category Date Time Status Heart Healthy Diet [DIET] Diets 06/18/17 Dinner Active Assessment/Plan - Assessment and Plan (Free Text) Assessment: IMPRESSION / MAJOR PROBLEMS NOW: 1. ACS with new NSTEMI: stable no CP, on heparin infusion 2. 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 Hypercalcemia: Improving with hydration, now 10.4, Albumin 10.4 PLAN: 1. Heparin infusion, already on ASA, Statin, Plavix, BBs. 2. Left heart catheterization On Wednesday, as per cardiology.. 3. Cautious IVF hydration: On NS, Decrease IVF NS rate to 60 cc/h 4. ECHO: Awaiting assessment for LV function. CCU Objective
[2017-06-19] MEDS: Nitroglycerin 2% Ointment Foilpak UD TOP SCH ×4 (09:53→22:24)
[2017-06-19] MEDS: RANOLAZINE 1000 MG PO SCH ×2 (09:54→22:43)
[2017-06-19] MEDS: Pantoprazole 40 mg EC Tab PO SCH (09:54)
--- NOTE | 2017-06-19 16:56 | CP.PCM.PN ---
Subjective - Date & Time of Evaluation Date of Evaluation: 06/19/17 Time of Evaluation: 16:55 - Subjective Subjective: Cr down to 1.2 mild chest pain Objective - Vital Signs/Intake and Output Vital Signs (last 24 hours): Temp Pulse Resp BP Pulse Ox 97.9 F 79 12 154/87 H 95 06/19/17 16:00 06/19/17 16:24 06/19/17 16:00 06/19/17 16:24 06/19/17 16:00 Intake and Output: 06/19/17 06/19/17 06:59 18:59 Intake Total 1300 942 Output Total 1500 600 Balance -200 342 - Medications Medications: Current Medications Aspirin (Ecotrin) 325 mg PO DAILY [facility] Last Admin: 06/19/17 09:45 Dose: 325 mg Atorvastatin Calcium (Lipitor) 80 mg PO DAILY [facility] Last Admin: 06/19/17 09:46 Dose: 80 mg Clopidogrel Bisulfate (Plavix) 75 mg PO DAILY [facility] Last Admin: 06/19/17 09:46 Dose: 75 mg Ferrous Sulfate (Feosol) 325 mg PO TID [facility] Last Admin: 06/19/17 16:23 Dose: 325 mg Glipizide (Glucotrol Xl) 5 mg PO BRK [facility] Last Admin: 06/19/17 09:47 Dose: 5 mg Home Med (Ranolazine [Ranexa]) 1,000 mg PO Q12 [facility] Last Admin: 06/19/17 09:54 Dose: 1,000 mg Metoprolol Tartrate (Lopressor) 25 mg PO BID [facility] Last Admin: 06/19/17 16:23 Dose: 25 mg Morphine Sulfate (Morphine) 4 mg IVP Q4 PRN PRN Reason: chest pain Last Admin: 06/18/17 09:56 Dose: 4 mg Nitroglycerin (Nitro-Bid 2% Oint) 1 ea TOP QID [facility] Last Admin: 06/19/17 16:24 Dose: 1 ea Pantoprazole Sodium (Protonix Ec Tab) 40 mg PO DAILY [facility] Last Admin: 06/19/17 09:54 Dose: 40 mg Polyethylene Glycol (Miralax) 17 gm PO DAILY [facility] Last Admin: 06/19/17 09:47 Dose: 17 gm Sitagliptin Phosphate (Januvia) 50 mg PO DAILY [facility] Last Admin: 06/19/17 09:48 Dose: 50 mg Sucralfate (Carafate Oral Susp) 1 gm PO BID [facility] Last Admin: 06/19/17 16:23 Dose: 1 gm Tramadol HCl (Ultram) 50 mg PO TID [facility] Last Admin: 06/19/17 16:26 Dose: 50 mg - Labs Labs: 06/19/17 05:08 06/19/17 05:00 PT 13.6 Seconds (9.8-13.1) H 06/19/17 05:08 INR 1.2 (0.9-1.2) 06/19/17 05:08 APTT 66.5 Seconds (25.6-37.1) H D 06/19/17 05:08 - Constitutional Appears: Well - Head Exam Head Exam: ATRAUMATIC, NORMAL INSPECTION, NORMOCEPHALIC - Eye Exam Eye Exam: EOMI, Normal appearance, PERRL Pupil Exam: NORMAL ACCOMODATION, PERRL - ENT Exam ENT Exam: Mucous Membranes Moist, Normal Exam - Neck Exam Neck Exam: Full ROM, Normal Inspection. absent: Lymphadenopathy - Respiratory Exam Respiratory Exam: Clear to Ausculation Bilateral, NORMAL BREATHING PATTERN - Cardiovascular Exam Cardiovascular Exam: REGULAR RHYTHM, +S1, +S2. absent: Murmur - GI/Abdominal Exam GI & Abdominal Exam: Soft, Normal Bowel Sounds. absent: Tenderness - Extremities Exam Extremities Exam: Full ROM, Normal Capillary Refill, Normal Inspection. absent : Joint Swelling, Pedal Edema - Back Exam Back Exam: NORMAL INSPECTION - Neurological Exam Neurological Exam: Alert, Awake, CN II-XII Intact, Normal Gait, Oriented x3 - Psychiatric Exam Psychiatric exam: Normal Affect, Normal Mood - Skin Skin Exam: Dry, Intact, Normal Color, Warm Assessment and Plan (1) NSTEMI (non-ST elevated myocardial infarction) Assessment & Plan: cont IV heparin cath wednesday cont DAPT cont BB, statins Status: Acute (2) Acute kidney injury Assessment & Plan: improving with IVF hydration Cr down to 1.2 Status: Acute (3) Acute chest pain Status: Acute (4) Hypercholesterolemia Status: Acute (5) S/P angioplasties Status: Acute (6) CAD (coronary artery disease) of artery bypass graft Status: Chronic (7) CHF (congestive heart failure) Status: Chronic (8) HTN (hypertension) Status: Chronic
[2017-06-19] MEDS ORDERED: Heparin 25,000units in D5W 25,000 UNITS/250 ML BAG IV SCH (18:15)
--- NOTE | 2017-06-19 22:39 | CP.PCM.PN ---
Subjective - Date & Time of Evaluation Date of Evaluation: 06/19/17 Time of Evaluation: 17:00 - Subjective Subjective: Patient continues to have pain Has very poor appetite. Noted improvement of creatinine 1.2 WBC is normal. Objective - Vital Signs/Intake and Output Vital Signs (last 24 hours): Temp Pulse Resp BP Pulse Ox 98.3 F 74 15 141/59 L 96 06/19/17 20:00 06/19/17 22:24 06/19/17 20:00 06/19/17 22:24 06/19/17 20:00 Intake and Output: 06/19/17 06/20/17 18:59 06:59 Intake Total 942 10 Output Total 600 225 Balance 342 -215 - Medications Medications: Current Medications Aspirin (Ecotrin) 325 mg PO DAILY [facility] Last Admin: 06/19/17 09:45 Dose: 325 mg Atorvastatin Calcium (Lipitor) 80 mg PO DAILY [facility] Last Admin: 06/19/17 09:46 Dose: 80 mg Clopidogrel Bisulfate (Plavix) 75 mg PO DAILY [facility] Last Admin: 06/19/17 09:46 Dose: 75 mg Ferrous Sulfate (Feosol) 325 mg PO TID [facility] Last Admin: 06/19/17 16:23 Dose: 325 mg Glipizide (Glucotrol Xl) 5 mg PO BRK [facility] Last Admin: 06/19/17 09:47 Dose: 5 mg Home Med (Ranolazine [Ranexa]) 1,000 mg PO Q12 [facility] Last Admin: 06/19/17 09:54 Dose: 1,000 mg Heparin Sodium/Dextrose (Heparin 25,000 Units/250ml In D5w) 25,000 units in 250 mls @ 8 mls/hr IV .Q24H [facility] PRN Reason: Protocol Metoprolol Tartrate (Lopressor) 25 mg PO BID [facility] Last Admin: 06/19/17 16:23 Dose: 25 mg Morphine Sulfate (Morphine) 4 mg IVP Q4 PRN PRN Reason: chest pain Last Admin: 06/18/17 09:56 Dose: 4 mg Nitroglycerin (Nitro-Bid 2% Oint) 1 ea TOP QID [facility] Last Admin: 06/19/17 22:24 Dose: 1 ea Pantoprazole Sodium (Protonix Ec Tab) 40 mg PO DAILY [facility] Last Admin: 06/19/17 09:54 Dose: 40 mg Polyethylene Glycol (Miralax) 17 gm PO DAILY [facility] Last Admin: 06/19/17 09:47 Dose: 17 gm Sitagliptin Phosphate (Januvia) 50 mg PO DAILY [facility] Last Admin: 06/19/17 09:48 Dose: 50 mg Sucralfate (Carafate Oral Susp) 1 gm PO BID [facility] Last Admin: 06/19/17 16:23 Dose: 1 gm Tramadol HCl (Ultram) 50 mg PO TID [facility] Last Admin: 06/19/17 16:26 Dose: 50 mg - Labs Labs: 06/19/17 05:08 06/19/17 05:00 PT 13.6 Seconds (9.8-13.1) H 06/19/17 05:08 INR 1.2 (0.9-1.2) 06/19/17 05:08 APTT 54.3 Seconds (25.6-37.1) H 06/19/17 21:55 - Head Exam Head Exam: NORMAL INSPECTION - Eye Exam Eye Exam: Normal appearance - Respiratory Exam Respiratory Exam: Clear to Ausculation Bilateral - Cardiovascular Exam Cardiovascular Exam: REGULAR RHYTHM - GI/Abdominal Exam GI & Abdominal Exam: Normal Bowel Sounds - Neurological Exam Neurological Exam: Awake, Oriented x3 Assessment and Plan (1) NSTEMI (non-ST elevated myocardial infarction) Status: Acute (2) Gastritis Status: Acute (3) CAD (coronary artery disease) Status: Chronic - Assessment and Plan (Free Text) Plan: Cont meds Cont tx Cont ICU Ensure
[2017-06-20 06:04] LABS: HEMOGLOBIN 10.3 g/dL (12.0-18.0); MEAN CELL VOLUME 83.8 fl (80.0-94.0); MEAN CORPUSCULAR HEMOGLOBIN 27.4 pg (27.0-31.0); MEAN CORPUSCULAR HGB CONC 32.7 g/dL (33.0-37.0); RBC 3.74 Mil/uL (4.40-5.90); RED CELL DISTRIBUTION WIDTH 17.2 % (11.5-14.5); WHITE BLOOD COUNT 8.7 K/uL (4.8-10.8)
[2017-06-20 06:48] LABS: ALBUMIN 3.6 g/dL (3.5-5.0); ALT/SGPT 38 U/L (21-72); AST/SGOT 43 U/L (17-59); BLOOD UREA NITROGEN 11 mg/dl (9-20); CALCIUM 10.7 mg/dL (8.4-10.2); GFR AFRICAN-AMERICAN > 60; GFR NON-AFRICAN AMERICAN 53
[2017-06-20] MEDS: Sucralfate 1 gm/10 ml Oral Susp UD PO SCH ×2 (08:47→16:23)
[2017-06-20] MEDS: GlipiZIDE 5 mg SR Tab PO SCH (08:48)
[2017-06-20] MEDS: Aspirin 325 mg EC Tablets PO SCH (08:48)
[2017-06-20] MEDS: Pantoprazole 40 mg EC Tab PO SCH (08:49)
[2017-06-20] MEDS: POLYETHYLENE GLYCOL 3350 17 GM/Dose PACKET PO SCH (08:49)
[2017-06-20] MEDS: RANOLAZINE 1000 MG PO SCH ×2 (08:49→20:02)
[2017-06-20] MEDS: Nitroglycerin 2% Ointment Foilpak UD TOP SCH ×4 (08:51→22:00)
[2017-06-20] MEDS: Morphine 4 MG/ML VIAL IVP PRN (09:00)
--- NOTE | 2017-06-20 09:11 | CP.CCUPN ---
CCU Subjective - Physician Review Events Since Last Encounter (Free Text): 06/20/17 09:09 Had CP just now, left sided, no radiation, 6-7/10 intensity, had no tachycardia on monitor, EKG done while he was having CP, no new ischemic changes. Give morphine 4 mg IV, CP improved, will start NGT GGT. No SOB CCU Objective - Vital Signs / Intake & Output Vital Signs (Last 4 hours): Vital Signs Temp Pulse Resp BP Pulse Ox 06/20/17 08:51 77 166/88 H 06/20/17 08:48 77 166/80 H 06/20/17 07:58 97.7 F 77 17 166/88 H 95 06/20/17 06:00 98.2 F 73 16 120/72 98 Intake and Output (Last 8hrs): Intake & Output 06/19/17 06/20/17 06/20/17 22:59 06:59 14:59 Intake Total 846 184 Output Total 405 350 Balance 441 -166 Intake: IV 726 64 Oral 120 120 Output: Urine 405 350 Urine, Voided 405 350 - Physical Exam Narrative Physical Exam (Free Text): 06/20/17 09:11 P/E Neck: No JVD Lungs: no ronchi, crackles Abdomen: soft, no tenderness Ext: No edema Heart: No gallop - Medications Active Medications: Active Medications Generic Name Dose Route Start Last Admin Trade Name Freq PRN Reason Stop Dose Admin Aspirin 325 mg 06/17/17 09:00 06/20/17 08:48 Ecotrin PO 325 mg DAILY JUAN Administration Atorvastatin Calcium 80 mg 06/17/17 09:00 06/20/17 08:48 Lipitor PO 80 mg DAILY JUAN Administration Clopidogrel Bisulfate 75 mg 06/17/17 09:00 06/20/17 08:49 Plavix PO 75 mg DAILY JUAN Administration Ferrous Sulfate 325 mg 06/17/17 09:00 06/20/17 08:48 Feosol PO 325 mg TID JUAN Administration Glipizide 5 mg 06/17/17 10:00 06/20/17 08:48 Glucotrol Xl PO 5 mg BRK JUAN Administration Home Med 1,000 mg 06/17/17 12:00 06/20/17 08:49 Ranolazine [Ranexa] PO 1,000 mg Q12 JUAN Administration Heparin Sodium/Dextrose 25,000 units in 250 mls @ 8 mls/hr 06/19/17 18:15 10/30 04:42 Heparin 25,000 Units/250ml In D5w IV 8 mls/hr .Q24H JUAN Administration Protocol Metoprolol Tartrate 25 mg 06/17/17 09:00 06/20/17 08:48 Lopressor PO 25 mg BID JUAN Administration Morphine Sulfate 4 mg 06/17/17 13:35 06/20/17 09:00 Morphine IVP 4 mg Q4 PRN Administration chest pain Nitroglycerin 1 ea 06/17/17 17:00 06/20/17 08:51 Nitro-Bid 2% Oint TOP 1 ea QID JUAN Administration Pantoprazole Sodium 40 mg 06/17/17 09:00 06/20/17 08:49 Protonix Ec Tab PO 40 mg DAILY JUAN Administration Polyethylene Glycol 17 gm 06/17/17 09:00 06/20/17 08:49 Miralax PO 17 gm DAILY JUAN Administration Sitagliptin Phosphate 50 mg 06/17/17 09:00 06/20/17 08:48 Januvia PO 50 mg DAILY JUAN Administration Sucralfate 1 gm 06/17/17 09:00 06/20/17 08:47 Carafate Oral Susp PO 1 gm BID JUAN Administration - Patient Studies Lab Studies: Lab Studies 06/20/17 06/20/17 06/20/17 Range/Units 06:25 04:36 04:25 WBC (4.8-10.8) K/uL RBC (4.40-5.90) Mil/uL Hgb (12.0-18.0) g/dL Hct (35.0-51.0) % MCV (80.0-94.0) fl MCH (27.0-31.0) pg MCHC (33.0-37.0) g/dL RDW (11.5-14.5) % Plt Count (130-400) K/uL APTT 58.9 H (25.6-37.1) Seconds Sodium (132-148) mmol/l Potassium (3.6-5.0) MMOL/L Chloride (98-107) mmol/L Carbon Dioxide (22-30) mmol/L Anion Gap (10-20) BUN (9-20) mg/dl Creatinine (0.8-1.5) mg/dl Est GFR ( Amer) Est GFR (Non-Af Amer) POC Glucose (mg/dL) 132 H 68 (65-110) mg/dL Random Glucose (75-110) mg/dL Calcium (8.4-10.2) mg/dL Total Bilirubin (0.2-1.3) mg/dl AST (17-59) U/L ALT (21-72) U/L Alkaline Phosphatase (38-126) U/L Total Protein (6.3-8.2) G/DL Albumin (3.5-5.0) g/dL Globulin (2.2-3.9) gm/dL Albumin/Globulin Ratio (1.0-2.1) 06/20/17 06/20/17 06/19/17 Range/Units 04:25 04:25 22:24 WBC 8.7 (4.8-10.8) K/uL RBC 3.74 L (4.40-5.90) Mil/uL Hgb 10.3 L (12.0-18.0) g/dL Hct 31.4 L (35.0-51.0) % MCV 83.8 (80.0-94.0) fl MCH 27.4 (27.0-31.0) pg MCHC 32.7 L (33.0-37.0) g/dL RDW 17.2 H (11.5-14.5) % Plt Count 320 (130-400) K/uL APTT (25.6-37.1) Seconds Sodium 139 (132-148) mmol/l Potassium 3.8 (3.6-5.0) MMOL/L Chloride 105 (98-107) mmol/L Carbon Dioxide 21 L (22-30) mmol/L Anion Gap 17 (10-20) BUN 11 (9-20) mg/dl Creatinine 1.3 (0.8-1.5) mg/dl Est GFR ( Amer) > 60 Est GFR (Non-Af Amer) 53 POC Glucose (mg/dL) 107 (65-110) mg/dL Random Glucose 83 (75-110) mg/dL Calcium 10.7 H (8.4-10.2) mg/dL Total Bilirubin 0.4 (0.2-1.3) mg/dl AST 43 (17-59) U/L ALT 38 (21-72) U/L Alkaline Phosphatase 101 (38-126) U/L Total Protein 7.2 (6.3-8.2) G/DL Albumin 3.6 (3.5-5.0) g/dL Globulin 3.6 (2.2-3.9) gm/dL Albumin/Globulin Ratio 1.0 (1.0-2.1) 06/19/17 06/19/17 06/19/17 Range/Units 21:55 16:25 16:20 WBC (4.8-10.8) K/uL RBC (4.40-5.90) Mil/uL Hgb (12.0-18.0) g/dL Hct (35.0-51.0) % MCV (80.0-94.0) fl MCH (27.0-31.0) pg MCHC (33.0-37.0) g/dL RDW (11.5-14.5) % Plt Count (130-400) K/uL APTT 54.3 H 54.3 H D (25.6-37.1) Seconds Sodium (132-148) mmol/l Potassium (3.6-5.0) MMOL/L Chloride (98-107) mmol/L Carbon Dioxide (22-30) mmol/L Anion Gap (10-20) BUN (9-20) mg/dl Creatinine (0.8-1.5) mg/dl Est GFR ( Amer) Est GFR (Non-Af Amer) POC Glucose (mg/dL) 101 (65-110) mg/dL Random Glucose (75-110) mg/dL Calcium (8.4-10.2) mg/dL Total Bilirubin (0.2-1.3) mg/dl AST (17-59) U/L ALT (21-72) U/L Alkaline Phosphatase (38-126) U/L Total Protein (6.3-8.2) G/DL Albumin (3.5-5.0) g/dL Globulin (2.2-3.9) gm/dL Albumin/Globulin Ratio (1.0-2.1) 06/19/17 Range/Units 11:06 WBC (4.8-10.8) K/uL RBC (4.40-5.90) Mil/uL Hgb (12.0-18.0) g/dL Hct (35.0-51.0) % MCV (80.0-94.0) fl MCH (27.0-31.0) pg MCHC (33.0-37.0) g/dL RDW (11.5-14.5) % Plt Count (130-400) K/uL APTT (25.6-37.1) Seconds Sodium (132-148) mmol/l Potassium (3.6-5.0) MMOL/L Chloride (98-107) mmol/L Carbon Dioxide (22-30) mmol/L Anion Gap (10-20) BUN (9-20) mg/dl Creatinine (0.8-1.5) mg/dl Est GFR ( Amer) Est GFR (Non-Af Amer) POC Glucose (mg/dL) 137 H (65-110) mg/dL Random Glucose (75-110) mg/dL Calcium (8.4-10.2) mg/dL Total Bilirubin (0.2-1.3) mg/dl AST (17-59) U/L ALT (21-72) U/L Alkaline Phosphatase (38-126) U/L Total Protein (6.3-8.2) G/DL Albumin (3.5-5.0) g/dL Globulin (2.2-3.9) gm/dL Albumin/Globulin Ratio (1.0-2.1) Laboratory Results - last 24 hr 06/19/17 06/19/17 06/19/17 11:06 16:20 16:25 WBC RBC Hgb Hct MCV MCH MCHC RDW Plt Count APTT 54.3 H D Sodium Potassium Chloride Carbon Dioxide Anion Gap BUN Creatinine Est GFR ( Amer) Est GFR (Non-Af Amer) POC Glucose (mg/dL) 137 H 101 Random Glucose Calcium Total Bilirubin AST ALT Alkaline Phosphatase Total Protein Albumin Globulin Albumin/Globulin Ratio 06/19/17 06/19/17 06/20/17 21:55 22:24 04:25 WBC 8.7 RBC 3.74 L Hgb 10.3 L Hct 31.4 L MCV 83.8 MCH 27.4 MCHC 32.7 L RDW 17.2 H Plt Count 320 APTT 54.3 H Sodium Potassium Chloride Carbon Dioxide Anion Gap BUN Creatinine Est GFR ( Amer) Est GFR (Non-Af Amer) POC Glucose (mg/dL) 107 Random Glucose Calcium Total Bilirubin AST ALT Alkaline Phosphatase Total Protein Albumin Globulin Albumin/Globulin Ratio 06/20/17 06/20/17 06/20/17 04:25 04:25 04:36 WBC RBC Hgb Hct MCV MCH MCHC RDW Plt Count APTT 58.9 H Sodium 139 Potassium 3.8 Chloride 105 Carbon Dioxide 21 L Anion Gap 17 BUN 11 Creatinine 1.3 Est GFR ( Amer) > 60 Est GFR (Non-Af Amer) 53 POC Glucose (mg/dL) 68 Random Glucose 83 Calcium 10.7 H Total Bilirubin 0.4 AST 43 ALT 38 Alkaline Phosphatase 101 Total Protein 7.2 Albumin 3.6 Globulin 3.6 Albumin/Globulin Ratio 1.0 06/20/17 06:25 WBC RBC Hgb Hct MCV MCH MCHC RDW Plt Count APTT Sodium Potassium Chloride Carbon Dioxide Anion Gap BUN Creatinine Est GFR ( Amer) Est GFR (Non-Af Amer) POC Glucose (mg/dL) 132 H Random Glucose Calcium Total Bilirubin AST ALT Alkaline Phosphatase Total Protein Albumin Globulin Albumin/Globulin Ratio EKG/Cardiology Studies: Cardiology / EKG Studies 06/20/17 EKG [ELECTROCARDIOGRAM] Stat Comment: Mode Of Transportation: PORTABLE Reason For Exam: chest pain Fingerstick Blood Sugar Results: 68 Critical Care Progress Note - Nutrition Nutrition: Nutrition Category Date Time Status Heart Healthy Diet [DIET] Diets 06/18/17 Dinner Active Assessment/Plan - Assessment and Plan (Free Text) Assessment: IMPRESSION / MAJOR PROBLEMS NOW: 1. ACS with new NSTEMI: CP yesterday but had CP this AM, no EKG changes observed, CP subsided with morphine, pt is on heparin infusion 2. 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 Hypercalcemia: Improving with hydration, now 10.4, Albumin 10.4 PLAN: 1. Heparin infusion, already on ASA, Statin, Plavix, BBs. 2. Left heart catheterization On Wednesday, as per cardiology.. 3. Cautious IVF hydration: On NS, Decrease IVF NS rate to 60 cc/h 4. ECHO: Awaiting assessment for LV function. 5-Morphine, PRN 6-NTG GGT
[2017-06-20] MEDS ORDERED: Nitroglycerin 50mg in D5W 50 MG/250 ML BOTTLE IV ONE (09:16)
--- NOTE | 2017-06-20 19:17 | CP.PCM.PN ---
Subjective - Date & Time of Evaluation Date of Evaluation: 06/20/17 Time of Evaluation: 19:15 - Subjective Subjective: Patient remains stable. Still with occasional chest pain Has very poor appetite. Has no SOB Has no fever. Objective - Vital Signs/Intake and Output Vital Signs (last 24 hours): Temp Pulse Resp BP Pulse Ox 97.8 F 72 14 149/83 97 06/20/17 16:00 06/20/17 18:00 06/20/17 18:00 06/20/17 18:00 06/20/17 18:00 Intake and Output: 06/20/17 06/21/17 18:59 06:59 Intake Total 1274 Output Total 550 Balance 724 - Medications Medications: Current Medications Aspirin (Ecotrin) 325 mg PO DAILY [facility] Last Admin: 06/20/17 08:48 Dose: 325 mg Atorvastatin Calcium (Lipitor) 80 mg PO DAILY [facility] Last Admin: 06/20/17 08:48 Dose: 80 mg Clopidogrel Bisulfate (Plavix) 75 mg PO DAILY [facility] Last Admin: 06/20/17 08:49 Dose: 75 mg Ferrous Sulfate (Feosol) 325 mg PO TID [facility] Last Admin: 06/20/17 16:23 Dose: 325 mg Glipizide (Glucotrol Xl) 5 mg PO BRK [facility] Last Admin: 06/20/17 08:48 Dose: 5 mg Home Med (Ranolazine [Ranexa]) 1,000 mg PO Q12 [facility] Last Admin: 06/20/17 08:49 Dose: 1,000 mg Nitroglycerin/Dextrose (Nitroglycerin 50 Mg/250 Ml D5w) 50 mg in 250 mls @ 1.5 mls/hr IV .Q24H ONE; 5 MCG/MIN PRN Reason: Protocol Stop: 06/21/17 09:15 Last Admin: 06/20/17 09:38 Dose: 1.5 mls/hr Metoprolol Tartrate (Lopressor) 25 mg PO BID [facility] Last Admin: 06/20/17 16:26 Dose: 25 mg Morphine Sulfate (Morphine) 4 mg IVP Q4 PRN PRN Reason: chest pain Last Admin: 06/20/17 09:00 Dose: 4 mg Nitroglycerin (Nitro-Bid 2% Oint) 1 ea TOP QID [facility] Last Admin: 06/20/17 16:24 Dose: Not Given Pantoprazole Sodium (Protonix Ec Tab) 40 mg PO DAILY [facility] Last Admin: 06/20/17 08:49 Dose: 40 mg Polyethylene Glycol (Miralax) 17 gm PO DAILY [facility] Last Admin: 06/20/17 08:49 Dose: 17 gm Sitagliptin Phosphate (Januvia) 50 mg PO DAILY [facility] Last Admin: 06/20/17 08:48 Dose: 50 mg Sucralfate (Carafate Oral Susp) 1 gm PO BID [facility] Last Admin: 06/20/17 16:23 Dose: 1 gm - Labs Labs: 06/20/17 04:25 06/20/17 04:25 PT 13.6 Seconds (9.8-13.1) H 06/19/17 05:08 INR 1.2 (0.9-1.2) 06/19/17 05:08 APTT 58.9 Seconds (25.6-37.1) H 06/20/17 04:25 - Head Exam Head Exam: NORMAL INSPECTION - Eye Exam Eye Exam: Normal appearance - ENT Exam ENT Exam: Mucous Membranes Moist - Respiratory Exam Respiratory Exam: Clear to Ausculation Bilateral - Cardiovascular Exam Cardiovascular Exam: REGULAR RHYTHM - GI/Abdominal Exam GI & Abdominal Exam: Normal Bowel Sounds - Neurological Exam Neurological Exam: Normal Gait Assessment and Plan (1) NSTEMI (non-ST elevated myocardial infarction) Status: Acute (2) Gastritis Status: Acute (3) CAD (coronary artery disease) Status: Chronic - Assessment and Plan (Free Text) Plan: Cont meds Cont tx Cont monitor Morphine for pain For cardiac cath in AM
[2017-06-21 05:18] LABS: HEMOGLOBIN 10.5 g/dL (12.0-18.0); MEAN CELL VOLUME 83.3 fl (80.0-94.0); MEAN CORPUSCULAR HEMOGLOBIN 27.8 pg (27.0-31.0); MEAN CORPUSCULAR HGB CONC 33.3 g/dL (33.0-37.0); RBC 3.8 Mil/uL (4.40-5.90); RED CELL DISTRIBUTION WIDTH 16.8 % (11.5-14.5); WHITE BLOOD COUNT 8.7 K/uL (4.8-10.8)
[2017-06-21 05:30] LABS: ALBUMIN 3.6 g/dL (3.5-5.0); CALCIUM 11.1 mg/dL (8.4-10.2)
[2017-06-21] MEDS: Sucralfate 1 gm/10 ml Oral Susp UD PO SCH ×2 (08:39→22:19)
[2017-06-21] MEDS: Aspirin 325 mg EC Tablets PO SCH (08:40)
[2017-06-21] MEDS: GlipiZIDE 5 mg SR Tab PO SCH (08:40)
[2017-06-21] MEDS: Nitroglycerin 2% Ointment Foilpak UD TOP SCH ×3 (08:41→22:25)
[2017-06-21] MEDS: POLYETHYLENE GLYCOL 3350 17 GM/Dose PACKET PO SCH (08:41)
[2017-06-21] MEDS: RANOLAZINE 1000 MG PO SCH ×2 (08:42→22:26)
[2017-06-21] MEDS: Pantoprazole 40 mg EC Tab PO SCH (08:42)
[2017-06-21] MEDS ORDERED: Heparin25000 units/250ml 1/2NS 25,000 UNITS/250 ML BAG IV ONE (11:10)
--- NOTE | 2017-06-21 13:28 | CARD ---
APPROVED REPORT EKG Measurement Heart [id number] <Conclusion> Sinus rhythm with premature atrial complexes Left axis deviation Nonspecific ST and T wave abnormality Abnormal ECG
--- NOTE | 2017-06-21 16:37 | CP.PCM.PN ---
Subjective - Date & Time of Evaluation Date of Evaluation: 06/21/17 Time of Evaluation: 16:34 - Subjective Subjective: s/p cardiac cath and PTCA/stenting of proximal and mid LCx 100% occluded with deployment of drug eluting stent x 2 via left distal radial arterial access Objective - Vital Signs/Intake and Output Vital Signs (last 24 hours): Temp Pulse Resp BP Pulse Ox 97.6 F 76 14 122/56 L 95 06/21/17 08:00 06/21/17 10:00 06/21/17 10:00 06/21/17 10:00 06/21/17 10:00 Intake and Output: 06/21/17 06/21/17 06:59 18:59 Intake Total 215 24 Output Total 530 400 Balance -315 -376 - Medications Medications: Current Medications Aspirin (Ecotrin) 325 mg PO DAILY [facility] Last Admin: 06/21/17 08:40 Dose: 325 mg Atorvastatin Calcium (Lipitor) 80 mg PO DAILY [facility] Last Admin: 06/21/17 08:40 Dose: Not Given Clopidogrel Bisulfate (Plavix) 75 mg PO DAILY [facility] Last Admin: 06/21/17 08:42 Dose: 75 mg Ferrous Sulfate (Feosol) 325 mg PO TID [facility] Last Admin: 06/21/17 13:00 Dose: Not Given Glipizide (Glucotrol Xl) 5 mg PO BRK [facility] Last Admin: 06/21/17 08:40 Dose: Not Given Home Med (Ranolazine [Ranexa]) 1,000 mg PO Q12 [facility] Last Admin: 06/21/17 08:42 Dose: Not Given Metoprolol Tartrate (Lopressor) 25 mg PO BID [facility] Last Admin: 06/21/17 08:40 Dose: 25 mg Nitroglycerin (Nitro-Bid 2% Oint) 1 ea TOP QID [facility] Last Admin: 06/21/17 13:00 Dose: Not Given Pantoprazole Sodium (Protonix Ec Tab) 40 mg PO DAILY [facility] Last Admin: 06/21/17 08:42 Dose: Not Given Polyethylene Glycol (Miralax) 17 gm PO DAILY [facility] Last Admin: 06/21/17 08:41 Dose: Not Given Sitagliptin Phosphate (Januvia) 50 mg PO DAILY [facility] Last Admin: 06/21/17 08:40 Dose: Not Given Sucralfate (Carafate Oral Susp) 1 gm PO BID [facility] Last Admin: 06/21/17 08:39 Dose: Not Given - Labs Labs: 06/21/17 04:20 06/21/17 04:20 PT 13.6 Seconds (9.8-13.1) H 06/19/17 05:08 INR 1.2 (0.9-1.2) 06/19/17 05:08 APTT 50.0 Seconds (25.6-37.1) H D 06/21/17 04:20 - Constitutional Appears: Well - Head Exam Head Exam: ATRAUMATIC, NORMAL INSPECTION, NORMOCEPHALIC - Eye Exam Eye Exam: EOMI, Normal appearance, PERRL Pupil Exam: NORMAL ACCOMODATION, PERRL - ENT Exam ENT Exam: Mucous Membranes Moist, Normal Exam - Neck Exam Neck Exam: Full ROM, Normal Inspection. absent: Lymphadenopathy - Respiratory Exam Respiratory Exam: Clear to Ausculation Bilateral, NORMAL BREATHING PATTERN - Cardiovascular Exam Cardiovascular Exam: REGULAR RHYTHM, +S1, +S2, Murmur - GI/Abdominal Exam GI & Abdominal Exam: Soft, Normal Bowel Sounds. absent: Tenderness - Extremities Exam Extremities Exam: Full ROM, Normal Capillary Refill, Normal Inspection. absent : Joint Swelling, Pedal Edema - Back Exam Back Exam: NORMAL INSPECTION - Neurological Exam Neurological Exam: Alert, Awake, CN II-XII Intact, Normal Gait, Oriented x3 - Psychiatric Exam Psychiatric exam: Normal Affect, Normal Mood - Skin Skin Exam: Dry, Intact, Normal Color, Warm Assessment and Plan (1) NSTEMI (non-ST elevated myocardial infarction) Assessment & Plan: s/p cardiac cath at [facility] Percutaneous angioplasty and stenting of proximal and mild left circumflex coronary artery 100% occluded vessel with deployment of drug eluting stents x 2 lesion reduction down to 0% and improvement in MERRICK flow to LCX/OM system patent LAD stents with mild ISR patent RCA stents normal LVEF cont DAPT cont BB, statins change plavix to brilinta 90mg po bid Status: Acute (2) Acute kidney injury Assessment & Plan: Cont IVF hydration monitor renal function in am Status: Acute (3) Acute chest pain Status: Acute (4) Hypercholesterolemia Status: Acute (5) S/P angioplasties Status: Acute (6) CAD (coronary artery disease) of artery bypass graft Status: Chronic (7) CHF (congestive heart failure) Status: Chronic (8) HTN (hypertension) Status: Chronic
--- NOTE | 2017-06-21 22:41 | CP.PCM.PN ---
Subjective - Date & Time of Evaluation Date of Evaluation: 06/21/17 Time of Evaluation: 22:40 - Subjective Subjective: Patient had a cardiac cath today and noted 100% stenosis of the proximal and left circumflex. He feels better after the procedure. Has no chest pain or SOB Has no fever. Objective - Vital Signs/Intake and Output Vital Signs (last 24 hours): Temp Pulse Resp BP Pulse Ox 97.6 F 90 14 122/56 L 95 06/21/17 08:00 06/21/17 22:25 06/21/17 10:00 06/21/17 22:25 06/21/17 10:00 Intake and Output: 06/21/17 06/22/17 18:59 06:59 Intake Total 24 Output Total 400 Balance -376 - Medications Medications: Current Medications Aspirin (Ecotrin) 325 mg PO DAILY [facility] Last Admin: 06/21/17 08:40 Dose: 325 mg Atorvastatin Calcium (Lipitor) 80 mg PO DAILY [facility] Last Admin: 06/21/17 08:40 Dose: Not Given Clopidogrel Bisulfate (Plavix) 75 mg PO DAILY [facility] Last Admin: 06/21/17 08:42 Dose: 75 mg Ferrous Sulfate (Feosol) 325 mg PO TID [facility] Last Admin: 06/21/17 22:19 Dose: 325 mg Glipizide (Glucotrol Xl) 5 mg PO BRK [facility] Last Admin: 06/21/17 08:40 Dose: Not Given Home Med (Ranolazine [Ranexa]) 1,000 mg PO Q12 [facility] Last Admin: 06/21/17 22:26 Dose: 1,000 mg Metoprolol Tartrate (Lopressor) 25 mg PO BID [facility] Last Admin: 06/21/17 22:20 Dose: 25 mg Nitroglycerin (Nitro-Bid 2% Oint) 1 ea TOP QID [facility] Last Admin: 06/21/17 22:25 Dose: 1 ea Pantoprazole Sodium (Protonix Ec Tab) 40 mg PO DAILY [facility] Last Admin: 06/21/17 08:42 Dose: Not Given Polyethylene Glycol (Miralax) 17 gm PO DAILY [facility] Last Admin: 06/21/17 08:41 Dose: Not Given Sitagliptin Phosphate (Januvia) 50 mg PO DAILY [facility] Last Admin: 06/21/17 08:40 Dose: Not Given Sucralfate (Carafate Oral Susp) 1 gm PO BID [facility] Last Admin: 06/21/17 22:19 Dose: 1 gm - Labs Labs: 06/21/17 04:20 06/21/17 04:20 PT 13.6 Seconds (9.8-13.1) H 06/19/17 05:08 INR 1.2 (0.9-1.2) 06/19/17 05:08 APTT 50.0 Seconds (25.6-37.1) H D 06/21/17 04:20 - Head Exam Head Exam: NORMAL INSPECTION - Respiratory Exam Respiratory Exam: Clear to Ausculation Bilateral - Cardiovascular Exam Cardiovascular Exam: REGULAR RHYTHM - GI/Abdominal Exam GI & Abdominal Exam: Normal Bowel Sounds - Neurological Exam Neurological Exam: CN II-XII Intact, Oriented x3 Assessment and Plan (1) NSTEMI (non-ST elevated myocardial infarction) Status: Acute (2) Gastritis Status: Acute (3) CAD (coronary artery disease) Status: Chronic - Assessment and Plan (Free Text) Plan: Cont meds Cont tx Cont ICU monitor possible Dc in AM/
[2017-06-22 05:26] LABS: HEMOGLOBIN 10.4 g/dL (12.0-18.0); MEAN CELL VOLUME 83.6 fl (80.0-94.0); MEAN CORPUSCULAR HEMOGLOBIN 27.4 pg (27.0-31.0); MEAN CORPUSCULAR HGB CONC 32.7 g/dL (33.0-37.0); RBC 3.8 Mil/uL (4.40-5.90); RED CELL DISTRIBUTION WIDTH 17.2 % (11.5-14.5); WHITE BLOOD COUNT 10.4 K/uL (4.8-10.8)
[2017-06-22 07:38] LABS: ALB/GLOB RATIO 1.1 (1.0-2.1); ALBUMIN 3.9 g/dL (3.5-5.0); CALCIUM 11.5 mg/dL (8.4-10.2)
[2017-06-22] MEDS: Aspirin 325 mg EC Tablets PO SCH (08:39)
[2017-06-22] MEDS: Sucralfate 1 gm/10 ml Oral Susp UD PO SCH ×2 (08:39→16:21)
[2017-06-22] MEDS: GlipiZIDE 5 mg SR Tab PO SCH (08:40)
[2017-06-22] MEDS: POLYETHYLENE GLYCOL 3350 17 GM/Dose PACKET PO SCH (08:41)
[2017-06-22] MEDS: Nitroglycerin 2% Ointment Foilpak UD TOP SCH ×4 (08:41→21:41)
[2017-06-22] MEDS: Pantoprazole 40 mg EC Tab PO SCH (08:42)
[2017-06-22] MEDS: RANOLAZINE 1000 MG PO SCH ×2 (08:42→21:42)
[2017-06-22] MEDS: Enoxaparin 40 mg Syringe SC SCH (12:05)
--- NOTE | 2017-06-22 12:12 | CP.PCM.PN ---
Subjective - Date & Time of Evaluation Date of Evaluation: 06/22/17 Time of Evaluation: 09:30 - Subjective Subjective: Patient seen and examined this morning at bedside. There are no acute events overnight, NAD. Patient currently has no complaints of chest pain and is sitting in chair comfortably. Patient s/p cath w/ stent x2 yesterday, 100% stenosis of proximal and mid left circumflex Objective - Vital Signs/Intake and Output Vital Signs (last 24 hours): Temp Pulse Resp BP Pulse Ox 98.7 F 85 13 108/58 L 96 06/22/17 08:00 06/22/17 12:05 06/22/17 10:00 06/22/17 12:05 06/22/17 10:00 Intake and Output: 06/22/17 06/22/17 06:59 18:59 Intake Total 175 240 Output Total 650 200 Balance -475 40 - Medications Medications: Current Medications Aspirin (Ecotrin) 325 mg PO DAILY [facility] Last Admin: 06/22/17 08:39 Dose: 325 mg Atorvastatin Calcium (Lipitor) 80 mg PO DAILY [facility] Last Admin: 06/22/17 08:40 Dose: 80 mg Enoxaparin Sodium (Lovenox) 40 mg SC DAILY [facility] PRN Reason: Protocol Last Admin: 06/22/17 12:05 Dose: 40 mg Ferrous Sulfate (Feosol) 325 mg PO TID [facility] Last Admin: 06/22/17 12:05 Dose: 325 mg Glipizide (Glucotrol Xl) 5 mg PO BRK [facility] Last Admin: 06/22/17 08:40 Dose: 5 mg Home Med (Ranolazine [Ranexa]) 1,000 mg PO Q12 [facility] Last Admin: 06/22/17 08:42 Dose: 1,000 mg Metoprolol Tartrate (Lopressor) 25 mg PO BID [facility] Last Admin: 06/22/17 08:40 Dose: 25 mg Nitroglycerin (Nitro-Bid 2% Oint) 1 ea TOP QID [facility] Last Admin: 06/22/17 12:05 Dose: 1 ea Pantoprazole Sodium (Protonix Ec Tab) 40 mg PO DAILY [facility] Last Admin: 06/22/17 08:42 Dose: 40 mg Polyethylene Glycol (Miralax) 17 gm PO DAILY [facility] Last Admin: 06/22/17 08:41 Dose: 17 gm Sitagliptin Phosphate (Januvia) 50 mg PO DAILY [facility] Last Admin: 06/22/17 08:40 Dose: 50 mg Sucralfate (Carafate Oral Susp) 1 gm PO BID [facility] Last Admin: 06/22/17 08:39 Dose: 1 gm Ticagrelor (Brilinta) 90 mg PO BID [facility] - Labs Labs: 06/22/17 04:00 06/22/17 04:50 PT 13.6 Seconds (9.8-13.1) H 06/19/17 05:08 INR 1.2 (0.9-1.2) 06/19/17 05:08 APTT 31.1 Seconds (25.6-37.1) D 06/22/17 04:00 - Constitutional Appears: Non-toxic, No Acute Distress - Head Exam Head Exam: ATRAUMATIC, NORMAL INSPECTION, NORMOCEPHALIC - Eye Exam Eye Exam: Normal appearance - ENT Exam ENT Exam: Mucous Membranes Moist - Neck Exam Neck Exam: Full ROM. absent: Tenderness - Respiratory Exam Respiratory Exam: Clear to Ausculation Bilateral. absent: Accessory Muscle Use , Decreased Breath Sounds, Rales, Rhonchi, Wheezes, Respiratory Distress - Cardiovascular Exam Cardiovascular Exam: REGULAR RHYTHM. absent: Tachycardia - GI/Abdominal Exam GI & Abdominal Exam: Soft, Normal Bowel Sounds. absent: Distended, Tenderness - Extremities Exam Extremities Exam: absent: Calf Tenderness, Pedal Edema, Tenderness - Neurological Exam Neurological Exam: Alert, Awake - Skin Skin Exam: Dry, Intact, Normal Color, Warm Assessment and Plan (1) Acute kidney injury Status: Acute (2) NSTEMI (non-ST elevated myocardial infarction) Status: Resolved (3) Acute chest pain Status: Acute (4) CAD (coronary artery disease) of artery bypass graft Status: Chronic (5) CHF (congestive heart failure) Status: Chronic (6) HTN (hypertension) Status: Chronic - Assessment and Plan (Free Text) Plan: c/w present management c/w home medications s/p cath: [employer] and stent x2 due to 100% stenosis of proximal and mid left circumflex artery afebrile, no elevated WBC BENEDICTO improved, Cr 1.6 cardiology recommendations appreciated pain management: nitro-bid 2%, top QID brilinta 90 mg PO BID ASA 325 mg PO daily atorvastatin 80 mg PO daily metoprolol tartrate 25 mg PO BID Echo 06/17/2017: EF 55%, normal LV systolic function, mild mitral regurgitation monitor for acute changes awaiting transfer to [facility]
--- NOTE | 2017-06-22 18:15 | CP.PCM.PN ---
Subjective - Date & Time of Evaluation Date of Evaluation: 06/22/17 Time of Evaluation: 18:10 - Subjective Subjective: noted to be delerious post procedure per daughter feeling better today post PCI/revascularization of LCx/OM with wendie x 2 Objective - Vital Signs/Intake and Output Vital Signs (last 24 hours): Temp Pulse Resp BP Pulse Ox 98.4 F 70 20 116/70 94 L 06/22/17 16:05 06/22/17 16:22 06/22/17 16:05 06/22/17 16:22 06/22/17 16:05 Intake and Output: 06/22/17 06/22/17 06:59 18:59 Intake Total 175 240 Output Total 650 200 Balance -475 40 - Medications Medications: Current Medications Aspirin (Ecotrin) 325 mg PO DAILY [facility] Last Admin: 06/22/17 08:39 Dose: 325 mg Atorvastatin Calcium (Lipitor) 80 mg PO DAILY [facility] Last Admin: 06/22/17 08:40 Dose: 80 mg Enoxaparin Sodium (Lovenox) 40 mg SC DAILY [facility] PRN Reason: Protocol Last Admin: 06/22/17 12:05 Dose: 40 mg Ferrous Sulfate (Feosol) 325 mg PO TID [facility] Last Admin: 06/22/17 16:21 Dose: 325 mg Glipizide (Glucotrol Xl) 5 mg PO BRK [facility] Last Admin: 06/22/17 08:40 Dose: 5 mg Home Med (Ranolazine [Ranexa]) 1,000 mg PO Q12 [facility] Last Admin: 06/22/17 08:42 Dose: 1,000 mg Metoprolol Tartrate (Lopressor) 25 mg PO BID [facility] Last Admin: 06/22/17 16:22 Dose: 25 mg Nitroglycerin (Nitro-Bid 2% Oint) 1 ea TOP QID [facility] Last Admin: 06/22/17 16:23 Dose: 1 ea Pantoprazole Sodium (Protonix Ec Tab) 40 mg PO DAILY [facility] Last Admin: 06/22/17 08:42 Dose: 40 mg Polyethylene Glycol (Miralax) 17 gm PO DAILY [facility] Last Admin: 06/22/17 08:41 Dose: 17 gm Sitagliptin Phosphate (Januvia) 50 mg PO DAILY [facility] Last Admin: 06/22/17 08:40 Dose: 50 mg Sucralfate (Carafate Oral Susp) 1 gm PO BID [facility] Last Admin: 06/22/17 16:21 Dose: 1 gm Ticagrelor (Brilinta) 90 mg PO BID [facility] Last Admin: 06/22/17 16:20 Dose: 90 mg - Labs Labs: 06/22/17 04:00 06/22/17 04:50 PT 13.6 Seconds (9.8-13.1) H 06/19/17 05:08 INR 1.2 (0.9-1.2) 06/19/17 05:08 APTT 31.1 Seconds (25.6-37.1) D 06/22/17 04:00 - Constitutional Appears: Well - Head Exam Head Exam: ATRAUMATIC, NORMAL INSPECTION, NORMOCEPHALIC - Eye Exam Eye Exam: EOMI, Normal appearance, PERRL Pupil Exam: NORMAL ACCOMODATION, PERRL - ENT Exam ENT Exam: Mucous Membranes Moist, Normal Exam - Neck Exam Neck Exam: Full ROM, Normal Inspection. absent: Lymphadenopathy - Respiratory Exam Respiratory Exam: Clear to Ausculation Bilateral, NORMAL BREATHING PATTERN - Cardiovascular Exam Cardiovascular Exam: REGULAR RHYTHM, +S1, +S2, Murmur - GI/Abdominal Exam GI & Abdominal Exam: Soft, Normal Bowel Sounds. absent: Tenderness - Extremities Exam Extremities Exam: Full ROM, Normal Capillary Refill, Normal Inspection. absent : Joint Swelling, Pedal Edema - Back Exam Back Exam: NORMAL INSPECTION - Neurological Exam Neurological Exam: Alert, Awake, CN II-XII Intact, Normal Gait, Oriented x3 - Psychiatric Exam Psychiatric exam: Normal Affect, Normal Mood - Skin Skin Exam: Dry, Intact, Normal Color, Warm Assessment and Plan (1) NSTEMI (non-ST elevated myocardial infarction) Assessment & Plan: s/p PCi of Lcx proximal and mid with WENDIE x 2 cont dapt with asa and brilinta GDMT for CAD - bb, statins, arbs Status: Resolved (2) Acute kidney injury Assessment & Plan: Cr 1.6 monitor IVF Status: Acute (3) Acute chest pain Status: Acute (4) Hypercholesterolemia Assessment & Plan: statins Status: Acute (5) S/P angioplasties Status: Acute (6) CAD (coronary artery disease) of artery bypass graft Status: Chronic (7) CHF (congestive heart failure) Status: Chronic (8) HTN (hypertension) Status: Chronic
[2017-06-23] MEDS: Sucralfate 1 gm/10 ml Oral Susp UD PO SCH (09:07)
[2017-06-23] MEDS: GlipiZIDE 5 mg SR Tab PO SCH (09:08)
[2017-06-23] MEDS: Aspirin 325 mg EC Tablets PO SCH (09:08)
[2017-06-23] MEDS: Enoxaparin 40 mg Syringe SC SCH (09:09)
[2017-06-23] MEDS: Nitroglycerin 2% Ointment Foilpak UD TOP SCH ×2 (09:10→12:42)
[2017-06-23] MEDS: POLYETHYLENE GLYCOL 3350 17 GM/Dose PACKET PO SCH (09:10)
[2017-06-23] MEDS: Pantoprazole 40 mg EC Tab PO SCH (09:10)
[2017-06-23] MEDS: RANOLAZINE 1000 MG PO SCH (09:11)
[2017-06-23 12:37] LABS: CALCIUM 11.3 mg/dL (8.4-10.2)
[2017-06-23 15:30] VITALS: BP 143/65; PULSE 74; RESP 20; TEMP 98.2; O2SAT 94
--- NOTE | 2017-06-23 21:59 | CP.PCM.PN ---
Subjective - Date & Time of Evaluation Date of Evaluation: 06/23/17 Time of Evaluation: 21:58 - Subjective Subjective: stable seen earlier in am post cath radial access site in distal LTRA stable Objective - Vital Signs/Intake and Output Vital Signs (last 24 hours): Temp Pulse Resp BP Pulse Ox 98.2 F 74 20 143/65 94 L 06/23/17 15:30 06/23/17 15:30 06/23/17 15:30 06/23/17 15:30 06/23/17 15:30 Intake and Output: 06/23/17 06/24/17 18:59 06:59 Intake Total 240 Output Total 200 Balance 40 - Labs Labs: 06/22/17 04:00 06/23/17 12:17 PT 13.6 Seconds (9.8-13.1) H 06/19/17 05:08 INR 1.2 (0.9-1.2) 06/19/17 05:08 APTT 31.1 Seconds (25.6-37.1) D 06/22/17 04:00 - Constitutional Appears: Well - Head Exam Head Exam: ATRAUMATIC, NORMAL INSPECTION, NORMOCEPHALIC - Eye Exam Eye Exam: EOMI, Normal appearance, PERRL Pupil Exam: NORMAL ACCOMODATION, PERRL - ENT Exam ENT Exam: Mucous Membranes Moist, Normal Exam - Neck Exam Neck Exam: Full ROM, Normal Inspection. absent: Lymphadenopathy - Respiratory Exam Respiratory Exam: Clear to Ausculation Bilateral, NORMAL BREATHING PATTERN - Cardiovascular Exam Cardiovascular Exam: REGULAR RHYTHM, +S1, +S2, Murmur - GI/Abdominal Exam GI & Abdominal Exam: Soft, Normal Bowel Sounds. absent: Tenderness - Extremities Exam Extremities Exam: Full ROM, Normal Capillary Refill, Normal Inspection. absent : Joint Swelling, Pedal Edema - Back Exam Back Exam: NORMAL INSPECTION - Neurological Exam Neurological Exam: Alert, Awake, CN II-XII Intact, Normal Gait, Oriented x3 - Psychiatric Exam Psychiatric exam: Normal Affect, Normal Mood - Skin Skin Exam: Dry, Intact, Normal Color, Warm Assessment and Plan (1) NSTEMI (non-ST elevated myocardial infarction) Status: Resolved (2) Acute kidney injury Status: Acute (3) Acute chest pain Status: Acute (4) Hypercholesterolemia Status: Acute (5) S/P angioplasties Status: Acute (6) CAD (coronary artery disease) of artery bypass graft Status: Chronic (7) CHF (congestive heart failure) Status: Chronic (8) HTN (hypertension) Status: Chronic
== END 2017-06-23 16:00 | DRG 247 ==
LOC: H.ER 17:18 → H.ERHOLD 19:53 → H.ICU/CCU 06-17 09:16 → H.TEL 06-22 15:17
PROVIDERS: ADMIT Family Medicine; ATTEND Family Medicine
PROC: 027035Z Dilation of Coronary Artery, One Artery with Two Drug-eluting Intraluminal Devices, Percutaneous Approach (ICD-10-PCS; principal; 2017-06-21)
PROC: 4A023N7 Measurement of Cardiac Sampling and Pressure, Left Heart, Percutaneous Approach (ICD-10-PCS; 2017-06-21)
PROC: B206YZZ Plain Radiography of Right and Left Heart using Other Contrast (ICD-10-PCS; 2017-06-21)
DX: I21.4 Non-ST elevation (NSTEMI) myocardial infarction (principal); N17.9 Acute kidney failure, unspecified; I25.810 Atherosclerosis of coronary artery bypass graft(s) without angina pectoris; I50.32 Chronic diastolic (congestive) heart failure; I11.0 Hypertensive heart disease with heart failure; E86.0 Dehydration; E83.52 Hypercalcemia; K57.92 Diverticulitis of intestine, part unspecified, without perforation or abscess without bleeding; Z95.5 Presence of coronary angioplasty implant and graft; I34.0 Nonrheumatic mitral (valve) insufficiency; K29.00 Acute gastritis without bleeding; K76.0 Fatty (change of) liver, not elsewhere classified; E11.9 Type 2 diabetes mellitus without complications; E78.00 Pure hypercholesterolemia, unspecified; D72.829 Elevated white blood cell count, unspecified; H91.92 Unspecified hearing loss, left ear; D64.9 Anemia, unspecified; Z95.1 Presence of aortocoronary bypass graft; Z79.82 Long term (current) use of aspirin; Z79.02 Long term (current) use of antithrombotics/antiplatelets; Z79.84 Long term (current) use of oral hypoglycemic drugs; Z87.891 Personal history of nicotine dependence

== ENCOUNTER 2017-06-23 13:39 | Inpatient (IN) | payer OTHER, MEDICAID ==
[2017-06-23 16:10] VITALS: BMI 31.3
[2017-06-23 16:47] VITALS: RESP 20
[2017-06-23] MEDS: Sucralfate 1 gm/10 ml Oral Susp UD PO SCH (17:56)
[2017-06-23] MEDS: Nitroglycerin 2% Ointment Foilpak UD TOP SCH ×2 (17:56→21:26)
[2017-06-24] MEDS: Aspirin 325 mg EC Tablets PO SCH (08:23)
[2017-06-24] MEDS: Sucralfate 1 gm/10 ml Oral Susp UD PO SCH ×2 (08:23→16:07)
[2017-06-24] MEDS: GlipiZIDE 5 mg SR Tab PO SCH (08:24)
[2017-06-24] MEDS: POLYETHYLENE GLYCOL 3350 17 GM/Dose PACKET PO SCH (08:27)
[2017-06-24] MEDS: Nitroglycerin 2% Ointment Foilpak UD TOP SCH ×4 (08:27→21:03)
[2017-06-24] MEDS: Enoxaparin 40 mg Syringe SC SCH (08:27)
[2017-06-24] MEDS: Patient's Own Med (Ranolazine [Ranexa] 1,000 MG) PO SCH ×2 (08:28→21:04)
[2017-06-24] MEDS: Pantoprazole 40 mg EC Tab PO SCH (08:28)
--- NOTE | 2017-06-24 13:53 | CP.PCM.HP ---
History of Present Illness - History of Present Illness History of Present Illness: HPI: 77 y/o man w/ pmh of CAD s/p CABG, preserved EF CHF, HTN, s/p cath 2017 (balloon angioplasty) and repeat cath 06/21/2017 (x2 drug-eluting stents) is admitted to TCU for further physical therapy. Patient is s/p repeat cath 11/2017 due to 100% occlusion of left circumflex artery. Patient had 2 stents placed and is recovering from the procedure appropriately. Patient denies headaches, chest pain, SOB, abdominal pain, nausea, vomiting, diarrhea, dysuria , or fever. Present on Admission - Present on Admission Any Indicators Present on Admission: No History of DVT/PE: No History of Uncontrolled Diabetes: No Urinary Catheter: No Decubitus Ulcer Present: No Review of Systems - Review of Systems All systems: reviewed and no additional remarkable complaints except - Constitutional Constitutional: absent: Chills, Fever - EENT Eyes: absent: Change in Vision - Cardiovascular Cardiovascular: absent: Chest Pain - Respiratory Respiratory: absent: Cough, Dyspnea - Gastrointestinal Gastrointestinal: absent: Abdominal Pain, Diarrhea, Nausea, Vomiting - Genitourinary Genitourinary: absent: Dysuria - Integumentary Integumentary: absent: Rash - Neurological Neurological: absent: Dizziness, Headaches Past Patient History - Infectious Disease Hx of Infectious Diseases: None - Past Medical History & Family History Past Medical History?: Yes - Past Social History Smoking Status: Former Smoker - CARDIAC Hx Cardiac Disorders: Yes Hx Hypertension: Yes - PULMONARY Hx Respiratory Disorders: No - NEUROLOGICAL Hx Neurological Disorder: Yes Hx Dizziness: Yes - HEENT Hx HEENT Problems: Yes 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; 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) - RENAL Hx Chronic Kidney Disease: No Other/Comment: current Acute Renal Injury - ENDOCRINE/METABOLIC Hx Endocrine Disorders: Yes Hx Diabetes Mellitus Type 2: Yes - HEMATOLOGICAL/ONCOLOGICAL Hx Blood Disorders: No Hx AIDS: No Hx Human Immunodeficiency Virus (HIV): No - INTEGUMENTARY Hx Dermatological Problems: No - MUSCULOSKELETAL/RHEUMATOLOGICAL Hx Musculoskeletal Disorders: Yes Hx Falls: No - GASTROINTESTINAL Hx Diverticulitis: Yes Hx Gastritis: Yes - GENITOURINARY/GYNECOLOGICAL Hx Genitourinary Disorders: No - PSYCHIATRIC Hx Psychophysiologic Disorder: No Hx Substance Use: No - SURGICAL HISTORY Hx Angioplasty: Yes (05/30) Hx Coronary Artery Bypass Graft: Yes (triple bypass) Hx Coronary Stent: Yes (x5-6) Other/Comment: Cardiac Stent 06/21/17, - ANESTHESIA Hx Anesthesia: Yes Hx Anesthesia Reactions: No Hx Malignant Hyperthermia: No Meds Allergies/Adverse Reactions: Allergies Allergy/AdvReac Type Severity Reaction Status Date / Time No Known Allergies Allergy Verified 06/16/17 17:27 Physical Exam - Constitutional Appears: Non-toxic, No Acute Distress - Head Exam Head Exam: ATRAUMATIC, NORMAL INSPECTION, NORMOCEPHALIC - Eye Exam Eye Exam: Normal appearance - ENT Exam ENT Exam: Mucous Membranes Moist - Neck Exam Neck exam: Positive for: Full Rom - Respiratory Exam Respiratory Exam: Clear to Auscultation Bilateral. absent: Accessory Muscle Use , Decreased Breath Sounds, Rales, Rhonchi, Wheezes, Respiratory Distress - Cardiovascular Exam Cardiovascular Exam: REGULAR RHYTHM. absent: Tachycardia - GI/Abdominal Exam GI & Abdominal Exam: Normal Bowel Sounds, Soft. absent: Distended, Tenderness - Extremities Exam Extremities exam: Negative for: calf tenderness, pedal edema, tenderness - Neurological Exam Neurological exam: Alert, Oriented x3 - Skin Skin Exam: Dry, Intact, Normal Color, Warm Results - Vital Signs Recent Vital Signs: Last Vital Signs Temp 97.9 F 06/24/17 08:19 Pulse 71 06/24/17 12:19 Resp 20 06/24/17 08:19 BP 115/51 L 06/24/17 12:19 Pulse Ox 98 06/24/17 11:10 - Labs Labs: Laboratory Results - last 24 hr 06/23/17 06/24/17 20:19 05:33 POC Glucose (mg/dL) 118 H 105 Assessment & Plan (1) Acute kidney injury Status: Acute (2) S/P angioplasties Status: Chronic (3) CAD (coronary artery disease) Status: Chronic (4) HTN (hypertension) Status: Chronic (5) NSTEMI (non-ST elevated myocardial infarction) Status: Resolved - Assessment and Plan (Free Text) Plan: c/w present management c/w home medications 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
[2017-06-24] MEDS ORDERED: Glucagon Recombinant 1 mg Inj IM PRN (14:00)
[2017-06-24] MEDS ORDERED: Dextrose 50% SYRINGE Inj (50 ml) IV PRN (14:00)
[2017-06-25] MEDS: Sucralfate 1 gm/10 ml Oral Susp UD PO SCH ×2 (06:47→16:30)
[2017-06-25 07:38] LABS: MEAN CELL VOLUME 83.6 fl (80.0-94.0); MEAN CORPUSCULAR HEMOGLOBIN 27.6 pg (27.0-31.0); RBC 3.64 Mil/uL (4.40-5.90); WHITE BLOOD COUNT 7.1 K/uL (4.8-10.8)
[2017-06-25 07:44] LABS: CALCIUM 11.2 mg/dL (8.4-10.2)
[2017-06-25] MEDS: Nitroglycerin 2% Ointment Foilpak UD TOP SCH ×4 (08:42→23:10)
[2017-06-25] MEDS: Enoxaparin 40 mg Syringe SC SCH (08:43)
[2017-06-25] MEDS: Aspirin 325 mg EC Tablets PO SCH (08:43)
[2017-06-25] MEDS: GlipiZIDE 5 mg SR Tab PO SCH (08:43)
[2017-06-25] MEDS: Pantoprazole 40 mg EC Tab PO SCH (08:43)
[2017-06-25] MEDS: Patient's Own Med (Ranolazine [Ranexa] 1,000 MG) PO SCH ×2 (08:44→23:10)
[2017-06-25] MEDS: POLYETHYLENE GLYCOL 3350 17 GM/Dose PACKET PO SCH (08:44)
--- NOTE | 2017-06-25 22:45 | CP.PCM.PN ---
Subjective - Date & Time of Evaluation Date of Evaluation: 06/25/17 Time of Evaluation: 11:00 - Subjective Subjective: 77 y/o man w/ pmh of CAD s/p CABG, preserved EF CHF, HTN, s/p cath 05/13/2017 ( balloon angioplasty) and repeat cath 06/21/2017 (x2 drug-eluting stents) is admitted to TCU for further physical therapy. Patient is s/p repeat cath 2017 due to 100% occlusion of left circumflex artery. Patient had 2 stents placed and is recovering from the procedure appropriately. Patient denies headaches, chest pain, SOB, abdominal pain, nausea, diarrhea, dysuria, or fever , he vomited earlier, no BM for a few days Objective - Vital Signs/Intake and Output Vital Signs (last 24 hours): Temp Pulse Resp BP Pulse Ox 97.9 F 76 20 115/54 L 96 06/25/17 16:29 06/25/17 17:46 06/25/17 16:29 06/25/17 17:46 06/25/17 16:29 - Medications Medications: Current Medications Acetaminophen (Tylenol 325mg Tab) 650 mg PO Q4 PRN PRN Reason: for pains 4-7 Aspirin (Ecotrin) 325 mg PO DAILY [facility] Last Admin: 06/25/17 08:43 Dose: 325 mg Atorvastatin Calcium (Lipitor) 80 mg PO DAILY@2100 [facility] Last Admin: 06/24/17 21:03 Dose: 80 mg Dextrose (Dextrose 50% Inj) 0 ml IV STAT PRN; Protocol PRN Reason: Hypoglycemia Protocol Dextrose (Glutose 15) 0 gm PO ONCE PRN; Protocol PRN Reason: Hypoglycemia Protocol Enoxaparin Sodium (Lovenox) 40 mg SC DAILY [facility] PRN Reason: Protocol Last Admin: 06/25/17 08:43 Dose: 40 mg Glipizide (Glucotrol Xl) 5 mg PO BRK [facility] Last Admin: 06/25/17 08:43 Dose: 5 mg Glucagon (Glucagen Diagnostic Kit) 0 mg IM STAT PRN; Protocol PRN Reason: Hypoglycemia Protocol Home Med (Ranolazine [Ranexa]) 1,000 mg PO Q12 [facility] Last Admin: 06/25/17 08:44 Dose: 1,000 mg Lactulose (Enulose) 20 gm PO DAILY PRN PRN Reason: Constipation Last Admin: 06/25/17 08:49 Dose: 20 gm Metoprolol Tartrate (Lopressor) 25 mg PO BID [facility] Last Admin: 06/25/17 17:46 Dose: 25 mg Nitroglycerin (Nitro-Bid 2% Oint) 1 ea TOP QID [facility] Last Admin: 06/25/17 17:45 Dose: 1 ea Ondansetron HCl (Zofran Inj) 4 mg IVP Q6 PRN PRN Reason: Nausea/Vomiting Last Admin: 06/25/17 18:04 Dose: 4 mg Pantoprazole Sodium (Protonix Ec Tab) 40 mg PO DAILY [facility] Last Admin: 06/25/17 08:43 Dose: 40 mg Polyethylene Glycol (Miralax) 17 gm PO DAILY [facility] Last Admin: 06/25/17 08:44 Dose: 17 gm Sitagliptin Phosphate (Januvia) 50 mg PO DAILY [facility] Last Admin: 06/25/17 08:43 Dose: 50 mg Ticagrelor (Brilinta) 90 mg PO BID [facility] Last Admin: 06/25/17 17:45 Dose: 90 mg - Labs Labs: 06/25/17 07:15 06/25/17 07:15 - Constitutional Appears: Non-toxic, No Acute Distress - Head Exam Head Exam: ATRAUMATIC, NORMAL INSPECTION - Eye Exam Eye Exam: EOMI, Normal appearance Pupil Exam: NORMAL ACCOMODATION - ENT Exam ENT Exam: Mucous Membranes Moist - Neck Exam Neck Exam: Full ROM, Normal Inspection - Respiratory Exam Respiratory Exam: Clear to Ausculation Bilateral - Cardiovascular Exam Cardiovascular Exam: REGULAR RHYTHM, +S1, +S2 - GI/Abdominal Exam GI & Abdominal Exam: Soft, Normal Bowel Sounds. absent: Bruit, Distended, Firm , Guarding, Rigid, Tenderness, Diminished Bowel Sounds, Hernia, Hyperactive Bowel Sounds, Hypoactive Bowel Sounds, Organomegaly, Pulsatile Mass, Rebound, Mass - Extremities Exam Extremities Exam: Full ROM, Normal Capillary Refill, Normal Inspection. absent : Calf Tenderness, Joint Swelling, Pedal Edema, Tenderness - Back Exam Back Exam: NORMAL INSPECTION - Neurological Exam Neurological Exam: Alert, Awake, Normal Gait, Oriented x3 - Psychiatric Exam Psychiatric exam: Normal Affect, Normal Mood - Skin Skin Exam: Dry, Intact, Normal Color Assessment and Plan - Assessment and Plan (Free Text) Assessment: Assessment & Plan (1) Acute kidney injury Status: Acute (2) S/P angioplasties Status: Chronic (3) CAD (coronary artery disease) Status: Chronic (4) HTN (hypertension) Status: Chronic (5) NSTEMI (non-ST elevated myocardial infarction) Status: Resolved - Assessment and Plan (Free Text) Plan: Constipation, continue with miralax, early ambulate when able to, get KUB if needed, d/c iron, on clear liquid, advance to high fiber diet, monitor closely c/w present management c/w home medications 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
[2017-06-26 07:57] LABS: HEMOGLOBIN 10.1 g/dL (12.0-18.0); MEAN CELL VOLUME 84.9 fl (80.0-94.0); MEAN CORPUSCULAR HEMOGLOBIN 27.4 pg (27.0-31.0); MEAN CORPUSCULAR HGB CONC 32.3 g/dL (33.0-37.0); RBC 3.67 Mil/uL (4.40-5.90); RED CELL DISTRIBUTION WIDTH 18.5 % (11.5-14.5); WHITE BLOOD COUNT 7.7 K/uL (4.8-10.8)
[2017-06-26] MEDS: GlipiZIDE 5 mg SR Tab PO SCH (08:00)
[2017-06-26 08:14] LABS: ALB/GLOB RATIO 1.1 (1.0-2.1)
[2017-06-26] MEDS: POLYETHYLENE GLYCOL 3350 17 GM/Dose PACKET PO SCH (09:49)
[2017-06-26] MEDS: Enoxaparin 40 mg Syringe SC SCH (09:49)
[2017-06-26] MEDS: Pantoprazole 40 mg EC Tab PO SCH (09:50)
[2017-06-26] MEDS: Patient's Own Med (Ranolazine [Ranexa] 1,000 MG) PO SCH ×2 (09:51→20:18)
[2017-06-26] MEDS: Nitroglycerin 2% Ointment Foilpak UD TOP SCH ×4 (09:52→21:11)
[2017-06-26] MEDS: Aspirin 325 mg EC Tablets PO SCH (09:52)
--- NOTE | 2017-06-26 15:24 | RAD ---
HISTORY: vomiting COMPARISON: No prior. FINDINGS: BOWEL: Normal. No obstruction. No free air. BONES: Normal. OTHER FINDINGS: None. IMPRESSION: No active disease.
--- NOTE | 2017-06-26 23:12 | CP.PCM.PN ---
Subjective - Date & Time of Evaluation Date of Evaluation: 06/26/17 Time of Evaluation: 17:55 - Subjective Subjective: No vomiting today, feels much better Objective - Vital Signs/Intake and Output Vital Signs (last 24 hours): Temp Pulse Resp BP Pulse Ox 97.9 F 62 20 108/60 98 06/26/17 19:59 06/26/17 21:11 06/26/17 19:59 06/26/17 21:11 06/26/17 19:59 - Medications Medications: Current Medications Acetaminophen (Tylenol 325mg Tab) 650 mg PO Q4 PRN PRN Reason: for pains 4-7 Aspirin (Ecotrin) 325 mg PO DAILY [facility] Last Admin: 06/26/17 09:52 Dose: 325 mg Atorvastatin Calcium (Lipitor) 80 mg PO DAILY@2100 [facility] Last Admin: 06/26/17 20:18 Dose: 80 mg Dextrose (Dextrose 50% Inj) 0 ml IV STAT PRN; Protocol PRN Reason: Hypoglycemia Protocol Dextrose (Glutose 15) 0 gm PO ONCE PRN; Protocol PRN Reason: Hypoglycemia Protocol Enoxaparin Sodium (Lovenox) 40 mg SC DAILY [facility] PRN Reason: Protocol Last Admin: 06/26/17 09:49 Dose: 40 mg Glipizide (Glucotrol Xl) 5 mg PO BRK [facility] Last Admin: 06/26/17 08:00 Dose: 5 mg Glucagon (Glucagen Diagnostic Kit) 0 mg IM STAT PRN; Protocol PRN Reason: Hypoglycemia Protocol Home Med (Ranolazine [Ranexa]) 1,000 mg PO Q12 [facility] Last Admin: 06/26/17 20:18 Dose: 1,000 mg Lactulose (Enulose) 20 gm PO DAILY PRN PRN Reason: Constipation Last Admin: 06/26/17 20:18 Dose: 20 gm Metoprolol Tartrate (Lopressor) 25 mg PO BID [facility] Last Admin: 06/26/17 17:05 Dose: 25 mg Nitroglycerin (Nitro-Bid 2% Oint) 1 ea TOP QID [facility] Last Admin: 06/26/17 21:11 Dose: 1 ea Ondansetron HCl (Zofran Inj) 4 mg IVP Q6 PRN PRN Reason: Nausea/Vomiting Last Admin: 06/25/17 18:04 Dose: 4 mg Pantoprazole Sodium (Protonix Ec Tab) 40 mg PO DAILY [facility] Last Admin: 06/26/17 09:50 Dose: 40 mg Polyethylene Glycol (Miralax) 17 gm PO DAILY [facility] Last Admin: 06/26/17 09:49 Dose: 17 gm Sitagliptin Phosphate (Januvia) 50 mg PO DAILY [facility] Last Admin: 06/26/17 09:50 Dose: 50 mg Ticagrelor (Brilinta) 90 mg PO BID [facility] Last Admin: 06/26/17 17:06 Dose: 90 mg - Labs Labs: 06/26/17 06:00 06/26/17 06:00 - Constitutional Appears: Well, No Acute Distress - Head Exam Head Exam: ATRAUMATIC - Eye Exam Eye Exam: Normal appearance - ENT Exam ENT Exam: Mucous Membranes Moist - Neck Exam Neck Exam: Full ROM - Respiratory Exam Respiratory Exam: Clear to Ausculation Bilateral - Cardiovascular Exam Cardiovascular Exam: REGULAR RHYTHM - GI/Abdominal Exam GI & Abdominal Exam: Normal Bowel Sounds - Extremities Exam Extremities Exam: Full ROM, Normal Inspection - Neurological Exam Neurological Exam: Alert, Normal Gait, Oriented x3 - Psychiatric Exam Psychiatric exam: Normal Affect - Skin Skin Exam: Normal Color, Warm Assessment and Plan - Assessment and Plan (Free Text) Assessment: Constipation, better, continue with miralax, early ambulate when able to, KUB without obstruction, d/floresita iron, on clear liquid, advance to high fiber diet, monitor closely c/w present management c/w home medications 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
[2017-06-27] MEDS: Patient's Own Med (Ranolazine [Ranexa] 1,000 MG) PO SCH ×2 (08:46→21:06)
[2017-06-27] MEDS: Enoxaparin 40 mg Syringe SC SCH (08:47)
[2017-06-27] MEDS: Aspirin 325 mg EC Tablets PO SCH (08:48)
[2017-06-27] MEDS: GlipiZIDE 5 mg SR Tab PO SCH (08:48)
[2017-06-27] MEDS: Pantoprazole 40 mg EC Tab PO SCH (08:49)
[2017-06-27] MEDS: POLYETHYLENE GLYCOL 3350 17 GM/Dose PACKET PO SCH (08:53)
[2017-06-27] MEDS: Nitroglycerin 2% Ointment Foilpak UD TOP SCH ×4 (08:54→21:08)
--- NOTE | 2017-06-27 21:44 | CP.PCM.PN ---
Subjective - Date & Time of Evaluation Date of Evaluation: 06/27/17 Time of Evaluation: 17:00 - Subjective Subjective: Feeling well today, no abdominal pain/N/V Objective - Vital Signs/Intake and Output Vital Signs (last 24 hours): Temp Pulse Resp BP Pulse Ox 97.9 F 61 20 120/66 95 06/27/17 20:07 06/27/17 21:08 06/27/17 20:07 06/27/17 21:08 06/27/17 20:07 - Medications Medications: Current Medications Acetaminophen (Tylenol 325mg Tab) 650 mg PO Q4 PRN PRN Reason: for pains 4-7 Aspirin (Ecotrin) 325 mg PO DAILY [facility] Last Admin: 06/27/17 08:48 Dose: 325 mg Atorvastatin Calcium (Lipitor) 80 mg PO DAILY@2100 [facility] Last Admin: 06/27/17 21:06 Dose: 80 mg Dextrose (Dextrose 50% Inj) 0 ml IV STAT PRN; Protocol PRN Reason: Hypoglycemia Protocol Dextrose (Glutose 15) 0 gm PO ONCE PRN; Protocol PRN Reason: Hypoglycemia Protocol Enoxaparin Sodium (Lovenox) 40 mg SC DAILY [facility] PRN Reason: Protocol Last Admin: 06/27/17 08:47 Dose: 40 mg Glipizide (Glucotrol Xl) 5 mg PO BRK [facility] Last Admin: 06/27/17 08:48 Dose: 5 mg Glucagon (Glucagen Diagnostic Kit) 0 mg IM STAT PRN; Protocol PRN Reason: Hypoglycemia Protocol Home Med (Ranolazine [Ranexa]) 1,000 mg PO Q12 [facility] Last Admin: 06/27/17 21:06 Dose: 1,000 mg Lactulose (Enulose) 20 gm PO DAILY PRN PRN Reason: Constipation Last Admin: 06/27/17 11:18 Dose: 20 gm Metoprolol Tartrate (Lopressor) 25 mg PO BID [facility] Last Admin: 06/27/17 17:40 Dose: 25 mg Nitroglycerin (Nitro-Bid 2% Oint) 1 ea TOP QID [facility] Last Admin: 06/27/17 21:08 Dose: 1 ea Ondansetron HCl (Zofran Inj) 4 mg IVP Q6 PRN PRN Reason: Nausea/Vomiting Last Admin: 06/25/17 18:04 Dose: 4 mg Pantoprazole Sodium (Protonix Ec Tab) 40 mg PO DAILY [facility] Last Admin: 06/27/17 08:49 Dose: 40 mg Polyethylene Glycol (Miralax) 17 gm PO DAILY [facility] Last Admin: 06/27/17 08:53 Dose: 17 gm Sitagliptin Phosphate (Januvia) 50 mg PO DAILY [facility] Last Admin: 06/27/17 08:49 Dose: 50 mg Ticagrelor (Brilinta) 90 mg PO BID [facility] Last Admin: 06/27/17 17:41 Dose: 90 mg - Labs Labs: 06/26/17 06:00 06/26/17 06:00 - Constitutional Appears: Well, Non-toxic, No Acute Distress - Head Exam Head Exam: ATRAUMATIC, NORMAL INSPECTION - Eye Exam Eye Exam: EOMI, Normal appearance Pupil Exam: PERRL - ENT Exam ENT Exam: Mucous Membranes Moist - Neck Exam Neck Exam: Full ROM, Normal Inspection - Respiratory Exam Respiratory Exam: Clear to Ausculation Bilateral - Cardiovascular Exam Cardiovascular Exam: REGULAR RHYTHM - GI/Abdominal Exam GI & Abdominal Exam: Soft, Normal Bowel Sounds - Extremities Exam Extremities Exam: Full ROM, Normal Inspection - Neurological Exam Neurological Exam: Alert, Awake, Oriented x3 - Psychiatric Exam Psychiatric exam: Normal Affect, Normal Mood - Skin Skin Exam: Dry, Intact, Normal Color, Warm Assessment and Plan - Assessment and Plan (Free Text) Assessment: (1) Acute kidney injury Status: Acute (2) S/P angioplasties Status: Chronic (3) CAD (coronary artery disease) Status: Chronic (4) HTN (hypertension) Status: Chronic (5) NSTEMI (non-ST elevated myocardial infarction) Status: Resolved -Constipation, continue with miralax, ambulate when able to, KUB negative, d/ floresita iron, high fiber diet, monitor closely c/w present management c/w home medications 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
[2017-06-28] MEDS: GlipiZIDE 5 mg SR Tab PO SCH (08:15)
[2017-06-28] MEDS: POLYETHYLENE GLYCOL 3350 17 GM/Dose PACKET PO SCH (08:32)
[2017-06-28] MEDS: Patient's Own Med (Ranolazine [Ranexa] 1,000 MG) PO SCH ×2 (08:32→22:38)
[2017-06-28] MEDS: Nitroglycerin 2% Ointment Foilpak UD TOP SCH ×4 (08:32→22:34)
[2017-06-28] MEDS: Pantoprazole 40 mg EC Tab PO SCH (08:33)
[2017-06-28] MEDS: Aspirin 325 mg EC Tablets PO SCH (08:33)
[2017-06-28] MEDS: Enoxaparin 40 mg Syringe SC SCH (12:46)
[2017-06-29] MEDS: Aspirin 325 mg EC Tablets PO SCH (08:00)
[2017-06-29] MEDS: Patient's Own Med (Ranolazine [Ranexa] 1,000 MG) PO SCH ×2 (08:01→21:14)
[2017-06-29] MEDS: Pantoprazole 40 mg EC Tab PO SCH (08:03)
[2017-06-29] MEDS: GlipiZIDE 5 mg SR Tab PO SCH (08:04)
[2017-06-29] MEDS: Nitroglycerin 2% Ointment Foilpak UD TOP SCH ×4 (08:06→21:15)
[2017-06-29] MEDS: POLYETHYLENE GLYCOL 3350 17 GM/Dose PACKET PO SCH (08:07)
--- NOTE | 2017-06-29 10:32 | CP.PCM.PN ---
Subjective - Date & Time of Evaluation Date of Evaluation: 06/28/17 Time of Evaluation: 10:00 - Subjective Subjective: Patient feels a lot better Has no chest pain or SOB. Doing well with phys therapy Objective - Vital Signs/Intake and Output Vital Signs (last 24 hours): Temp Pulse Resp BP Pulse Ox 97.5 F L 78 20 144/89 98 06/29/17 08:00 06/29/17 08:06 06/29/17 08:00 06/29/17 08:06 06/29/17 08:00 - Medications Medications: Current Medications Acetaminophen (Tylenol 325mg Tab) 650 mg PO Q4 PRN PRN Reason: for pains 4-7 Aspirin (Ecotrin) 325 mg PO DAILY [facility] Last Admin: 06/29/17 08:00 Dose: 325 mg Atorvastatin Calcium (Lipitor) 80 mg PO DAILY@2100 [facility] Last Admin: 06/28/17 22:33 Dose: 80 mg Dextrose (Dextrose 50% Inj) 0 ml IV STAT PRN; Protocol PRN Reason: Hypoglycemia Protocol Dextrose (Glutose 15) 0 gm PO ONCE PRN; Protocol PRN Reason: Hypoglycemia Protocol Glipizide (Glucotrol Xl) 5 mg PO BRK [facility] Last Admin: 06/29/17 08:04 Dose: 5 mg Glucagon (Glucagen Diagnostic Kit) 0 mg IM STAT PRN; Protocol PRN Reason: Hypoglycemia Protocol Home Med (Ranolazine [Ranexa]) 1,000 mg PO Q12 [facility] Last Admin: 06/29/17 08:01 Dose: 1,000 mg Lactulose (Enulose) 20 gm PO DAILY PRN PRN Reason: Constipation Last Admin: 06/27/17 11:18 Dose: 20 gm Megestrol Acetate (Megace) 20 mg PO DAILY [facility] Last Admin: 06/29/17 08:06 Dose: 20 mg Metoprolol Tartrate (Lopressor) 25 mg PO BID [facility] Last Admin: 06/29/17 08:01 Dose: 25 mg Nitroglycerin (Nitro-Bid 2% Oint) 1 ea TOP QID [facility] Last Admin: 06/29/17 08:06 Dose: 1 ea Ondansetron HCl (Zofran Inj) 4 mg IVP Q6 PRN PRN Reason: Nausea/Vomiting Last Admin: 06/25/17 18:04 Dose: 4 mg Pantoprazole Sodium (Protonix Ec Tab) 40 mg PO DAILY [facility] Last Admin: 06/29/17 08:03 Dose: 40 mg Polyethylene Glycol (Miralax) 17 gm PO DAILY [facility] Last Admin: 06/29/17 08:07 Dose: 17 gm Sitagliptin Phosphate (Januvia) 50 mg PO DAILY [facility] Last Admin: 06/29/17 08:05 Dose: 50 mg Ticagrelor (Brilinta) 90 mg PO BID [facility] Last Admin: 06/29/17 08:03 Dose: 90 mg - Labs Labs: 06/26/17 06:00 06/26/17 06:00 - Head Exam Head Exam: NORMAL INSPECTION - Eye Exam Eye Exam: Normal appearance - ENT Exam ENT Exam: Mucous Membranes Moist - Respiratory Exam Respiratory Exam: Clear to Ausculation Bilateral - Cardiovascular Exam Cardiovascular Exam: REGULAR RHYTHM - GI/Abdominal Exam GI & Abdominal Exam: Normal Bowel Sounds - Neurological Exam Neurological Exam: Awake, Oriented x3 - Psychiatric Exam Psychiatric exam: Normal Mood Assessment and Plan (1) Debility, unspecified Status: Acute (2) CAD (coronary artery disease) Status: Chronic (3) Diabetes mellitus type 2 in nonobese Status: Chronic - Assessment and Plan (Free Text) Plan: Cont meds Cont tx Cont PT
[2017-06-30 07:03] LABS: ALB/GLOB RATIO 1.1 (1.0-2.1); ALBUMIN 3.8 g/dL (3.5-5.0); CALCIUM 11.5 mg/dL (8.4-10.2)
[2017-06-30] MEDS: Patient's Own Med (Ranolazine [Ranexa] 1,000 MG) PO SCH ×2 (08:17→21:34)
[2017-06-30] MEDS: Pantoprazole 40 mg EC Tab PO SCH (08:18)
[2017-06-30] MEDS: GlipiZIDE 5 mg SR Tab PO SCH (08:18)
[2017-06-30] MEDS: Aspirin 325 mg EC Tablets PO SCH (08:19)
[2017-06-30] MEDS: POLYETHYLENE GLYCOL 3350 17 GM/Dose PACKET PO SCH (08:20)
[2017-06-30] MEDS: Nitroglycerin 2% Ointment Foilpak UD TOP SCH ×4 (08:21→21:32)
--- NOTE | 2017-06-30 14:00 | CP.PCM.PN ---
<Jamal Clark - Last Filed: 06/30/17 13:58> Subjective - Date & Time of Evaluation Date of Evaluation: 06/30/17 Time of Evaluation: 10:00 - Subjective Subjective: Patient seen and examine this morning at bedside w/ Dr. Mckenzie. There are no acute events overnight, NAD. The patient is tolerating PT. The patient has no complaints. The patient denies headaches, chest pain, SOB, abdominal pain, nausea, vomiting, diarrhea, dysuria, or fever. Objective - Vital Signs/Intake and Output Vital Signs (last 24 hours): Temp Pulse Resp BP Pulse Ox 98.1 F 86 20 143/70 99 06/30/17 08:06 06/30/17 08:21 06/30/17 08:06 06/30/17 08:21 06/30/17 08:06 - Medications Medications: Current Medications Acetaminophen (Tylenol 325mg Tab) 650 mg PO Q4 PRN PRN Reason: for pains 4-7 Aspirin (Ecotrin) 325 mg PO DAILY [facility] Last Admin: 06/30/17 08:19 Dose: 325 mg Atorvastatin Calcium (Lipitor) 80 mg PO DAILY@2100 [facility] Last Admin: 06/29/17 21:15 Dose: 80 mg Dextrose (Dextrose 50% Inj) 0 ml IV STAT PRN; Protocol PRN Reason: Hypoglycemia Protocol Dextrose (Glutose 15) 0 gm PO ONCE PRN; Protocol PRN Reason: Hypoglycemia Protocol Glipizide (Glucotrol Xl) 5 mg PO BRK [facility] Last Admin: 06/30/17 08:18 Dose: 5 mg Glucagon (Glucagen Diagnostic Kit) 0 mg IM STAT PRN; Protocol PRN Reason: Hypoglycemia Protocol Home Med (Ranolazine [Ranexa]) 1,000 mg PO Q12 [facility] Last Admin: 06/30/17 08:17 Dose: 1,000 mg Lactulose (Enulose) 20 gm PO DAILY PRN PRN Reason: Constipation Last Admin: 06/27/17 11:18 Dose: 20 gm Losartan Potassium (Cozaar) 25 mg PO DAILY [facility] Last Admin: 06/30/17 08:19 Dose: 25 mg Metoprolol Tartrate (Lopressor) 50 mg PO Q12 [facility] Last Admin: 06/30/17 08:20 Dose: 50 mg Nitroglycerin (Nitro-Bid 2% Oint) 1 ea TOP QID [facility] Last Admin: 06/30/17 08:21 Dose: 1 ea Ondansetron HCl (Zofran Inj) 4 mg IVP Q6 PRN PRN Reason: Nausea/Vomiting Last Admin: 06/25/17 18:04 Dose: 4 mg Pantoprazole Sodium (Protonix Ec Tab) 40 mg PO DAILY [facility] Last Admin: 06/30/17 08:18 Dose: 40 mg Polyethylene Glycol (Miralax) 17 gm PO DAILY [facility] Last Admin: 06/30/17 08:20 Dose: 17 gm Sitagliptin Phosphate (Januvia) 50 mg PO DAILY [facility] Last Admin: 06/30/17 08:18 Dose: 50 mg Ticagrelor (Brilinta) 90 mg PO BID [facility] Last Admin: 06/30/17 08:19 Dose: 90 mg - Labs Labs: 06/26/17 06:00 06/30/17 05:30 - Constitutional Appears: Non-toxic, No Acute Distress - Head Exam Head Exam: ATRAUMATIC, NORMAL INSPECTION, NORMOCEPHALIC - Eye Exam Eye Exam: Normal appearance - ENT Exam ENT Exam: Mucous Membranes Moist - Neck Exam Neck Exam: Full ROM. absent: Tenderness - Respiratory Exam Respiratory Exam: Clear to Ausculation Bilateral. absent: Accessory Muscle Use , Decreased Breath Sounds, Rales, Rhonchi, Wheezes, Respiratory Distress - Cardiovascular Exam Cardiovascular Exam: REGULAR RHYTHM. 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 due to 100% stenosis of proximal and mid left circumflex artery afebrile, no elevated WBC BENEDICTO stable, Cr 1.8 cardiology recommendations appreciated pain management: nitro-bid 2%, top QID brilinta 90 mg PO BID ASA 325 mg PO daily atorvastatin 80 mg PO daily metoprolol tartrate 25 mg PO BID Echo 06/17/2017: EF 55%, normal LV systolic function, mild mitral regurgitation c/w PT/OT monitor for acute changes <Wolf Mckenzie - Last Filed: 07/01/17 23:09> Objective - Vital Signs/Intake and Output Vital Signs (last 24 hours): Temp Pulse Resp BP Pulse Ox 97.5 F L 76 20 163/80 H 98 07/01/17 21:45 07/01/17 21:45 07/01/17 21:45 07/01/17 21:45 07/01/17 21:45 - Medications Medications: Current Medications Acetaminophen (Tylenol 325mg Tab) 650 mg PO Q4 PRN PRN Reason: for pains 4-7 Aspirin (Ecotrin) 325 mg PO DAILY [facility] Last Admin: 07/01/17 08:08 Dose: 325 mg Atorvastatin Calcium (Lipitor) 80 mg PO DAILY@2100 [facility] Last Admin: 07/01/17 21:17 Dose: 80 mg Dextrose (Dextrose 50% Inj) 0 ml IV STAT PRN; Protocol PRN Reason: Hypoglycemia Protocol Dextrose (Glutose 15) 0 gm PO ONCE PRN; Protocol PRN Reason: Hypoglycemia Protocol Docusate Sodium (Colace) 100 mg PO BID [facility] Last Admin: 07/01/17 17:09 Dose: 100 mg Ferrous Sulfate (Feosol) 325 mg PO DAILY [facility] Last Admin: 07/01/17 13:29 Dose: 325 mg Glipizide (Glucotrol Xl) 5 mg PO BRK [facility] Last Admin: 07/01/17 08:08 Dose: 5 mg Glucagon (Glucagen Diagnostic Kit) 0 mg IM STAT PRN; Protocol PRN Reason: Hypoglycemia Protocol Home Med (Ranolazine [Ranexa]) 1,000 mg PO Q12 [facility] Last Admin: 07/01/17 21:17 Dose: 1,000 mg Lactulose (Enulose) 20 gm PO DAILY PRN PRN Reason: Constipation Last Admin: 06/27/17 11:18 Dose: 20 gm Losartan Potassium (Cozaar) 25 mg PO DAILY [facility] Last Admin: 07/01/17 08:09 Dose: 25 mg Metoprolol Tartrate (Lopressor) 50 mg PO Q12 [facility] Last Admin: 07/01/17 21:18 Dose: 50 mg Nitroglycerin (Nitro-Bid 2% Oint) 1 ea TOP QID [facility] Last Admin: 07/01/17 21:20 Dose: 1 ea Ondansetron HCl (Zofran Inj) 4 mg IVP Q6 PRN PRN Reason: Nausea/Vomiting Last Admin: 06/25/17 18:04 Dose: 4 mg Pantoprazole Sodium (Protonix Ec Tab) 40 mg PO DAILY [facility] Last Admin: 07/01/17 08:10 Dose: 40 mg Polyethylene Glycol (Miralax) 17 gm PO DAILY [facility] Last Admin: 07/01/17 08:08 Dose: 17 gm Sitagliptin Phosphate (Januvia) 50 mg PO DAILY [facility] Last Admin: 07/01/17 08:08 Dose: 50 mg Ticagrelor (Brilinta) 90 mg PO BID [facility] Last Admin: 07/01/17 17:06 Dose: 90 mg - Labs Labs: 06/26/17 06:00 06/30/17 05:30 Assessment and Plan (1) Debility, unspecified Status: Acute (2) CAD (coronary artery disease) Status: Chronic (3) Diabetes mellitus type 2 in nonobese Status: Chronic - Assessment and Plan (Free Text) Plan: I was present during evaluation and discussed with Dr Clark re plans of care and mgt. Wolf Mckenzie M.D.
[2017-07-01] MEDS: POLYETHYLENE GLYCOL 3350 17 GM/Dose PACKET PO SCH (08:08)
[2017-07-01] MEDS: Patient's Own Med (Ranolazine [Ranexa] 1,000 MG) PO SCH ×2 (08:08→21:17)
[2017-07-01] MEDS: GlipiZIDE 5 mg SR Tab PO SCH (08:08)
[2017-07-01] MEDS: Aspirin 325 mg EC Tablets PO SCH (08:08)
[2017-07-01] MEDS: Pantoprazole 40 mg EC Tab PO SCH (08:10)
[2017-07-01] MEDS: Nitroglycerin 2% Ointment Foilpak UD TOP SCH ×4 (08:10→21:20)
--- NOTE | 2017-07-01 13:34 | CP.PCM.PN ---
<Jamal Clark - Last Filed: 07/01/17 13:31> Subjective - Date & Time of Evaluation Date of Evaluation: 07/01/17 Time of Evaluation: 10:00 - Subjective Subjective: Patient seen and examine this morning at bedside w/ Dr. Mckenzie. There are no acute events overnight, NAD. The patient is tolerating PT. The patient has no complaints. The patient denies headaches, chest pain, SOB, abdominal pain, nausea, vomiting, diarrhea, dysuria, or fever. Objective - Vital Signs/Intake and Output Vital Signs (last 24 hours): Temp Pulse Resp BP Pulse Ox 97.7 F 65 20 128/64 100 07/01/17 08:39 07/01/17 13:30 07/01/17 08:39 07/01/17 13:30 07/01/17 08:39 - Medications Medications: Current Medications Acetaminophen (Tylenol 325mg Tab) 650 mg PO Q4 PRN PRN Reason: for pains 4-7 Aspirin (Ecotrin) 325 mg PO DAILY [facility] Last Admin: 07/01/17 08:08 Dose: 325 mg Atorvastatin Calcium (Lipitor) 80 mg PO DAILY@2100 [facility] Last Admin: 06/30/17 21:32 Dose: 80 mg Dextrose (Dextrose 50% Inj) 0 ml IV STAT PRN; Protocol PRN Reason: Hypoglycemia Protocol Dextrose (Glutose 15) 0 gm PO ONCE PRN; Protocol PRN Reason: Hypoglycemia Protocol Docusate Sodium (Colace) 100 mg PO BID [facility] Last Admin: 07/01/17 13:29 Dose: 100 mg Ferrous Sulfate (Feosol) 325 mg PO DAILY [facility] Last Admin: 07/01/17 13:29 Dose: 325 mg Glipizide (Glucotrol Xl) 5 mg PO BRK [facility] Last Admin: 07/01/17 08:08 Dose: 5 mg Glucagon (Glucagen Diagnostic Kit) 0 mg IM STAT PRN; Protocol PRN Reason: Hypoglycemia Protocol Home Med (Ranolazine [Ranexa]) 1,000 mg PO Q12 [facility] Last Admin: 07/01/17 08:08 Dose: 1,000 mg Lactulose (Enulose) 20 gm PO DAILY PRN PRN Reason: Constipation Last Admin: 06/27/17 11:18 Dose: 20 gm Losartan Potassium (Cozaar) 25 mg PO DAILY [facility] Last Admin: 07/01/17 08:09 Dose: 25 mg Metoprolol Tartrate (Lopressor) 50 mg PO Q12 [facility] Last Admin: 07/01/17 08:08 Dose: 50 mg Nitroglycerin (Nitro-Bid 2% Oint) 1 ea TOP QID [facility] Last Admin: 07/01/17 13:30 Dose: 1 ea Ondansetron HCl (Zofran Inj) 4 mg IVP Q6 PRN PRN Reason: Nausea/Vomiting Last Admin: 06/25/17 18:04 Dose: 4 mg Pantoprazole Sodium (Protonix Ec Tab) 40 mg PO DAILY [facility] Last Admin: 07/01/17 08:10 Dose: 40 mg Polyethylene Glycol (Miralax) 17 gm PO DAILY [facility] Last Admin: 07/01/17 08:08 Dose: 17 gm Sitagliptin Phosphate (Januvia) 50 mg PO DAILY [facility] Last Admin: 07/01/17 08:08 Dose: 50 mg Ticagrelor (Brilinta) 90 mg PO BID [facility] Last Admin: 07/01/17 08:08 Dose: 90 mg - Labs Labs: 06/26/17 06:00 06/30/17 05:30 - Constitutional Appears: Non-toxic, No Acute Distress - Head Exam Head Exam: ATRAUMATIC, NORMAL INSPECTION, NORMOCEPHALIC - Eye Exam Eye Exam: Normal appearance - ENT Exam ENT Exam: Mucous Membranes Moist - Neck Exam Neck Exam: Full ROM. absent: Tenderness - Respiratory Exam Respiratory Exam: Clear to Ausculation Bilateral. absent: Accessory Muscle Use , Decreased Breath Sounds, Rales, Rhonchi, Wheezes, Respiratory Distress - Cardiovascular Exam Cardiovascular Exam: REGULAR RHYTHM. 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 x2 due to 100% stenosis of proximal and mid left circumflex artery afebrile, no elevated WBC BENEDICTO stable, Cr 1.8 cardiology recommendations appreciated pain management: nitro-bid 2%, top QID brilinta 90 mg PO BID ASA 325 mg PO daily atorvastatin 80 mg PO daily metoprolol tartrate 25 mg PO BID FeSO4 325 mg PO daily Echo 06/17/2017: EF 55%, normal LV systolic function, mild mitral regurgitation c/w PT/OT f/u CBc and CMP monitor for acute changes dispo DC home tomorrow <Wolf Mckenzie - Last Filed: 07/01/17 23:10> Objective - Vital Signs/Intake and Output Vital Signs (last 24 hours): Temp Pulse Resp BP Pulse Ox 97.5 F L 76 20 163/80 H 98 07/01/17 21:45 07/01/17 21:45 07/01/17 21:45 07/01/17 21:45 07/01/17 21:45 - Medications Medications: Current Medications Acetaminophen (Tylenol 325mg Tab) 650 mg PO Q4 PRN PRN Reason: for pains 4-7 Aspirin (Ecotrin) 325 mg PO DAILY [facility] Last Admin: 07/01/17 08:08 Dose: 325 mg Atorvastatin Calcium (Lipitor) 80 mg PO DAILY@2100 [facility] Last Admin: 07/01/17 21:17 Dose: 80 mg Dextrose (Dextrose 50% Inj) 0 ml IV STAT PRN; Protocol PRN Reason: Hypoglycemia Protocol Dextrose (Glutose 15) 0 gm PO ONCE PRN; Protocol PRN Reason: Hypoglycemia Protocol Docusate Sodium (Colace) 100 mg PO BID [facility] Last Admin: 07/01/17 17:09 Dose: 100 mg Ferrous Sulfate (Feosol) 325 mg PO DAILY [facility] Last Admin: 07/01/17 13:29 Dose: 325 mg Glipizide (Glucotrol Xl) 5 mg PO BRK [facility] Last Admin: 07/01/17 08:08 Dose: 5 mg Glucagon (Glucagen Diagnostic Kit) 0 mg IM STAT PRN; Protocol PRN Reason: Hypoglycemia Protocol Home Med (Ranolazine [Ranexa]) 1,000 mg PO Q12 [facility] Last Admin: 07/01/17 21:17 Dose: 1,000 mg Lactulose (Enulose) 20 gm PO DAILY PRN PRN Reason: Constipation Last Admin: 06/27/17 11:18 Dose: 20 gm Losartan Potassium (Cozaar) 25 mg PO DAILY [facility] Last Admin: 07/01/17 08:09 Dose: 25 mg Metoprolol Tartrate (Lopressor) 50 mg PO Q12 [facility] Last Admin: 07/01/17 21:18 Dose: 50 mg Nitroglycerin (Nitro-Bid 2% Oint) 1 ea TOP QID [facility] Last Admin: 07/01/17 21:20 Dose: 1 ea Ondansetron HCl (Zofran Inj) 4 mg IVP Q6 PRN PRN Reason: Nausea/Vomiting Last Admin: 06/25/17 18:04 Dose: 4 mg Pantoprazole Sodium (Protonix Ec Tab) 40 mg PO DAILY [facility] Last Admin: 07/01/17 08:10 Dose: 40 mg Polyethylene Glycol (Miralax) 17 gm PO DAILY [facility] Last Admin: 07/01/17 08:08 Dose: 17 gm Sitagliptin Phosphate (Januvia) 50 mg PO DAILY [facility] Last Admin: 07/01/17 08:08 Dose: 50 mg Ticagrelor (Brilinta) 90 mg PO BID [facility] Last Admin: 07/01/17 17:06 Dose: 90 mg - Labs Labs: 06/26/17 06:00 06/30/17 05:30 Assessment and Plan (1) Debility, unspecified Status: Acute (2) CAD (coronary artery disease) Status: Chronic (3) Diabetes mellitus type 2 in nonobese Status: Chronic - Assessment and Plan (Free Text) Plan: I was present during evaluation and discussed with Dr Clark re plans of care and mgt Wolf Mckenzie M.D.
--- NOTE | 2017-07-01 23:08 | CP.PCM.PN ---
Subjective - Date & Time of Evaluation Date of Evaluation: 06/29/17 Time of Evaluation: 11:00 - Subjective Subjective: Has been doing well Has no chest pain or SOB Afebrile Objective - Vital Signs/Intake and Output Vital Signs (last 24 hours): Temp Pulse Resp BP Pulse Ox 97.5 F L 76 20 163/80 H 98 07/01/17 21:45 07/01/17 21:45 07/01/17 21:45 07/01/17 21:45 07/01/17 21:45 - Medications Medications: Current Medications Acetaminophen (Tylenol 325mg Tab) 650 mg PO Q4 PRN PRN Reason: for pains 4-7 Aspirin (Ecotrin) 325 mg PO DAILY [facility] Last Admin: 07/01/17 08:08 Dose: 325 mg Atorvastatin Calcium (Lipitor) 80 mg PO DAILY@2100 [facility] Last Admin: 07/01/17 21:17 Dose: 80 mg Dextrose (Dextrose 50% Inj) 0 ml IV STAT PRN; Protocol PRN Reason: Hypoglycemia Protocol Dextrose (Glutose 15) 0 gm PO ONCE PRN; Protocol PRN Reason: Hypoglycemia Protocol Docusate Sodium (Colace) 100 mg PO BID [facility] Last Admin: 07/01/17 17:09 Dose: 100 mg Ferrous Sulfate (Feosol) 325 mg PO DAILY [facility] Last Admin: 07/01/17 13:29 Dose: 325 mg Glipizide (Glucotrol Xl) 5 mg PO BRK [facility] Last Admin: 07/01/17 08:08 Dose: 5 mg Glucagon (Glucagen Diagnostic Kit) 0 mg IM STAT PRN; Protocol PRN Reason: Hypoglycemia Protocol Home Med (Ranolazine [Ranexa]) 1,000 mg PO Q12 [facility] Last Admin: 07/01/17 21:17 Dose: 1,000 mg Lactulose (Enulose) 20 gm PO DAILY PRN PRN Reason: Constipation Last Admin: 06/27/17 11:18 Dose: 20 gm Losartan Potassium (Cozaar) 25 mg PO DAILY [facility] Last Admin: 07/01/17 08:09 Dose: 25 mg Metoprolol Tartrate (Lopressor) 50 mg PO Q12 [facility] Last Admin: 07/01/17 21:18 Dose: 50 mg Nitroglycerin (Nitro-Bid 2% Oint) 1 ea TOP QID [facility] Last Admin: 04/19/18 21:20 Dose: 1 ea Ondansetron HCl (Zofran Inj) 4 mg IVP Q6 PRN PRN Reason: Nausea/Vomiting Last Admin: 06/25/17 18:04 Dose: 4 mg Pantoprazole Sodium (Protonix Ec Tab) 40 mg PO DAILY [facility] Last Admin: 07/01/17 08:10 Dose: 40 mg Polyethylene Glycol (Miralax) 17 gm PO DAILY [facility] Last Admin: 07/01/17 08:08 Dose: 17 gm Sitagliptin Phosphate (Januvia) 50 mg PO DAILY [facility] Last Admin: 07/01/17 08:08 Dose: 50 mg Ticagrelor (Brilinta) 90 mg PO BID [facility] Last Admin: 07/01/17 17:06 Dose: 90 mg - Labs Labs: 06/26/17 06:00 06/30/17 05:30 - Head Exam Head Exam: NORMAL INSPECTION - Eye Exam Eye Exam: Normal appearance - ENT Exam ENT Exam: Mucous Membranes Moist - Respiratory Exam Respiratory Exam: Clear to Ausculation Bilateral - Cardiovascular Exam Cardiovascular Exam: REGULAR RHYTHM - GI/Abdominal Exam GI & Abdominal Exam: Normal Bowel Sounds - Neurological Exam Neurological Exam: Awake, Oriented x3 Assessment and Plan (1) Debility, unspecified Status: Acute (2) CAD (coronary artery disease) Status: Chronic (3) Diabetes mellitus type 2 in nonobese Status: Chronic - Assessment and Plan (Free Text) Plan: Con tmeds Con ttx Cont PT adjust meds
[2017-07-02 06:13] LABS: BASO # 0.1 K/uL (0.0-0.2); BASO % 0.9 % (0.0-2.0); EOS # 0.2 K/uL (0.0-0.7); HEMOGLOBIN 9.2 g/dL (12.0-18.0); LYMPH # 0.9 K/uL (1.0-4.3); MEAN CELL VOLUME 84.3 fl (80.0-94.0); MEAN CORPUSCULAR HGB CONC 33.2 g/dL (33.0-37.0); MEAN PLATELET VOLUME 7.4 fl (7.2-11.7); MONO # 0.9 K/uL (0.0-0.8); MONO % 12.8 % (0.0-10.0); NEUT # 4.7 K/uL (1.8-7.0); NEUT % 70.3 % (50.0-75.0); NRBC % 0.1 % (0.0-0.0); RBC 3.29 Mil/uL (4.40-5.90); RED CELL DISTRIBUTION WIDTH 19.2 % (11.5-14.5); WHITE BLOOD COUNT 6.7 K/uL (4.8-10.8)
[2017-07-02 06:36] LABS: ALB/GLOB RATIO 1.1 (1.0-2.1); ALBUMIN 3.8 g/dL (3.5-5.0); CALCIUM 11.3 mg/dL (8.4-10.2)
[2017-07-02 08:03] VITALS: O2SAT 99
[2017-07-02] MEDS: GlipiZIDE 5 mg SR Tab PO SCH (08:15)
[2017-07-02] MEDS: Aspirin 325 mg EC Tablets PO SCH (09:45)
[2017-07-02] MEDS: Pantoprazole 40 mg EC Tab PO SCH (09:45)
[2017-07-02] MEDS: Patient's Own Med (Ranolazine [Ranexa] 1,000 MG) PO SCH (09:45)
[2017-07-02] MEDS: Nitroglycerin 2% Ointment Foilpak UD TOP SCH ×2 (10:04→13:02)
[2017-07-02] MEDS: POLYETHYLENE GLYCOL 3350 17 GM/Dose PACKET PO SCH (10:04)
--- NOTE | 2017-07-02 13:08 | CP.PCM.PN ---
Subjective - Date & Time of Evaluation Date of Evaluation: 07/02/17 Time of Evaluation: 10:15 - Subjective Subjective: Patient seen and examine this morning at bedside w/ Dr. Mckenzie. There are no acute events overnight, NAD. The patient is tolerating PT. The patient has no complaints. The patient denies headaches, chest pain, SOB, abdominal pain, nausea, vomiting, diarrhea, dysuria, or fever. Objective - Vital Signs/Intake and Output Vital Signs (last 24 hours): Temp Pulse Resp BP Pulse Ox 98.1 F 66 20 109/59 L 99 07/02/17 08:02 07/02/17 13:02 07/02/17 08:02 07/02/17 13:02 07/02/17 08:02 - Medications Medications: Current Medications Acetaminophen (Tylenol 325mg Tab) 650 mg PO Q4 PRN PRN Reason: for pains 4-7 Aspirin (Ecotrin) 325 mg PO DAILY [facility] Last Admin: 07/02/17 09:45 Dose: 325 mg Atorvastatin Calcium (Lipitor) 80 mg PO DAILY@2100 [facility] Last Admin: 07/01/17 21:17 Dose: 80 mg Dextrose (Dextrose 50% Inj) 0 ml IV STAT PRN; Protocol PRN Reason: Hypoglycemia Protocol Dextrose (Glutose 15) 0 gm PO ONCE PRN; Protocol PRN Reason: Hypoglycemia Protocol Docusate Sodium (Colace) 100 mg PO BID [facility] Last Admin: 07/02/17 09:45 Dose: 100 mg Ferrous Sulfate (Feosol) 325 mg PO DAILY [facility] Last Admin: 07/02/17 09:45 Dose: 325 mg Glipizide (Glucotrol Xl) 5 mg PO BRK [facility] Last Admin: 07/02/17 08:15 Dose: 5 mg Glucagon (Glucagen Diagnostic Kit) 0 mg IM STAT PRN; Protocol PRN Reason: Hypoglycemia Protocol Home Med (Ranolazine [Ranexa]) 1,000 mg PO Q12 [facility] Last Admin: 07/02/17 09:45 Dose: 1,000 mg Lactulose (Enulose) 20 gm PO DAILY PRN PRN Reason: Constipation Last Admin: 06/27/17 11:18 Dose: 20 gm Losartan Potassium (Cozaar) 25 mg PO DAILY [facility] Last Admin: 07/02/17 10:08 Dose: 25 mg Metoprolol Tartrate (Lopressor) 50 mg PO Q12 [facility] Last Admin: 07/02/17 09:45 Dose: 50 mg Nitroglycerin (Nitro-Bid 2% Oint) 1 ea TOP QID [facility] Last Admin: 07/02/17 13:02 Dose: 1 ea Ondansetron HCl (Zofran Inj) 4 mg IVP Q6 PRN PRN Reason: Nausea/Vomiting Last Admin: 06/25/17 18:04 Dose: 4 mg Pantoprazole Sodium (Protonix Ec Tab) 40 mg PO DAILY [facility] Last Admin: 07/02/17 09:45 Dose: 40 mg Polyethylene Glycol (Miralax) 17 gm PO DAILY [facility] Last Admin: 07/02/17 10:04 Dose: Not Given Sitagliptin Phosphate (Januvia) 50 mg PO DAILY [facility] Last Admin: 07/02/17 08:15 Dose: 50 mg Ticagrelor (Brilinta) 90 mg PO BID [facility] Last Admin: 07/02/17 09:45 Dose: 90 mg - Labs Labs: 07/02/17 05:57 07/02/17 05:57 - Constitutional Appears: Non-toxic, No Acute Distress - Head Exam Head Exam: ATRAUMATIC, NORMAL INSPECTION, NORMOCEPHALIC - Eye Exam Eye Exam: Normal appearance - ENT Exam ENT Exam: Mucous Membranes Moist - Neck Exam Neck Exam: Full ROM. absent: Tenderness - Respiratory Exam Respiratory Exam: Clear to Ausculation Bilateral. absent: Accessory Muscle Use , Decreased Breath Sounds, Rales, Rhonchi, Wheezes, Respiratory Distress - Cardiovascular Exam Cardiovascular Exam: REGULAR RHYTHM. absent: Tachycardia - GI/Abdominal Exam GI & Abdominal Exam: Soft, Normal Bowel Sounds. absent: Distended, Tenderness - Neurological Exam Neurological Exam: Alert, Awake, Normal Gait (w/ assistance), Oriented x3 - Skin Skin Exam: Dry, Intact, Normal Color, Warm Assessment and Plan (1) Acute kidney injury Status: Acute (2) S/P angioplasties Status: Chronic (3) CAD (coronary artery disease) Status: Chronic (4) HTN (hypertension) Status: Chronic (5) NSTEMI (non-ST elevated myocardial infarction) Status: Resolved - Assessment and Plan (Free Text) Plan: c/w present management c/w home medications s/p cath: [employer] and stent x2 due to 100% stenosis of proximal and mid left circumflex artery afebrile, no elevated WBC [place] stable, Cr 1.9 cardiology recommendations appreciated pain management: nitro-bid 2%, top QID brilinta 90 mg PO BID ASA 325 mg PO daily atorvastatin 80 mg PO daily metoprolol tartrate 25 mg PO BID FeSO4 325 mg PO daily Echo 06/17/2017: EF 55%, normal LV systolic function, mild mitral regurgitation c/w PT/OT monitor for acute changes dispo DC home tomorrow
--- NOTE | 2017-07-02 14:36 | CP.PCM.DIS ---
Provider - Provider Date of Admission: 06/23/17 16:11 Attending physician: Wolf Mckenzie MD Time Spent in preparation of Discharge (in minutes): 15 Diagnosis - Discharge Diagnosis (1) Acute kidney injury Status: Acute (2) S/P angioplasties Status: Chronic (3) CAD (coronary artery disease) Status: Chronic (4) HTN (hypertension) Status: Chronic (5) NSTEMI (non-ST elevated myocardial infarction) Status: Resolved Hospital Course - Lab Results Lab Results: Most Recent Lab Values WBC 6.7 K/uL (4.8-10.8) 07/02/17 05:57 RBC 3.29 Mil/uL (4.40-5.90) L 07/02/17 05:57 Hgb 9.2 g/dL (12.0-18.0) L 07/02/17 05:57 Hct 27.8 % (35.0-51.0) L 07/02/17 05:57 MCV 84.3 fl (80.0-94.0) 07/02/17 05:57 MCH 28.0 pg (27.0-31.0) 07/02/17 05:57 MCHC 33.2 g/dL (33.0-37.0) 07/02/17 05:57 RDW 19.2 % (11.5-14.5) H 07/02/17 05:57 Plt Count 369 K/uL (130-400) 07/02/17 05:57 MPV 7.4 fl (7.2-11.7) 07/02/17 05:57 Neut % (Auto) 70.3 % (50.0-75.0) 07/02/17 05:57 Lymph % (Auto) 13.0 % (20.0-40.0) L 07/02/17 05:57 [place] % (Auto) 12.8 % (0.0-10.0) H 07/02/17 05:57 Eos % (Auto) 3.0 % (0.0-4.0) 07/02/17 05:57 Baso % (Auto) 0.9 % (0.0-2.0) 07/02/17 05:57 Neut # (Auto) 4.7 K/uL (1.8-7.0) 07/02/17 05:57 Lymph # (Auto) 0.9 K/uL (1.0-4.3) L 07/02/17 05:57 [place] # (Auto) 0.9 K/uL (0.0-0.8) H 07/02/17 05:57 Eos # (Auto) 0.2 K/uL (0.0-0.7) 07/02/17 05:57 Baso # (Auto) 0.1 K/uL (0.0-0.2) 07/02/17 05:57 Sodium 141 mmol/l (132-148) 07/02/17 05:57 Potassium 4.6 MMOL/L (3.6-5.0) 07/02/17 05:57 Chloride 104 mmol/L (98-107) 07/02/17 05:57 Carbon Dioxide 23 mmol/L (22-30) 07/02/17 05:57 Anion Gap 19 (10-20) 07/02/17 05:57 BUN 33 mg/dl (9-20) H 07/02/17 05:57 Creatinine 1.9 mg/dl (0.8-1.5) H 07/02/17 05:57 Est GFR ( Amer) 42 07/02/17 05:57 Est GFR (Non-Af Amer) 34 07/02/17 05:57 POC Glucose (mg/dL) 215 mg/dL (65-110) H 07/02/17 11:07 Random Glucose 115 mg/dL (75-110) H 07/02/17 05:57 Calcium 11.3 mg/dL (8.4-10.2) H 07/02/17 05:57 Total Bilirubin 0.6 mg/dl (0.2-1.3) 07/02/17 05:57 AST 54 U/L (17-59) 07/02/17 05:57 ALT 39 U/L (21-72) 07/02/17 05:57 Alkaline Phosphatase 110 U/L (38-126) 07/02/17 05:57 Total Protein 7.2 G/DL (6.3-8.2) 07/02/17 05:57 Albumin 3.8 g/dL (3.5-5.0) 07/02/17 05:57 Globulin 3.4 gm/dL (2.2-3.9) 07/02/17 05:57 Albumin/Globulin Ratio 1.1 (1.0-2.1) 07/02/17 05:57 - Hospital Course Hospital Course: 77 y/o man w/ pmh of CAD s/p CABG, preserved EF CHF, HTN, s/p cath 05/13/2017 ( balloon angioplasty) and repeat cath 06/21/2017 (x2 drug-eluting stents) is admitted to TCU for further physical therapy. Patient is s/p repeat cath 2017 due to 100% occlusion of left circumflex artery. Patient had 2 stents placed and is recovering from the procedure appropriately. Patient denies headaches, chest pain, SOB, abdominal pain, nausea, vomiting, diarrhea, dysuria , or fever. Patient is tolerating physical therapy and has no complaints. The patient denies headaches, chest pain, SOB, abdominal pain, nausea, vomiting, diarrhea, dysuria, or fever. The patient has been seen, examined, and deemed medically fit for discharge home. The patient has been given updated medication list, prescriptions, and necessary medical equipment. Discharge Exam - Head Exam Head Exam: ATRAUMATIC, NORMAL INSPECTION, NORMOCEPHALIC - Eye Exam Eye Exam: Normal appearance - ENT Exam ENT Exam: Mucous Membranes Moist - Neck Exam Neck exam: Full Rom - Respiratory Exam Respiratory Exam: Clear to PA & Lateral. absent: Accessory Muscle Use, Decreased Breath Sounds, Rales, Rhonchi, Wheezes, Respiratory Distress - Cardiovascular Exam Cardiovascular Exam: REGULAR RHYTHM. absent: Tachycardia - GI/Abdominal Exam GI & Abdominal Exam: Normal Bowel Sounds, Soft. absent: Distended, Tenderness - Extremities Exam Extremities exam: normal inspection - Neurological Exam Neurological exam: Alert, Normal Gait (w/ assistance), Oriented x3 - Skin Skin Exam: Dry, Intact, Normal Color, Warm Discharge Plan - Follow Up Plan Condition: GOOD Disposition: HOME/ ROUTINE Referrals: Wolf Mckenzie MD [Staff Provider] -
[2017-07-02 15:46] VITALS: BP 125/60; PULSE 68; TEMP 97.2
== END 2017-07-02 15:46 | disposition home or self-care (01) | DRG 949 ==
LOC: H.TCU 16:11
PROVIDERS: ADMIT Family Medicine; ATTEND Family Medicine
PROC: F08Z4FZ Home Management Treatment using Assistive, Adaptive, Supportive or Protective Equipment (ICD-10-PCS; principal; 2017-06-24)
PROC: F07M6FZ Therapeutic Exercise Treatment of Musculoskeletal System - Whole Body using Assistive, Adaptive, Supportive or Protective Equipment (ICD-10-PCS; 2017-06-24)
DX: Z48.812 Encounter for surgical aftercare following surgery on the circulatory system (principal); I21.4 Non-ST elevation (NSTEMI) myocardial infarction; N17.9 Acute kidney failure, unspecified; E11.9 Type 2 diabetes mellitus without complications; H91.92 Unspecified hearing loss, left ear; I11.0 Hypertensive heart disease with heart failure; I25.10 Atherosclerotic heart disease of native coronary artery without angina pectoris; I34.0 Nonrheumatic mitral (valve) insufficiency; I50.9 Heart failure, unspecified; K59.00 Constipation, unspecified; Z79.82 Long term (current) use of aspirin; Z79.899 Other long term (current) drug therapy; Z87.891 Personal history of nicotine dependence; Z95.1 Presence of aortocoronary bypass graft; Z95.5 Presence of coronary angioplasty implant and graft; K29.70 Gastritis, unspecified, without bleeding

== ENCOUNTER 2017-10-12 20:32 | Observation (INO) | payer MEDICARE, MEDICAID ==
[2017-10-12 20:32] VITALS: BMI 31.3
[2017-10-12 22:34] LABS: BASO # 0.1 K/uL (0.0-0.2); BASO % 0.7 % (0.0-2.0); EOS # 0.2 K/uL (0.0-0.7); EOS % 2.4 % (0.0-4.0); HEMOGLOBIN 12.2 g/dL (12.0-18.0); LYMPH # 1.3 K/uL (1.0-4.3); LYMPH % 14.7 % (20.0-40.0); MEAN CELL VOLUME 95.9 fl (80.0-94.0); MEAN CORPUSCULAR HGB CONC 33.3 g/dL (33.0-37.0); MEAN PLATELET VOLUME 7.6 fl (7.2-11.7); MONO # 1.1 K/uL (0.0-0.8); MONO % 12.5 % (0.0-10.0); NEUT # 6.3 K/uL (1.8-7.0); NEUT % 69.7 % (50.0-75.0); RBC 3.82 Mil/uL (4.40-5.90); RED CELL DISTRIBUTION WIDTH 14.4 % (11.5-14.5)
[2017-10-12 22:39] LABS: TROPONIN I 0.014 ng/mL (0.00-0.120)
[2017-10-12 22:40] LABS: INR 1.1; PARTIAL THROMBOPLASTIN TIME 24.3 Seconds (25.6-37.1); PROTHROMBIN TIME 12.6 Seconds (9.8-13.1)
--- NOTE | 2017-10-12 23:09 | ED PDOC ---
HPI: Chest Pain Time Seen by Provider: 10/12/17 20:59 Chief Complaint (Nursing): Chest Pain Chief Complaint (Provider): Chest Pain History Per: Patient History/Exam Limitations: no limitations Onset/Duration Of Symptoms: Days (x1) Current Symptoms Are (Timing): Still Present Additional Complaint(s): 77 y/o male with a PMHx of CAD s/p CABG, CHF and HTN brought to the ED by daughter complaining of intermittent palpitations, since yesterday. Patient reports palpitations are coming and going. Patient states pain is not related to exertion nor associated with shortness of breath. Patient reports of a pulling sensation on the left side of his chest. Denies cough, fever, chills, diaphoresis and dizziness. PMD: None Provided Past Medical History Reviewed: Historical Data, Nursing Documentation, Vital Signs Vital Signs: Last Vital Signs Temp 98 F 10/12/17 20:37 Pulse 86 10/13/17 00:49 Resp 20 10/12/17 20:37 BP 182/96 H 10/13/17 00:49 Pulse Ox 98 10/12/17 23:40 - Medical History PMH: CAD, CHF, Diabetes, Diverticulitis, Gastritis, HTN, Hypercholesterolemia Denies: HIV, Chronic Kidney Disease - Surgical History Surgical History: CABG (triple bypass), Coronary Stent (x5-6) Denies: Pacemaker - Family History Family History: States: Unknown Family Hx - Home Medications Home Medications: Ambulatory Orders Medication Instructions Recorded Aspirin [Aspirin EC] 1 tab PO DAILY #30 tablet. 07/02/17 Ferrous Sulfate [Feosol] 325 mg PO DAILY tab 07/02/17 GlipiZIDE SR [Glucotrol XL] 5 mg PO BRK #30 tab 07/02/17 Losartan [Cozaar] 25 mg PO DAILY tab 07/02/17 Polyethylene Glycol 3350 [Miralax] 17 gm PO DAILY #30 packet 07/02/17 Ranolazine [Ranexa] 1,000 mg PO Q12 #60 tab.er.12h 07/02/17 Sucralfate [Carafate Oral Susp] 1 gm PO BID #60 dose 07/02/17 Atorvastatin [Lipitor] 40 mg PO DAILY 10/13/17 Clopidogrel [Plavix] 75 mg PO DAILY 10/13/17 Clotrimazole/Betamethasone 1 appl TOP DAILY 10/13/17 [Lotrisone] Dexlansoprazole [Dexilant] 60 mg PO DAILY 10/13/17 Furosemide [Lasix] 40 mg PO DAILY 10/13/17 Metoprolol Tartrate [Lopressor] 25 mg PO Q12 10/13/17 SITagliptin [Januvia] 100 mg PO DAILY 10/13/17 - Allergies Allergies/Adverse Reactions: Allergies Allergy/AdvReac Type Severity Reaction Status Date / Time No Known Allergies Allergy Verified 10/12/17 20:37 Review of Systems ROS Statement: Except As Marked, All Systems Reviewed And Found Negative Constitutional: Negative for: Fever, Chills, Other (diaphoresis) Cardiovascular: Positive for: Chest Pain (left sided), Palpitations Respiratory: Negative for: Cough, Shortness of Breath, SOB with Exertion Neurological: Negative for: Dizziness Physical Exam - Reviewed Nursing Documentation Reviewed: Yes Vital Signs Reviewed: Yes - Physical Exam Appears: Positive for: No Acute Distress Head Exam: Positive for: ATRAUMATIC, NORMOCEPHALIC Skin: Positive for: Normal Color, Warm, Dry Eye Exam: Positive for: Normal appearance, EOMI, PERRL Neck: Positive for: Normal, Painless ROM, Supple Cardiovascular/Chest: Positive for: Regular Rate, Rhythm. Negative for: Murmur Respiratory: Positive for: Normal Breath Sounds. Negative for: Respiratory Distress Gastrointestinal/Abdominal: Positive for: Normal Exam, Soft. Negative for: Tenderness Back: Positive for: Normal Inspection. Negative for: L CVA Tenderness, R CVA Tenderness, Vertebral Tenderness Extremity: Positive for: Normal ROM. Negative for: Pedal Edema, Deformity Neurologic/Psych: Positive for: Alert, Oriented (x3). Negative for: Motor/ Sensory Deficits - Laboratory Results Result Diagrams: 10/12/17 22:10 10/12/17 22:10 - ECG ECG Rhythm: Positive for: Sinus Rhythm. Negative for: ST/T Changes Interpretation Of ECG: No Premature Atrial Complex (PACs) Rate: 82 O2 Sat by Pulse Oximetry: 98 (RA) Pulse Ox Interpretation: Normal Medical Decision Making Medical Decision Making: Time: 2209 Plan: Patient with significant cardiac history presenting with chest pain and palpitations --Concerend for possible cardiac involvement- ACS v. NSTEMI v. PTX v. PNA amongst other considerations -- BMP -- Troponin I -- CBC with differentials -- PTT -- Prothrombin Time Time: 2128 Plan: -- CXR Two Views -- Chronic Specialist -- EKG Attempted to reach to Dr. Agudelo. Case discussed with Dr. Mckenzie who agrees to admission for continuos cardiac monitoring, serial troponins given risk factors and age. Scribe Attestation: Documented by Paul Al acting as a scribe for Dr. Alvin Winchester MD. Provider Scribe Attestation: All medical record entries made by the Scribe were at my direction and personally dictated by me. I have reviewed the chart and agree that the record accurately reflects my personal performance of the history, physical exam, medical decision making, and the department course for this patient. I have also personally directed, reviewed, and agree with the discharge instructions and disposition. Disposition - Clinical Impression Clinical Impression: Chest pain - Patient ED Disposition Is Patient to be Admitted: Yes - Disposition Disposition Time: 23:23 Condition: FAIR
[2017-10-13] MEDS ORDERED: Metoprolol 1 mg/ml Inj IVP STA (00:10)
[2017-10-13] MEDS ORDERED: Metoprolol 1 mg/ml Inj IVP ONE (00:30)
[2017-10-13] MEDS ORDERED: Pantoprazole 40 MG in Sodium Chloride 0.9% 100 ML IVPB SCH (09:00)
--- NOTE | 2017-10-13 09:16 | CARD ---
APPROVED REPORT Date of service: 10/12/2017 EKG Measurement Heart [id number] <Conclusion> Sinus rhythm with premature atrial complexes Left axis deviation Abnormal ECG
[2017-10-13] MEDS: GlipiZIDE 5 mg SR Tab PO SCH (09:19)
[2017-10-13] MEDS: POLYETHYLENE GLYCOL 3350 17 GM/Dose PACKET PO SCH (09:20)
[2017-10-13] MEDS: Aspirin 325 mg EC Tablets PO SCH (09:32)
--- NOTE | 2017-10-13 10:33 | RAD ---
HISTORY: COMPARISON: No prior. TECHNIQUE: Chest PA and lateral FINDINGS: LINES AND TUBES: None. LUNG AND PLEURA: The lungs are hyperinflated and there is peribronchial thickening with chronic changes in both lungs. There is subsegmental atelectasis in the left lower lobe. No pleural effusion or pneumothorax. HEART AND MEDIASTINUM: There is mild cardiomegaly. Status post CABG with The hilar and mediastinal contours are within normal limits. SKELETAL STRUCTURES: The bony structures are within normal limits for the patient's age. VISUALIZED UPPER ABDOMEN: Normal. OTHER FINDINGS: None. IMPRESSION: No active pulmonary disease. COPD.
[2017-10-13] MEDS: Ranolazine 500 mg Extended Release Tablets PO SCH ×2 (13:02→21:40)
--- NOTE | 2017-10-13 15:06 | CP.PCM.CON ---
History of Present Illness - History of Present Illness History of Present Illness: Consultation for evaluation of chest pain / hx of CAD/CABG/ stents HPI: Zach is a 77-year-old male with past medical history significant for CAD status post CABG had multiple revascularizations in the past who was admitted in June with a non-ST elevation AR at which time it undergone an angioplasty and stenting of [place] left circumflex coronary artery which was acutely thrombosed as prior stents in the LAD and RCA which were patent at that time was recently seen in the office at which time his main complaint was fatigue and lethargy presented with complains of retrosternal pain had an episode early in the morning on Wednesday which resolved on its own after he went out for a walk and came back and subsequently had this vague burning/aching pain retrosternal in origin which would not resolve patient patient pain was associated with mild shortness of breath on presentation EKG showed no evidence of acute ST-T wave changes 2 sets of enzymes are essentially unremarkable right now he is clinically stable he denies any complaints and has been initiated on his home medications. Review of Systems - Review of Systems Systems not reviewed;Unavailable: Acuity of Condition - Constitutional Constitutional: As Per HPI - EENT Eyes: As Per HPI Ears: As Per HPI Nose/Mouth/Throat: As Per HPI - Cardiovascular Cardiovascular: As Per HPI - Respiratory Respiratory: As Per HPI - Gastrointestinal Gastrointestinal: As Per HPI - Genitourinary Genitourinary: As Per HPI - Reproductive: Male Reproductive:Male: As Per HPI - Musculoskeletal Musculoskeletal: As Per HPI - Integumentary Integumentary: As Per HPI - Neurological Neurological: As Per HPI - Psychiatric Psychiatric: As Per HPI - Endocrine Endocrine: As Per HPI - Hematologic/Lymphatic Hematologic: As Per HPI Past Patient History - Infectious Disease Hx of Infectious Diseases: None - Past Medical History & Family History Past Medical History?: Yes - Past Social History Smoking Status: Former Smoker - CARDIAC Hx Congestive Heart Failure: Yes Hx Hypercholesterolemia: Yes Hx Hypertension: Yes Hx Pacemaker: No - PULMONARY Hx Respiratory Disorders: No - NEUROLOGICAL Hx Neurological Disorder: Yes Hx Dizziness: Yes - HEENT Hx HEENT Problems: Yes 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; 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) - RENAL Hx Chronic Kidney Disease: No - ENDOCRINE/METABOLIC Hx Diabetes Mellitus Type 2: Yes - HEMATOLOGICAL/ONCOLOGICAL Hx Human Immunodeficiency Virus (HIV): No - INTEGUMENTARY Hx Dermatological Problems: No - MUSCULOSKELETAL/RHEUMATOLOGICAL Hx Musculoskeletal Disorders: Yes Hx Falls: No - GASTROINTESTINAL Hx Diverticulitis: Yes Hx Gastritis: Yes - GENITOURINARY/GYNECOLOGICAL Hx Genitourinary Disorders: No - PSYCHIATRIC Hx Psychophysiologic Disorder: No Hx Substance Use: No - SURGICAL HISTORY Hx Coronary Artery Bypass Graft: Yes (triple bypass) Hx Coronary Stent: Yes (x5-6) - ANESTHESIA Hx Anesthesia: Yes Hx Anesthesia Reactions: No Hx Malignant Hyperthermia: No Meds Allergies/Adverse Reactions: Allergies Allergy/AdvReac Type Severity Reaction Status Date / Time No Known Allergies Allergy Verified 10/12/17 20:37 - Medications Medications: Current Medications Aspirin (Ecotrin) 325 mg PO DAILY [facility] Last Admin: 10/13/17 09:32 Dose: 325 mg Atorvastatin Calcium (Lipitor) 40 mg PO HS [facility] Clopidogrel Bisulfate (Plavix) 75 mg PO DAILY [facility] Last Admin: 10/13/17 09:19 Dose: 75 mg Clotrimazole (Lotrimin 1% Cream) 1 applic TOP DAILY [facility] Last Admin: 10/13/17 13:02 Dose: 1 appl Ferrous Sulfate (Feosol) 325 mg PO DAILY [facility] Last Admin: 10/13/17 09:20 Dose: 325 mg Glipizide (Glucotrol Xl) 5 mg PO BRK [facility] Last Admin: 10/13/17 09:19 Dose: 5 mg Losartan Potassium (Cozaar) 25 mg PO DAILY [facility] Last Admin: 10/13/17 09:20 Dose: 25 mg Metoprolol Tartrate (Lopressor) 25 mg PO Q12 [facility] Last Admin: 10/13/17 09:23 Dose: 25 mg Pantoprazole Sodium (Protonix Inj) 40 mg IVP DAILY [facility] Last Admin: 10/13/17 09:21 Dose: 40 mg Polyethylene Glycol (Miralax) 17 gm PO DAILY [facility] Last Admin: 10/13/17 09:20 Dose: 17 gm Ranolazine (Ranexa) 1,000 mg PO Q12 [facility] Last Admin: 10/13/17 13:02 Dose: 1,000 mg Sitagliptin Phosphate (Januvia) 100 mg PO DAILY [facility] Last Admin: 10/13/17 09:18 Dose: 100 mg Physical Exam - Constitutional Appears: Well - Head Exam Head Exam: ATRAUMATIC, NORMAL INSPECTION, NORMOCEPHALIC - Eye Exam Eye Exam: EOMI, Normal appearance, PERRL Pupil Exam: NORMAL ACCOMODATION, PERRL - ENT Exam ENT Exam: Mucous Membranes Moist, Normal Exam - Neck Exam Neck exam: Positive for: Normal Inspection - Respiratory Exam Respiratory Exam: Clear to Auscultation Bilateral, NORMAL BREATHING PATTERN - Cardiovascular Exam Cardiovascular Exam: REGULAR RHYTHM - GI/Abdominal Exam GI & Abdominal Exam: Normal Bowel Sounds, Soft. absent: Tenderness - Extremities Exam Extremities exam: Positive for: normal inspection - Back Exam Back exam: NORMAL INSPECTION - Neurological Exam Neurological exam: Alert, CN II-XII Intact, Normal Gait, Oriented x3, Reflexes Normal - Psychiatric Exam Psychiatric exam: Normal Affect, Normal Mood - Skin Skin Exam: Dry, Intact, Normal Color, Warm Results - Vital Signs Recent Vital Signs: Last Vital Signs Temp 98.0 F 10/13/17 09:05 Pulse 74 10/13/17 09:23 Resp 14 10/13/17 09:05 BP 134/74 10/13/17 09:23 Pulse Ox 98 10/13/17 09:05 - Labs Result Diagrams: 10/12/17 22:10 10/12/17 22:10 Labs: Laboratory Results - last 24 hr 10/12/17 10/12/17 10/12/17 22:10 22:10 22:10 WBC 9.0 RBC 3.82 L Hgb 12.2 D Hct 36.6 MCV 95.9 H D MCH 32.0 H MCHC 33.3 RDW 14.4 Plt Count 268 D MPV 7.6 Neut % (Auto) 69.7 Lymph % (Auto) 14.7 L [place] % (Auto) 12.5 H Eos % (Auto) 2.4 Baso % (Auto) 0.7 Neut # (Auto) 6.3 Lymph # (Auto) 1.3 [place] # (Auto) 1.1 H Eos # (Auto) 0.2 Baso # (Auto) 0.1 PT 12.6 INR 1.1 APTT 24.3 L Sodium 140 Potassium 4.4 Chloride 104 Carbon Dioxide 20 L Anion Gap 20 BUN 27 H Creatinine 2.1 H Est GFR ( Amer) 37 Est GFR (Non-Af Amer) 31 POC Glucose (mg/dL) Random Glucose 68 L Calcium 11.0 H Troponin I 0.0140 NT-Pro-B Natriuret Pep 10/13/17 10/13/17 10/13/17 01:00 01:44 05:30 WBC RBC Hgb Hct MCV MCH MCHC RDW Plt Count MPV Neut % (Auto) Lymph % (Auto) [place] % (Auto) Eos % (Auto) Baso % (Auto) Neut # (Auto) Lymph # (Auto) [place] # (Auto) Eos # (Auto) Baso # (Auto) PT INR APTT Sodium Potassium Chloride Carbon Dioxide Anion Gap BUN Creatinine Est GFR ( Amer) Est GFR (Non-Af Amer) POC Glucose (mg/dL) 116 H Random Glucose Calcium Troponin I 0.0220 NT-Pro-B Natriuret Pep 392 10/13/17 10/13/17 07:35 13:03 WBC RBC Hgb Hct MCV MCH MCHC RDW Plt Count MPV Neut % (Auto) Lymph % (Auto) [place] % (Auto) Eos % (Auto) Baso % (Auto) Neut # (Auto) Lymph # (Auto) [place] # (Auto) Eos # (Auto) Baso # (Auto) PT INR APTT Sodium Potassium Chloride Carbon Dioxide Anion Gap BUN Creatinine Est GFR ( Amer) Est GFR (Non-Af Amer) POC Glucose (mg/dL) 82 120 H Random Glucose Calcium Troponin I NT-Pro-B Natriuret Pep Assessment & Plan (1) Chest pain Assessment and Plan: ACS ruled out with 2 enzymes repeat 3rd set of enzme echo telemetry asa, plavix, statin, bb, ranexa Status: Acute (2) Acute kidney injury Assessment and Plan: IVF hydration Status: Acute (3) Hypercholesterolemia Assessment and Plan: statins Status: Acute (4) CAD (coronary artery disease) Assessment and Plan: dapt bb statins ranexa nitrates echo Status: Chronic (5) CHF (congestive heart failure) Status: Chronic (6) S/P angioplasties Status: Chronic
--- NOTE | 2017-10-13 17:42 | CP.PCM.HP ---
History of Present Illness - History of Present Illness History of Present Illness: 77 yo M with PMH CAD, s/p CABG with multiple revascularizations, stenting in 2017 presented to ED with chest pain. Pt had complaining of intermittent palpitations, since yesterday. Patient reported palpitations were waxing and waning. Patient stated pain is not related to exertion nor associated with shortness of breath. Denies cough, fever, chills, diaphoresis and dizziness. PMD: Chinmay Villasen[facility] [employer]: Dr Agudelo PMH: CAD, HTN, preserved EF CHF Allergies: NKDA PSH: CABG (triple bypass 2000), Coronary Stent (x5-6), Balloon Angioplasty of LAD in-stent restore; Revasc/stent June 2017 Surgery for Cyst on the back FH: father had cancer Soc: former Smoker and alcohol user; no drugs Present on Admission - Present on Admission Any Indicators Present on Admission: No Review of Systems - Review of Systems All systems: reviewed and no additional remarkable complaints except - Cardiovascular Cardiovascular: Chest Pain Past Patient History - Infectious Disease Hx of Infectious Diseases: None - Past Medical History & Family History Past Medical History?: Yes - Past Social History Smoking Status: Former Smoker Alcohol: None Drugs: Denies - CARDIAC Hx Congestive Heart Failure: Yes Hx Hypercholesterolemia: Yes Hx Hypertension: Yes Hx Pacemaker: No - PULMONARY Hx Respiratory Disorders: No - NEUROLOGICAL Hx Neurological Disorder: Yes Hx Dizziness: Yes - HEENT Hx HEENT Problems: Yes 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; 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) - RENAL Hx Chronic Kidney Disease: No - ENDOCRINE/METABOLIC Hx Diabetes Mellitus Type 2: Yes - HEMATOLOGICAL/ONCOLOGICAL Hx Human Immunodeficiency Virus (HIV): No - INTEGUMENTARY Hx Dermatological Problems: No - MUSCULOSKELETAL/RHEUMATOLOGICAL Hx Musculoskeletal Disorders: Yes Hx Falls: No - GASTROINTESTINAL Hx Diverticulitis: Yes Hx Gastritis: Yes - GENITOURINARY/GYNECOLOGICAL Hx Genitourinary Disorders: No - PSYCHIATRIC Hx Psychophysiologic Disorder: No Hx Substance Use: No - SURGICAL HISTORY Hx Coronary Artery Bypass Graft: Yes (triple bypass) Hx Coronary Stent: Yes (x5-6) - ANESTHESIA Hx Anesthesia: Yes Hx Anesthesia Reactions: No Hx Malignant Hyperthermia: No Meds Allergies/Adverse Reactions: Allergies Allergy/AdvReac Type Severity Reaction Status Date / Time No Known Allergies Allergy Verified 10/12/17 20:37 Physical Exam - Constitutional Appears: No Acute Distress - Eye Exam Eye Exam: Normal appearance - ENT Exam ENT Exam: Mucous Membranes Moist - Respiratory Exam Respiratory Exam: Clear to Auscultation Bilateral, NORMAL BREATHING PATTERN - Cardiovascular Exam Cardiovascular Exam: REGULAR RHYTHM, +S1, +S2 - GI/Abdominal Exam GI & Abdominal Exam: Normal Bowel Sounds - Extremities Exam Extremities exam: Positive for: normal inspection - Back Exam Back exam: NORMAL INSPECTION - Neurological Exam Neurological exam: Alert, Oriented x3 - Skin Skin Exam: Normal Color, Warm Results - Vital Signs Recent Vital Signs: Last Vital Signs Temp 98.0 F 10/13/17 09:05 Pulse 74 10/13/17 09:23 Resp 14 10/13/17 09:05 BP 134/74 10/13/17 09:23 Pulse Ox 98 10/13/17 09:05 - Labs Result Diagrams: 10/12/17 22:10 10/12/17 22:10 Labs: Laboratory Results - last 24 hr 10/12/17 10/12/17 10/12/17 22:10 22:10 22:10 WBC 9.0 RBC 3.82 L Hgb 12.2 D Hct 36.6 MCV 95.9 H D MCH 32.0 H MCHC 33.3 RDW 14.4 Plt Count 268 D MPV 7.6 Neut % (Auto) 69.7 Lymph % (Auto) 14.7 L [place] % (Auto) 12.5 H Eos % (Auto) 2.4 Baso % (Auto) 0.7 Neut # (Auto) 6.3 Lymph # (Auto) 1.3 [place] # (Auto) 1.1 H Eos # (Auto) 0.2 Baso # (Auto) 0.1 PT 12.6 INR 1.1 APTT 24.3 L Sodium 140 Potassium 4.4 Chloride 104 Carbon Dioxide 20 L Anion Gap 20 BUN 27 H Creatinine 2.1 H Est GFR ( Amer) 37 Est GFR (Non-Af Amer) 31 POC Glucose (mg/dL) Random Glucose 68 L Calcium 11.0 H Troponin I 0.0140 NT-Pro-B Natriuret Pep 10/13/17 10/13/17 10/13/17 01:00 01:44 05:30 WBC RBC Hgb Hct MCV MCH MCHC RDW Plt Count MPV Neut % (Auto) Lymph % (Auto) [place] % (Auto) Eos % (Auto) Baso % (Auto) Neut # (Auto) Lymph # (Auto) [place] # (Auto) Eos # (Auto) Baso # (Auto) PT INR APTT Sodium Potassium Chloride Carbon Dioxide Anion Gap BUN Creatinine Est GFR ( Amer) Est GFR (Non-Af Amer) POC Glucose (mg/dL) 116 H Random Glucose Calcium Troponin I 0.0220 NT-Pro-B Natriuret Pep 392 10/13/17 10/13/17 10/13/17 07:35 13:03 15:55 WBC RBC Hgb Hct MCV MCH MCHC RDW Plt Count MPV Neut % (Auto) Lymph % (Auto) [place] % (Auto) Eos % (Auto) Baso % (Auto) Neut # (Auto) Lymph # (Auto) [place] # (Auto) Eos # (Auto) Baso # (Auto) PT INR APTT Sodium Potassium Chloride Carbon Dioxide Anion Gap BUN Creatinine Est GFR ( Amer) Est GFR (Non-Af Amer) POC Glucose (mg/dL) 82 120 H 116 H Random Glucose Calcium Troponin I NT-Pro-B Natriuret Pep Assessment & Plan - Assessment and Plan (Free Text) Plan: - admit to tele - cardiology consult - Dr Agudelo - trend troponins Q8 hrs - resume home meds - rest of plan as ordered
[2017-10-13] MEDS: Sodium Chloride 0.9% 1,000 ML IV SCH (18:24)
--- NOTE | 2017-10-13 20:54 | CARD ---
APPROVED REPORT Date of service: 10/13/2017 EXAM: Two-dimensional and M-mode echocardiogram with Doppler and color Doppler. Other Information Quality : AverageRhythm : NSR INDICATION Chest Pain Surgery/Intervention CABD DIMENSIONS IVSd1.05 (0.7-1.1cm)LVDd4.49 (3.9-5.9cm) LVOT Diameter1.98 (1.8-2.4cm)PWd0.84 (0.7-1.1cm) IVSs1.22 (0.8-1.2cm)LVDs2.95 (2.5-4.0cm) FS (%) 34.3 %PWs1.06 (0.8-1.2cm) M-Mode DIMENSIONS Left Atrium (MM)4.06 (2.5-4.0cm)IVSd0.85 (0.7-1.1cm) Aortic Root3.21 (2.2-3.7cm)LVDd5.53 (4.0-5.6cm) Aortic Cusp Exc.2.03 (1.5-2.0cm)PWd0.79 (0.7-1.1cm) IVSs1.00 cmFS (%) 22 % LVDs4.29 (2.0-3.8cm)PWs1.18 cm Aortic Valve AoV Peak Bykamnvs652.5cm/sAoV VTI21.4cmAO Peak GR.4mmHg LVOT Peak Sdekpgbm92.0cm/sLVOT VTI20.47cmAO Mean GR.2mmHg HANSEL (VMAX)1.79wx2VFE (VTI)1.54cm2 Mitral Valve MV E Rgpbxuul58.2cm/sMV DECEL [id number] A Pevjvroi94.9cm/s MV JRF091spI/A ratio0.6MVA (PHT)2.08cm2 TDI Lateral E' Peak V6.84cm/sMedial E' Peak V4.64cm/sE/Lateral E'8.1 E/Medial E'11.9 Pulmonary Valve PV Peak Qcicqwhq92.0cm/s LEFT VENTRICLE The left ventricle is normal size. There is normal left ventricular wall thickness. The left ventricular function is normal. The left ventricular ejection fraction is within the normal range with EF 55%. No regional wall motion abnormalities noted. Transmitral Doppler flow pattern is Grade I-abnormal relaxation pattern. No left ventricle thrombus noted on this study. There is no ventricular septal defect visualized. There is no left ventricular aneurysm. There is no mass noted in the left ventricle. RIGHT VENTRICLE The right ventricle is normal size. There is normal right ventricular wall thickness. The right ventricular systolic function is normal. ATRIA The left atrium is mildly dilated. The right atrium size is normal. The interatrial septum is intact with no evidence for an atrial septal defect. AORTIC VALVE The aortic valve is normal in structure. No aortic regurgitation is present. There is no aortic valvular stenosis. There is no aortic valvular vegetation. MITRAL VALVE The mitral valve is normal in structure. There is no evidence of mitral valve prolapse. There is no mitral valve stenosis. Mitral regurgitation is trace to mild. TRICUSPID VALVE The tricuspid valve is normal in structure. There is no tricuspid valve regurgitation noted. There is no tricuspid valve prolapse or vegetation. There is no tricuspid valve stenosis. PULMONIC VALVE The pulmonary valve is normal in structure. There is no pulmonic valvular regurgitation. There is no pulmonic valvular stenosis. GREAT VESSELS The aortic root is normal in size. The ascending aorta is normal in size. The pulmonary artery is normal. The IVC is normal in size and collapses >50% with inspiration. PERICARDIAL EFFUSION There is a trace circumferential pericardial effusion. There is no pleural effusion. <Conclusion> The left ventricular ejection fraction is within the normal range with EF 55%. Transmitral Doppler flow pattern is Grade I-abnormal relaxation pattern. Mitral regurgitation is trace to mild. The left atrium is mildly dilated.
[2017-10-14] MEDS: Sodium Chloride 0.9% 1,000 ML IV SCH (04:47)
[2017-10-14 05:32] LABS: BASO # 0.1 K/uL (0.0-0.2); BASO % 0.7 % (0.0-2.0); EOS # 0.2 K/uL (0.0-0.7); EOS % 3.1 % (0.0-4.0); HEMOGLOBIN 11.7 g/dL (12.0-18.0); LYMPH # 1.1 K/uL (1.0-4.3); LYMPH % 14.7 % (20.0-40.0); MEAN CELL VOLUME 95.9 fl (80.0-94.0); MEAN CORPUSCULAR HEMOGLOBIN 31.9 pg (27.0-31.0); MEAN CORPUSCULAR HGB CONC 33.3 g/dL (33.0-37.0); MEAN PLATELET VOLUME 7.4 fl (7.2-11.7); MONO % 13.2 % (0.0-10.0); NEUT # 5.1 K/uL (1.8-7.0); NEUT % 68.3 % (50.0-75.0); RBC 3.67 Mil/uL (4.40-5.90); RED CELL DISTRIBUTION WIDTH 14.3 % (11.5-14.5); WHITE BLOOD COUNT 7.5 K/uL (4.8-10.8)
[2017-10-14 07:08] LABS: ALB/GLOB RATIO 1.3 (1.0-2.1); ALBUMIN 3.9 g/dL (3.5-5.0); CALCIUM 10.2 mg/dL (8.4-10.2)
[2017-10-14 08:26] VITALS: RESP 20; TEMP 97.9
[2017-10-14] MEDS: Aspirin 325 mg EC Tablets PO SCH (08:40)
[2017-10-14] MEDS: Ranolazine 500 mg Extended Release Tablets PO SCH (08:40)
[2017-10-14] MEDS: GlipiZIDE 5 mg SR Tab PO SCH (08:40)
[2017-10-14] MEDS: POLYETHYLENE GLYCOL 3350 17 GM/Dose PACKET PO SCH (08:43)
--- NOTE | 2017-10-14 09:34 | CP.PCM.PN ---
Subjective - Date & Time of Evaluation Date of Evaluation: 10/14/17 Time of Evaluation: 09:32 - Subjective Subjective: Echo shows normal LVEF enzymes -ve epigastric discomfort Objective - Vital Signs/Intake and Output Vital Signs (last 24 hours): Temp Pulse Resp BP Pulse Ox 97.9 F 56 L 20 133/69 96 10/14/17 08:00 10/14/17 08:00 10/14/17 08:00 10/14/17 08:00 10/14/17 08:00 - Medications Medications: Current Medications Aspirin (Ecotrin) 325 mg PO DAILY [facility] Last Admin: 10/14/17 08:40 Dose: 325 mg Atorvastatin Calcium (Lipitor) 40 mg PO HS [facility] Last Admin: 10/13/17 21:40 Dose: 40 mg Clopidogrel Bisulfate (Plavix) 75 mg PO DAILY [facility] Last Admin: 10/14/17 08:40 Dose: 75 mg Clotrimazole (Lotrimin 1% Cream) 1 applic TOP DAILY [facility] Last Admin: 10/14/17 08:40 Dose: 1 appl Ferrous Sulfate (Feosol) 325 mg PO DAILY [facility] Last Admin: 10/14/17 08:40 Dose: 325 mg Glipizide (Glucotrol Xl) 5 mg PO BRK [facility] Last Admin: 10/14/17 08:40 Dose: 5 mg Sodium Chloride (Sodium Chloride 0.9%) 1,000 mls @ 100 mls/hr IV .Q10H [facility] Stop: 10/14/17 18:11 Last Admin: 10/14/17 04:47 Dose: 100 mls/hr Losartan Potassium (Cozaar) 25 mg PO DAILY [facility] Last Admin: 10/14/17 08:40 Dose: 25 mg Metoprolol Tartrate (Lopressor) 25 mg PO Q12 [facility] Last Admin: 10/14/17 08:40 Dose: 25 mg Pantoprazole Sodium (Protonix Inj) 40 mg IVP DAILY [facility] Last Admin: 10/14/17 08:39 Dose: 40 mg Polyethylene Glycol (Miralax) 17 gm PO DAILY [facility] Last Admin: 10/14/17 08:43 Dose: 17 gm Ranolazine (Ranexa) 1,000 mg PO Q12 [facility] Last Admin: 10/14/17 08:40 Dose: 1,000 mg Sitagliptin Phosphate (Januvia) 100 mg PO DAILY [facility] Last Admin: 10/14/17 08:40 Dose: 100 mg - Labs Labs: 10/14/17 05:10 10/14/17 05:10 PT 12.6 Seconds (9.8-13.1) 10/12/17 22:10 INR 1.1 10/12/17 22:10 APTT 24.3 Seconds (25.6-37.1) L 10/12/17 22:10 - Constitutional Appears: Well - Head Exam Head Exam: ATRAUMATIC, NORMAL INSPECTION, NORMOCEPHALIC - Eye Exam Eye Exam: EOMI, Normal appearance, PERRL Pupil Exam: NORMAL ACCOMODATION, PERRL - ENT Exam ENT Exam: Mucous Membranes Moist, Normal Exam - Neck Exam Neck Exam: Full ROM, Normal Inspection. absent: Lymphadenopathy - Respiratory Exam Respiratory Exam: Clear to Ausculation Bilateral, NORMAL BREATHING PATTERN - Cardiovascular Exam Cardiovascular Exam: REGULAR RHYTHM, +S1, +S2, Murmur - GI/Abdominal Exam GI & Abdominal Exam: Soft, Normal Bowel Sounds. absent: Tenderness - Extremities Exam Extremities Exam: Full ROM, Normal Capillary Refill, Normal Inspection. absent : Joint Swelling, Pedal Edema - Back Exam Back Exam: NORMAL INSPECTION - Neurological Exam Neurological Exam: Alert, Awake, CN II-XII Intact, Normal Gait, Oriented x3 - Psychiatric Exam Psychiatric exam: Normal Affect, Normal Mood - Skin Skin Exam: Dry, Intact, Normal Color, Warm Assessment and Plan (1) Chest pain Assessment & Plan: ACS ruled out with enzymes x 3 echo shows normal LVEF Status: Acute (2) Acute kidney injury Assessment & Plan: Cr 2.1 to 1.7 Gentle IVF hydration Status: Acute (3) Hypercholesterolemia Assessment & Plan: statins Status: Acute (4) CAD (coronary artery disease) Status: Chronic (5) CHF (congestive heart failure) Status: Chronic (6) S/P angioplasties Status: Chronic
[2017-10-14 12:58] VITALS: BP 145/92; PULSE 65; O2SAT 98
--- NOTE | 2017-10-14 13:47 | CP.PCM.DIS ---
Provider - Provider Date of Admission: 10/12/17 23:23 Attending physician: Wolf Mckenzie MD Primary care physician: Hamilton Mcknight MD Consults: cardiology - Dr. Agudelo Time Spent in preparation of Discharge (in minutes): 30 Diagnosis - Discharge Diagnosis (1) Acid reflux Status: Acute (2) Chest pain Status: Acute Hospital Course - Lab Results Lab Results: Most Recent Lab Values WBC 7.5 K/uL (4.8-10.8) 10/14/17 05:10 RBC 3.67 Mil/uL (4.40-5.90) L 10/14/17 05:10 Hgb 11.7 g/dL (12.0-18.0) L 10/14/17 05:10 Hct 35.2 % (35.0-51.0) 10/14/17 05:10 MCV 95.9 fl (80.0-94.0) H 10/14/17 05:10 MCH 31.9 pg (27.0-31.0) H 10/14/17 05:10 MCHC 33.3 g/dL (33.0-37.0) 10/14/17 05:10 RDW 14.3 % (11.5-14.5) 10/14/17 05:10 Plt Count 234 K/uL (130-400) 10/14/17 05:10 MPV 7.4 fl (7.2-11.7) 10/14/17 05:10 Neut % (Auto) 68.3 % (50.0-75.0) 10/14/17 05:10 Lymph % (Auto) 14.7 % (20.0-40.0) L 10/14/17 05:10 [place] % (Auto) 13.2 % (0.0-10.0) H 10/14/17 05:10 Eos % (Auto) 3.1 % (0.0-4.0) 10/14/17 05:10 Baso % (Auto) 0.7 % (0.0-2.0) 10/14/17 05:10 Neut # (Auto) 5.1 K/uL (1.8-7.0) 10/14/17 05:10 Lymph # (Auto) 1.1 K/uL (1.0-4.3) 10/14/17 05:10 [place] # (Auto) 1.0 K/uL (0.0-0.8) H 10/14/17 05:10 Eos # (Auto) 0.2 K/uL (0.0-0.7) 10/14/17 05:10 Baso # (Auto) 0.1 K/uL (0.0-0.2) 10/14/17 05:10 PT 12.6 Seconds (9.8-13.1) 10/12/17 22:10 INR 1.1 10/12/17 22:10 APTT 24.3 Seconds (25.6-37.1) L 10/12/17 22:10 Sodium 139 mmol/l (132-148) 10/14/17 05:10 Potassium 4.4 MMOL/L (3.6-5.0) 10/14/17 05:10 Chloride 105 mmol/L (98-107) 10/14/17 05:10 Carbon Dioxide 25 mmol/L (22-30) 10/14/17 05:10 Anion Gap 13 (10-20) 10/14/17 05:10 BUN 23 mg/dl (9-20) H 10/14/17 05:10 Creatinine 1.7 mg/dl (0.8-1.5) H 10/14/17 05:10 Est GFR ( Amer) 47 10/14/17 05:10 Est GFR (Non-Af Amer) 39 10/14/17 05:10 POC Glucose (mg/dL) 101 mg/dL (65-110) 10/14/17 11:22 Random Glucose 76 mg/dL (75-110) 10/14/17 05:10 Hemoglobin A1c 6.0 % (4.2-6.5) 10/14/17 05:10 Calcium 10.2 mg/dL (8.4-10.2) 10/14/17 05:10 Total Bilirubin 0.6 mg/dl (0.2-1.3) 10/14/17 05:10 AST 22 U/L (17-59) 10/14/17 05:10 ALT 23 U/L (21-72) 10/14/17 05:10 Alkaline Phosphatase 79 U/L (38-126) 10/14/17 05:10 Troponin I 0.0200 ng/mL (0.00-0.120) 10/13/17 21:00 NT-Pro-B Natriuret Pep 392 pg/ml (0-900) 10/13/17 01:00 Total Protein 6.8 G/DL (6.3-8.2) 10/14/17 05:10 Albumin 3.9 g/dL (3.5-5.0) 10/14/17 05:10 Globulin 2.9 gm/dL (2.2-3.9) 10/14/17 05:10 Albumin/Globulin Ratio 1.3 (1.0-2.1) 10/14/17 05:10 - Hospital Course Hospital Course: 77 yo M with PMH CAD, s/p CABG with multiple revascularizations, stenting in 2017 presented to ED with chest pain. Pt had complaining of intermittent palpitations, since day prior to admission. ACS was r/o with 3 negative troponins; EKG showed NSR without ST changes. Cardiology was consulted - echo was done and showed EF of 55%. Pt seen/examined with Dr. Mckenzie this am. No acute events overnight, was comfortably resting in bed; reported pain subsided. Pt will be discharged home, and is to follow up with his primary care dr and possibly GI specialist for acid reflux symptoms. Discharge Exam - Head Exam Head Exam: ATRAUMATIC, NORMAL INSPECTION, NORMOCEPHALIC - Eye Exam Eye Exam: EOMI, Normal appearance - ENT Exam ENT Exam: Mucous Membranes Moist - Respiratory Exam Respiratory Exam: Clear to PA & Lateral, NORMAL BREATHING PATTERN - Cardiovascular Exam Cardiovascular Exam: REGULAR RHYTHM, +S1, +S2 - GI/Abdominal Exam GI & Abdominal Exam: Normal Bowel Sounds, Soft - Extremities Exam Extremities exam: normal inspection - Neurological Exam Neurological exam: Alert, Oriented x3 - Psychiatric Exam Psychiatric exam: Normal Mood - Skin Skin Exam: Normal Color, Warm Discharge Plan - Discharge Medications Prescriptions: Famotidine [Pepcid] 20 mg PO DAILY #60 tab Pantoprazole [Protonix] 40 mg PO BID #60 ect - Follow Up Plan Condition: FAIR Disposition: HOME/ ROUTINE Instructions: Chest Pain (DC) Additional Instructions: pt. cleared for discharge to Home today by , E rx for ppi sent to [facility] pharmacy\ f/u with Pmd in 1 week\ Referrals: Hamilton Mcknight MD [Family Provider] -
== END 2017-10-14 13:43 | disposition home or self-care (01) ==
LOC: H.ER 20:32 → UNDOADMOB 23:23 → H.ERHOLD 23:23 → H.TEL 10-13 18:45
PROVIDERS: ADMIT Family Medicine; ATTEND Family Medicine
DX: K21.9 Gastro-esophageal reflux disease without esophagitis (principal); R07.9 Chest pain, unspecified; N17.9 Acute kidney failure, unspecified; I25.10 Atherosclerotic heart disease of native coronary artery without angina pectoris; Z95.1 Presence of aortocoronary bypass graft; Z95.5 Presence of coronary angioplasty implant and graft; Z87.891 Personal history of nicotine dependence; H91.92 Unspecified hearing loss, left ear; E78.00 Pure hypercholesterolemia, unspecified; E11.9 Type 2 diabetes mellitus without complications; I11.0 Hypertensive heart disease with heart failure; I25.2 Old myocardial infarction; K29.70 Gastritis, unspecified, without bleeding; I50.32 Chronic diastolic (congestive) heart failure
CPT/HCPCS: 36415; 71046; 80048; 80053; 82948; 83036; 83880; 84484; 85025; 85610; 85730; 93005; 93306; 96374; 99285; C9113; G0378; J7030